=== PATIENT | male | born 1970 | race Two or more races ===

== ENCOUNTER 2018-07-10 11:51 | Emergency (ER) | payer MEDICAID ==
[~2018-07-10] VITALS: Ht 170.2 cm; Wt 79.5 kg
[2018-07-10] MEDS ORDERED: ondansetron/PF 4mg/2ml inj IV ONE (12:10)
[2018-07-10] MEDS ORDERED: normal saline 1000ML IV soln IVB ONE ×2 (12:10→13:30)
[2018-07-10] MEDS ORDERED: HYDROmorphone 1 mg/ml syringe IV ONE ×2 (12:15→13:30)
[2018-07-10 12:42] LABS: BASOPHILS # (AUTO) 0.1 X10'3 (0-0.2); BASOPHILS % (AUTO) 0.9 % (0-1); EOSINOPHILS # (AUTO) 0.2 X10'3 (0-0.9); EOSINOPHILS % (AUTO) 1.3 % (0-6); HEMATOCRIT 54.6 % (42.0-52.0); LYMPHOCYTES # (AUTO) 3.3 X10'3 (1.1-4.8); LYMPHOCYTES % (AUTO) 24.1 % (21-51); MEAN CORPUSCULAR HEMOGLOBIN 32.5 PG (27.0-31.0); MEAN CORPUSCULAR VOLUME 95.5 FL (78-98); MEAN PLATELET VOLUME 8.7 FL (7.4-10.4); MONOCYTES # (AUTO) 0.7 X10'3 (0-0.9); MONOCYTES % (AUTO) 5.1 % (2-12); NEUTROPHILS # (AUTO) 9.4 X10'3 (1.8-7.7); NEUTROPHILS % (AUTO) 68.6 % (42-75); PLATELET COUNT 299 X10'3 (140-440); RED BLOOD COUNT 5.71 X10'6 (4.70-6.10); RED CELL DISTRIBUTION WIDTH 12.5 % (11.5-14.5); WHITE BLOOD COUNT 13.6 X10'3 (4.5-11.0)
[2018-07-10 12:50] LABS: HEMOGLOBIN 18.6 g/dl (14.0-17.9)
[2018-07-10 12:52] LABS: ALANINE AMINOTRANSFERASE 30 U/L (12-78); ALBUMIN 4.6 G/DL (3.4-5.0); ALBUMIN/GLOBULIN RATIO 1.2 (1.1-1.5); ALKALINE PHOSPHATASE 96 IU/L (46-116); ANION GAP 17 (8-16); ASPARTATE AMINO TRANSFERASE 15 U/L (10-37); BILIRUBIN,TOTAL 1.1 MG/DL (0.1-1.0); BLOOD UREA NITROGEN 16 MG/DL (7-18); BUN/CREATININE RATIO 16.7 (5.4-32.0); CALCIUM 10.3 MG/DL (8.5-10.1); CHLORIDE 97 MMOL/L (99-107); CREATININE 0.96 MG/DL (0.60-1.10); GLUCOSE 376 MG/DL (70-104); LIPASE 82 U/L (73-393); POTASSIUM 4.1 MMOL/L (3.5-5.1); SODIUM 137 MMOL/L (135-145); TOTAL CARBON DIOXIDE 23.5 MMOL/L (24-32); TOTAL PROTEIN 8.3 G/DL (6.4-8.2); eGFR 84 ML/MIN
[2018-07-10] MEDS ORDERED: metoclopramide 5 mg/ml inj IV ONE (13:30)
[2018-07-10 14:21] LABS: CLARITY,URINE CLEAR (Clear); COLOR,URINE YELLOW (Yellow); GLUCOSE, URINE >=1000 mg/dl (Neg); KETONES,URINE >=80 mg/dl (Neg); LEUKOCYTE ESTERASE ,URINE NEGATIVE (Neg); NITRITES, URINE NEGATIVE (Neg); OCCULT BLOOD,URINE TRACE-INTACT (Neg); PROTEIN,URINE NEGATIVE (Neg); UA COLLECTION TYPE NON-SPECIFIED; UROBILINOGEN,URINE 0.2 E.U/dL (0.2-1.0)
[2018-07-10 14:30] LABS: BACTERIA,URINE NONE SEEN /HPF (Neg); MUCUS STRANDS NONE SEEN /LPF (Neg); RBC,URINE 0-2 /HPF (0-2); SQUAMOUS EPITHELIAL CELL,UR NONE SEEN /LPF (FEW); WBC,URINE NONE SEEN /HPF (0-4)
[2018-07-10 14:31] LABS: URINE AMPHETAMINE SCREEN NEGATIVE (Neg); URINE BARBITUATE SCREEN NEGATIVE (Neg); URINE BENZODIAZEPINES SCREEN NEGATIVE (Neg); URINE CANNABINOID SCREEN POSITIVE (Neg); URINE COCAINE SCREEN NEGATIVE (Neg); URINE METHADONE SCREEN NEGATIVE (Neg); URINE OPIATE SCREEN POSITIVE (Neg); URINE PHENCYCLIDINE SCREEN NEGATIVE (Neg)
[2018-07-10] MEDS ORDERED: insulin regular, human 10 units/0.1 ml syringe IV ONE (14:35)
[2018-07-10 15:40] VITALS: BP 120/70
== END 2018-07-10 15:42 | disposition home or self-care (01) ==
LOC: ER 11:51
DX: R11.2 Nausea with vomiting, unspecified (principal); R10.13 Epigastric pain; E11.65 Type 2 diabetes mellitus with hyperglycemia; F12.10 Cannabis abuse, uncomplicated; E11.43 Type 2 diabetes mellitus with diabetic autonomic (poly)neuropathy; K31.84 Gastroparesis; Z88.0 Allergy status to penicillin; Z88.8 Allergy status to other drugs, medicaments and biological substances
CPT/HCPCS: 36415; 71045; 74176; 80053; 80305; 81001; 82948; 83690; 85025; 85610; 96361; 96374; 96375; 96376; 99284; J1170; J1815; J2405; J2765; J7030

== ENCOUNTER 2018-08-08 13:37 | Emergency (ER) | payer MEDICAID ==
[~2018-08-08] VITALS: Ht 170.2 cm; Wt 76.8 kg
[2018-08-08 14:34] LABS: BASOPHILS # (AUTO) 0.1 X10'3 (0-0.2); BASOPHILS % (AUTO) 0.5 % (0-1); EOSINOPHILS % (AUTO) 0.2 % (0-6); HEMATOCRIT 53.6 % (42.0-52.0); HEMOGLOBIN 17.9 g/dl (14.0-17.9); LYMPHOCYTES # (AUTO) 2.5 X10'3 (1.1-4.8); LYMPHOCYTES % (AUTO) 21.8 % (21-51); MEAN CORPUSCULAR HEMOGLOBIN 32.3 PG (27.0-31.0); MEAN CORPUSCULAR HGB CONC 33.3 % (33.0-36.5); MEAN PLATELET VOLUME 8.9 FL (7.4-10.4); MONOCYTES # (AUTO) 0.5 X10'3 (0-0.9); MONOCYTES % (AUTO) 4.3 % (2-12); NEUTROPHILS # (AUTO) 8.4 X10'3 (1.8-7.7); NEUTROPHILS % (AUTO) 73.2 % (42-75); PLATELET COUNT 267 X10'3 (140-440); RED BLOOD COUNT 5.52 X10'6 (4.70-6.10); WHITE BLOOD COUNT 11.5 X10'3 (4.5-11.0)
[2018-08-08 14:49] LABS: ALANINE AMINOTRANSFERASE 27 U/L (12-78); ALBUMIN 4.6 G/DL (3.4-5.0); ALBUMIN/GLOBULIN RATIO 1.2 (1.1-1.5); ALKALINE PHOSPHATASE 97 IU/L (46-116); AMYLASE 28 U/L (25-115); ANION GAP 19 (8-16); ASPARTATE AMINO TRANSFERASE 8 U/L (10-37); BILIRUBIN,TOTAL 1.7 MG/DL (0.1-1.0); BLOOD UREA NITROGEN 15 MG/DL (7-18); BUN/CREATININE RATIO 16.3 (5.4-32.0); CALCIUM 9.7 MG/DL (8.5-10.1); CHLORIDE 94 MMOL/L (99-107); CREATININE 0.92 MG/DL (0.60-1.10); GLUCOSE 341 MG/DL (70-104); LIPASE 69 U/L (73-393); POTASSIUM 4.4 MMOL/L (3.5-5.1); SODIUM 134 MMOL/L (135-145); TOTAL CARBON DIOXIDE 21.4 MMOL/L (24-32); TOTAL PROTEIN 8.4 G/DL (6.4-8.2); eGFR 88 ML/MIN
[2018-08-08 14:51] LABS: PROTHROMBIN TIME 10.1 SECONDS (9.0-12.0)
[2018-08-08 14:59] LABS: CLARITY,URINE CLEAR (Clear); COLOR,URINE YELLOW (Yellow); PH,URINE 5.5 (4.8-8.0); PROTEIN,URINE NEGATIVE (Neg); UA COLLECTION TYPE CLN CATCH MIDSTREAM
[2018-08-08 15:00] LABS: GLUCOSE, URINE >=1000 mg/dl (Neg); KETONES,URINE >=80 mg/dl (Neg); LEUKOCYTE ESTERASE ,URINE NEGATIVE (Neg); NITRITES, URINE NEGATIVE (Neg); OCCULT BLOOD,URINE SMALL (Neg); UROBILINOGEN,URINE 0.2 E.U/dL (0.2-1.0)
[2018-08-08 15:07] LABS: WBC,URINE 0-4 /HPF (0-4)
[2018-08-08 15:08] LABS: BACTERIA,URINE NONE SEEN /HPF (Neg); MUCUS STRANDS FEW /LPF (Neg); SQUAMOUS EPITHELIAL CELL,UR NONE SEEN /LPF (FEW)
[2018-08-08] MEDS ORDERED: proCHLORperazine 10 MG/2 ml inj IV ONE (16:25)
[2018-08-08] MEDS ORDERED: morphine 4 MG/ML inj SYRINge IV PRN (16:25)
[2018-08-08] MEDS ORDERED: normal saline 1000ML IV soln IVB ONE ×2 (16:25)
[2018-08-08] MEDS ORDERED: LORazepam 2 mg/ml vial IV ONE (16:25)
[2018-08-08] MEDS ORDERED: morphine 4 MG/ML inj SYRINge IV ONE (16:25)
[2018-08-08] MEDS ORDERED: PROC-8 PO (17:39)
[2018-08-08 18:21] VITALS: BP 118/67
[2018-08-14] MEDS ORDERED: PANT-47 PO (02:13)
[2018-08-14] MEDS ORDERED: PHE25R PR (02:13)
[2018-08-14] MEDS ORDERED: METO-292 PO (03:55)
[2018-08-14] MEDS ORDERED: DOCU100C41 PO (03:58)
[2018-08-14] MEDS ORDERED: OMEP20TA5 PO (03:59)
[2018-08-14] MEDS ORDERED: LISI-642 PO (04:01)
[2018-08-14] MEDS ORDERED: ONDA4TAB6 PO (04:01)
[2018-08-14] MEDS ORDERED: LORA1TAB PO (04:02)
[2018-08-14] MEDS ORDERED: DULO20CA50 PO (04:03)
[2018-08-14] MEDS ORDERED: GABA600T2 PO (04:05)
[2018-08-14] MEDS ORDERED: SIMV10TA2 PO (04:05)
[2018-08-14] MEDS ORDERED: TERA1CAP4 PO (04:06)
[2018-08-14] MEDS ORDERED: INSU100V10 SQ (04:07)
[2018-08-14] MEDS ORDERED: LANTUS SQ (04:07)
[2018-08-15] MEDS ORDERED: NICO-687 TD (11:57)
[2018-08-15] MEDS ORDERED: HYDR-4383 PO (11:57)
== END 2018-08-08 18:23 | disposition home or self-care (01) ==
LOC: ER 13:37
DX: R10.13 Epigastric pain (principal); R10.33 Periumbilical pain; R11.2 Nausea with vomiting, unspecified; E78.00 Pure hypercholesterolemia, unspecified; I10 Essential (primary) hypertension; E11.9 Type 2 diabetes mellitus without complications; F12.90 Cannabis use, unspecified, uncomplicated; F17.200 Nicotine dependence, unspecified, uncomplicated; Z88.0 Allergy status to penicillin; Z88.8 Allergy status to other drugs, medicaments and biological substances
CPT/HCPCS: 36415; 71046; 80053; 81001; 82150; 82948; 83690; 85025; 85610; 96361; 96374; 96375; 96376; 99284; J0780; J2060; J2270; J7030

== ENCOUNTER 2018-08-10 11:40 | Emergency (ER) | payer MEDICAID ==
[~2018-08-10] VITALS: Ht 170.2 cm; Wt 79.5 kg
[~2018-08-10 11:40] MED LIST: PROC-8 PO
[2018-08-10] MEDS ORDERED: ketorolac trometh. 30mg/ml inj. IV ONE (12:05)
[2018-08-10] MEDS ORDERED: ondansetron/PF 4mg/2ml inj IV ONE (12:05)
[2018-08-10] MEDS ORDERED: normal saline 1000ML IV soln IVB ONE ×2 (12:05→12:30)
[2018-08-10 12:12] LABS: BASOPHILS # (AUTO) 0.1 X10'3 (0-0.2); BASOPHILS % (AUTO) 1.2 % (0-1); EOSINOPHILS # (AUTO) 0.1 X10'3 (0-0.9); EOSINOPHILS % (AUTO) 0.6 % (0-6); HEMATOCRIT 48.1 % (42.0-52.0); HEMOGLOBIN 16.2 g/dl (14.0-17.9); LYMPHOCYTES % (AUTO) 18.1 % (21-51); MEAN CORPUSCULAR HEMOGLOBIN 32.6 PG (27.0-31.0); MEAN CORPUSCULAR HGB CONC 33.7 % (33.0-36.5); MEAN PLATELET VOLUME 8.9 FL (7.4-10.4); MONOCYTES # (AUTO) 0.4 X10'3 (0-0.9); MONOCYTES % (AUTO) 3.2 % (2-12); NEUTROPHILS # (AUTO) 8.4 X10'3 (1.8-7.7); NEUTROPHILS % (AUTO) 76.9 % (42-75); PLATELET COUNT 241 X10'3 (140-440); RED BLOOD COUNT 4.96 X10'6 (4.70-6.10); RED CELL DISTRIBUTION WIDTH 12.1 % (11.5-14.5)
[2018-08-10 12:12] LABS: CLARITY,URINE CLEAR (Clear); COLOR,URINE YELLOW (Yellow); GLUCOSE, URINE >=1000 mg/dl (Neg); KETONES,URINE 40 mg/dl (Neg); LEUKOCYTE ESTERASE ,URINE NEGATIVE (Neg); NITRITES, URINE NEGATIVE (Neg); OCCULT BLOOD,URINE TRACE-INTACT (Neg); PH,URINE 8.5 (4.8-8.0); PROTEIN,URINE NEGATIVE (Neg); UROBILINOGEN,URINE 0.2 E.U/dL (0.2-1.0)
[2018-08-10 12:15] LABS: UA COLLECTION TYPE URINAL
[2018-08-10 12:23] LABS: MUCUS STRANDS NONE SEEN /LPF (Neg); SQUAMOUS EPITHELIAL CELL,UR FEW /LPF (FEW); WBC,URINE NONE SEEN /HPF (0-4)
[2018-08-10 12:24] LABS: BACTERIA,URINE NONE SEEN /HPF (Neg); RBC,URINE 0-2 /HPF (0-2); URINE AMPHETAMINE SCREEN NEGATIVE (Neg); URINE BARBITUATE SCREEN NEGATIVE (Neg); URINE BENZODIAZEPINES SCREEN NEGATIVE (Neg); URINE CANNABINOID SCREEN POSITIVE (Neg); URINE COCAINE SCREEN NEGATIVE (Neg); URINE METHADONE SCREEN NEGATIVE (Neg); URINE OPIATE SCREEN NEGATIVE (Neg); URINE PHENCYCLIDINE SCREEN NEGATIVE (Neg)
[2018-08-10 12:24] LABS: ALANINE AMINOTRANSFERASE 26 U/L (12-78); ALBUMIN/GLOBULIN RATIO 1.3 (1.1-1.5); ALKALINE PHOSPHATASE 78 IU/L (46-116); ANION GAP 16 (8-16); ASPARTATE AMINO TRANSFERASE 10 U/L (10-37); BILIRUBIN,TOTAL 0.9 MG/DL (0.1-1.0); BLOOD UREA NITROGEN 14 MG/DL (7-18); BUN/CREATININE RATIO 17.7 (5.4-32.0); CALCIUM 9.3 MG/DL (8.5-10.1); CHLORIDE 101 MMOL/L (99-107); CREATININE 0.79 MG/DL (0.60-1.10); GLUCOSE 363 MG/DL (70-104); LIPASE 80 U/L (73-393); POTASSIUM 3.5 MMOL/L (3.5-5.1); SODIUM 138 MMOL/L (135-145); TOTAL CARBON DIOXIDE 21.5 MMOL/L (24-32); TOTAL PROTEIN 7.2 G/DL (6.4-8.2); eGFR > 90 ML/MIN
[2018-08-10] MEDS ORDERED: LORazepam 2 mg/ml vial IV ONE (12:25)
[2018-08-10] MEDS ORDERED: haloperidol lactate 5mg/ml inj IM ONE (12:25)
[2018-08-10] MEDS ORDERED: HYDR-3965 PO (13:22)
[2018-08-10] MEDS ORDERED: METO10TA3 PO (13:22)
--- NOTE | 2018-08-10 14:17 | NUR ---
relieving RN for lunch, Dr Cervantes at bedside to talk with pt and family member
[2018-08-10 14:22] VITALS: BP 156/96
[2018-08-14] MEDS ORDERED: PHE25R PR (02:13)
[2018-08-14] MEDS ORDERED: PANT-47 PO (02:13)
[2018-08-14] MEDS ORDERED: METO-292 PO (03:55)
[2018-08-14] MEDS ORDERED: DOCU100C41 PO (03:58)
[2018-08-14] MEDS ORDERED: OMEP20TA5 PO (03:59)
[2018-08-14] MEDS ORDERED: LISI-642 PO (04:01)
[2018-08-14] MEDS ORDERED: ONDA4TAB6 PO (04:01)
[2018-08-14] MEDS ORDERED: LORA1TAB PO (04:02)
[2018-08-14] MEDS ORDERED: DULO20CA50 PO (04:03)
[2018-08-14] MEDS ORDERED: GABA600T2 PO (04:05)
[2018-08-14] MEDS ORDERED: SIMV10TA2 PO (04:05)
[2018-08-14] MEDS ORDERED: TERA1CAP4 PO (04:06)
[2018-08-14] MEDS ORDERED: INSU100V10 SQ (04:07)
[2018-08-14] MEDS ORDERED: LANTUS SQ (04:07)
== END 2018-08-10 14:25 | disposition home or self-care (01) ==
LOC: ER 11:41
DX: G43.A0 Cyclical vomiting, in migraine, not intractable (principal); R10.32 Left lower quadrant pain; R10.31 Right lower quadrant pain; F12.90 Cannabis use, unspecified, uncomplicated; E78.00 Pure hypercholesterolemia, unspecified; I10 Essential (primary) hypertension; E11.9 Type 2 diabetes mellitus without complications; F17.200 Nicotine dependence, unspecified, uncomplicated; Z88.0 Allergy status to penicillin; Z88.8 Allergy status to other drugs, medicaments and biological substances
CPT/HCPCS: 36415; 74176; 80053; 80305; 81001; 83690; 83930; 85025; 96361; 96372; 96374; 96375; 99284; J1630; J1885; J2060; J2405; J7030

== ENCOUNTER 2018-08-12 09:17 | Emergency (ER) | payer MEDICAID ==
[~2018-08-12] VITALS: Ht 170.2 cm; Wt 175.0 kg
[~2018-08-12 09:17] MED LIST changes: +HYDR-3965 PO; +METO10TA3 PO
[2018-08-12] MEDS ORDERED: LORazepam 2 mg/ml vial IV ONE (09:40)
[2018-08-12] MEDS ORDERED: normal saline 1000ML IV soln IVB ONE (09:40)
[2018-08-12 10:16] LABS: BASOPHILS % (AUTO) 0.4 % (0-1); EOSINOPHILS % (AUTO) 0 % (0-6); HEMATOCRIT 49.7 % (42.0-52.0); HEMOGLOBIN 16.8 g/dl (14.0-17.9); LYMPHOCYTES # (AUTO) 1.6 X10'3 (1.1-4.8); MEAN CORPUSCULAR HEMOGLOBIN 32.7 PG (27.0-31.0); MEAN CORPUSCULAR HGB CONC 33.7 % (33.0-36.5); MEAN CORPUSCULAR VOLUME 96.9 FL (78-98); MEAN PLATELET VOLUME 9.1 FL (7.4-10.4); MONOCYTES # (AUTO) 0.3 X10'3 (0-0.9); MONOCYTES % (AUTO) 2.6 % (2-12); NEUTROPHILS # (AUTO) 10.2 X10'3 (1.8-7.7); PLATELET COUNT 264 X10'3 (140-440); RED BLOOD COUNT 5.13 X10'6 (4.70-6.10); RED CELL DISTRIBUTION WIDTH 11.9 % (11.5-14.5); WHITE BLOOD COUNT 12.1 X10'3 (4.5-11.0)
[2018-08-12] MEDS ORDERED: ketorolac trometh. 30mg/ml inj. IV ONE (10:20)
--- NOTE | 2018-08-12 10:31 | NUR ---
PT C/O SEVERE BACK PAIN. DR FARR NOTIFIED AND MEDICATION ORDERED. PT NOTED TO BE SLEEPING AT TIME OF TORADOL ADMNISTERED.
[2018-08-12 11:06] LABS: ALANINE AMINOTRANSFERASE 30 U/L (12-78); ALBUMIN 3.9 G/DL (3.4-5.0); ALBUMIN/GLOBULIN RATIO 1.3 (1.1-1.5); ALKALINE PHOSPHATASE 75 IU/L (46-116); ANION GAP 15 (8-16); ASPARTATE AMINO TRANSFERASE 14 U/L (10-37); BILIRUBIN,TOTAL 1.1 MG/DL (0.1-1.0); BLOOD UREA NITROGEN 13 MG/DL (7-18); CALCIUM 8.7 MG/DL (8.5-10.1); CHLORIDE 102 MMOL/L (99-107); CREATININE 0.93 MG/DL (0.60-1.10); GLUCOSE 362 MG/DL (70-104); LIPASE 81 U/L (73-393); POTASSIUM 3.6 MMOL/L (3.5-5.1); SODIUM 141 MMOL/L (135-145); TOTAL CARBON DIOXIDE 24.1 MMOL/L (24-32); eGFR 87 ML/MIN
--- NOTE | 2018-08-12 11:26 | NUR ---
DR FARR NOTIFIED THAT PT WAS ASLEEP WHEN GIVEN TORADOL. PT HAS SINCE WOKEN UP AND C/O PAIN OF 8-04/20. DR FARR NOTIFIED, NO NEW ORDERS RECEIVED
[2018-08-12] MEDS ORDERED: morphine 2 MG/ML inj. syringe IV ONE (11:30)
[2018-08-12 11:37] LABS: CLARITY,URINE CLEAR (Clear); COLOR,URINE STRAW (Yellow); GLUCOSE, URINE >=1000 mg/dl (Neg); KETONES,URINE 40 mg/dl (Neg); LEUKOCYTE ESTERASE ,URINE NEGATIVE (Neg); NITRITES, URINE NEGATIVE (Neg); OCCULT BLOOD,URINE TRACE-LYSED (Neg); PH,URINE 8.5 (4.8-8.0); PROTEIN,URINE NEGATIVE (Neg); UROBILINOGEN,URINE 0.2 E.U/dL (0.2-1.0)
[2018-08-12 11:40] LABS: UA COLLECTION TYPE NON-SPECIFIED
[2018-08-12] MEDS ORDERED: insulin regular, human 10 units/0.1 ml syringe IV ONE (11:50)
[2018-08-12 11:54] LABS: BACTERIA,URINE FEW /HPF (Neg); SQUAMOUS EPITHELIAL CELL,UR FEW /LPF (FEW); WBC,URINE 0-4 /HPF (0-4)
[2018-08-12] MEDS ORDERED: ondansetron/PF 4mg/2ml inj IV ONE (11:55)
[2018-08-12] MEDS ORDERED: METO5TAB98 PO (11:58)
[2018-08-12] MEDS ORDERED: morphine 4 MG/ML inj SYRINge IV ONE ×2 (12:20→12:25)
--- NOTE | 2018-08-12 12:38 | NUR ---
PATIENTS ANSWERS QUESTIONS FOR HIM. PER HIS HIS BLOOD SUGAR IS "OUT OF CONTROL", VERY EVASIVE WHEN ASKED ABOUT HOW OFTEN HER HER CHECKS HIS BLOOD SUGAR: FINALLY SAID THAT "WHEN HE WANTS TO". PATIENT'S STATES THAT HE RUNS IN THE 400'S AND DOES NOT FOLLOW A DIABETIC DIET. DISCUSSED WITH THAT THE PATIENT NEEDS TO TRY TO GET HIS BLOOD SUGAR UNDER CONTROL TO HELP WITH HIS CURRENT SYMPTOMS OF NAUSEA AND VOMITING AND STOMACH PAIN. PER HIS THE LAST TIME HIS SUGAR WAS UNDER CONTROL WAS 4 YEARS AGO. ADMITS THAT PATIENT STOPPED BEING COMPLIANT WITH HIS DIABETES REGIME BECAUSE HE "WAS TIRED OF IT" WE DISCUSSED THE FACT THAT HER HAS TO HELP CONTROL HIS BLOOD SUGAR IN ORDER TO IMPROVE HIS CURRENT AND ONGOING SYMPTOMS. DR LEIJA AND I BOTH DISCUSSED STOPPING THE USE OF MARIJUANA DUE TO POTENTIAL CYCLICAL VOMITING SYNDROME. AGREES THAT HE NEEDS HIS SUGAR UNDER CONTROL.
--- NOTE | 2018-08-12 13:10 | NUR ---
WHEN I BROUGHT DISCHARGE PAPERS INTO THE ROOM , THE PATIENT'S ASKED IF THE BLUE PAPERS WERE FOR HIM. WHEN I STATED YES, THE PATIENT'S ASKED AND POINTED TO THE PATIENT'S STOMACH "WILL IT CAUSE THAT?" IASKED CAUSE WHAT? SHE POINTED TO THE AORTIC PULSATION IN HIS UPPER ABDOMEN, I EXPLAINED THE BASIC ANATOMY OF HEART AND AORTA AND STATED THAT THAT IS HIS HEARTBEAT. THEN HIS ASKED ABOUT THE BONE STICKING OUT OF HIS CHEST. I TOLD HER THAT IS THE BASE OF HIS STERNUM AND IT IS A NORMAL BONE. THE PATIENT SAID "I HAVE NEVER SEENTHAT BEFORE". I REASSURED HER THAT HIS STERNUM APPEARS NORMAL. NO BRUITS/THRILL OVER ABDOMEN. PATIENTS SAID " I GUESS ILL JUST BRING HIM BACK TO THE ER IF THIS HAPPENS AGAIN." I DISCUSSED AGAIN THE NEED FOR PRIMARY CARE FOLLOW UP AND FOR GETTING HIS BLOOD SUGAR UNDER CONTROL AND THAT STOPPING SMOKING MARIJUANA MAY HELP HIS SYMPTOMS IMPROVE
[2018-08-12 13:21] VITALS: BP 139/69
[2018-08-14] MEDS ORDERED: PHE25R PR (02:13)
[2018-08-14] MEDS ORDERED: PANT-47 PO (02:13)
[2018-08-14] MEDS ORDERED: METO-292 PO (03:55)
[2018-08-14] MEDS ORDERED: DOCU100C41 PO (03:58)
[2018-08-14] MEDS ORDERED: OMEP20TA5 PO (03:59)
[2018-08-14] MEDS ORDERED: ONDA4TAB6 PO (04:01)
[2018-08-14] MEDS ORDERED: LISI-642 PO (04:01)
[2018-08-14] MEDS ORDERED: LORA1TAB PO (04:02)
[2018-08-14] MEDS ORDERED: DULO20CA50 PO (04:03)
[2018-08-14] MEDS ORDERED: SIMV10TA2 PO (04:05)
[2018-08-14] MEDS ORDERED: GABA600T2 PO (04:05)
[2018-08-14] MEDS ORDERED: TERA1CAP4 PO (04:06)
[2018-08-14] MEDS ORDERED: INSU100V10 SQ (04:07)
[2018-08-14] MEDS ORDERED: LANTUS SQ (04:07)
[2018-08-15] MEDS ORDERED: NICO-687 TD (11:57)
[2018-08-15] MEDS ORDERED: HYDR-4383 PO (11:57)
== END 2018-08-12 13:25 | disposition home or self-care (01) ==
LOC: ER 09:17
DX: G43.A0 Cyclical vomiting, in migraine, not intractable (principal); E78.00 Pure hypercholesterolemia, unspecified; I10 Essential (primary) hypertension; E11.9 Type 2 diabetes mellitus without complications; F12.90 Cannabis use, unspecified, uncomplicated; Z88.0 Allergy status to penicillin; Z88.5 Allergy status to narcotic agent; Z88.8 Allergy status to other drugs, medicaments and biological substances; Z79.899 Other long term (current) drug therapy
CPT/HCPCS: 36415; 80053; 81001; 82140; 82948; 83690; 85025; 96361; 96374; 96375; 99283; J1815; J1885; J2060; J2270; J2405; J7030; 99284

== ENCOUNTER 2018-08-13 21:47 | Inpatient (IN) | payer MEDICAID | END 2018-08-15 12:48 | disposition home or self-care (01) | LOC: ER 21:47 → ED HOLD 08-14 03:10 → SUR 3N 08-14 07:36 ==

== ENCOUNTER 2018-09-23 15:25 | Emergency (ER) | payer MEDICAID ==
[~2018-09-23] VITALS: Ht 177.8 cm; Wt 77.3 kg
[~2018-09-23 15:25] MED LIST changes: +DOCU100C41 PO; +DULO20CA50 PO; +GABA600T13 PO; -HYDR-3965 PO; +HYDR-4383 PO; +INSU100V10 SQ; +LANTUS SQ; +LISI-642 PO; +LORA1TAB PO; +METO-292 PO; -METO10TA3 PO; +NICO-687 TD; +OMEP20TA5 PO; +ONDA4TAB6 PO; -PROC-8 PO; +SIMV10TA2 PO; +TERA1CAP4 PO
[2018-09-23] MEDS ORDERED: normal saline 1000ML IV soln IVB ONE (16:10)
[2018-09-23] MEDS ORDERED: LORazepam 2 mg/ml vial IV ONE (16:10)
[2018-09-23] MEDS ORDERED: proCHLORperazine 10 MG/2 ml inj IV ONE (16:10)
[2018-09-23 16:43] LABS: BASOPHILS % (AUTO) 0.4 % (0-1); EOSINOPHILS % (AUTO) 0 % (0-6); HEMATOCRIT 50.9 % (42.0-52.0); HEMOGLOBIN 17.7 g/dl (14.0-17.9); LYMPHOCYTES # (AUTO) 1.8 X10'3 (1.1-4.8); LYMPHOCYTES % (AUTO) 15.9 % (21-51); MEAN CORPUSCULAR HEMOGLOBIN 33.3 PG (27.0-31.0); MEAN CORPUSCULAR HGB CONC 34.9 g/dL (33.0-36.5); MEAN CORPUSCULAR VOLUME 95.5 FL (78-98); MEAN PLATELET VOLUME 8.5 FL (7.4-10.4); MONOCYTES # (AUTO) 0.3 X10'3 (0-0.9); NEUTROPHILS % (AUTO) 80.7 % (42-75); PLATELET COUNT 251 X10'3 (140-440); RED BLOOD COUNT 5.33 X10'6 (4.70-6.10); RED CELL DISTRIBUTION WIDTH 13.2 % (11.5-14.5); WHITE BLOOD COUNT 11.2 X10'3 (4.5-11.0)
[2018-09-23 16:58] LABS: ALANINE AMINOTRANSFERASE 24 U/L (12-78); ALBUMIN 4.3 G/DL (3.4-5.0); ALBUMIN/GLOBULIN RATIO 1.2 (1.1-1.5); ALKALINE PHOSPHATASE 85 IU/L (46-116); ANION GAP 19 (8-16); ASPARTATE AMINO TRANSFERASE 11 U/L (10-37); BILIRUBIN,TOTAL 1.2 MG/DL (0.1-1.0); BLOOD UREA NITROGEN 15 MG/DL (7-18); BUN/CREATININE RATIO 14.2 (5.4-32.0); CALCIUM 9.6 MG/DL (8.5-10.1); CHLORIDE 99 MMOL/L (99-107); CREATININE 1.06 MG/DL (0.60-1.10); GLUCOSE 340 MG/DL (70-104); LIPASE 56 U/L (73-393); POTASSIUM 3.5 MMOL/L (3.5-5.1); SODIUM 139 MMOL/L (135-145); TOTAL CARBON DIOXIDE 21.2 MMOL/L (24-32); TOTAL PROTEIN 7.9 G/DL (6.4-8.2); eGFR 74 ML/MIN
[2018-09-23] MEDS ORDERED: PROC25SU31 RC (17:08)
[2018-09-23] MEDS ORDERED: proCHLORperazine 10 MG/2 ml inj IV PRN (17:10)
--- NOTE | 2018-09-23 18:08 | NUR ---
Patients IV infiltrated, spoke with Stuart NUNEZ regarding this. Patients IV discontinued and PA states not to finish remainder of fluids. Patient ok to discharge. Patients IV site has slight swelling and cold to the touch at insertion site. Warm compress over left hand.
--- NOTE | 2018-09-23 18:39 | NUR ---
pt is dc ready. I went to the room to discharge him and he reported he is having 8-9 out of 10 pain to his left back. This is where he has been having pain all along. His appears very angry and said "What...diacharge...he can't be discharged like this". I updated her that I just received report from day shift RN who told me she just checked on him and he had just woken up from a nap and reported he felt better. I said i would update the Provider. Roxanna Horn, has left the department for a while and Dr. Florian is covering for him until he returns. I updated him and he will be in to see the Pt shortly. Pt and , Caterina, and son, updated of this. reports they have been dealing with this same problem for awhile and that they have been to ER 5 times in the past month and once he was admitted. She reports she is very upset about this and that no one has been able to figure out why this is going on. She did appoligize for getting so angry with me initially. Pt with stable vs.
--- NOTE | 2018-09-23 18:50 | NUR ---
TALKING WITH PT NOW AND PLAN TO GIVE IM FENTANYL, CHECK BLOOD SUGAR AND GIVE AN ORAL ANTIEMETIC. CURRENTLY MED WAIT.
[2018-09-23] MEDS ORDERED: metoclopramide 10mg tablet PO ONE (18:55)
[2018-09-23] MEDS ORDERED: fentaNYL/PF 50MCG/1 ML 2ML syringe IM ONE (18:55)
--- NOTE | 2018-09-23 19:33 | NUR ---
BLOOD SUGAR 278, REPORTS PT S SUGARS RUN IN THE LOW 200'S USUALLY. GIVEN FENTANYL 75 MCG AND REGLAN TABLET. PT REPROTS THE PAIN IS STARTING TO GO AWAY TO HIS LEFT FLANK BUT THAT THE SITE WHERE I INJECTED HIM ON HIS LEFT GLUT IS PAINFUL AFTER THE SHOT. , EMERITA, REPORTS SHE WILL NOT LET THE PT LEAVE THIS ER UNTIL HE IS COMFORTABLE.
[2018-09-23] MEDS ORDERED: insulin regular, human 10 units/0.1 ml syringe SQ ONE (19:40)
--- NOTE | 2018-09-23 20:06 | NUR ---
ENRIQUE GLASER, TALKINIG WITH PT AND HIS ABOUT DC AND THAT HE HAS NOTHING EMERGENT AT THIS POINT TO KEEP HIM HERE IN THE HOSPITAL. REMAINS VERY UPSET. FISHING GAME WARDEN, KESHIA, AWARE. PT GIVEN HUMALIN 10 U SQ.
[2018-09-23 20:11] VITALS: BP 130/80
--- NOTE | 2018-09-23 20:30 | NUR ---
PT GIVEN DC INSTRUCTIONS, REPORTS AFTER TALKING AT LENGTH WITH Roxanna PINA, THAT "I DON'T KNOW WHAT ELSE TO DO" . PT REPORTS "THEY HAVENT DONE ANYTHING TO HELP ME AND THEY WONT SO I WANT TO GO HOME". I ENCOURAGED TO CALL OUR PATIENT RELATIONS DEPARTMENT IN THE AM AND SHE REPORTS SHE HAS BEEN INTOUCH WITH THEM FROM PRIOR VISITS.
== END 2018-09-23 22:00 | disposition home or self-care (01) ==
LOC: ER 15:26
DX: G43.A0 Cyclical vomiting, in migraine, not intractable (principal); F12.188 Cannabis abuse with other cannabis-induced disorder; E78.00 Pure hypercholesterolemia, unspecified; I10 Essential (primary) hypertension; E11.9 Type 2 diabetes mellitus without complications; Z79.4 Long term (current) use of insulin; Z79.899 Other long term (current) drug therapy; Z88.0 Allergy status to penicillin; Z88.8 Allergy status to other drugs, medicaments and biological substances; Z88.6 Allergy status to analgesic agent; Z87.19 Personal history of other diseases of the digestive system
CPT/HCPCS: 36415; 80053; 82948; 83690; 85025; 96361; 96372; 96374; 96375; 99284; J0780; J1815; J2060; J3010; J7030; J8597

== ENCOUNTER 2018-10-15 07:23 | Emergency (ER) | payer MEDICAID ==
[~2018-10-15] VITALS: Ht 170.2 cm; Wt 81.8 kg
[~2018-10-15 07:23] MED LIST changes: +PROC25SU31 RC
[2018-10-15] MEDS ORDERED: normal saline 1000ML IV soln IVB ONE (07:40)
[2018-10-15] MEDS ORDERED: diphenhydrAMINE 50 mg/ml inj IV ONE (07:40)
[2018-10-15] MEDS ORDERED: LORazepam 2 mg/ml vial IV ONE (07:40)
[2018-10-15] MEDS ORDERED: proCHLORperazine 10 MG/2 ml inj IV ONE (07:40)
[2018-10-15] MEDS ORDERED: ondansetron/PF 4mg/2ml inj IV ONE (07:40)
[2018-10-15 08:13] LABS: BASOPHILS # (AUTO) 0.1 X10'3 (0-0.2); BASOPHILS % (AUTO) 0.7 % (0-1); EOSINOPHILS # (AUTO) 0.1 X10'3 (0-0.9); EOSINOPHILS % (AUTO) 0.7 % (0-6); HEMATOCRIT 48.7 % (42.0-52.0); HEMOGLOBIN 16.8 g/dl (14.0-17.9); LYMPHOCYTES # (AUTO) 2.9 X10'3 (1.1-4.8); LYMPHOCYTES % (AUTO) 32.7 % (21-51); MEAN CORPUSCULAR HEMOGLOBIN 32.7 PG (27.0-31.0); MEAN CORPUSCULAR HGB CONC 34.5 g/dL (33.0-36.5); MEAN CORPUSCULAR VOLUME 94.8 FL (78-98); MEAN PLATELET VOLUME 8.6 FL (7.4-10.4); MONOCYTES # (AUTO) 0.5 X10'3 (0-0.9); MONOCYTES % (AUTO) 5.4 % (2-12); NEUTROPHILS # (AUTO) 5.4 X10'3 (1.8-7.7); NEUTROPHILS % (AUTO) 60.5 % (42-75); PLATELET COUNT 257 X10'3 (140-440); RED BLOOD COUNT 5.14 X10'6 (4.70-6.10); RED CELL DISTRIBUTION WIDTH 12.9 % (11.5-14.5); WHITE BLOOD COUNT 8.9 X10'3 (4.5-11.0)
[2018-10-15 08:25] LABS: ALANINE AMINOTRANSFERASE 39 U/L (12-78); ALBUMIN 4.4 G/DL (3.4-5.0); ALBUMIN/GLOBULIN RATIO 1.3 (1.1-1.5); ALKALINE PHOSPHATASE 81 IU/L (46-116); ANION GAP 13 (8-16); ASPARTATE AMINO TRANSFERASE 17 U/L (10-37); BILIRUBIN,TOTAL 1.5 MG/DL (0.1-1.0); BLOOD UREA NITROGEN 13 MG/DL (7-18); BUN/CREATININE RATIO 12.3 (5.4-32.0); CALCIUM 9.9 MG/DL (8.5-10.1); CHLORIDE 103 MMOL/L (99-107); CREATININE 1.06 MG/DL (0.60-1.10); GLUCOSE 270 MG/DL (70-104); LIPASE 55 U/L (73-393); POTASSIUM 3.4 MMOL/L (3.5-5.1); SODIUM 141 MMOL/L (135-145); TOTAL PROTEIN 7.7 G/DL (6.4-8.2); eGFR 74 ML/MIN
[2018-10-15] MEDS ORDERED: KETAMINE IV ONE (09:05)
[2018-10-15] MEDS ORDERED: MIDAZolam 5mg/ml 2ml vial IV ONE (09:05)
[2018-10-15] MEDS ORDERED: NORMAL SALINE IV ONE (09:05)
--- NOTE | 2018-10-15 09:06 | NUR ---
PT VOMITED 200 ML REPORTS DUE TO PAIN. PAIN 04/20. DOCTOR NOTIFIED. ORDERS TO FOLLOW
[2018-10-15] MEDS ORDERED: ketorolac trometh. 30mg/ml inj. IV ONE (10:35)
[2018-10-15 11:30] VITALS: BP 119/80
== END 2018-10-15 11:31 | disposition home or self-care (01) ==
LOC: ER 07:24
DX: G43.A0 Cyclical vomiting, in migraine, not intractable (principal); F12.90 Cannabis use, unspecified, uncomplicated; E78.00 Pure hypercholesterolemia, unspecified; I10 Essential (primary) hypertension; E11.9 Type 2 diabetes mellitus without complications; Z88.8 Allergy status to other drugs, medicaments and biological substances; Z88.0 Allergy status to penicillin; Z79.4 Long term (current) use of insulin; Z79.899 Other long term (current) drug therapy
CPT/HCPCS: 36415; 80053; 83690; 85025; 96361; 96374; 96375; 99283; J0780; J1200; J1885; J2060; J2250; J2405; J7030

== ENCOUNTER 2018-11-16 12:25 | Emergency (ER) | payer MEDICAID ==
[~2018-11-16] VITALS: Ht 170.2 cm; Wt 78.0 kg
[~2018-11-16 12:25] MED LIST changes: -PROC25SU31 RC
[2018-11-16] MEDS ORDERED: normal saline 1000ML IV soln IVB ONE (12:50)
[2018-11-16] MEDS ORDERED: ondansetron/PF 4mg/2ml inj IV ONE (12:50)
[2018-11-16] MEDS ORDERED: haloperidol lactate 5mg/ml inj IM ONE (12:50)
[2018-11-16] MEDS ORDERED: LORazepam 2 mg/ml vial IV ONE ×2 (12:50→16:55)
[2018-11-16] MEDS ORDERED: diphenhydrAMINE 50 mg/ml inj IV ONE ×2 (12:50→16:55)
--- NOTE | 2018-11-16 12:53 | NUR ---
patient admits to smoking marijuana within the last week
[2018-11-16 13:20] LABS: BASOPHILS # (AUTO) 0.1 X10'3 (0-0.2); BASOPHILS % (AUTO) 0.9 % (0-1); EOSINOPHILS # (AUTO) 0.1 X10'3 (0-0.9); EOSINOPHILS % (AUTO) 0.7 % (0-6); HEMATOCRIT 48.9 % (42.0-52.0); LYMPHOCYTES # (AUTO) 3.8 X10'3 (1.1-4.8); LYMPHOCYTES % (AUTO) 33.4 % (21-51); MEAN CORPUSCULAR HGB CONC 34.7 g/dL (33.0-36.5); MEAN PLATELET VOLUME 8.4 FL (7.4-10.4); MONOCYTES # (AUTO) 0.6 X10'3 (0-0.9); MONOCYTES % (AUTO) 5.6 % (2-12); NEUTROPHILS # (AUTO) 6.7 X10'3 (1.8-7.7); NEUTROPHILS % (AUTO) 59.4 % (42-75); PLATELET COUNT 281 X10'3 (140-440); RED BLOOD COUNT 5.15 X10'6 (4.70-6.10); RED CELL DISTRIBUTION WIDTH 13.1 % (11.5-14.5); WHITE BLOOD COUNT 11.3 X10'3 (4.5-11.0)
[2018-11-16 13:32] LABS: ALANINE AMINOTRANSFERASE 20 U/L (12-78); ALBUMIN 4.4 G/DL (3.4-5.0); ALBUMIN/GLOBULIN RATIO 1.3 (1.1-1.5); ALKALINE PHOSPHATASE 85 IU/L (46-116); ANION GAP 10 (8-16); ASPARTATE AMINO TRANSFERASE 6 U/L (10-37); BILIRUBIN,TOTAL 1.1 MG/DL (0.1-1.0); BLOOD UREA NITROGEN 18 MG/DL (7-18); BUN/CREATININE RATIO 18.9 (5.4-32.0); CHLORIDE 102 MMOL/L (99-107); CREATININE 0.95 MG/DL (0.60-1.10); GLUCOSE 255 MG/DL (70-104); LIPASE 69 U/L (73-393); POTASSIUM 4.9 MMOL/L (3.5-5.1); SODIUM 139 MMOL/L (135-145); TOTAL CARBON DIOXIDE 27.2 MMOL/L (24-32); TOTAL PROTEIN 7.9 G/DL (6.4-8.2); eGFR 84 ML/MIN
--- NOTE | 2018-11-16 15:55 | NUR ---
pt was offered ativan and benadryl for cyclical vomiting, pt refused stating that "last time you guys gave me shots you almost killed me." Dr Mustafa consulted with pt, pt angry that pain medication is not being prescribed.
[2018-11-16] MEDS ORDERED: ketorolac trometh. 30mg/ml inj. IV ONE (18:15)
[2018-11-16] MEDS ORDERED: proCHLORperazine 10 MG/2 ml inj IV ONE (18:15)
[2018-11-16] MEDS ORDERED: LIDOcaine Viscous 15ml cup PO ONE (19:00)
[2018-11-16] MEDS ORDERED: mag hydrox/Alum hydrox/simeth 30ml oral suspension PO ONE (19:00)
[2018-11-16 20:06] VITALS: BP 132/76
== END 2018-11-16 20:08 | disposition home or self-care (01) ==
LOC: ER 12:25
DX: G43.A0 Cyclical vomiting, in migraine, not intractable (principal); R10.84 Generalized abdominal pain; E78.00 Pure hypercholesterolemia, unspecified; I10 Essential (primary) hypertension; E11.9 Type 2 diabetes mellitus without complications; F12.90 Cannabis use, unspecified, uncomplicated; Z88.0 Allergy status to penicillin; Z88.8 Allergy status to other drugs, medicaments and biological substances; Z79.4 Long term (current) use of insulin; Z79.899 Other long term (current) drug therapy
CPT/HCPCS: 36415; 80053; 83690; 85025; 96361; 96374; 96375; 99284; J0780; J1200; J1630; J1885; J2060; J2405; J7030

== ENCOUNTER 2018-11-19 05:28 | Emergency (ER) | payer MEDICAID ==
[~2018-11-19] VITALS: Ht 170.2 cm; Wt 63.5 kg
[2018-11-19 05:58] LABS: BASOPHILS # (AUTO) 0.1 X10'3 (0-0.2); BASOPHILS % (AUTO) 1.2 % (0-1); CLARITY,URINE CLEAR (Clear); COLOR,URINE YELLOW (Yellow); EOSINOPHILS # (AUTO) 0.1 X10'3 (0-0.9); EOSINOPHILS % (AUTO) 0.6 % (0-6); GLUCOSE, URINE >=1000 mg/dl (Neg); HEMATOCRIT 43.8 % (42.0-52.0); HEMOGLOBIN 15.6 g/dl (14.0-17.9); KETONES,URINE NEGATIVE (Neg); LEUKOCYTE ESTERASE ,URINE NEGATIVE (Neg); LYMPHOCYTES # (AUTO) 2.8 X10'3 (1.1-4.8); LYMPHOCYTES % (AUTO) 25.6 % (21-51); MEAN CORPUSCULAR HEMOGLOBIN 33.4 PG (27.0-31.0); MEAN CORPUSCULAR HGB CONC 35.5 g/dL (33.0-36.5); MEAN CORPUSCULAR VOLUME 94.1 FL (78-98); MEAN PLATELET VOLUME 8.6 FL (7.4-10.4); MONOCYTES # (AUTO) 0.6 X10'3 (0-0.9); MONOCYTES % (AUTO) 5.4 % (2-12); NEUTROPHILS # (AUTO) 7.3 X10'3 (1.8-7.7); NEUTROPHILS % (AUTO) 67.2 % (42-75); NITRITES, URINE NEGATIVE (Neg); OCCULT BLOOD,URINE TRACE-INTACT (Neg); PLATELET COUNT 243 X10'3 (140-440); PROTEIN,URINE NEGATIVE (Neg); RED BLOOD COUNT 4.65 X10'6 (4.70-6.10); RED CELL DISTRIBUTION WIDTH 12.9 % (11.5-14.5); UROBILINOGEN,URINE 0.2 E.U/dL (0.2-1.0); WHITE BLOOD COUNT 10.9 X10'3 (4.5-11.0)
[2018-11-19 05:59] LABS: UA COLLECTION TYPE CLN CATCH MIDSTREAM
[2018-11-19] MEDS ORDERED: proCHLORperazine 10 MG/2 ml inj IV ONE (06:00)
[2018-11-19] MEDS ORDERED: LORazepam 2 mg/ml vial IV ONE (06:00)
[2018-11-19] MEDS ORDERED: normal saline 1000ML IV soln IVB ONE (06:00)
[2018-11-19] MEDS ORDERED: morphine 4 MG/ML inj SYRINge IV ONE (06:00)
[2018-11-19 06:04] LABS: BACTERIA,URINE NONE SEEN /HPF (Neg); MUCUS STRANDS NONE SEEN /LPF (Neg); SQUAMOUS EPITHELIAL CELL,UR NONE SEEN /LPF (FEW); WBC,URINE NONE SEEN /HPF (0-4)
[2018-11-19 06:11] LABS: PROTHROMBIN TIME 9.8 SECONDS (9.0-12.0)
[2018-11-19 06:13] LABS: ALANINE AMINOTRANSFERASE 21 U/L (12-78); ALBUMIN 4.1 G/DL (3.4-5.0); ALBUMIN/GLOBULIN RATIO 1.3 (1.1-1.5); ALKALINE PHOSPHATASE 76 IU/L (46-116); ANION GAP 9 (8-16); ASPARTATE AMINO TRANSFERASE 7 U/L (10-37); BILIRUBIN,TOTAL 0.4 MG/DL (0.1-1.0); BLOOD UREA NITROGEN 13 MG/DL (7-18); BUN/CREATININE RATIO 12.3 (5.4-32.0); CALCIUM 9.6 MG/DL (8.5-10.1); CHLORIDE 104 MMOL/L (99-107); CREATININE 1.06 MG/DL (0.60-1.10); GLUCOSE 314 MG/DL (70-104); LIPASE 108 U/L (73-393); POTASSIUM 4.1 MMOL/L (3.5-5.1); SODIUM 138 MMOL/L (135-145); TOTAL CARBON DIOXIDE 25.4 MMOL/L (24-32); TOTAL PROTEIN 7.3 G/DL (6.4-8.2); eGFR 74 ML/MIN
[2018-11-19 07:52] VITALS: BP 124/72
== END 2018-11-19 07:53 | disposition home or self-care (01) ==
LOC: ER 05:28
DX: E86.0 Dehydration (principal); G43.A0 Cyclical vomiting, in migraine, not intractable; E78.00 Pure hypercholesterolemia, unspecified; I10 Essential (primary) hypertension; E11.9 Type 2 diabetes mellitus without complications; F12.90 Cannabis use, unspecified, uncomplicated; Z88.0 Allergy status to penicillin; Z88.8 Allergy status to other drugs, medicaments and biological substances; Z79.4 Long term (current) use of insulin; Z79.899 Other long term (current) drug therapy
CPT/HCPCS: 36415; 80053; 81001; 82948; 83690; 85025; 85610; 96361; 96374; 96375; 99283; J0780; J2060; J2270; J7030

== ENCOUNTER 2019-04-21 08:41 | Emergency (ER) | payer MEDICAID ==
[~2019-04-21] VITALS: Ht 170.2 cm; Wt 79.0 kg
[2019-04-21] MEDS ORDERED: normal saline 1000ml 1,000 ML IV SCH (08:47)
[2019-04-21] MEDS ORDERED: metoclopramide 5 mg/ml inj IV ONE (08:50)
[2019-04-21] MEDS ORDERED: LORazepam 2 mg/ml vial IV ONE ×2 (08:50→10:00)
[2019-04-21 09:15] LABS: ABG BASE EXCESS 0.8 mmol/L (-2.0-3.0); ABG OXYGEN SATURATION 94.2 % (95-98); ABG PH (T) 7.619 (7.350-7.450); ABG PO2 (T) 41.3 mmHg (83-108); ALLEN'S TEST Positive; FCOHb 1.7 % (0.5-1.5); FMetHb 0.3 % (0.3-1.12); FO2Hb 92.3 % (94-100); TOTAL HEMOGLOBIN 16.5 G/dl (14.0-17.9)
[2019-04-21] MEDS ORDERED: proCHLORperazine 10 MG/2 ml inj IV ONE (09:40)
[2019-04-21 09:42] LABS: BASOPHILS # (AUTO) 0.1 X10'3 (0-0.2); BASOPHILS % (AUTO) 0.9 % (0-1); EOSINOPHILS % (AUTO) 0 % (0-6); HEMATOCRIT 45.7 % (42.0-52.0); LYMPHOCYTES # (AUTO) 1.4 X10'3 (1.1-4.8); LYMPHOCYTES % (AUTO) 13.5 % (21-51); MEAN CORPUSCULAR HEMOGLOBIN 33.9 PG (27.0-31.0); MEAN CORPUSCULAR HGB CONC 35.1 g/dL (33.0-36.5); MEAN CORPUSCULAR VOLUME 96.9 FL (78-98); MEAN PLATELET VOLUME 8.4 FL (7.4-10.4); MONOCYTES # (AUTO) 0.3 X10'3 (0-0.9); MONOCYTES % (AUTO) 3.1 % (2-12); NEUTROPHILS # (AUTO) 8.8 X10'3 (1.8-7.7); NEUTROPHILS % (AUTO) 82.5 % (42-75); PLATELET COUNT 252 X10'3 (140-440); RED BLOOD COUNT 4.72 X10'6 (4.70-6.10); RED CELL DISTRIBUTION WIDTH 13.5 % (11.5-14.5); WHITE BLOOD COUNT 10.6 X10'3 (4.5-11.0)
[2019-04-21 09:57] LABS: ALANINE AMINOTRANSFERASE 20 U/L (12-78); ALBUMIN 4.4 G/DL (3.4-5.0); ALBUMIN/GLOBULIN RATIO 1.4 (1.1-1.5); ANION GAP 13 (8-16); ASPARTATE AMINO TRANSFERASE 6 U/L (10-37); BILIRUBIN,TOTAL 0.8 MG/DL (0.1-1.0); BLOOD UREA NITROGEN 17 MG/DL (7-18); BUN/CREATININE RATIO 15.6 (5.4-32.0); CALCIUM 9.6 MG/DL (8.5-10.1); CHLORIDE 107 MMOL/L (99-107); CREATININE 1.09 MG/DL (0.60-1.10); GLUCOSE 346 MG/DL (70-104); POTASSIUM 4.4 MMOL/L (3.5-5.1); SODIUM 145 MMOL/L (135-145); TOTAL CARBON DIOXIDE 24.8 MMOL/L (24-32); TOTAL PROTEIN 7.6 G/DL (6.4-8.2); eGFR 72 ML/MIN
[2019-04-21 09:58] LABS: ALKALINE PHOSPHATASE 77 IU/L (46-116)
[2019-04-21 10:05] LABS: PHOSPHORUS 0.6 MG/DL (2.3-4.5)
[2019-04-21] MEDS ORDERED: haloperidol lactate 5mg/ml inj IM ONE (10:05)
[2019-04-21 10:10] LABS: CLARITY,URINE CLEAR (Clear); COLOR,URINE YELLOW (Yellow); GLUCOSE, URINE >=1000 mg/dl (Neg); KETONES,URINE 15 mg/dl (Neg); LEUKOCYTE ESTERASE ,URINE NEGATIVE (Neg); NITRITES, URINE NEGATIVE (Neg); OCCULT BLOOD,URINE TRACE-INTACT (Neg); PH,URINE 8.5 (4.8-8.0); PROTEIN,URINE TRACE mg/dl (Neg); UROBILINOGEN,URINE 0.2 E.U/dL (0.2-1.0)
[2019-04-21] MEDS ORDERED: normal saline 1000ML IV soln IVB ONE (10:10)
[2019-04-21 10:13] LABS: UA COLLECTION TYPE CLN CATCH MIDSTREAM
[2019-04-21 10:14] VITALS: BP 168/99
[2019-04-21 10:31] LABS: SQUAMOUS EPITHELIAL CELL,UR FEW /LPF (FEW)
[2019-04-21 10:32] LABS: MUCUS STRANDS FEW /LPF (Neg)
[2019-04-21 10:33] LABS: WBC,URINE 0-4 /HPF (0-4)
[2019-04-21 10:40] LABS: BACTERIA,URINE FEW /HPF (Neg)
[2019-04-21] MEDS ORDERED: pantoprazole 40 MG vial IV ONE (10:55)
[2019-04-21] MEDS ORDERED: ondansetron/PF 4mg/2ml inj IV ONE (10:55)
== END 2019-04-21 11:27 | disposition home or self-care (01) ==
LOC: ER 08:42
DX: G43.A0 Cyclical vomiting, in migraine, not intractable (principal); E86.0 Dehydration; E11.65 Type 2 diabetes mellitus with hyperglycemia; E78.00 Pure hypercholesterolemia, unspecified; I10 Essential (primary) hypertension; F12.90 Cannabis use, unspecified, uncomplicated; F10.99 Alcohol use, unspecified with unspecified alcohol-induced disorder; Z88.0 Allergy status to penicillin; Z88.8 Allergy status to other drugs, medicaments and biological substances; Z79.4 Long term (current) use of insulin; Z79.899 Other long term (current) drug therapy; Y90.9 Presence of alcohol in blood, level not specified
CPT/HCPCS: 36415; 36600; 76937; 80053; 81001; 82803; 82948; 84100; 85018; 85025; 85610; 93005; 96372; 96374; 96375; 96376; 99284; C9113; J0780; J1630; J2060; J2405; J2765; J7030; 96361

== ENCOUNTER 2019-05-05 08:05 | Emergency (ER) | payer MEDICAID ==
[~2019-05-05] VITALS: Ht 170.2 cm; Wt 77.3 kg
[2019-05-05] MEDS ORDERED: diphenhydrAMINE 50 mg/ml inj IV ONE (10:50)
[2019-05-05] MEDS ORDERED: morphine 4 MG/ML inj SYRINge IV ONE (10:50)
[2019-05-05] MEDS ORDERED: LORazepam 2 mg/ml vial IV ONE (10:50)
[2019-05-05] MEDS ORDERED: metoclopramide 5 mg/ml inj IV ONE (10:50)
[2019-05-05] MEDS ORDERED: ondansetron/PF 4mg/2ml inj IV ONE (10:50)
[2019-05-05] MEDS ORDERED: normal saline 1000ml 1,000 ML IV ONE (10:50)
[2019-05-05 11:20] LABS: BASOPHILS # (AUTO) 0.1 X10'3 (0-0.2); EOSINOPHILS % (AUTO) 0 % (0-6); HEMOGLOBIN 16.6 g/dl (14.0-17.9); MEAN PLATELET VOLUME 8.1 FL (7.4-10.4); MONOCYTES # (AUTO) 0.4 X10'3 (0-0.9); NEUTROPHILS # (AUTO) 9.6 X10'3 (1.8-7.7)
[2019-05-05 11:22] LABS: BASOPHILS % (AUTO) 0.4 % (0-1); HEMATOCRIT 48.4 % (42.0-52.0); LYMPHOCYTES # (AUTO) 1.4 X10'3 (1.1-4.8); LYMPHOCYTES % (AUTO) 12.5 % (21-51); MEAN CORPUSCULAR HEMOGLOBIN 33.1 PG (27.0-31.0); MEAN CORPUSCULAR HGB CONC 34.4 g/dL (33.0-36.5); MEAN CORPUSCULAR VOLUME 96.3 FL (78-98); MONOCYTES % (AUTO) 3.8 % (2-12); NEUTROPHILS % (AUTO) 83.3 % (42-75); PLATELET COUNT 272 X10'3 (140-440); RED BLOOD COUNT 5.02 X10'6 (4.70-6.10); RED CELL DISTRIBUTION WIDTH 13.4 % (11.5-14.5); WHITE BLOOD COUNT 11.5 X10'3 (4.5-11.0)
[2019-05-05 11:38] LABS: ALANINE AMINOTRANSFERASE 20 U/L (12-78); ALBUMIN 4.2 G/DL (3.4-5.0); ALBUMIN/GLOBULIN RATIO 1.3 (1.1-1.5); ALKALINE PHOSPHATASE 79 IU/L (46-116); ANION GAP 14 (8-16); ASPARTATE AMINO TRANSFERASE 11 U/L (10-37); BILIRUBIN,TOTAL 1.5 MG/DL (0.1-1.0); BLOOD UREA NITROGEN 14 MG/DL (7-18); BUN/CREATININE RATIO 13.9 (5.4-32.0); CALCIUM 9.2 MG/DL (8.5-10.1); CHLORIDE 105 MMOL/L (99-107); CREATININE 1.01 MG/DL (0.60-1.10); GLUCOSE 252 MG/DL (70-104); LIPASE 58 U/L (73-393); POTASSIUM 3.2 MMOL/L (3.5-5.1); SODIUM 142 MMOL/L (135-145); TOTAL CARBON DIOXIDE 22.8 MMOL/L (24-32); TOTAL PROTEIN 7.4 G/DL (6.4-8.2); eGFR 79 ML/MIN
--- NOTE | 2019-05-05 11:41 | NUR ---
PT'S REQUESTING AN ETOH AND TOX SCREEN. DR YOUNG NOTIFIED, VERBAL ORDERS RECEIVED AND SENT TO LAB
[2019-05-05 11:53] LABS: CLARITY,URINE CLEAR (Clear); COLOR,URINE YELLOW (Yellow); GLUCOSE, URINE >=1000 mg/dl (Neg); KETONES,URINE 40 mg/dl (Neg); LEUKOCYTE ESTERASE ,URINE NEGATIVE (Neg); NITRITES, URINE NEGATIVE (Neg); OCCULT BLOOD,URINE TRACE-INTACT (Neg); PH,URINE 8.5 (4.8-8.0); PROTEIN,URINE NEGATIVE (Neg)
[2019-05-05 11:54] LABS: UA COLLECTION TYPE URINAL; URINE AMPHETAMINE SCREEN NEGATIVE (Neg); URINE BARBITUATE SCREEN NEGATIVE (Neg); URINE BENZODIAZEPINES SCREEN NEGATIVE (Neg); URINE CANNABINOID SCREEN POSITIVE (Neg); URINE COCAINE SCREEN NEGATIVE (Neg); URINE METHADONE SCREEN NEGATIVE (Neg); URINE OPIATE SCREEN NEGATIVE (Neg); URINE PHENCYCLIDINE SCREEN NEGATIVE (Neg)
[2019-05-05 12:07] LABS: BACTERIA,URINE FEW /HPF (Neg); SQUAMOUS EPITHELIAL CELL,UR MANY /LPF (FEW); WBC,URINE 0-4 /HPF (0-4)
[2019-05-05 13:17] VITALS: BP 108/60
== END 2019-05-05 13:09 | disposition home or self-care (01) ==
LOC: ER 08:05
DX: G43.A0 Cyclical vomiting, in migraine, not intractable (principal); I10 Essential (primary) hypertension; E78.00 Pure hypercholesterolemia, unspecified; E11.9 Type 2 diabetes mellitus without complications; F12.90 Cannabis use, unspecified, uncomplicated; Z88.6 Allergy status to analgesic agent; Z88.0 Allergy status to penicillin; Z88.8 Allergy status to other drugs, medicaments and biological substances; Z79.4 Long term (current) use of insulin; Z79.899 Other long term (current) drug therapy
CPT/HCPCS: 36415; 80053; 80305; 80320; 81001; 83690; 85025; 96361; 96374; 96375; 99283; J1200; J2060; J2270; J2405; J2765; J7030

== ENCOUNTER 2019-08-01 14:34 | Emergency (ER) | payer MEDICAID ==
[~2019-08-01] VITALS: Ht 170.2 cm; Wt 83.2 kg
[2019-08-01] MEDS ORDERED: ondansetron/PF 4mg/2ml inj IV ONE (14:40)
[2019-08-01] MEDS ORDERED: normal saline 1000ML IV soln IVB ONE (14:40)
[2019-08-01] MEDS ORDERED: haloperidol lactate 5mg/ml inj IM ONE (14:40)
[2019-08-01] MEDS ORDERED: proCHLORperazine 10 MG/2 ml inj IV ONE (14:45)
--- NOTE | 2019-08-01 15:09 | NUR ---
Confirmed with the patient's spouse who reports he was witnessed having a convulsion type reaction after receiving Haldol here in the ED at [facility] previously.
[2019-08-01 15:49] LABS: BASOPHILS # (AUTO) 0.1 X10'3 (0-0.2); HEMOGLOBIN 15.9 g/dl (14.0-17.9); LYMPHOCYTES # (AUTO) 1.5 X10'3 (1.1-4.8); MONOCYTES # (AUTO) 0.7 X10'3 (0-0.9); MONOCYTES % (AUTO) 5.8 % (2-12); NEUTROPHILS # (AUTO) 9.5 X10'3 (1.8-7.7); WHITE BLOOD COUNT 11.8 X10'3 (4.5-11.0)
[2019-08-01 15:50] LABS: BASOPHILS % (AUTO) 0.7 % (0-1); EOSINOPHILS % (AUTO) 0 % (0-6); HEMATOCRIT 45.2 % (42.0-52.0); MEAN CORPUSCULAR HEMOGLOBIN 33.4 PG (27.0-31.0); MEAN CORPUSCULAR HGB CONC 35.1 g/dL (33.0-36.5); MEAN PLATELET VOLUME 8.7 FL (7.4-10.4); NEUTROPHILS % (AUTO) 80.5 % (42-75); PLATELET COUNT 225 X10'3 (140-440); RED BLOOD COUNT 4.76 X10'6 (4.70-6.10); RED CELL DISTRIBUTION WIDTH 13.1 % (11.5-14.5)
[2019-08-01 16:01] LABS: ALANINE AMINOTRANSFERASE 23 U/L (12-78); ALBUMIN/GLOBULIN RATIO 1.2 (1.1-1.5); ALKALINE PHOSPHATASE 110 IU/L (46-116); ANION GAP 14 (8-16); ASPARTATE AMINO TRANSFERASE 9 U/L (10-37); BILIRUBIN,TOTAL 1.2 MG/DL (0.1-1.0); BLOOD UREA NITROGEN 17 MG/DL (7-18); BUN/CREATININE RATIO 12.4 (5.4-32.0); CALCIUM 8.6 MG/DL (8.5-10.1); CHLORIDE 102 MMOL/L (99-107); CREATININE 1.37 MG/DL (0.60-1.10); GLUCOSE 297 MG/DL (70-104); LIPASE 54 U/L (73-393); POTASSIUM 3.8 MMOL/L (3.5-5.1); SODIUM 137 MMOL/L (135-145); TOTAL CARBON DIOXIDE 20.7 MMOL/L (24-32); TOTAL PROTEIN 7.3 G/DL (6.4-8.2); eGFR 55 ML/MIN
[2019-08-01 16:40] LABS: CLARITY,URINE CLEAR (Clear); COLOR,URINE YELLOW (Yellow); GLUCOSE, URINE >=1000 mg/dl (Neg); KETONES,URINE >=80 mg/dl (Neg); LEUKOCYTE ESTERASE ,URINE NEGATIVE (Neg); NITRITES, URINE NEGATIVE (Neg); OCCULT BLOOD,URINE TRACE-INTACT (Neg); PH,URINE 8.5 (4.8-8.0); PROTEIN,URINE NEGATIVE (Neg); UROBILINOGEN,URINE 0.2 E.U/dL (0.2-1.0)
[2019-08-01] MEDS ORDERED: ONDA4TAB6 PO (16:43)
[2019-08-01 16:44] LABS: UA COLLECTION TYPE URINAL
[2019-08-01 16:46] LABS: BACTERIA,URINE FEW /HPF (Neg); MUCUS STRANDS NONE SEEN /LPF (Neg); SQUAMOUS EPITHELIAL CELL,UR NONE SEEN /LPF (FEW); WBC,URINE 0-4 /HPF (0-4)
[2019-08-01 16:47] LABS: URINE AMPHETAMINE SCREEN NEGATIVE (Neg); URINE BARBITUATE SCREEN NEGATIVE (Neg); URINE BENZODIAZEPINES SCREEN NEGATIVE (Neg); URINE CANNABINOID SCREEN POSITIVE (Neg); URINE COCAINE SCREEN NEGATIVE (Neg); URINE METHADONE SCREEN NEGATIVE (Neg); URINE OPIATE SCREEN NEGATIVE (Neg); URINE PHENCYCLIDINE SCREEN NEGATIVE (Neg)
[2019-08-01 17:44] VITALS: BP 135/78
== END 2019-08-01 17:47 | disposition home or self-care (01) ==
LOC: ER 14:35
DX: F12.288 Cannabis dependence with other cannabis-induced disorder (principal); R11.15 Cyclical vomiting syndrome unrelated to migraine; E78.00 Pure hypercholesterolemia, unspecified; I10 Essential (primary) hypertension; E11.9 Type 2 diabetes mellitus without complications; F10.99 Alcohol use, unspecified with unspecified alcohol-induced disorder; R11.2 Nausea with vomiting, unspecified; Z88.0 Allergy status to penicillin; Z88.8 Allergy status to other drugs, medicaments and biological substances; Z79.4 Long term (current) use of insulin; Z79.899 Other long term (current) drug therapy; Y90.9 Presence of alcohol in blood, level not specified
CPT/HCPCS: 36415; 80053; 80305; 81001; 83690; 85025; 96361; 96374; 96375; 99284; J0780; J2405; J7030

== ENCOUNTER 2019-08-01 20:42 | Emergency (ER) | payer MEDICAID ==
[~2019-08-01] VITALS: Ht 170.2 cm; Wt 81.0 kg
[2019-08-01] MEDS ORDERED: dicyclomine 10mg/ml 2ml ampule IM ONE (21:10)
[2019-08-01] MEDS ORDERED: ketorolac trometh inj. 60 MG/2 ML VIAL IM ONE (21:10)
[2019-08-01 21:24] VITALS: BP 125/97
== END 2019-08-01 21:28 | disposition home or self-care (01) ==
LOC: ER 20:42
DX: F12.288 Cannabis dependence with other cannabis-induced disorder (principal); R10.13 Epigastric pain; E78.00 Pure hypercholesterolemia, unspecified; I10 Essential (primary) hypertension; E11.9 Type 2 diabetes mellitus without complications; F12.90 Cannabis use, unspecified, uncomplicated; F10.99 Alcohol use, unspecified with unspecified alcohol-induced disorder; Z88.0 Allergy status to penicillin; Z88.8 Allergy status to other drugs, medicaments and biological substances; Z79.4 Long term (current) use of insulin; Z79.899 Other long term (current) drug therapy; Y90.9 Presence of alcohol in blood, level not specified
CPT/HCPCS: 96372; 99283; J0500; J1885

== ENCOUNTER 2019-09-13 10:54 | Emergency (ER) | payer MEDICAID ==
[~2019-09-13] VITALS: Ht 175.3 cm; Wt 85.0 kg
[2019-09-13] MEDS ORDERED: diphenhydrAMINE 50 mg/ml inj IV ONE (11:00)
[2019-09-13] MEDS ORDERED: normal saline 1000ML IV soln IVB ONE ×3 (11:00→12:30)
[2019-09-13] MEDS ORDERED: LORazepam 2 mg/ml vial IV ONE (11:00)
[2019-09-13] MEDS ORDERED: metoclopramide 5 mg/ml inj IV ONE (11:00)
[2019-09-13] MEDS ORDERED: haloperidol lactate 5mg/ml inj IM ONE (11:10)
[2019-09-13 11:36] LABS: BASOPHILS # (AUTO) 0.1 X10'3 (0-0.2); BASOPHILS % (AUTO) 0.4 % (0-1); EOSINOPHILS # (AUTO) 0.1 X10'3 (0-0.9); EOSINOPHILS % (AUTO) 0.3 % (0-6); HEMATOCRIT 45.5 % (42.0-52.0); HEMOGLOBIN 15.9 g/dl (14.0-17.9); LYMPHOCYTES # (AUTO) 2.6 X10'3 (1.1-4.8); LYMPHOCYTES % (AUTO) 14.9 % (21-51); MEAN CORPUSCULAR HEMOGLOBIN 33.2 PG (27.0-31.0); MEAN CORPUSCULAR VOLUME 94.9 FL (78-98); MEAN PLATELET VOLUME 8.4 FL (7.4-10.4); MONOCYTES # (AUTO) 0.9 X10'3 (0-0.9); NEUTROPHILS # (AUTO) 13.8 X10'3 (1.8-7.7); NEUTROPHILS % (AUTO) 79.4 % (42-75); PLATELET COUNT 269 X10'3 (140-440); RED CELL DISTRIBUTION WIDTH 13.3 % (11.5-14.5); WHITE BLOOD COUNT 17.4 X10'3 (4.5-11.0)
[2019-09-13 11:51] LABS: ALANINE AMINOTRANSFERASE 24 U/L (12-78); ALBUMIN 4.2 G/DL (3.4-5.0); ALBUMIN/GLOBULIN RATIO 1.2 (1.1-1.5); ALKALINE PHOSPHATASE 100 IU/L (46-116); ANION GAP 14 (8-16); ASPARTATE AMINO TRANSFERASE 20 U/L (10-37); BILIRUBIN,TOTAL 0.9 MG/DL (0.1-1.0); BLOOD UREA NITROGEN 21 MG/DL (7-18); BUN/CREATININE RATIO 18.8 (5.4-32.0); CALCIUM 9.6 MG/DL (8.5-10.1); CHLORIDE 105 MMOL/L (99-107); CREATININE 1.12 MG/DL (0.60-1.10); GLUCOSE 290 MG/DL (70-104); LIPASE 63 U/L (73-393); POTASSIUM 4.3 MMOL/L (3.5-5.1); SODIUM 140 MMOL/L (135-145); TOTAL PROTEIN 7.7 G/DL (6.4-8.2); eGFR 69 ML/MIN
[2019-09-13] MEDS ORDERED: morphine 4 MG/ML inj SYRINge IV ONE (12:30)
[2019-09-13 13:17] VITALS: BP 137/82
== END 2019-09-13 13:18 | disposition home or self-care (01) ==
LOC: ER 10:55
DX: R10.13 Epigastric pain (principal); R11.2 Nausea with vomiting, unspecified; E78.00 Pure hypercholesterolemia, unspecified; I10 Essential (primary) hypertension; E11.9 Type 2 diabetes mellitus without complications; F12.90 Cannabis use, unspecified, uncomplicated; F10.99 Alcohol use, unspecified with unspecified alcohol-induced disorder; Z88.0 Allergy status to penicillin; Z88.8 Allergy status to other drugs, medicaments and biological substances; Z79.4 Long term (current) use of insulin; Z79.899 Other long term (current) drug therapy; Y90.9 Presence of alcohol in blood, level not specified
CPT/HCPCS: 36415; 80053; 83690; 85025; 93005; 96361; 96372; 96374; 96375; 99284; J1200; J1630; J2060; J2270; J2765; J7030

== ENCOUNTER 2019-10-14 13:16 | Emergency (ER) | payer MEDICAID ==
[~2019-10-14] VITALS: Ht 170.2 cm; Wt 83.9 kg
[~2019-10-14 13:16] MED LIST changes: +ALBU8.5H8 IH; +HYDR-3972 PO; -HYDR-4383 PO; -NICO-687 TD; +NORT25CA PO; -ONDA4TAB6 PO; +ONDA8TAB65 PO; +SIMV-45 PO; -SIMV10TA2 PO; -TERA1CAP4 PO; +TERA2CAP4 PO
[2019-10-14 13:41] VITALS: BP 134/71
[2019-10-14] MEDS ORDERED: PROC25SU31 RC (18:41)
== END 2019-10-14 15:45 | disposition left against medical advice (07) ==
LOC: ER 13:17
DX: R11.10 Vomiting, unspecified (principal); R10.9 Unspecified abdominal pain; Z53.21 Procedure and treatment not carried out due to patient leaving prior to being seen by health care provider

== ENCOUNTER 2019-10-14 15:51 | Emergency (ER) | payer MEDICAID ==
[~2019-10-14] VITALS: Ht 170.2 cm; Wt 83.9 kg
[2019-10-14 16:48] LABS: BASOPHILS # (AUTO) 0.1 X10'3 (0-0.2); BASOPHILS % (AUTO) 0.8 % (0-1); EOSINOPHILS # (AUTO) 0.1 X10'3 (0-0.9); EOSINOPHILS % (AUTO) 0.8 % (0-6); HEMATOCRIT 48.8 % (42.0-52.0); HEMOGLOBIN 17.1 g/dl (14.0-17.9); LYMPHOCYTES # (AUTO) 4.1 X10'3 (1.1-4.8); MEAN CORPUSCULAR HEMOGLOBIN 33.5 PG (27.0-31.0); MEAN CORPUSCULAR VOLUME 95.6 FL (78-98); MEAN PLATELET VOLUME 8.3 FL (7.4-10.4); MONOCYTES # (AUTO) 0.8 X10'3 (0-0.9); MONOCYTES % (AUTO) 6.9 % (2-12); NEUTROPHILS # (AUTO) 6.4 X10'3 (1.8-7.7); NEUTROPHILS % (AUTO) 55.5 % (42-75); PLATELET COUNT 260 X10'3 (140-440); RED BLOOD COUNT 5.11 X10'6 (4.70-6.10); WHITE BLOOD COUNT 11.5 X10'3 (4.5-11.0)
[2019-10-14 16:50] LABS: ALANINE AMINOTRANSFERASE 28 U/L (12-78); ALBUMIN 4.3 G/DL (3.4-5.0); ALBUMIN/GLOBULIN RATIO 1.2 (1.1-1.5); ALKALINE PHOSPHATASE 109 IU/L (46-116); ANION GAP 10 (8-16); ASPARTATE AMINO TRANSFERASE 11 U/L (10-37); BILIRUBIN,TOTAL 1.1 MG/DL (0.1-1.0); BLOOD UREA NITROGEN 17 MG/DL (7-18); BUN/CREATININE RATIO 16.8 (5.4-32.0); CALCIUM 9.4 MG/DL (8.5-10.1); CHLORIDE 103 MMOL/L (99-107); CREATININE 1.01 MG/DL (0.60-1.10); GLUCOSE 201 MG/DL (70-104); LIPASE 85 U/L (73-393); POTASSIUM 4.7 MMOL/L (3.5-5.1); SODIUM 139 MMOL/L (135-145); TOTAL CARBON DIOXIDE 26.1 MMOL/L (24-32); TOTAL PROTEIN 7.9 G/DL (6.4-8.2); eGFR 78 ML/MIN
[2019-10-14] MEDS ORDERED: normal saline 1000ML IV soln IVB ONE (17:05)
[2019-10-14] MEDS ORDERED: metoclopramide 5 mg/ml inj IV ONE (17:05)
[2019-10-14 17:06] LABS: CLARITY,URINE SLIGHTLY CLOUDY (Clear); GLUCOSE, URINE 250 mg/dl (Neg); KETONES,URINE NEGATIVE (Neg); LEUKOCYTE ESTERASE ,URINE NEGATIVE (Neg); NITRITES, URINE NEGATIVE (Neg); OCCULT BLOOD,URINE LARGE (Neg); PROTEIN,URINE TRACE mg/dl (Neg)
[2019-10-14 17:07] LABS: COLOR,URINE DARK YELLOW (Yellow); UA COLLECTION TYPE CLN CATCH MIDSTREAM
[2019-10-14 17:16] LABS: BACTERIA,URINE NONE SEEN /HPF (Neg); MUCUS STRANDS MANY /LPF (Neg); RBC,URINE 50-100 /HPF (0-2); SQUAMOUS EPITHELIAL CELL,UR FEW /LPF (FEW); WBC,URINE 0-4 /HPF (0-4)
[2019-10-14] MEDS ORDERED: morphine 4 MG/ML inj SYRINge IV ONE ×2 (17:35→19:10)
[2019-10-14] MEDS ORDERED: LORazepam 2 mg/ml vial IV ONE (17:35)
[2019-10-14] MEDS ORDERED: PROC25SU31 RC (18:41)
[2019-10-14 19:37] VITALS: BP 131/76
== END 2019-10-14 19:38 | disposition home or self-care (01) ==
LOC: ER 15:51
DX: R10.84 Generalized abdominal pain (principal); R11.2 Nausea with vomiting, unspecified; R31.9 Hematuria, unspecified; E78.00 Pure hypercholesterolemia, unspecified; I10 Essential (primary) hypertension; E11.9 Type 2 diabetes mellitus without complications; F12.90 Cannabis use, unspecified, uncomplicated; Z72.89 Other problems related to lifestyle; Z88.0 Allergy status to penicillin; Z88.8 Allergy status to other drugs, medicaments and biological substances; Z79.4 Long term (current) use of insulin; Z79.899 Other long term (current) drug therapy
CPT/HCPCS: 36415; 74176; 76700; 80053; 81001; 83690; 85025; 96374; 96375; 96376; 99285; J2060; J2270; J2765; J7030

== ENCOUNTER 2019-11-01 13:12 | Emergency (ER) | payer MEDICAID ==
[~2019-11-01] VITALS: Ht 170.2 cm; Wt 83.8 kg
[2019-11-01] MEDS ORDERED: ondansetron 4mg rapidly disintigrating tab PO ONE (13:45)
[2019-11-01] MEDS ORDERED: proCHLORperazine 10mg tablet PO ONE (13:45)
[2019-11-01] MEDS ORDERED: HYDROcodone/acetaminophen 10/325mg tab PO ONE (13:45)
[2019-11-01 13:53] LABS: BASOPHILS # (AUTO) 0.2 X10'3 (0-0.2); EOSINOPHILS # (AUTO) 0.1 X10'3 (0-0.9); EOSINOPHILS % (AUTO) 0.8 % (0-6); HEMATOCRIT 51.8 % (42.0-52.0); HEMOGLOBIN 17.8 g/dl (14.0-17.9); LYMPHOCYTES # (AUTO) 3.3 X10'3 (1.1-4.8); LYMPHOCYTES % (AUTO) 20.3 % (21-51); MEAN CORPUSCULAR HEMOGLOBIN 32.8 PG (27.0-31.0); MEAN CORPUSCULAR HGB CONC 34.4 g/dL (33.0-36.5); MEAN CORPUSCULAR VOLUME 95.1 FL (78-98); MEAN PLATELET VOLUME 8.3 FL (7.4-10.4); MONOCYTES # (AUTO) 0.9 X10'3 (0-0.9); MONOCYTES % (AUTO) 5.3 % (2-12); NEUTROPHILS # (AUTO) 11.7 X10'3 (1.8-7.7); NEUTROPHILS % (AUTO) 72.6 % (42-75); PLATELET COUNT 285 X10'3 (140-440); RED BLOOD COUNT 5.44 X10'6 (4.70-6.10); WHITE BLOOD COUNT 16.1 X10'3 (4.5-11.0)
[2019-11-01 14:07] LABS: ALANINE AMINOTRANSFERASE 29 U/L (12-78); ALBUMIN 4.5 G/DL (3.4-5.0); ALBUMIN/GLOBULIN RATIO 1.2 (1.1-1.5); ALKALINE PHOSPHATASE 103 IU/L (46-116); AMYLASE 36 U/L (25-115); ANION GAP 8 (8-16); ASPARTATE AMINO TRANSFERASE 9 U/L (10-37); BILIRUBIN,TOTAL 0.7 MG/DL (0.1-1.0); BLOOD UREA NITROGEN 19 MG/DL (7-18); BUN/CREATININE RATIO 17.1 (5.4-32.0); CALCIUM 10.1 MG/DL (8.5-10.1); CHLORIDE 104 MMOL/L (99-107); CREATININE 1.11 MG/DL (0.60-1.10); GLUCOSE 239 MG/DL (70-104); LIPASE 66 U/L (73-393); POTASSIUM 4.6 MMOL/L (3.5-5.1); SODIUM 141 MMOL/L (135-145); TOTAL CARBON DIOXIDE 28.9 MMOL/L (24-32); TOTAL PROTEIN 8.4 G/DL (6.4-8.2); eGFR 70 ML/MIN
[2019-11-01] MEDS ORDERED: PROC25SU31 RC (14:20)
[2019-11-01 14:31] LABS: CLARITY,URINE CLEAR (Clear); COLOR,URINE YELLOW (Yellow); GLUCOSE, URINE >=1000 mg/dl (Neg); KETONES,URINE TRACE mg/dl (Neg); LEUKOCYTE ESTERASE ,URINE NEGATIVE (Neg); NITRITES, URINE NEGATIVE (Neg); OCCULT BLOOD,URINE MODERATE (Neg); PH,URINE 7.5 (4.8-8.0); PROTEIN,URINE 30 mg/dl (Neg)
[2019-11-01 14:33] LABS: UA COLLECTION TYPE CLN CATCH MIDSTREAM
--- NOTE | 2019-11-01 14:35 | NUR ---
Pt reports he is still too nauseous and reporting he needs to see the doctor again prior to discharge. Provider made aware of the request.
[2019-11-01 14:37] LABS: BACTERIA,URINE NONE SEEN /HPF (Neg); MUCUS STRANDS MODERATE /LPF (Neg); SQUAMOUS EPITHELIAL CELL,UR FEW /LPF (FEW)
[2019-11-01 14:38] LABS: RBC,URINE 20-50 /HPF (0-2)
[2019-11-01] MEDS ORDERED: morphine 4 MG/ML inj SYRINge IM ONE (14:50)
[2019-11-01] MEDS ORDERED: metoclopramide 10mg tablet PO ONE (14:50)
[2019-11-01] MEDS ORDERED: LORazepam 2 mg/ml vial IM ONE (14:50)
[2019-11-01 15:14] VITALS: BP 142/69
[2019-11-01] MEDS ORDERED: diphenhydrAMINE 50 mg/ml inj IM ONE (15:15)
[2019-11-01] MEDS ORDERED: ketorolac trometh inj. 60 MG/2 ML VIAL IM ONE (16:15)
--- NOTE | 2019-11-01 16:16 | NUR ---
PT HAS BEEN RESTING. NO SIGNS OF DISTRESS. NO VOMITING, NO SHAKING, NO FAINTING, NO SWEATING
[2019-11-01] MEDS ORDERED: HYDROmorphone 1 mg/ml syringe IM ONE (17:20)
[2019-11-01] MEDS ORDERED: dexamethasone 4mg/ml inj IM ONE (17:20)
--- NOTE | 2019-11-01 17:58 | NUR ---
PT TAKES PAIN IS 0/10 AND NO NAUSEA
== END 2019-11-01 18:00 | disposition home or self-care (01) ==
LOC: ER 13:13
DX: R10.84 Generalized abdominal pain (principal); G89.29 Other chronic pain; F12.90 Cannabis use, unspecified, uncomplicated; E78.00 Pure hypercholesterolemia, unspecified; I10 Essential (primary) hypertension; E11.9 Type 2 diabetes mellitus without complications; Z88.0 Allergy status to penicillin; Z88.5 Allergy status to narcotic agent; Z79.4 Long term (current) use of insulin; Z79.899 Other long term (current) drug therapy
CPT/HCPCS: 36415; 74176; 80053; 81001; 82150; 82948; 83690; 85025; 87088; 96372; 99284; J1200; J1885; J2060; J2270; J8597; Q0164

== ENCOUNTER 2021-12-14 08:51 | Inpatient (IN) | payer MEDICAID ==
[~2021-12-14] VITALS: Ht 170.2 cm; Wt 81.8 kg
[~2021-12-14 08:51] MED LIST changes: +ALBU8.5H17 IH; -ALBU8.5H8 IH; +OMEP20TA43 PO; -OMEP20TA5 PO; +ONDA-104 PO; -ONDA8TAB65 PO
[2021-12-14] MEDS ORDERED: normal saline 1000ml 1,000 ML IVB ONE (09:25)
[2021-12-14] MEDS ORDERED: morphine 2 MG/ML inj. syringe IV ONE (09:35)
[2021-12-14] MEDS ORDERED: LORazepam 2 mg/ml vial IV ONE ×2 (09:35→11:25)
[2021-12-14 10:18] LABS: BASOPHILS % (AUTO) 0.4 % (0-1); EOSINOPHILS % (AUTO) 0.1 % (0-6); HEMATOCRIT 51.4 % (42.0-52.0); HEMOGLOBIN 17.5 g/dl (14.0-17.9); LYMPHOCYTES # (AUTO) 1.6 X10'3 (1.1-4.8); LYMPHOCYTES % (AUTO) 13.9 % (21-51); MEAN CORPUSCULAR HEMOGLOBIN 32.4 PG (27.0-31.0); MEAN CORPUSCULAR VOLUME 95.4 FL (78-98); MEAN PLATELET VOLUME 8.6 FL (7.4-10.4); MONOCYTES # (AUTO) 0.4 X10'3 (0-0.9); MONOCYTES % (AUTO) 3.7 % (2-12); NEUTROPHILS # (AUTO) 9.3 X10'3 (1.8-7.7); NEUTROPHILS % (AUTO) 81.9 % (42-75); PLATELET COUNT 268 X10'3 (140-440); RED BLOOD COUNT 5.38 X10'6 (4.70-6.10); RED CELL DISTRIBUTION WIDTH 13.3 % (11.5-14.5); WHITE BLOOD COUNT 11.4 X10'3 (4.5-11.0)
[2021-12-14 10:48] LABS: ALANINE AMINOTRANSFERASE 24 U/L (12-78); ALBUMIN 4.2 G/DL (3.4-5.0); ALBUMIN/GLOBULIN RATIO 1.2 (1.1-1.5); ALKALINE PHOSPHATASE 71 IU/L (46-116); ANION GAP 21 (8-16); ASPARTATE AMINO TRANSFERASE 10 U/L (10-37); BLOOD UREA NITROGEN 26 MG/DL (7-18); BUN/CREATININE RATIO 22.2 (5.4-32.0); CALCIUM 9.6 MG/DL (8.5-10.1); CHLORIDE 101 MMOL/L (99-107); CREATININE 1.17 MG/DL (0.60-1.10); LIPASE 51 U/L (73-393); POTASSIUM 3.9 MMOL/L (3.5-5.1); SODIUM 138 MMOL/L (135-145); TOTAL CARBON DIOXIDE 15.7 MMOL/L (24-32); TOTAL PROTEIN 7.6 G/DL (6.4-8.2); eGFR 65 ML/MIN
[2021-12-14 10:56] LABS: GLUCOSE 529 MG/DL (70-104)
--- NOTE | 2021-12-14 11:13 | NUR ---
notified dr lara regarding pain after morphine and ativian ,pt is moaning in pain ,and reminded the provided that pt bld sugar is above 500 ,as per md he will check lab and put the orders.
[2021-12-14] MEDS ORDERED: normal saline 1000ML IV soln IVB ONE ×2 (11:15→11:30)
[2021-12-14] MEDS ORDERED: Insulin Reg/NS 100units/100mL 100 ML IV PRN (11:15)
[2021-12-14] MEDS ORDERED: HYDROmorphone 1 mg/ml syringe IV ONE (11:25)
[2021-12-14] MEDS ORDERED: insulin regular, human 10 units/0.1 ml syringe IV ONE (11:25)
[2021-12-14] MEDS ORDERED: magnesium 2GM in 50ml NS 50 ML IV PRN (11:35)
[2021-12-14] MEDS ORDERED: Neutra Phos packet PO PRN (11:35)
[2021-12-14] MEDS ORDERED: insulin regular, human U-100 3ml vial - multi-dose IV PRN (11:35)
[2021-12-14] MEDS ORDERED: acetaminophen 325mg tablet PO PRN ×2 (11:35)
[2021-12-14] MEDS ORDERED: magnesium 4gm in 100ml NS 100 ML IV PRN (11:35)
[2021-12-14] MEDS ORDERED: potassium Cl 20 mEq SR tablet PO PRN ×2 (11:35)
[2021-12-14] MEDS ORDERED: POTASSIUM BICARB 20meq eff tab 20 MEQ TABLET.EFF PO PRN ×2 (11:35)
[2021-12-14] MEDS ORDERED: sodium phosphate inj. 30 MMOL in dextrose 5%-water 250 ML IV PRN (11:35)
[2021-12-14] MEDS ORDERED: potassium Cl 40MEQ/1/2NS 520ml 520 ML IV PRN ×2 (11:35)
[2021-12-14] MEDS ORDERED: sodium phosphate inj. 15 MMOL in dextrose 5%-water 250 ML IV PRN (11:35)
[2021-12-14] MEDS ORDERED: magnesium Cl slow-release 64mg tablet PO PRN (11:35)
[2021-12-14] MEDS ORDERED: morphine 2 MG/ML inj. syringe IV PRN (11:35)
[2021-12-14] MEDS ORDERED: sodium bicarbonate (8.4%) inj. 100 MEQ in dextrose 5% water 500ml 500 ML IV PRN ×2 (11:35→12:14)
[2021-12-14] MEDS ORDERED: sodium bicarbonate (8.4%) inj. 50 MEQ in dextrose 5% water 500ml 250 ML IV PRN (11:35)
[2021-12-14 11:50] LABS: CLARITY,URINE CLEAR (Clear); COLOR,URINE STRAW (Yellow); GLUCOSE, URINE >=1000 mg/dl (Neg); KETONES,URINE >=80 mg/dl (Neg); LEUKOCYTE ESTERASE ,URINE NEGATIVE (Neg); NITRITES, URINE NEGATIVE (Neg); OCCULT BLOOD,URINE SMALL (Neg); PH,URINE 5.5 (4.8-8.0); PROTEIN,URINE NEGATIVE (Neg); UA COLLECTION TYPE VOIDED; UROBILINOGEN,URINE 0.2 E.U/dL (0.2-1.0)
[2021-12-14] MEDS: Insulin Reg/NS 100units/100mL 100 ML IV SCH (11:52)
[2021-12-14 11:55] LABS: BACTERIA,URINE NONE SEEN /HPF (Neg); HYALINE CASTS 0-3 /LPF (NEGATIVE); MUCUS STRANDS NONE SEEN /LPF (Neg); RBC,URINE NONE SEEN /HPF (0-2); SQUAMOUS EPITHELIAL CELL,UR NONE SEEN /LPF (FEW); WBC,URINE 0-4 /HPF (0-4)
[2021-12-14 12:02] LABS: URINE AMPHETAMINE SCREEN NEGATIVE (Neg); URINE BARBITUATE SCREEN NEGATIVE (Neg); URINE BENZODIAZEPINES SCREEN NEGATIVE (Neg); URINE CANNABINOID SCREEN POSITIVE (Neg); URINE COCAINE SCREEN NEGATIVE (Neg); URINE METHADONE SCREEN NEGATIVE (Neg); URINE OPIATE SCREEN POSITIVE (Neg); URINE PHENCYCLIDINE SCREEN NEGATIVE (Neg)
[2021-12-14] MEDS ORDERED: WATER IV PRN (12:04)
[2021-12-14] MEDS ORDERED: DEXTROSE 5% IV PRN (12:04)
[2021-12-14] MEDS ORDERED: SODIUM BICARBONATE IV PRN (12:04)
[2021-12-14] MEDS ORDERED: sodium bicarbonate (8.4%) inj. 100 MEQ in dextrose 5%-water 900 ML IV PRN (12:10)
[2021-12-14] MEDS ORDERED: sodium bicarbonate (8.4%) inj. 100 MEQ in dextrose 5%-water 1,000 ML IV PRN (12:10)
[2021-12-14 12:12] LABS: ETHANOL < 0.010 GM/DL (0.0-0.010); MAGNESIUM 1.7 MG/DL (1.5-2.4); PHOSPHORUS 1.7 MG/DL (2.3-4.5)
[2021-12-14] MEDS: normal saline 1000ml 1,000 ML IV SCH ×4 (12:34→23:35)
[2021-12-14] MEDS ORDERED: HYDROmorphone/PF 0.2 MG/ML SYRINGE IV PRN (13:05)
--- NOTE | 2021-12-14 13:35 | NUR ---
Pt resting with eyes closed. Pt's at bedside.
[2021-12-14] MEDS: HYDROmorphone inj. 0.5 MG/0.5 ML DISP.SYRIN IV PRN ×2 (14:01→20:54)
[2021-12-14] MEDS ORDERED: ASPI81TA52 PO (14:09)
[2021-12-14] MEDS ORDERED: ATOR40TA71 PO (14:09)
[2021-12-14] MEDS ORDERED: LIPA1CAP18 PO (14:09)
[2021-12-14] MEDS ORDERED: DOCU100C38 PO (14:09)
[2021-12-14] MEDS ORDERED: ONDA8TAB13 PO (14:10)
[2021-12-14] MEDS ORDERED: TERA2CAP4 PO (14:10)
[2021-12-14] MEDS ORDERED: PREG50CA PO (14:10)
[2021-12-14] MEDS ORDERED: LORA-269 PO (14:10)
[2021-12-14] MEDS ORDERED: INSU100I31 SQ (14:10)
[2021-12-14] MEDS ORDERED: INSU100I45 SQ (14:10)
[2021-12-14] MEDS ORDERED: NORT25CA5 PO (14:10)
[2021-12-14] MEDS ORDERED: ROPI0.5T4 PO (14:10)
[2021-12-14] MEDS ORDERED: VALS80TA32 PO (14:10)
[2021-12-14] MEDS: potassium CL 20mEq in D5-1/2NS 1,000 ML IV PRN (14:37)
[2021-12-14] MEDS: pantoprazole 40MG/NS 100ML BAG 100 ML IV SCH (15:38)
[2021-12-14 16:12] LABS: ANION GAP 11 (8-16); BLOOD UREA NITROGEN 23 MG/DL (7-18); BUN/CREATININE RATIO 28.8 (5.4-32.0); CHLORIDE 110 MMOL/L (99-107); GLUCOSE 239 MG/DL (70-104); SODIUM 144 MMOL/L (135-145); TOTAL CARBON DIOXIDE 23.1 MMOL/L (24-32)
[2021-12-14 16:13] LABS: ALBUMIN 3.7 G/DL (3.4-5.0); CALCIUM 8.4 MG/DL (8.5-10.1); eGFR > 90 ML/MIN
--- NOTE | 2021-12-14 17:58 | NUR ---
delayed in accucheck as we have 2 code side by side and i was busy with code.
--- NOTE | 2021-12-14 19:00 | NUR ---
pt. newest blood sugar measured 157. during inital assessment pt. complained of severe stomach pain 8/10 dilaudid was given.
[2021-12-14] MEDS ORDERED: K and/or MAG REPLACEMENT MC SCH (20:00)
[2021-12-14] MEDS: K and/or MAG REPLACEMENT MC SCH (20:00)
[2021-12-14] MEDS: heparin, porcine 5000 units/ml vial SQ SCH (20:54)
[2021-12-14 21:00] VITALS: BP 143/78
[2021-12-14] MEDS ORDERED: temazepam 15mg capsule PO PRN (21:00)
[2021-12-14 22:00] VITALS: BP 138/61
[2021-12-15] MEDS: HYDROmorphone inj. 0.5 MG/0.5 ML DISP.SYRIN IV PRN ×5 (00:46→21:55)
[2021-12-15] MEDS: normal saline 1000ml 1,000 ML IV SCH ×6 (03:35→22:58)
[2021-12-15] MEDS: potassium CL 20mEq in D5-1/2NS 1,000 ML IV PRN ×3 (03:35→20:30)
[2021-12-15] MEDS: ondansetron/PF 4mg/2ml inj IV PRN ×3 (03:36→16:15)
[2021-12-15] MEDS: Insulin Reg/NS 100units/100mL 100 ML IV SCH (03:41)
[2021-12-15 06:00] VITALS: BP 137/81
[2021-12-15 06:45] LABS: BASOPHILS # (AUTO) 0.1 X10'3 (0-0.2); BASOPHILS % (AUTO) 0.6 % (0-1); EOSINOPHILS % (AUTO) 0.3 % (0-6); HEMATOCRIT 42.3 % (42.0-52.0); HEMOGLOBIN 14.7 g/dl (14.0-17.9); LYMPHOCYTES # (AUTO) 3.3 X10'3 (1.1-4.8); LYMPHOCYTES % (AUTO) 22.6 % (21-51); MEAN CORPUSCULAR HEMOGLOBIN 33.2 PG (27.0-31.0); MEAN CORPUSCULAR HGB CONC 34.7 g/dL (33.0-36.5); MEAN CORPUSCULAR VOLUME 95.8 FL (78-98); MONOCYTES % (AUTO) 7.3 % (2-12); NEUTROPHILS % (AUTO) 69.2 % (42-75); PLATELET COUNT 254 X10'3 (140-440); RED BLOOD COUNT 4.41 X10'6 (4.70-6.10); RED CELL DISTRIBUTION WIDTH 13.3 % (11.5-14.5); WHITE BLOOD COUNT 14.4 X10'3 (4.5-11.0)
--- NOTE | 2021-12-15 06:46 | NUR ---
Patient in room PCU 3014. I have received report from Yuniel BOWLES and had the opportunity to ask questions and assume patient care.
[2021-12-15 07:10] LABS: ALANINE AMINOTRANSFERASE 19 U/L (12-78); ALBUMIN 3.3 G/DL (3.4-5.0); ALBUMIN/GLOBULIN RATIO 1.1 (1.1-1.5); ALKALINE PHOSPHATASE 52 IU/L (46-116); ANION GAP 9 (8-16); ASPARTATE AMINO TRANSFERASE 8 U/L (10-37); BILIRUBIN,TOTAL 0.8 MG/DL (0.1-1.0); BLOOD UREA NITROGEN 12 MG/DL (7-18); BUN/CREATININE RATIO 16.4 (5.4-32.0); CALCIUM 7.9 MG/DL (8.5-10.1); CHLORIDE 112 MMOL/L (99-107); CHOL/HDL RATIO 3.2 (0.00-4.99); CHOLESTEROL 162 MG/DL (0-200); CREATININE 0.73 MG/DL (0.60-1.10); GLUCOSE 87 MG/DL (70-104); HDL CHOLESTEROL 50 MG/DL (35-60); LDL CHOLESTEROL 81 MG/DL (50-100); PHOSPHORUS 2.8 MG/DL (2.3-4.5); POTASSIUM 3.3 MMOL/L (3.5-5.1); SODIUM 144 MMOL/L (135-145); TOTAL PROTEIN 6.2 G/DL (6.4-8.2); TRIGLYCERIDES 78 MG/DL (20-135); eGFR > 90 ML/MIN
[2021-12-15] MEDS: K and/or MAG REPLACEMENT MC SCH ×2 (08:00→18:59)
--- NOTE | 2021-12-15 08:50 | NUR ---
Paged Dr. Phillips regarding pts BG of 73 and anion gap level and CO2. PAGER ID: [phone] MESSAGE: [phone], Chen Aguila. Pts BG is 73, D5 1/2NS with 20meq of k is running at 250. Insulin running at 1unit/hr. It was at 5units/hr but BG has been trending down. Anion gap is 9, C02 is 23.0. Please advise Jennifer U [phone].
[2021-12-15] MEDS: metoclopramide 5 mg/ml inj IV PRN ×3 (09:22→21:55)
--- NOTE | 2021-12-15 10:23 | NUR ---
Paged Dr. Phillips regarding patients seizure like activity, stable vitals and back and abdomen spasming. PAGER ID: [phone] MESSAGE: [id number], Chen Aguila. Pt having seizure like activity, vitals are stable. At this moment I don't think the patient will be able to lie flat or still for a CT. He complains that his lower back R side and abdomen are spasming. Jennifer HARLEY.
[2021-12-15] MEDS: pantoprazole 40MG/NS 100ML BAG 100 ML IV SCH (10:41)
[2021-12-15] MEDS: potassium CL 10mEq/100ml bag 100 ML IV PRN (10:43)
[2021-12-15] MEDS: heparin, porcine 5000 units/ml vial SQ SCH ×2 (10:46→19:12)
[2021-12-15] MEDS: proCHLORperazine 10 MG/2 ml inj IV PRN ×2 (10:47→17:58)
[2021-12-15] MEDS: haloperidol lactate 5mg/ml inj IM PRN ×2 (11:03→19:07)
[2021-12-15] MEDS ORDERED: iohexol 300 MG/1 ML 50ml polymer ONE (11:03)
--- NOTE | 2021-12-15 12:22 | NUR ---
Initial: Per H&P pt with h/o cyclic vomiting syndrome admit for DKA. Noted most recent A1c in EMR is 9.9% from 08/13/18 with no orders for a new A1c this admit. Multiple unsuccessful attempts at reaching bedside RN, left message with another RN with recommendation for a new A1c this admit. Pt currently NPO. LBM /. Per tents assembler pt having seizure like activity and pt experiencing 9/10 pain. Will continue to follow closely and provide DM education as appropriate pending A1c. Recommendations: 1) Advance to CHO controlled diet as medically indicated 2) Bowel care per rx 3) Weekly scaled weights 4) DM education once appropriate; need new A1c this admit Addendum: 12/15/21 at [address] Amended: Links added.
--- NOTE | 2021-12-15 13:03 | NUR ---
Paged Dr. Phillips regarding results of CT. PAGER ID: [phone] MESSAGE: [phone], Chen Aguila. CT of abdomen is back. Jennifer Amira [phone].
[2021-12-15 13:58] LABS: BASOPHILS % (AUTO) 0.3 % (0-1); EOSINOPHILS % (AUTO) 0 % (0-6); HEMATOCRIT 43.6 % (42.0-52.0); HEMOGLOBIN 14.8 g/dl (14.0-17.9); LYMPHOCYTES # (AUTO) 1.8 X10'3 (1.1-4.8); LYMPHOCYTES % (AUTO) 14.1 % (21-51); MEAN CORPUSCULAR HEMOGLOBIN 32.5 PG (27.0-31.0); MEAN CORPUSCULAR HGB CONC 34.1 g/dL (33.0-36.5); MEAN CORPUSCULAR VOLUME 95.6 FL (78-98); MEAN PLATELET VOLUME 8.9 FL (7.4-10.4); MONOCYTES # (AUTO) 0.6 X10'3 (0-0.9); MONOCYTES % (AUTO) 4.5 % (2-12); NEUTROPHILS # (AUTO) 10.2 X10'3 (1.8-7.7); NEUTROPHILS % (AUTO) 81.1 % (42-75); PLATELET COUNT 243 X10'3 (140-440); RED BLOOD COUNT 4.56 X10'6 (4.70-6.10); RED CELL DISTRIBUTION WIDTH 13.3 % (11.5-14.5); WHITE BLOOD COUNT 12.6 X10'3 (4.5-11.0)
[2021-12-15 14:06] LABS: ALANINE AMINOTRANSFERASE 24 U/L (12-78); ALBUMIN 3.4 G/DL (3.4-5.0); ALBUMIN/GLOBULIN RATIO 1.1 (1.1-1.5); ALKALINE PHOSPHATASE 54 IU/L (46-116); ANION GAP 15 (8-16); ASPARTATE AMINO TRANSFERASE 18 U/L (10-37); BILIRUBIN,TOTAL 1.1 MG/DL (0.1-1.0); BLOOD UREA NITROGEN 9 MG/DL (7-18); BUN/CREATININE RATIO 11.1 (5.4-32.0); CALCIUM 8.2 MG/DL (8.5-10.1); CHLORIDE 106 MMOL/L (99-107); CREATININE 0.81 MG/DL (0.60-1.10); GLUCOSE 185 MG/DL (70-104); POTASSIUM 3.5 MMOL/L (3.5-5.1); SODIUM 141 MMOL/L (135-145); TOTAL CARBON DIOXIDE 19.7 MMOL/L (24-32); TOTAL PROTEIN 6.4 G/DL (6.4-8.2); eGFR > 90 ML/MIN
[2021-12-15 15:00] VITALS: BP 136/92
[2021-12-15 18:00] VITALS: BP 124/69
--- NOTE | 2021-12-15 18:41 | NUR ---
Problems reprioritized. Patient report given, questions answered & plan of care reviewed with Karlie RN, pt stable at transfer of care.
[2021-12-15] MEDS: metroNIDAZOLE 500mg tablet PO SCH (19:09)
[2021-12-15 20:51] LABS: ALBUMIN 3.4 G/DL (3.4-5.0); ANION GAP 8 (8-16); BLOOD UREA NITROGEN 6 MG/DL (7-18); BUN/CREATININE RATIO 9.1 (5.4-32.0); CHLORIDE 111 MMOL/L (99-107); CREATININE 0.66 MG/DL (0.60-1.10); GLUCOSE 75 MG/DL (70-104); POTASSIUM 3.3 MMOL/L (3.5-5.1); SODIUM 143 MMOL/L (135-145); TOTAL CARBON DIOXIDE 24.4 MMOL/L (24-32); eGFR > 90 ML/MIN
--- NOTE | 2021-12-15 21:29 | NUR ---
Magu up on floor. RN reviewed pt DKA orders. Pt BMP resulted CO2 24.4, anion gap 8. Pt currently receiving 250mL/hr D51/2 NS with 20K and insulin gtt @ 2.5mL/hr. with NPO diet. requesting to keep pt NPO d/t episodes of nausea during day shift. Per verbal face/face order, RN can decrease insulin gtt down to 1mL/hr and to adjust fluids according to protocol. orders also reviewed with monorail charger operator. Addendum: 12/16/21 at 0309 by Karlie Miller RN Q1H glucose checks. goal to maintain glucose 150-200. Last glucose 191. Fluids D5 1/2 NS with 20k decreased to 200mL/hr. [facility]
[2021-12-15] MEDS: ciprofloxacin 250mg tablet PO SCH (22:00)
[2021-12-15 22:30] VITALS: BP 103/50
[2021-12-16] MEDS: proCHLORperazine 10 MG/2 ml inj IV PRN (00:08)
[2021-12-16] MEDS: potassium CL 20mEq in D5-1/2NS 1,000 ML IV PRN (00:37)
[2021-12-16] MEDS: potassium CL 10mEq/100ml bag 100 ML IV PRN ×3 (01:08→03:46)
[2021-12-16] MEDS: haloperidol lactate 5mg/ml inj IM PRN (01:19)
[2021-12-16 02:00] VITALS: BP 131/67
[2021-12-16] MEDS: normal saline 1000ml 1,000 ML IV SCH ×6 (02:16→21:57)
[2021-12-16] MEDS: ondansetron/PF 4mg/2ml inj IV PRN (02:49)
[2021-12-16] MEDS: HYDROmorphone inj. 0.5 MG/0.5 ML DISP.SYRIN IV PRN (02:50)
[2021-12-16] MEDS: Insulin Reg/NS 100units/100mL 100 ML IV SCH (03:35)
[2021-12-16 03:49] LABS: BASOPHILS # (AUTO) 0.1 X10'3 (0-0.2); BASOPHILS % (AUTO) 0.6 % (0-1); EOSINOPHILS # (AUTO) 0.1 X10'3 (0-0.9); EOSINOPHILS % (AUTO) 0.6 % (0-6); HEMATOCRIT 40.9 % (42.0-52.0); HEMOGLOBIN 14.5 g/dl (14.0-17.9); LYMPHOCYTES # (AUTO) 3.3 X10'3 (1.1-4.8); LYMPHOCYTES % (AUTO) 30.9 % (21-51); MEAN CORPUSCULAR HEMOGLOBIN 33.9 PG (27.0-31.0); MEAN CORPUSCULAR HGB CONC 35.5 g/dL (33.0-36.5); MEAN CORPUSCULAR VOLUME 95.5 FL (78-98); MONOCYTES # (AUTO) 0.9 X10'3 (0-0.9); MONOCYTES % (AUTO) 8.1 % (2-12); NEUTROPHILS # (AUTO) 6.4 X10'3 (1.8-7.7); NEUTROPHILS % (AUTO) 59.8 % (42-75); PLATELET COUNT 219 X10'3 (140-440); RED BLOOD COUNT 4.28 X10'6 (4.70-6.10); RED CELL DISTRIBUTION WIDTH 12.9 % (11.5-14.5); WHITE BLOOD COUNT 10.8 X10'3 (4.5-11.0)
[2021-12-16 04:01] LABS: ALANINE AMINOTRANSFERASE 22 U/L (12-78); ALBUMIN 3.1 G/DL (3.4-5.0); ALBUMIN/GLOBULIN RATIO 1.1 (1.1-1.5); ALKALINE PHOSPHATASE 55 IU/L (46-116); ANION GAP 11 (8-16); ASPARTATE AMINO TRANSFERASE 23 U/L (10-37); BILIRUBIN,TOTAL 1.1 MG/DL (0.1-1.0); BLOOD UREA NITROGEN 5 MG/DL (7-18); BUN/CREATININE RATIO 6.9 (5.4-32.0); CALCIUM 7.9 MG/DL (8.5-10.1); CHLORIDE 107 MMOL/L (99-107); CREATININE 0.72 MG/DL (0.60-1.10); GLUCOSE 198 MG/DL (70-104); LIPASE < 50 U/L (73-393); MAGNESIUM 1.3 MG/DL (1.5-2.4); PHOSPHORUS 2.6 MG/DL (2.3-4.5); POTASSIUM 3.6 MMOL/L (3.5-5.1); SODIUM 141 MMOL/L (135-145); TOTAL CARBON DIOXIDE 22.8 MMOL/L (24-32); eGFR > 90 ML/MIN
[2021-12-16 06:00] VITALS: BP 115/67
[2021-12-16] MEDS: K and/or MAG REPLACEMENT MC SCH ×2 (08:00→18:20)
--- NOTE | 2021-12-16 08:20 | NUR ---
Page to MD Dr. Bradley pt in room 3014A Mingo Siddiqui is stating he's no longer nauseous; His GAP is 11 and his CO2 is 22. Pt. requesting to eat breakfast. Thanks, Mishel HARLEY
[2021-12-16] MEDS: heparin, porcine 5000 units/ml vial SQ SCH ×2 (08:25→20:12)
--- NOTE | 2021-12-16 08:47 | NUR ---
Patient in room PCU 3014. I have received report from WILBUR Ziegler and had the opportunity to ask questions and assume patient care.
[2021-12-16] MEDS ORDERED: glucagon, human recombinant 1mg kit SUBCUT PRN (08:55)
[2021-12-16] MEDS ORDERED: dextrose 50%-water 50ml dispensing syringe IV PRN ×2 (08:55)
[2021-12-16] MEDS ORDERED: MESSAGE TO PHARMACY PO ONE (08:55)
[2021-12-16] MEDS ORDERED: DEXTROSE 15 GM of carb/4 tabs (each vial/BOTTLE has 4 tablets) PO PRN ×2 (08:55)
--- NOTE | 2021-12-16 08:55 | NUR ---
Verbal order Verbal order from Dr. Kirk buitrago to place diet and place protocol for hyper/hypoglycemia due to GAP closed and CO2 being greater than 20; Pt states he is no longer nauseous and would like to eat breakfast. [facility]
[2021-12-16] MEDS: metroNIDAZOLE 500mg tablet PO SCH ×2 (09:18→20:11)
[2021-12-16] MEDS: ciprofloxacin 250mg tablet PO SCH ×2 (09:18→20:11)
[2021-12-16] MEDS: pantoprazole 40MG/NS 100ML BAG 100 ML IV SCH (09:21)
[2021-12-16 09:51] LABS: HEMOGLOBIN A1C 11.1 % (4.5-6.2)
[2021-12-16] MEDS ORDERED: HYDR-3964 PO (10:17)
[2021-12-16] MEDS: insulin Lispro (HumaLOG) vial - multi-dose SQ SCH ×3 (10:56→19:01)
[2021-12-16 11:00] VITALS: BP 138/84
--- NOTE | 2021-12-16 13:53 | NUR ---
Paged PAGER ID: [phone] MESSAGE: Dr. Bradley, [id number] Mingo Siddiqui tolerated breakfast and lunch, wondering if discharge is still in the plans? Thank You, JESUS BiswasU
[2021-12-16 15:00] VITALS: BP 147/90
--- NOTE | 2021-12-16 15:34 | NUR ---
Paged PAGER ID: [phone] MESSAGE: Dr. Bradley, [id number] Mingo Siddiqui, looking for clarification for discharge and also prescriptions PRN [place]. Thank You, JESUS BiswasU
--- NOTE | 2021-12-16 17:02 | NUR ---
Paged PAGER ID: [phone] MESSAGE: , [id number] Mingo Siddiqui, patients ride is on a timeline and would like to know if pt is discharging tonight or not. Thank You, JESUS Biswas
[2021-12-16 18:00] VITALS: BP 144/85
--- NOTE | 2021-12-16 18:07 | NUR ---
Problems reprioritized. Patient report given, questions answered & plan of care reviewed with WILBUR Ziegler [].
[2021-12-16] MEDS: HYDROcodone/acetaminophen 5mg/325mg tablet PO PRN (18:31)
[2021-12-16] MEDS ORDERED: insulin glargine (Lantus) pen - multi-dose SQ SCH (21:00)
[2021-12-16 22:35] VITALS: BP 142/80
[2021-12-16] MEDS ORDERED: pregabalin 25mg capsule PO PRN (22:55)
[2021-12-16] MEDS ORDERED: LORazepam 1 MG tablet PO PRN (22:55)
[2021-12-16] MEDS ORDERED: ondansetron 4mg rapidly disintigrating tab PO PRN (22:55)
[2021-12-16] MEDS: atorvastatin 20mg tablet PO SCH (23:02)
[2021-12-16] MEDS ORDERED: ROPINIRole 0.25mg tablet PO SCH (23:05)
[2021-12-16] MEDS ORDERED: Terazosin 1mg capsule PO SCH (23:06)
[2021-12-17 03:00] VITALS: BP 132/72
[2021-12-17] MEDS: HYDROcodone/acetaminophen 5mg/325mg tablet PO PRN (03:12)
[2021-12-17] MEDS: normal saline 1000ml 1,000 ML IV SCH ×2 (03:35→07:35)
[2021-12-17 06:00] VITALS: BP 135/78
[2021-12-17 06:49] LABS: BASOPHILS # (AUTO) 0.1 X10'3 (0-0.2); EOSINOPHILS # (AUTO) 0.1 X10'3 (0-0.9); EOSINOPHILS % (AUTO) 0.7 % (0-6); HEMATOCRIT 43.3 % (42.0-52.0); HEMOGLOBIN 14.9 g/dl (14.0-17.9); LYMPHOCYTES # (AUTO) 2.8 X10'3 (1.1-4.8); LYMPHOCYTES % (AUTO) 35.4 % (21-51); MEAN CORPUSCULAR HEMOGLOBIN 33.3 PG (27.0-31.0); MEAN CORPUSCULAR HGB CONC 34.5 g/dL (33.0-36.5); MEAN CORPUSCULAR VOLUME 96.5 FL (78-98); MEAN PLATELET VOLUME 8.3 FL (7.4-10.4); MONOCYTES # (AUTO) 0.6 X10'3 (0-0.9); MONOCYTES % (AUTO) 7.2 % (2-12); NEUTROPHILS # (AUTO) 4.4 X10'3 (1.8-7.7); NEUTROPHILS % (AUTO) 55.7 % (42-75); PLATELET COUNT 206 X10'3 (140-440); RED BLOOD COUNT 4.49 X10'6 (4.70-6.10); RED CELL DISTRIBUTION WIDTH 12.9 % (11.5-14.5); WHITE BLOOD COUNT 7.9 X10'3 (4.5-11.0)
[2021-12-17 07:03] LABS: ALANINE AMINOTRANSFERASE 21 U/L (12-78); ALBUMIN 3.3 G/DL (3.4-5.0); ALBUMIN/GLOBULIN RATIO 1.1 (1.1-1.5); ALKALINE PHOSPHATASE 65 IU/L (46-116); ANION GAP 11 (8-16); ASPARTATE AMINO TRANSFERASE 16 U/L (10-37); BILIRUBIN,TOTAL 1.3 MG/DL (0.1-1.0); BLOOD UREA NITROGEN 11 MG/DL (7-18); BUN/CREATININE RATIO 14.3 (5.4-32.0); CALCIUM 8.4 MG/DL (8.5-10.1); CHLORIDE 107 MMOL/L (99-107); CREATININE 0.77 MG/DL (0.60-1.10); GLUCOSE 272 MG/DL (70-104); LIPASE < 50 U/L (73-393); MAGNESIUM 1.6 MG/DL (1.5-2.4); PHOSPHORUS 3.1 MG/DL (2.3-4.5); SODIUM 140 MMOL/L (135-145); TOTAL CARBON DIOXIDE 22.4 MMOL/L (24-32); TOTAL PROTEIN 6.4 G/DL (6.4-8.2); eGFR > 90 ML/MIN
[2021-12-17] MEDS ORDERED: pantoprazole 40mg Tablet.DR PO SCH (07:30)
[2021-12-17] MEDS: atorvastatin 20mg tablet PO SCH (07:48)
[2021-12-17] MEDS: metroNIDAZOLE 500mg tablet PO SCH (07:48)
[2021-12-17 07:49] VITALS: BP_SYST 135
[2021-12-17] MEDS: heparin, porcine 5000 units/ml vial SQ SCH (07:50)
[2021-12-17] MEDS ORDERED: AMYLASE PO SCH (08:00)
[2021-12-17] MEDS ORDERED: losartan 50mg tablet PO SCH (08:00)
[2021-12-17] MEDS: K and/or MAG REPLACEMENT MC SCH (08:00)
[2021-12-17] MEDS ORDERED: LIPASE PO SCH (08:00)
[2021-12-17] MEDS ORDERED: PROTEASE PO SCH (08:00)
[2021-12-17] MEDS ORDERED: LIPASE/PROTEASE/AMYLASE 16,800 UNIT CAPSULE.DR PO SCH (08:00)
[2021-12-17] MEDS ORDERED: LIPASE/PROTEASE/AMYLASE 4,200 unit CAPSULE.DR PO SCH (08:00)
[2021-12-17] MEDS ORDERED: nortriptyline 25mg capsule PO SCH (08:00)
[2021-12-17] MEDS: ciprofloxacin 250mg tablet PO SCH (09:26)
[2021-12-17] MEDS: insulin Lispro (HumaLOG) vial - multi-dose SQ SCH (09:29)
--- NOTE | 2021-12-17 10:32 | NUR ---
Reassessment: Pt has been advanced to Carb control diet yesterday 12/16 and has had ~50% of first 3 meals. Pt states that his appetite is starting to come back today. LBM 12/16. No nutrition intervention implemented at this time. Pt and his seen at bedside, the states that pt cannot read or write. Provided pt and S/O written and verbal DM ed w/ RD contact info. Recommendations: 1) Continue Carb control diet as tolerated 2) Monitor need for ONS pending further PO trends 3) Bowel care per rx 4) Weekly scaled weights Addendum: 12/17/21 at [address] Amended: Links added.
--- NOTE | 2021-12-17 11:00 | NUR ---
Patient received discharge instructions with no questions, patient IV removed with catheter intact, per stable for discharge.
== END 2021-12-17 11:00 | disposition home or self-care (01) | DRG 282 ==
LOC: ER 08:52 → ED HOLD 11:39 → PCU 3S 19:35
PROVIDERS: ADMIT Internal Medicine; ATTEND Internal Medicine
PROC: BW211ZZ Computerized Tomography (CT Scan) of Abdomen and Pelvis using Low Osmolar Contrast (ICD-10-PCS; principal; 2021-12-15)
DX: K85.90 Acute pancreatitis without necrosis or infection, unspecified (principal); E11.10 Type 2 diabetes mellitus with ketoacidosis without coma; N17.9 Acute kidney failure, unspecified; E27.8 Other specified disorders of adrenal gland; R16.0 Hepatomegaly, not elsewhere classified; E11.22 Type 2 diabetes mellitus with diabetic chronic kidney disease; E11.43 Type 2 diabetes mellitus with diabetic autonomic (poly)neuropathy; E78.00 Pure hypercholesterolemia, unspecified; E78.5 Hyperlipidemia, unspecified; E86.0 Dehydration; F12.90 Cannabis use, unspecified, uncomplicated; I12.9 Hypertensive chronic kidney disease with stage 1 through stage 4 chronic kidney disease, or unspecified chronic kidney disease; K31.84 Gastroparesis; F41.9 Anxiety disorder, unspecified; K40.20 Bilateral inguinal hernia, without obstruction or gangrene, not specified as recurrent; K42.9 Umbilical hernia without obstruction or gangrene; K44.9 Diaphragmatic hernia without obstruction or gangrene; K86.1 Other chronic pancreatitis; N18.30 Chronic kidney disease, stage 3 unspecified; N40.0 Benign prostatic hyperplasia without lower urinary tract symptoms; Z79.4 Long term (current) use of insulin; Z79.82 Long term (current) use of aspirin; Z83.3 Family history of diabetes mellitus; Z87.891 Personal history of nicotine dependence; Z79.899 Other long term (current) drug therapy; Z88.0 Allergy status to penicillin; Z88.8 Allergy status to other drugs, medicaments and biological substances; Z80.59 Family history of malignant neoplasm of other urinary tract organ
CPT/HCPCS: 36415; 74177; 80048; 80053; 80061; 80305; 80320; 81001; 82948; 83036; 83605; 83690; 83735; 84100; 84145; 85025; 87040; 87081; 93005; 96361; 96374; 96375; 97034; 99291; C9113; G0378; J0780; J1170; J1630; J1644; J1815; J2060; J2270; J2405; J2765; J3480; J7030; Q9967

== ENCOUNTER 2022-01-15 12:21 | Emergency (ER) | payer MEDICAID ==
[~2022-01-15] VITALS: Ht 170.2 cm; Wt 131.8 kg
[~2022-01-15 12:21] MED LIST changes: -ALBU8.5H17 IH; +ASPI81TA52 PO; +ATOR40TA71 PO; +DOCU100C38 PO; -DOCU100C41 PO; -DULO20CA50 PO; -GABA600T13 PO; +HYDR-3964 PO; -HYDR-3972 PO; +INSU100I31 SQ; +INSU100I45 SQ; -INSU100V10 SQ; -LANTUS SQ; +LIPA1CAP18 PO; -LISI-642 PO; +LORA-269 PO; -LORA1TAB PO; -METO-292 PO; -NORT25CA PO; +NORT25CA5 PO; -OMEP20TA43 PO; -ONDA-104 PO; +ONDA8TAB13 PO; +PREG50CA PO; +ROPI0.5T4 PO; -SIMV-45 PO; +VALS80TA32 PO
[2022-01-15] MEDS ORDERED: metoclopramide 5 mg/ml inj IV ONE (12:30)
[2022-01-15] MEDS ORDERED: normal saline 1000ML IV soln IVB ONE (12:30)
[2022-01-15 12:39] LABS: BASOPHILS # (AUTO) 0.1 X10'3 (0-0.2); BASOPHILS % (AUTO) 0.7 % (0-1); EOSINOPHILS # (AUTO) 0.1 X10'3 (0-0.9); EOSINOPHILS % (AUTO) 0.6 % (0-6); HEMOGLOBIN 16.2 g/dl (14.0-17.9); LYMPHOCYTES # (AUTO) 2.7 X10'3 (1.1-4.8); LYMPHOCYTES % (AUTO) 31.1 % (21-51); MEAN CORPUSCULAR HEMOGLOBIN 32.5 PG (27.0-31.0); MEAN CORPUSCULAR HGB CONC 34.5 g/dL (33.0-36.5); MEAN CORPUSCULAR VOLUME 94.1 FL (78-98); MONOCYTES # (AUTO) 0.5 X10'3 (0-0.9); MONOCYTES % (AUTO) 5.9 % (2-12); NEUTROPHILS # (AUTO) 5.4 X10'3 (1.8-7.7); NEUTROPHILS % (AUTO) 61.7 % (42-75); PLATELET COUNT 247 X10'3 (140-440); RED CELL DISTRIBUTION WIDTH 13.1 % (11.5-14.5); WHITE BLOOD COUNT 8.7 X10'3 (4.5-11.0)
[2022-01-15 12:53] LABS: ALANINE AMINOTRANSFERASE 23 U/L (12-78); ALBUMIN/GLOBULIN RATIO 1.3 (1.1-1.5); ALKALINE PHOSPHATASE 61 IU/L (46-116); ANION GAP 15 (8-16); ASPARTATE AMINO TRANSFERASE 10 U/L (10-37); BILIRUBIN,TOTAL 0.9 MG/DL (0.1-1.0); BLOOD UREA NITROGEN 21 MG/DL (7-18); CALCIUM 9.2 MG/DL (8.5-10.1); CHLORIDE 102 MMOL/L (99-107); CREATININE 1.05 MG/DL (0.60-1.10); GLUCOSE 332 MG/DL (70-104); LIPASE 54 U/L (73-393); MAGNESIUM 1.7 MG/DL (1.5-2.4); SODIUM 137 MMOL/L (135-145); TOTAL CARBON DIOXIDE 20.4 MMOL/L (24-32); TOTAL PROTEIN 7.2 G/DL (6.4-8.2); eGFR 74 ML/MIN
[2022-01-15 13:04] VITALS: BP 138/93
--- NOTE | 2022-01-15 13:35 | NUR ---
pt heard yelling stating "I want to leave. this place is useless and nobody is doing anything for me anyways." rekha michel informed of pt request and pt will be discharged
== END 2022-01-15 13:54 | disposition home or self-care (01) ==
LOC: ER 12:21
DX: G89.29 Other chronic pain (principal); R10.10 Upper abdominal pain, unspecified; R11.2 Nausea with vomiting, unspecified; E78.00 Pure hypercholesterolemia, unspecified; I10 Essential (primary) hypertension; E11.9 Type 2 diabetes mellitus without complications; F12.90 Cannabis use, unspecified, uncomplicated; Z72.89 Other problems related to lifestyle; Z88.0 Allergy status to penicillin; Z88.8 Allergy status to other drugs, medicaments and biological substances; Z79.4 Long term (current) use of insulin; Z79.82 Long term (current) use of aspirin; Z79.899 Other long term (current) drug therapy
CPT/HCPCS: 36415; 80053; 83690; 83735; 85025; 96361; 96374; 99283; J2765; J7030

== ENCOUNTER 2022-01-23 23:37 | Emergency (ER) | payer MEDICAID ==
[~2022-01-23] VITALS: Ht 170.2 cm; Wt 86.4 kg
[2022-01-24 00:45] LABS: BASOPHILS # (AUTO) 0.1 X10'3 (0-0.2); BASOPHILS % (AUTO) 0.4 % (0-1); EOSINOPHILS % (AUTO) 0 % (0-6); HEMATOCRIT 44.2 % (42.0-52.0); HEMOGLOBIN 15.4 g/dl (14.0-17.9); LYMPHOCYTES # (AUTO) 1.2 X10'3 (1.1-4.8); LYMPHOCYTES % (AUTO) 8.6 % (21-51); MEAN CORPUSCULAR HEMOGLOBIN 33.1 PG (27.0-31.0); MEAN CORPUSCULAR HGB CONC 34.8 g/dL (33.0-36.5); MEAN CORPUSCULAR VOLUME 94.9 FL (78-98); MEAN PLATELET VOLUME 8.7 FL (7.4-10.4); MONOCYTES # (AUTO) 0.7 X10'3 (0-0.9); MONOCYTES % (AUTO) 4.8 % (2-12); NEUTROPHILS # (AUTO) 11.9 X10'3 (1.8-7.7); NEUTROPHILS % (AUTO) 86.2 % (42-75); PLATELET COUNT 254 X10'3 (140-440); RED BLOOD COUNT 4.66 X10'6 (4.70-6.10); RED CELL DISTRIBUTION WIDTH 12.8 % (11.5-14.5); WHITE BLOOD COUNT 13.7 X10'3 (4.5-11.0)
[2022-01-24 00:49] LABS: ALANINE AMINOTRANSFERASE 25 U/L (12-78); ALBUMIN 4.2 G/DL (3.4-5.0); ALBUMIN/GLOBULIN RATIO 1.3 (1.1-1.5); ALKALINE PHOSPHATASE 65 IU/L (46-116); ANION GAP 8 (8-16); ASPARTATE AMINO TRANSFERASE 10 U/L (10-37); BLOOD UREA NITROGEN 26 MG/DL (7-18); BUN/CREATININE RATIO 23.2 (5.4-32.0); CALCIUM 9.6 MG/DL (8.5-10.1); CHLORIDE 100 MMOL/L (99-107); CREATININE 1.12 MG/DL (0.60-1.10); GLUCOSE 358 MG/DL (70-104); LIPASE < 50 U/L (73-393); POTASSIUM 3.5 MMOL/L (3.5-5.1); SODIUM 133 MMOL/L (135-145); TOTAL CARBON DIOXIDE 25.5 MMOL/L (24-32); TOTAL PROTEIN 7.5 G/DL (6.4-8.2); eGFR 69 ML/MIN
[2022-01-24 02:03] LABS: CLARITY,URINE CLEAR (Clear); COLOR,URINE YELLOW (Yellow); GLUCOSE, URINE >=1000 mg/dl (Neg); KETONES,URINE >=80 mg/dl (Neg); LEUKOCYTE ESTERASE ,URINE NEGATIVE (Neg); NITRITES, URINE NEGATIVE (Neg); OCCULT BLOOD,URINE TRACE-INTACT (Neg); PH,URINE 6.5 (4.8-8.0); PROTEIN,URINE TRACE mg/dl (Neg); UROBILINOGEN,URINE 0.2 E.U/dL (0.2-1.0)
[2022-01-24 02:04] LABS: UA COLLECTION TYPE CLN CATCH MIDSTREAM
[2022-01-24 02:07] LABS: BACTERIA,URINE FEW /HPF (Neg); HYALINE CASTS 0-3 /LPF (NEGATIVE); RBC,URINE 0-2 /HPF (0-2); SQUAMOUS EPITHELIAL CELL,UR FEW /LPF (FEW); WBC,URINE 0-4 /HPF (0-4)
[2022-01-24] MEDS ORDERED: normal saline 1000ml 1,000 ML IV ONE (03:20)
--- NOTE | 2022-01-24 04:00 | NUR ---
Patient was found to be having "seizure-like" activity. MD Sutherland called to bedside. Patient evaluated and Koko stated it was not in fact a seizure. Patient at the bedside stating that this is what the patient does. No post-dictal phase.
[2022-01-24] MEDS ORDERED: LORazepam 2 mg/ml vial ONE (04:33)
[2022-01-24] MEDS ORDERED: LORazepam 2 mg/ml vial IM ONE (04:35)
[2022-01-24] MEDS ORDERED: HYDROmorphone inj. 0.5 MG/0.5 ML DISP.SYRIN IV ONE (04:45)
--- NOTE | 2022-01-24 04:45 | NUR ---
Patient continuing to have "seizure-like" activity, no post-dictal period, patient tracking voice with his eyes and continuously stating that he needs pain meds.
--- NOTE | 2022-01-24 05:13 | NUR ---
As nurse was preparing to push ordered Dilaudid, patient thought the delivery of medication was occuring and stated "Im starting to feel better" however no medication had yet been delivered to the patient through the IV. made aware.
--- NOTE | 2022-01-24 05:35 | NUR ---
Patient had been having intermittent episodes of retching emesis between "seizure-like" activity in which patient just aggressively tremors. Patient was found multiple times sticking his finger down his throat making himself throw up. Educated multiple times by various staff that he needs to stop making himself throw up for no reason.
--- NOTE | 2022-01-24 05:44 | NUR ---
got patient up out of bed to go pee. Educated both the patient and on risk of falls and urged the importance of not getting the patient up out of bed again without notifying nurse.
--- NOTE | 2022-01-24 05:54 | NUR ---
Patient continuously making himself throw up by sticking his finger down his throat. Patient then began sticking his face closer the emesis bag to attempt hiding the act of continuing to make himself throw up.
--- NOTE | 2022-01-24 05:56 | NUR ---
Patient observed with his finger down his throat twice. Patient educated about importance of not trying to throw up.
[2022-01-24] MEDS ORDERED: metoclopramide 5 mg/ml inj IV ONE (06:50)
--- NOTE | 2022-01-24 06:50 | NUR ---
PT SITTING UP IN CHAIR, STICKING FINGER DOWN HIS THROAT. PT RETCHING AND VOMITING BLOOD TINGED LIQUID. PT EDUCATED ON THE TRAUMA HE CAN CAUSE BY INDUCING VOMITING. PT STATED " JUST ONE MORE TIME". PT CONTINUES TO DO THIS.
--- NOTE | 2022-01-24 07:13 | NUR ---
PT HAVING "SHAKING" EPISODE. PT EYES ROLL BACK AND HIS BODY BEGINS TO SHAKE. PT SAYING "OH MY GOD, OH MY GOD" THIS EPISODE OCCURES. PT ABLE TO ANSWER QUESTIONS DURING SHAKING EVENT.
[2022-01-24 07:15] VITALS: BP 179/90
[2022-01-24] MEDS ORDERED: iohexol 350 MG/1 ML 200ml bottle ONE (07:50)
== END 2022-01-24 09:23 | disposition home or self-care (01) ==
LOC: ER 23:37
DX: R11.10 Vomiting, unspecified (principal); R10.84 Generalized abdominal pain; F12.90 Cannabis use, unspecified, uncomplicated; E78.00 Pure hypercholesterolemia, unspecified; R51.9 Headache, unspecified; I10 Essential (primary) hypertension; E11.9 Type 2 diabetes mellitus without complications; Z72.89 Other problems related to lifestyle; Z88.0 Allergy status to penicillin; Z88.8 Allergy status to other drugs, medicaments and biological substances; Z79.4 Long term (current) use of insulin; Z79.899 Other long term (current) drug therapy
CPT/HCPCS: 36415; 70450; 71045; 74176; 80053; 81001; 83690; 84484; 85025; 93005; 96361; 96372; 96374; 96375; 99285; J1170; J2060; J2765; J7030; Q9967; J3490

== ENCOUNTER 2022-05-03 14:56 | Emergency (ER) | payer MEDICAID ==
[~2022-05-03] VITALS: Ht 170.2 cm; Wt 81.8 kg
[2022-05-03 15:01] VITALS: BP 139/85
[2022-05-03 15:47] LABS: BASOPHILS # (AUTO) 0.1 X10'3 (0-0.2); BASOPHILS % (AUTO) 0.4 % (0-1); EOSINOPHILS % (AUTO) 0.1 % (0-6); HEMATOCRIT 47.7 % (42.0-52.0); HEMOGLOBIN 16.7 g/dl (14.0-17.9); LYMPHOCYTES # (AUTO) 2.7 X10'3 (1.1-4.8); MEAN CORPUSCULAR HEMOGLOBIN 33.1 PG (27.0-31.0); MEAN CORPUSCULAR VOLUME 94.4 FL (78-98); MEAN PLATELET VOLUME 8.7 FL (7.4-10.4); MONOCYTES # (AUTO) 0.6 X10'3 (0-0.9); MONOCYTES % (AUTO) 4.3 % (2-12); NEUTROPHILS # (AUTO) 10.8 X10'3 (1.8-7.7); NEUTROPHILS % (AUTO) 76.2 % (42-75); PLATELET COUNT 268 X10'3 (140-440); RED BLOOD COUNT 5.05 X10'6 (4.70-6.10); RED CELL DISTRIBUTION WIDTH 13.4 % (11.5-14.5); WHITE BLOOD COUNT 14.1 X10'3 (4.5-11.0)
[2022-05-03] MEDS ORDERED: metoclopramide 5 mg/ml inj IV ONE (15:50)
[2022-05-03] MEDS ORDERED: normal saline 500ml IV soln 500 ML IV ONE (15:50)
[2022-05-03] MEDS ORDERED: LORazepam 2 mg/ml vial IV ONE (15:50)
[2022-05-03 16:01] LABS: ALANINE AMINOTRANSFERASE 26 U/L (12-78); ALBUMIN 4.7 G/DL (3.4-5.0); ALBUMIN/GLOBULIN RATIO 1.4 (1.1-1.5); ALKALINE PHOSPHATASE 65 IU/L (46-116); ANION GAP 16 (8-16); ASPARTATE AMINO TRANSFERASE 12 U/L (10-37); BILIRUBIN,TOTAL 0.9 MG/DL (0.1-1.0); BLOOD UREA NITROGEN 23 MG/DL (7-18); BUN/CREATININE RATIO 19.5 (5.4-32.0); CALCIUM 9.9 MG/DL (8.5-10.1); CHLORIDE 105 MMOL/L (99-107); CREATININE 1.18 MG/DL (0.60-1.10); GLUCOSE 332 MG/DL (70-104); LIPASE < 50 U/L (73-393); POTASSIUM 3.6 MMOL/L (3.5-5.1); SODIUM 142 MMOL/L (135-145); TOTAL CARBON DIOXIDE 21.3 MMOL/L (24-32); eGFR 65 ML/MIN
[2022-05-03] MEDS ORDERED: diazepam inj 5 MG/ML inj. IV ONE (16:10)
--- NOTE | 2022-05-03 17:30 | NUR ---
PT YELLING AND STATING "YOU GUYS ARENT DOING ANYTHING TO HELP ME". PT ASKING TO LEAVE. I EXPLAINED I CAN NOT HOLD HIM AND IF HE WOULD LIKE TO LEAVE HE IS ABLE TO. PT BEGAN ARGUING WITH PT TELLING HIM TO STAY. SECURITY WAS CALLED THE SITUATION ESCELATED. PT THREATENING TO PULL IV. PT IV WAS REMOVED AND PT LEFT OUT THROUGH [facility]. STAYED IN THE HALLWAY YELLING AT STAFF. MD AWARE, CHARGE AWARE.
== END 2022-05-03 18:13 | disposition left against medical advice (07) ==
LOC: ER 14:57
DX: R10.13 Epigastric pain (principal); R11.2 Nausea with vomiting, unspecified; E78.00 Pure hypercholesterolemia, unspecified; I10 Essential (primary) hypertension; E11.9 Type 2 diabetes mellitus without complications; F12.90 Cannabis use, unspecified, uncomplicated; Z72.89 Other problems related to lifestyle; Z88.0 Allergy status to penicillin; Z88.8 Allergy status to other drugs, medicaments and biological substances; Z79.82 Long term (current) use of aspirin; Z79.4 Long term (current) use of insulin; Z79.899 Other long term (current) drug therapy
CPT/HCPCS: 36415; 80053; 82948; 83690; 85025; 96361; 96374; 96375; 99284; J2765; J3360; J7040

== ENCOUNTER 2023-10-22 23:43 | Emergency (ER) | payer MEDICAID ==
[~2023-10-22] VITALS: Ht 170.2 cm; Wt 81.0 kg
[~2023-10-22 23:43] MED LIST changes: -INSU100I45 SQ; +INSU100I61 SQ; +ROPI0.5T37 PO; -ROPI0.5T4 PO
[2023-10-22] MEDS: normal saline 1000ML IV soln IVB ONE (23:55)
[2023-10-23 00:05] VITALS: TEMP 98.6
[2023-10-23] MEDS: pantoprazole 40 MG vial IV ONE (00:46)
[2023-10-23] MEDS: diphenhydrAMINE 50 mg/ml inj IV ONE (00:47)
[2023-10-23] MEDS: proCHLORperazine 10 MG/2 ml inj IV ONE (00:50)
[2023-10-23] MEDS: metoclopramide 5 mg/ml inj IV ONE (00:53)
[2023-10-23] MEDS: LORazepam 2 mg/ml vial IV ONE (00:55)
[2023-10-23 00:57] VITALS: O2SAT 100
[2023-10-23] MEDS: ondansetron/PF 4mg/2ml inj IV ONE (01:00)
[2023-10-23 01:09] LABS: ALANINE AMINOTRANSFERASE 22 U/L (12-78); ALBUMIN 4.1 G/DL (3.4-5.0); ALBUMIN/GLOBULIN RATIO 1.3 (1.1-1.5); ALKALINE PHOSPHATASE 93 IU/L (46-116); ANION GAP 12 (8-16); ASPARTATE AMINO TRANSFERASE 15 U/L (10-37); BLOOD UREA NITROGEN 23 MG/DL (7-18); BUN/CREATININE RATIO 18.4 (10.0-20.0); CALCIUM 9.2 MG/DL (8.5-10.1); CHLORIDE 105 MMOL/L (99-107); CREATININE 1.25 MG/DL (0.60-1.10); GLUCOSE 240 MG/DL (70-104); POTASSIUM 4.1 MMOL/L (3.5-5.1); SODIUM 140 MMOL/L (135-145); TOTAL CARBON DIOXIDE 23.2 MMOL/L (24-32); TOTAL PROTEIN 7.3 G/DL (6.4-8.2); eCRCL 63 ML/MIN; eGFR 60 ML/MIN
[2023-10-23 01:11] LABS: BASOPHILS # (AUTO) 0.1 X10'3 (0-0.2); BASOPHILS % (AUTO) 0.5 % (0-1); EOSINOPHILS # (AUTO) 0.1 X10'3 (0-0.9); EOSINOPHILS % (AUTO) 0.6 % (0-6); HEMATOCRIT 49.1 % (42.0-52.0); HEMOGLOBIN 16.8 g/dl (14.0-17.9); LYMPHOCYTES # (AUTO) 3.3 X10'3 (1.1-4.8); LYMPHOCYTES % (AUTO) 31.1 % (21-51); MEAN CORPUSCULAR HGB CONC 34.3 g/dL (33.0-36.5); MEAN CORPUSCULAR VOLUME 96.3 FL (78-98); MONOCYTES # (AUTO) 0.7 X10'3 (0-0.9); MONOCYTES % (AUTO) 6.8 % (2-12); NEUTROPHILS # (AUTO) 6.4 X10'3 (1.8-7.7); PLATELET COUNT 249 X10'3 (140-440); RED CELL DISTRIBUTION WIDTH 13.1 % (11.5-14.5); WHITE BLOOD COUNT 10.5 X10'3 (4.5-11.0)
[2023-10-23 01:14] LABS: LIPASE 23 U/L (16-77)
[2023-10-23] MEDS: morphine 4 MG/ML inj SYRINge IV ONE (01:17)
[2023-10-23] MEDS: dicyclomine 10mg/ml 2ml ampule IM ONE (01:45)
[2023-10-23 01:47] VITALS: BP 132/78; PULSE 80; RESP 13
[2023-10-23 02:07] LABS: BILIRUBIN,URINE SMALL (Neg); CLARITY,URINE SLIGHTLY CLOUDY (Clear); GLUCOSE, URINE 250 mg/dl (Neg); KETONES,URINE 40 mg/dl (Neg); LEUKOCYTE ESTERASE ,URINE NEGATIVE (Neg); NITRITES, URINE NEGATIVE (Neg); OCCULT BLOOD,URINE SMALL (Neg); PH,URINE 6.5 (4.8-8.0); PROTEIN,URINE TRACE mg/dl (Neg)
[2023-10-23 02:35] LABS: COLOR,URINE DARK YELLOW (Yellow); UA COLLECTION TYPE CLN CATCH MIDSTREAM
[2023-10-23 02:36] LABS: BACTERIA,URINE FEW /HPF (Neg); HYALINE CASTS 0-3 /LPF (NEGATIVE); MUCUS STRANDS MANY /LPF (Neg); SQUAMOUS EPITHELIAL CELL,UR FEW /LPF (FEW); WBC,URINE 0-4 /HPF (0-4)
== END 2023-10-23 01:55 | disposition home or self-care (01) ==
LOC: ER 23:43
DX: K29.70 Gastritis, unspecified, without bleeding (principal); E78.00 Pure hypercholesterolemia, unspecified; I10 Essential (primary) hypertension; E11.9 Type 2 diabetes mellitus without complications; Z88.0 Allergy status to penicillin; Z88.8 Allergy status to other drugs, medicaments and biological substances; Z79.82 Long term (current) use of aspirin; Z79.84 Long term (current) use of oral hypoglycemic drugs; Z79.899 Other long term (current) drug therapy
CPT/HCPCS: 36415; 74176; 80053; 81001; 83690; 84484; 85025; 93005; 96361; 96372; 96374; 96375; 99285; C9113; J0500; J0780; J1200; J2060; J2270; J2405; J2765; J7030

== ENCOUNTER 2023-11-07 20:48 | Emergency (ER) | payer MEDICAID ==
[~2023-11-07] VITALS: Ht 170.2 cm; Wt 81.8 kg
[2023-11-07 20:50] VITALS: BP 155/78; PULSE 78; RESP 17; TEMP 98; O2SAT 98
[2023-11-07] MEDS ORDERED: CEPH-585 PO (21:32)
[2023-11-07] MEDS ORDERED: SULF1TAB49 PO (21:32)
[2023-11-07] MEDS: sulfamethoxazole/trimethoprim DS (800/160mg) tablet PO ONE (21:33)
[2023-11-07] MEDS: CefTRIAXone 1000mg IM Kit (w/lidocaine diluent) IM ONE (21:34)
[2023-11-07] MEDS ORDERED: IBUP-862 PO (21:59)
== END 2023-11-07 21:44 | disposition home or self-care (01) ==
LOC: ER 20:49
DX: L03.113 Cellulitis of right upper limb (principal); F12.90 Cannabis use, unspecified, uncomplicated; I10 Essential (primary) hypertension; E78.00 Pure hypercholesterolemia, unspecified; E11.9 Type 2 diabetes mellitus without complications; Z88.0 Allergy status to penicillin; Z88.8 Allergy status to other drugs, medicaments and biological substances; Z79.82 Long term (current) use of aspirin; Z79.2 Long term (current) use of antibiotics; Z79.899 Other long term (current) drug therapy
CPT/HCPCS: 96372; 99283; J0696

== ENCOUNTER 2023-12-17 14:24 | Outpatient (CLI) | payer MEDICAID ==
[~2023-12-17 14:24] MED LIST changes: +CEPH-585 PO; +IBUP-862 PO
== END 2023-12-17 23:59 | disposition home or self-care (01) ==
LOC: VAS 14:24
PROVIDERS: ATTEND Surgery
DX: I73.9 Peripheral vascular disease, unspecified (principal); M71.22 Synovial cyst of popliteal space [Baker], left knee
CPT/HCPCS: 93922; 93925; 93976

== ENCOUNTER 2024-01-16 10:49 | Emergency (ER) | payer MEDICAID ==
[~2024-01-16] VITALS: Ht 170.2 cm; Wt 88.6 kg
[2024-01-16] MEDS ORDERED: haloperidol lactate 5mg/ml inj IM ONE (12:00)
[2024-01-16] MEDS: diphenhydrAMINE 50 mg/ml inj IV ONE (12:06)
[2024-01-16] MEDS: normal saline 1000ML IV soln IV ONE (12:07)
[2024-01-16 12:34] LABS: BASOPHILS # (AUTO) 0.1 X10'3 (0-0.2); BASOPHILS % (AUTO) 0.7 % (0-1); EOSINOPHILS % (AUTO) 0.1 % (0-6); HEMOGLOBIN 16.7 g/dl (14.0-17.9); LYMPHOCYTES # (AUTO) 2.1 X10'3 (1.1-4.8); LYMPHOCYTES % (AUTO) 15.7 % (21-51); MEAN CORPUSCULAR HEMOGLOBIN 32.7 PG (27.0-31.0); MEAN CORPUSCULAR VOLUME 96.2 FL (78-98); MEAN PLATELET VOLUME 8.4 FL (7.4-10.4); MONOCYTES # (AUTO) 0.6 X10'3 (0-0.9); MONOCYTES % (AUTO) 4.3 % (2-12); NEUTROPHILS # (AUTO) 10.4 X10'3 (1.8-7.7); NEUTROPHILS % (AUTO) 79.2 % (42-75); PLATELET COUNT 261 X10'3 (140-440); RED BLOOD COUNT 5.09 X10'6 (4.70-6.10); RED CELL DISTRIBUTION WIDTH 13.3 % (11.5-14.5); WHITE BLOOD COUNT 13.1 X10'3 (4.5-11.0)
[2024-01-16 12:45] LABS: ALBUMIN 4.3 G/DL (3.4-5.0); ANION GAP 14 (8-16); BLOOD UREA NITROGEN 28 MG/DL (7-18); BUN/CREATININE RATIO 23.3 (10.0-20.0); CALCIUM 9.8 MG/DL (8.5-10.1); CHLORIDE 108 MMOL/L (99-107); GLUCOSE 363 MG/DL (70-104); POTASSIUM 3.9 MMOL/L (3.5-5.1); SODIUM 143 MMOL/L (135-145); eCRCL 66 ML/MIN; eGFR 63 ML/MIN
[2024-01-16] MEDS: metoclopramide 5 mg/ml inj IV ONE (13:11)
[2024-01-16] MEDS: acetaminophen 1,000mg/100ml IV 100 ML IV ONE (13:11)
[2024-01-16] MEDS: diazepam inj 5 MG/ML inj. IV ONE ×2 (13:47→16:10)
[2024-01-16] MEDS: morphine 4 MG/ML inj SYRINge IV ONE (14:22)
[2024-01-16] MEDS: proCHLORperazine 10 MG/2 ml inj IV ONE (15:01)
[2024-01-16] MEDS: OLANZapine 2.5MG tablet PO ONE (15:02)
[2024-01-16 15:29] LABS: BILIRUBIN,URINE NEGATIVE (Neg); CLARITY,URINE CLEAR (Clear); COLOR,URINE YELLOW (Yellow); GLUCOSE, URINE >=1000 mg/dl (Neg); KETONES,URINE 15 mg/dl (Neg); LEUKOCYTE ESTERASE ,URINE NEGATIVE (Neg); NITRITES, URINE NEGATIVE (Neg); OCCULT BLOOD,URINE NEGATIVE (Neg); PROTEIN,URINE TRACE mg/dl (Neg); UROBILINOGEN,URINE 0.2 E.U/dL (0.2-1.0)
[2024-01-16 15:31] LABS: ALANINE AMINOTRANSFERASE 29 U/L (12-78); ALBUMIN/GLOBULIN RATIO 1.1 (1.1-1.5); ALKALINE PHOSPHATASE 86 IU/L (46-116); ASPARTATE AMINO TRANSFERASE 7 U/L (10-37); BILIRUBIN,DIRECT 0.2 MG/DL (0-0.3); BILIRUBIN,TOTAL 0.9 MG/DL (0.1-1.0); LIPASE 19 U/L (16-77); TOTAL PROTEIN 8.1 G/DL (6.4-8.2)
[2024-01-16 15:43] LABS: UA COLLECTION TYPE NON-SPECIFIED
[2024-01-16 15:49] LABS: RBC,URINE 0-2 /HPF (0-2); WBC,URINE 0-4 /HPF (0-4)
[2024-01-16 15:50] LABS: BACTERIA,URINE NONE SEEN /HPF (Neg); SQUAMOUS EPITHELIAL CELL,UR NONE SEEN /LPF (FEW)
[2024-01-16] MEDS: normal saline 1000ML IV soln IVB ONE (16:13)
[2024-01-16] MEDS: insulin regular, human 10 units/0.1 ml syringe SQ ONE (16:22)
[2024-01-16 16:57] VITALS: BP 196/109; PULSE 86; RESP 14; TEMP 97.7; O2SAT 98
[2024-01-17] MEDS ORDERED: BISA-95 PO (02:50)
[2024-01-17] MEDS ORDERED: INSU100I39 SQ (02:50)
[2024-01-17] MEDS ORDERED: POLY510P31 PO (02:50)
[2024-01-17] MEDS ORDERED: INSU100I29 SQ (02:50)
[2024-01-17] MEDS ORDERED: BISA-77 PO (02:50)
[2024-01-17] MEDS ORDERED: DICY20TA2 PO (02:50)
[2024-01-17] MEDS ORDERED: PANT40TA54 PO (02:50)
[2024-01-17] MEDS ORDERED: LUBI8CAP5 PO (02:50)
== END 2024-01-16 17:01 | disposition home or self-care (01) ==
LOC: ER 10:50
DX: S72.091A Other fracture of head and neck of right femur, initial encounter for closed fracture (principal); E11.9 Type 2 diabetes mellitus without complications; R11.2 Nausea with vomiting, unspecified; R10.84 Generalized abdominal pain; E78.00 Pure hypercholesterolemia, unspecified; I10 Essential (primary) hypertension; F12.90 Cannabis use, unspecified, uncomplicated; Z88.0 Allergy status to penicillin; Z88.8 Allergy status to other drugs, medicaments and biological substances; Z79.899 Other long term (current) drug therapy; Z79.2 Long term (current) use of antibiotics; W18.39XA Other fall on same level, initial encounter; Y93.89 Activity, other specified; Y92.89 Other specified places as the place of occurrence of the external cause; Y99.8 Other external cause status
CPT/HCPCS: 36415; 80048; 80076; 81001; 82948; 83690; 84145; 85025; 93005; 96361; 96372; 96374; 96375; 96376; 99285; J0131; J0780; J1200; J1815; J2270; J2765; J3360; J7030

== ENCOUNTER 2024-01-16 22:10 | Inpatient (IN) | payer MEDICAID ==
[~2024-01-16] VITALS: Ht 170.2 cm; Wt 88.6 kg
[2024-01-16 23:18] LABS: HEMATOCRIT 47.4 % (42.0-52.0); RED CELL DISTRIBUTION WIDTH 13.5 % (11.5-14.5)
[2024-01-16 23:20] LABS: BASOPHILS # (AUTO) 0.1 X10'3 (0-0.2); BASOPHILS % (AUTO) 0.4 % (0-1); EOSINOPHILS % (AUTO) 0 % (0-6); HEMOGLOBIN 16.6 g/dl (14.0-17.9); LYMPHOCYTES # (AUTO) 1.8 X10'3 (1.1-4.8); LYMPHOCYTES % (AUTO) 11.3 % (21-51); MEAN CORPUSCULAR HEMOGLOBIN 33.5 PG (27.0-31.0); MEAN CORPUSCULAR VOLUME 95.7 FL (78-98); MEAN PLATELET VOLUME 8.6 FL (7.4-10.4); MONOCYTES % (AUTO) 6.6 % (2-12); NEUTROPHILS # (AUTO) 12.7 X10'3 (1.8-7.7); NEUTROPHILS % (AUTO) 81.7 % (42-75); PLATELET COUNT 246 X10'3 (140-440); RED BLOOD COUNT 4.95 X10'6 (4.70-6.10); WHITE BLOOD COUNT 15.6 X10'3 (4.5-11.0)
[2024-01-16 23:33] LABS: ALANINE AMINOTRANSFERASE 30 U/L (12-78); ALBUMIN 4.4 G/DL (3.4-5.0); ALBUMIN/GLOBULIN RATIO 1.2 (1.1-1.5); ALKALINE PHOSPHATASE 84 IU/L (46-116); ANION GAP 17 (8-16); ASPARTATE AMINO TRANSFERASE 7 U/L (10-37); BILIRUBIN,TOTAL 1.4 MG/DL (0.1-1.0); BLOOD UREA NITROGEN 25 MG/DL (7-18); BUN/CREATININE RATIO 22.5 (10.0-20.0); CHLORIDE 104 MMOL/L (99-107); CREATINE KINASE 130 U/L (39-308); CREATININE 1.11 MG/DL (0.60-1.10); GLUCOSE 287 MG/DL (70-104); POTASSIUM 3.6 MMOL/L (3.5-5.1); SODIUM 141 MMOL/L (135-145); TOTAL CARBON DIOXIDE 20.4 MMOL/L (24-32); TOTAL PROTEIN 8.1 G/DL (6.4-8.2); eCRCL 71 ML/MIN; eGFR 69 ML/MIN
[2024-01-17] MEDS ORDERED: iohexol 300mg/ml 100ml inj. ONE (00:25)
[2024-01-17] MEDS: normal saline 1000ML IV soln IVB ONE ×3 (00:27→04:14)
[2024-01-17] MEDS: ondansetron/PF 4mg/2ml inj IV ONE (00:46)
[2024-01-17] MEDS: morphine 4 MG/ML inj SYRINge IV ONE (01:07)
[2024-01-17] MEDS ORDERED: magnesium Cl slow-release 64mg tablet PO PRN (02:45)
[2024-01-17] MEDS ORDERED: potassium Cl 20 mEq SR tablet PO PRN ×2 (02:45)
[2024-01-17] MEDS ORDERED: magnesium 2GM in 50ml NS 50 ML IV PRN (02:45)
[2024-01-17] MEDS ORDERED: potassium Cl 40MEQ/1/2NS 520ml 520 ML IV PRN (02:45)
[2024-01-17] MEDS ORDERED: magnesium 4gm in 100ml NS 100 ML IV PRN (02:45)
[2024-01-17] MEDS ORDERED: INSU100I39 SQ (02:50)
[2024-01-17] MEDS ORDERED: DEXTROSE 15 GM of carb/4 tabs (each vial/BOTTLE has 4 tablets) PO PRN ×2 (02:50)
[2024-01-17] MEDS ORDERED: glucagon, human recombinant 1mg kit SUBCUT PRN (02:50)
[2024-01-17] MEDS ORDERED: POLY510P31 PO (02:50)
[2024-01-17] MEDS ORDERED: dextrose 50%-water 50ml dispensing syringe IV PRN ×2 (02:50)
[2024-01-17] MEDS ORDERED: LUBI8CAP5 PO (02:50)
[2024-01-17] MEDS ORDERED: INSU100I29 SQ (02:50)
[2024-01-17] MEDS ORDERED: BISA-77 PO (02:50)
[2024-01-17] MEDS ORDERED: BISA-95 PO (02:50)
[2024-01-17] MEDS ORDERED: DICY20TA2 PO (02:50)
[2024-01-17] MEDS ORDERED: PANT40TA54 PO (02:50)
[2024-01-17 03:21] LABS: MAGNESIUM 1.9 MG/DL (1.5-2.4)
[2024-01-17] MEDS: enalaprilat dihydrate 2.5mg/2ml vial IV ONE (03:26)
[2024-01-17] MEDS: midazolam 1 mg/ML 2ml injection IV ONE (03:27)
[2024-01-17 03:29] LABS: HEMOGLOBIN A1C 9.5 % (4.5-6.2)
[2024-01-17] MEDS: ondansetron inj. 24 MG in normal saline 250ml IV soln 228 ML IV SCH (03:52)
[2024-01-17] MEDS: morphine 2 MG/ML inj. syringe IV PRN (04:59)
[2024-01-17] MEDS: normal saline 1000ml 1,000 ML IV SCH (05:00)
[2024-01-17 05:15] VITALS: BP 213/108; PULSE 94; RESP 20; TEMP 98.5; O2SAT 95
[2024-01-17] MEDS: pantoprazole 40 MG vial IV SCH (07:22)
[2024-01-17] MEDS: K and/or MAG REPLACEMENT MC SCH (08:00)
[2024-01-17 08:25] VITALS: RESP 20; O2SAT 99
[2024-01-17] MEDS: INSULIN LISPRO 100 UNIT/ML INSULN.PEN MULTI-DOSE SQ SCH (08:52)
[2024-01-17 10:00] VITALS: BP 191/98; PULSE 91; RESP 20; TEMP 98.8; O2SAT 99
[2024-01-17] MEDS: heparin, porcine 5000 units/ml vial SQ SCH (13:51)
[2024-01-17] MEDS ORDERED: metoclopramide 5 mg/ml inj IV PRN (15:30)
[2024-01-17] MEDS ORDERED: capsaicin 0.025% 60gm cream TP SCH (16:00)
[2024-01-17] MEDS: CAPSAICIN 56.6 GM CREAM..G. TP SCH (17:56)
[2024-01-17 20:00] VITALS: RESP 20; O2SAT 99
[2024-01-17] MEDS: proCHLORperazine 10 MG/2 ml inj IV PRN (20:16)
[2024-01-17] MEDS: acetaminophen 325mg tablet PO PRN (20:17)
[2024-01-17 22:00] VITALS: BP 122/71; PULSE 65; RESP 19; TEMP 98.3; O2SAT 100
[2024-01-18 06:00] VITALS: BP 153/84; PULSE 74; RESP 19; TEMP 98.4; O2SAT 99
[2024-01-18 07:37] LABS: BASOPHILS % (AUTO) 0.2 % (0-1); EOSINOPHILS % (AUTO) 0 % (0-6); HEMATOCRIT 41.5 % (42.0-52.0); HEMOGLOBIN 13.8 g/dl (14.0-17.9); LYMPHOCYTES # (AUTO) 3.1 X10'3 (1.1-4.8); LYMPHOCYTES % (AUTO) 19.2 % (21-51); MEAN CORPUSCULAR HEMOGLOBIN 32.4 PG (27.0-31.0); MEAN CORPUSCULAR HGB CONC 33.4 g/dL (33.0-36.5); MEAN CORPUSCULAR VOLUME 96.9 FL (78-98); MEAN PLATELET VOLUME 8.4 FL (7.4-10.4); MONOCYTES # (AUTO) 0.9 X10'3 (0-0.9); MONOCYTES % (AUTO) 5.4 % (2-12); NEUTROPHILS # (AUTO) 12.2 X10'3 (1.8-7.7); NEUTROPHILS % (AUTO) 75.2 % (42-75); PLATELET COUNT 219 X10'3 (140-440); RED BLOOD COUNT 4.28 X10'6 (4.70-6.10); RED CELL DISTRIBUTION WIDTH 13.5 % (11.5-14.5); WHITE BLOOD COUNT 16.3 X10'3 (4.5-11.0)
[2024-01-18 07:56] LABS: ALANINE AMINOTRANSFERASE 29 U/L (12-78); ALBUMIN 3.3 G/DL (3.4-5.0); ALBUMIN/GLOBULIN RATIO 1.1 (1.1-1.5); ALKALINE PHOSPHATASE 65 IU/L (46-116); ANION GAP 11 (8-16); ASPARTATE AMINO TRANSFERASE 15 U/L (10-37); BILIRUBIN,TOTAL 1.2 MG/DL (0.1-1.0); BLOOD UREA NITROGEN 15 MG/DL (7-18); BUN/CREATININE RATIO 21.4 (10.0-20.0); CHLORIDE 105 MMOL/L (99-107); GLUCOSE 228 MG/DL (70-104); MAGNESIUM 2.2 MG/DL (1.5-2.4); POTASSIUM 3.7 MMOL/L (3.5-5.1); SODIUM 138 MMOL/L (135-145); TOTAL CARBON DIOXIDE 22.3 MMOL/L (24-32); TOTAL PROTEIN 6.4 G/DL (6.4-8.2); eCRCL 113 ML/MIN; eGFR > 90 ML/MIN
[2024-01-18] MEDS: morphine 2 MG/ML inj. syringe IV ONE (08:43)
[2024-01-18] MEDS: HYDROmorphone 1 mg/ml syringe IV PRN (14:08)
[2024-01-18] MEDS ORDERED: pregabalin 25mg capsule PO PRN (19:45)
[2024-01-18] MEDS ORDERED: HYDROcodone/acetaminophen 5mg/325mg tablet PO PRN (19:45)
[2024-01-18] MEDS: ROPINIRole 0.25mg tablet PO SCH (20:54)
[2024-01-18] MEDS: nortriptyline 25mg capsule PO SCH (20:54)
[2024-01-18] MEDS: Terazosin 1mg capsule PO SCH (20:55)
[2024-01-18] MEDS: levoFLOXACIN-Levaquin 500mg/D5 100 ML IV SCH (23:41)
[2024-01-19 05:55] VITALS: BP 128/88; PULSE 76; RESP 16; TEMP 98.4; O2SAT 96
[2024-01-19 07:44] LABS: ALANINE AMINOTRANSFERASE 25 U/L (12-78); ALKALINE PHOSPHATASE 62 IU/L (46-116); ANION GAP 12 (8-16); ASPARTATE AMINO TRANSFERASE 9 U/L (10-37); BILIRUBIN,TOTAL 1.2 MG/DL (0.1-1.0); BLOOD UREA NITROGEN 14 MG/DL (7-18); BUN/CREATININE RATIO 17.5 (10.0-20.0); CALCIUM 7.9 MG/DL (8.5-10.1); CHLORIDE 103 MMOL/L (99-107); GLUCOSE 302 MG/DL (70-104); MAGNESIUM 2.3 MG/DL (1.5-2.4); POTASSIUM 3.7 MMOL/L (3.5-5.1); SODIUM 135 MMOL/L (135-145); eCRCL 99 ML/MIN; eGFR > 90 ML/MIN
[2024-01-19] MEDS: losartan 50mg tablet PO SCH (08:29)
[2024-01-19 08:31] LABS: BASOPHILS # (AUTO) 0.1 X10'3 (0-0.2); BASOPHILS % (AUTO) 0.7 % (0-1); EOSINOPHILS # (AUTO) 0.1 X10'3 (0-0.9); EOSINOPHILS % (AUTO) 0.4 % (0-6); HEMATOCRIT 40.7 % (42.0-52.0); HEMOGLOBIN 13.7 g/dl (14.0-17.9); LYMPHOCYTES # (AUTO) 3.2 X10'3 (1.1-4.8); LYMPHOCYTES % (AUTO) 24.1 % (21-51); MEAN CORPUSCULAR HEMOGLOBIN 32.7 PG (27.0-31.0); MEAN CORPUSCULAR HGB CONC 33.7 g/dL (33.0-36.5); MEAN CORPUSCULAR VOLUME 97.1 FL (78-98); MEAN PLATELET VOLUME 8.3 FL (7.4-10.4); MONOCYTES % (AUTO) 7.7 % (2-12); NEUTROPHILS # (AUTO) 8.8 X10'3 (1.8-7.7); NEUTROPHILS % (AUTO) 67.1 % (42-75); PLATELET COUNT 203 X10'3 (140-440); RED CELL DISTRIBUTION WIDTH 13.2 % (11.5-14.5); WHITE BLOOD COUNT 13.1 X10'3 (4.5-11.0)
[2024-01-19] MEDS: atorvastatin 20mg tablet PO SCH (08:33)
[2024-01-19 13:00] VITALS: BP 140/73; PULSE 74; RESP 18; TEMP 98.2; O2SAT 96
[2024-01-19] MEDS ORDERED: LEVO-65 PO (14:09)
[2024-01-20] MEDS ORDERED: SULF1TAB48 PO (22:49)
== END 2024-01-19 13:30 | disposition home or self-care (01) | DRG 720 ==
LOC: ER 22:11 → ED HOLD 01-17 02:47 → ORTHO 4S 01-17 05:16
PROVIDERS: ADMIT Internal Medicine; ATTEND Internal Medicine
DX: A41.9 Sepsis, unspecified organism (principal); K65.9 Peritonitis, unspecified; K31.84 Gastroparesis; E11.43 Type 2 diabetes mellitus with diabetic autonomic (poly)neuropathy; E78.00 Pure hypercholesterolemia, unspecified; I10 Essential (primary) hypertension; F17.210 Nicotine dependence, cigarettes, uncomplicated; F12.90 Cannabis use, unspecified, uncomplicated; K52.9 Noninfective gastroenteritis and colitis, unspecified; N40.0 Benign prostatic hyperplasia without lower urinary tract symptoms; Z88.0 Allergy status to penicillin; Z88.8 Allergy status to other drugs, medicaments and biological substances; Z79.4 Long term (current) use of insulin; Z83.3 Family history of diabetes mellitus; Z82.1 Family history of blindness and visual loss; Z84.1 Family history of disorders of kidney and ureter; Z80.49 Family history of malignant neoplasm of other genital organs; Z82.49 Family history of ischemic heart disease and other diseases of the circulatory system; Z82.0 Family history of epilepsy and other diseases of the nervous system; Z79.899 Other long term (current) drug therapy; Z71.6 Tobacco abuse counseling
CPT/HCPCS: 36415; 74177; 80053; 82550; 82948; 83036; 83605; 83735; 85025; 87081; 96374; 99285; A6253; C9113; G0378; J0780; J1170; J1644; J1815; J1956; J2250; J2270; J2405; J3490; J7030; J7050; Q9967

== ENCOUNTER 2024-01-20 22:04 | Emergency (ER) | payer MEDICAID ==
[~2024-01-20] VITALS: Ht 170.2 cm; Wt 86.4 kg
[~2024-01-20 22:04] MED LIST changes: -ASPI81TA52 PO; +BISA-77 PO; +BISA-95 PO; -CEPH-585 PO; +DICY20TA2 PO; -IBUP-862 PO; +INSU100I29 SQ; -INSU100I31 SQ; +INSU100I39 SQ; -INSU100I61 SQ; +LEVO-65 PO; -LIPA1CAP18 PO; -LORA-269 PO; +LUBI8CAP5 PO; +PANT40TA54 PO; +POLY510P31 PO
[2024-01-20 22:09] VITALS: BP 135/75; PULSE 85; TEMP 98.9; O2SAT 99
[2024-01-20] MEDS ORDERED: ketorolac trometh. 30mg/ml inj. IM ONE (22:45)
[2024-01-20] MEDS ORDERED: SULF1TAB48 PO (22:49)
[2024-01-20] MEDS: CefTRIAXone 1000mg IM Kit (w/lidocaine diluent) IM ONE (23:25)
[2024-01-20 23:26] VITALS: RESP 16
[2024-01-20] MEDS: ketorolac tromethamine 15mg/ml inj. IM ONE (23:26)
== END 2024-01-20 23:53 | disposition home or self-care (01) ==
LOC: ER 22:05
DX: L02.413 Cutaneous abscess of right upper limb (principal); I10 Essential (primary) hypertension; E78.00 Pure hypercholesterolemia, unspecified; E11.9 Type 2 diabetes mellitus without complications; D64.9 Anemia, unspecified; Z88.0 Allergy status to penicillin; Z88.8 Allergy status to other drugs, medicaments and biological substances; Z79.4 Long term (current) use of insulin; Z79.899 Other long term (current) drug therapy
CPT/HCPCS: 96372; 99284; J0696; J1885

== ENCOUNTER 2024-02-04 10:23 | Emergency (ER) | payer MEDICAID ==
[~2024-02-04] VITALS: Ht 170.2 cm; Wt 90.0 kg
[2024-02-04 10:31] VITALS: TEMP 97.5
[2024-02-04 11:41] LABS: BASOPHILS # (AUTO) 0.1 X10'3 (0-0.2); EOSINOPHILS % (AUTO) 0 % (0-6); HEMOGLOBIN 16.3 g/dl (14.0-17.9); MONOCYTES # (AUTO) 0.4 X10'3 (0-0.9); PLATELET COUNT 291 X10'3 (140-440); RED CELL DISTRIBUTION WIDTH 13.2 % (11.5-14.5)
[2024-02-04] MEDS: metoclopramide 5 mg/ml inj IV ONE (11:41)
[2024-02-04 11:43] LABS: BASOPHILS % (AUTO) 0.6 % (0-1); HEMATOCRIT 47.8 % (42.0-52.0); LYMPHOCYTES % (AUTO) 14.2 % (21-51); MEAN CORPUSCULAR HEMOGLOBIN 32.7 PG (27.0-31.0); MEAN CORPUSCULAR VOLUME 96.2 FL (78-98); MEAN PLATELET VOLUME 8.4 FL (7.4-10.4); MONOCYTES % (AUTO) 3.2 % (2-12); NEUTROPHILS # (AUTO) 11.3 X10'3 (1.8-7.7); RED BLOOD COUNT 4.97 X10'6 (4.70-6.10); WHITE BLOOD COUNT 13.8 X10'3 (4.5-11.0)
[2024-02-04 12:03] LABS: ALANINE AMINOTRANSFERASE 32 U/L (12-78); ALBUMIN 4.3 G/DL (3.4-5.0); ALKALINE PHOSPHATASE 85 IU/L (46-116); ANION GAP 12 (8-16); ASPARTATE AMINO TRANSFERASE 9 U/L (10-37); BILIRUBIN,TOTAL 0.8 MG/DL (0.1-1.0); BLOOD UREA NITROGEN 27 MG/DL (7-18); BUN/CREATININE RATIO 21.8 (10.0-20.0); CALCIUM 10.8 MG/DL (8.5-10.1); CHLORIDE 103 MMOL/L (99-107); CREATININE 1.24 MG/DL (0.60-1.10); GLUCOSE 392 MG/DL (70-104); LIPASE 25 U/L (16-77); POTASSIUM 4.4 MMOL/L (3.5-5.1); SODIUM 138 MMOL/L (135-145); TOTAL CARBON DIOXIDE 22.7 MMOL/L (24-32); TOTAL PROTEIN 8.4 G/DL (6.4-8.2); eCRCL 64 ML/MIN; eGFR 61 ML/MIN
[2024-02-04] MEDS: diazepam inj 5 MG/ML inj. IV ONE (12:07)
[2024-02-04] MEDS: normal saline 1000ml 1,000 ML IV ONE (12:07)
[2024-02-04 12:15] LABS: BILIRUBIN,URINE NEGATIVE (Neg); CLARITY,URINE CLEAR (Clear); COLOR,URINE YELLOW (Yellow); GLUCOSE, URINE >=1000 mg/dl (Neg); KETONES,URINE 15 mg/dl (Neg); LEUKOCYTE ESTERASE ,URINE NEGATIVE (Neg); NITRITES, URINE NEGATIVE (Neg); OCCULT BLOOD,URINE TRACE-INTACT (Neg); PROTEIN,URINE TRACE mg/dl (Neg); UROBILINOGEN,URINE 0.2 E.U/dL (0.2-1.0)
[2024-02-04 12:16] LABS: UA COLLECTION TYPE CLN CATCH MIDSTREAM
[2024-02-04 12:22] LABS: BACTERIA,URINE NONE SEEN /HPF (Neg); MUCUS STRANDS NONE SEEN /LPF (Neg); RBC,URINE NONE SEEN /HPF (0-2); SQUAMOUS EPITHELIAL CELL,UR FEW /LPF (FEW); WBC,URINE 0-4 /HPF (0-4)
[2024-02-04] MEDS: HYDROmorphone inj. 0.5 MG/0.5 ML DISP.SYRIN IV ONE (13:17)
[2024-02-04] MEDS: pantoprazole 40 MG vial IV ONE (13:20)
[2024-02-04] MEDS: insulin regular, human 10 units/0.1 ml syringe IV ONE (13:31)
[2024-02-04 14:49] VITALS: BP 111/89; PULSE 82; RESP 15; O2SAT 99
== END 2024-02-04 15:06 | disposition home or self-care (01) ==
LOC: ER 10:24
DX: K29.00 Acute gastritis without bleeding (principal); R56.9 Unspecified convulsions; R10.9 Unspecified abdominal pain; E78.00 Pure hypercholesterolemia, unspecified; I10 Essential (primary) hypertension; E11.9 Type 2 diabetes mellitus without complications; F12.90 Cannabis use, unspecified, uncomplicated; Z88.0 Allergy status to penicillin; Z88.8 Allergy status to other drugs, medicaments and biological substances; Z79.899 Other long term (current) drug therapy; Z79.4 Long term (current) use of insulin; Z79.2 Long term (current) use of antibiotics
CPT/HCPCS: 36415; 74176; 80053; 81001; 82948; 83690; 85025; 96361; 96374; 96375; 99285; C9113; J1170; J1815; J2765; J3360; J7030

== ENCOUNTER 2024-03-08 07:07 | Inpatient (IN) | payer MEDICAID ==
[~2024-03-08] VITALS: Ht 170.2 cm; Wt 86.4 kg
[~2024-03-08 07:07] MED LIST changes: -LEVO-65 PO; +ONDA-245 PO; -ONDA8TAB13 PO
[2024-03-08] MEDS: ketorolac trometh. 30mg/ml inj. IV ONE (07:27)
[2024-03-08] MEDS: normal saline 1000ml 1,000 ML IV ONE ×2 (07:27→08:59)
[2024-03-08] MEDS: proCHLORperazine 10 MG/2 ml inj IV ONE (07:31)
[2024-03-08 07:54] LABS: BASOPHILS # (AUTO) 0.1 X10'3 (0-0.2); BASOPHILS % (AUTO) 0.6 % (0-1); EOSINOPHILS # (AUTO) 0.1 X10'3 (0-0.9); EOSINOPHILS % (AUTO) 0.5 % (0-6); HEMATOCRIT 48.9 % (42.0-52.0); HEMOGLOBIN 17.2 g/dl (14.0-17.9); LYMPHOCYTES # (AUTO) 3.5 X10'3 (1.1-4.8); LYMPHOCYTES % (AUTO) 22.9 % (21-51); MEAN CORPUSCULAR HEMOGLOBIN 33.7 PG (27.0-31.0); MEAN CORPUSCULAR HGB CONC 35.2 g/dL (33.0-36.5); MEAN CORPUSCULAR VOLUME 95.7 FL (78-98); MEAN PLATELET VOLUME 8.4 FL (7.4-10.4); MONOCYTES % (AUTO) 6.4 % (2-12); NEUTROPHILS # (AUTO) 10.6 X10'3 (1.8-7.7); NEUTROPHILS % (AUTO) 69.6 % (42-75); PLATELET COUNT 297 X10'3 (140-440); RED BLOOD COUNT 5.11 X10'6 (4.70-6.10); RED CELL DISTRIBUTION WIDTH 13.3 % (11.5-14.5); WHITE BLOOD COUNT 15.2 X10'3 (4.5-11.0)
[2024-03-08 08:08] LABS: ALANINE AMINOTRANSFERASE 33 U/L (12-78); ALBUMIN 4.3 G/DL (3.4-5.0); ALBUMIN/GLOBULIN RATIO 1.1 (1.1-1.5); ALKALINE PHOSPHATASE 93 IU/L (46-116); ANION GAP 14 (8-16); ASPARTATE AMINO TRANSFERASE 9 U/L (10-37); BILIRUBIN,TOTAL 0.6 MG/DL (0.1-1.0); BLOOD UREA NITROGEN 24 MG/DL (7-18); BUN/CREATININE RATIO 18.6 (10.0-20.0); CHLORIDE 102 MMOL/L (99-107); CREATININE 1.29 MG/DL (0.60-1.10); GLUCOSE 361 MG/DL (70-104); LIPASE 21 U/L (16-77); POTASSIUM 3.7 MMOL/L (3.5-5.1); SODIUM 137 MMOL/L (135-145); TOTAL CARBON DIOXIDE 21.3 MMOL/L (24-32); TOTAL PROTEIN 8.2 G/DL (6.4-8.2); eCRCL 61 ML/MIN; eGFR 58 ML/MIN
[2024-03-08 08:10] LABS: CALCIUM 12.1 MG/DL (8.5-10.1)
[2024-03-08] MEDS: diphenhydrAMINE 50 mg/ml inj IV ONE (08:14)
[2024-03-08] MEDS: OLANZapine **IM** 10 mg inj. IM ONE (08:14)
[2024-03-08] MEDS ORDERED: iohexol 300mg/ml 100ml inj. ONE (08:39)
[2024-03-08] MEDS: diazepam inj 5 MG/ML inj. IV ONE (08:58)
[2024-03-08] MEDS ORDERED: HYDR-3965 PO (09:50)
[2024-03-08] MEDS: metoclopramide 5 mg/ml inj IV ONE (10:59)
[2024-03-08 11:19] LABS: BILIRUBIN,URINE NEGATIVE (Neg); CLARITY,URINE CLEAR (Clear); COLOR,URINE YELLOW (Yellow); GLUCOSE, URINE >=1000 mg/dl (Neg); KETONES,URINE TRACE mg/dl (Neg); LEUKOCYTE ESTERASE ,URINE NEGATIVE (Neg); NITRITES, URINE NEGATIVE (Neg); OCCULT BLOOD,URINE NEGATIVE (Neg); PH,URINE 7.5 (4.8-8.0); PROTEIN,URINE TRACE mg/dl (Neg); UROBILINOGEN,URINE 0.2 E.U/dL (0.2-1.0)
[2024-03-08 11:23] LABS: UA COLLECTION TYPE URINAL
[2024-03-08 11:25] LABS: URINE AMPHETAMINE SCREEN NEGATIVE (Neg); URINE BARBITUATE SCREEN NEGATIVE (Neg); URINE BENZODIAZEPINES SCREEN NEGATIVE (Neg); URINE CANNABINOID SCREEN POSITIVE (Neg); URINE COCAINE SCREEN NEGATIVE (Neg); URINE METHADONE SCREEN NEGATIVE (Neg); URINE OPIATE SCREEN POSITIVE (Neg); URINE PHENCYCLIDINE SCREEN NEGATIVE (Neg)
[2024-03-08 11:26] LABS: SQUAMOUS EPITHELIAL CELL,UR FEW /LPF (FEW)
[2024-03-08 11:27] LABS: BACTERIA,URINE FEW /HPF (Neg); MUCUS STRANDS NONE SEEN /LPF (Neg); WBC,URINE 0-4 /HPF (0-4)
[2024-03-08] MEDS: morphine 4 MG/ML inj SYRINge IV ONE (12:22)
[2024-03-08] MEDS ORDERED: DEXTROSE 15 GM of carb/4 tabs (each vial/BOTTLE has 4 tablets) PO PRN ×2 (13:40)
[2024-03-08] MEDS ORDERED: glucagon, human recombinant 1mg kit SUBCUT PRN (13:40)
[2024-03-08] MEDS ORDERED: dextrose 50%-water 50ml dispensing syringe IV PRN ×2 (13:40)
[2024-03-08] MEDS: normal saline 1000ml 1,000 ML IV SCH (14:15)
[2024-03-08] MEDS: pantoprazole 40 MG vial IV SCH (14:17)
[2024-03-08] MEDS: HYDROmorphone inj. 0.5 MG/0.5 ML DISP.SYRIN IV PRN (14:19)
[2024-03-08] MEDS ORDERED: ATOR-2 PO (14:32)
[2024-03-08] MEDS ORDERED: HYDR-3686 PO (14:32)
[2024-03-08] MEDS ORDERED: INSU200I8 SQ (14:32)
[2024-03-08] MEDS ORDERED: pregabalin 25mg capsule PO PRN (14:50)
[2024-03-08] MEDS: dicyclomine 10 MG capsule PO PRN (16:08)
[2024-03-08] MEDS: INSULIN LISPRO 100 UNIT/ML INSULN.PEN MULTI-DOSE SQ SCH ×2 (17:53→17:54)
[2024-03-08] MEDS: hydrOXYzine 25 MG tablet PO SCH (20:35)
[2024-03-08] MEDS: heparin, porcine 5000 units/ml vial SQ SCH (20:36)
[2024-03-08] MEDS: docusate sod 100mg capsule PO SCH (20:36)
[2024-03-08] MEDS: nortriptyline 25mg capsule PO SCH (20:38)
[2024-03-08] MEDS: insulin glargine (Lantus) pen - multi-dose SQ SCH (21:07)
[2024-03-08] MEDS: Terazosin 1mg capsule PO SCH (21:09)
[2024-03-08] MEDS: ROPINIRole 0.25mg tablet PO SCH (21:09)
[2024-03-08 22:00] VITALS: BP 151/74; PULSE 88; RESP 17; TEMP 98.4; O2SAT 98
[2024-03-09 06:00] VITALS: BP 116/66; PULSE 71; RESP 13; TEMP 97.6; O2SAT 92
[2024-03-09 07:14] LABS: BASOPHILS # (AUTO) 0.1 X10'3 (0-0.2); BASOPHILS % (AUTO) 0.6 % (0-1); EOSINOPHILS # (AUTO) 0.1 X10'3 (0-0.9); EOSINOPHILS % (AUTO) 0.7 % (0-6); HEMATOCRIT 39.9 % (42.0-52.0); HEMOGLOBIN 13.3 g/dl (14.0-17.9); LYMPHOCYTES # (AUTO) 4.3 X10'3 (1.1-4.8); LYMPHOCYTES % (AUTO) 35.8 % (21-51); MEAN CORPUSCULAR HEMOGLOBIN 32.2 PG (27.0-31.0); MEAN CORPUSCULAR HGB CONC 33.3 g/dL (33.0-36.5); MEAN CORPUSCULAR VOLUME 96.7 FL (78-98); MONOCYTES % (AUTO) 8.5 % (2-12); NEUTROPHILS # (AUTO) 6.5 X10'3 (1.8-7.7); NEUTROPHILS % (AUTO) 54.4 % (42-75); PLATELET COUNT 219 X10'3 (140-440); RED BLOOD COUNT 4.12 X10'6 (4.70-6.10); RED CELL DISTRIBUTION WIDTH 13.5 % (11.5-14.5); WHITE BLOOD COUNT 11.9 X10'3 (4.5-11.0)
[2024-03-09 07:19] LABS: ANION GAP 7 (8-16); BLOOD UREA NITROGEN 17 MG/DL (7-18); BUN/CREATININE RATIO 24.3 (10.0-20.0); CHLORIDE 108 MMOL/L (99-107); GLUCOSE 121 MG/DL (70-104); MAGNESIUM 1.9 MG/DL (1.5-2.4); POTASSIUM 3.4 MMOL/L (3.5-5.1); SODIUM 139 MMOL/L (135-145); TOTAL CARBON DIOXIDE 23.7 MMOL/L (24-32); eCRCL 113 ML/MIN; eGFR > 90 ML/MIN
[2024-03-09] MEDS: losartan 50mg tablet PO SCH (07:20)
[2024-03-09] MEDS: atorvastatin 20mg tablet PO SCH (07:21)
[2024-03-09] MEDS: ondansetron/PF 4mg/2ml inj IV PRN (08:14)
[2024-03-09] MEDS: INSULIN LISPRO 100 UNIT/ML INSULN.PEN MULTI-DOSE SQ SCH (08:44)
[2024-03-09] MEDS: metoclopramide 5 mg/ml inj IV ONE (09:02)
[2024-03-09 10:00] VITALS: BP 144/107; PULSE 102; RESP 20; TEMP 97.4; O2SAT 98
[2024-03-09] MEDS ORDERED: potassium Cl 20 mEq SR tablet PO PRN ×2 (10:50)
[2024-03-09] MEDS ORDERED: magnesium sulf-water 4G/100mL 100 ML IV PRN (10:50)
[2024-03-09] MEDS ORDERED: magnesium sulf-water 2g/50mL 50 ML IV PRN (10:50)
[2024-03-09] MEDS ORDERED: magnesium Cl slow-release 64mg tablet PO PRN (10:50)
[2024-03-09] MEDS ORDERED: lactose-reduced food (Ensure High Protein) 237ml bottle PO SCH (13:00)
[2024-03-09] MEDS: lactose-reduced food (Ensure Enlive) - 237ml bottle PO SCH (13:12)
[2024-03-09] MEDS: potassium Cl 40MEQ/1/2NS 520ml 520 ML IV PRN (13:30)
[2024-03-09] MEDS: metoclopramide 5 mg/ml inj IV PRN (13:31)
[2024-03-09 18:00] VITALS: BP 158/92; PULSE 76; RESP 18; TEMP 97.9; O2SAT 99
[2024-03-09 20:00] VITALS: RESP 18; O2SAT 99
[2024-03-09] MEDS: K and/or MAG REPLACEMENT MC SCH (20:00)
[2024-03-09] MEDS: pantoprazole 40 MG vial IV SCH (21:22)
[2024-03-09] MEDS: insulin glargine (Lantus) pen - multi-dose SQ SCH (21:38)
[2024-03-09 22:00] VITALS: BP 138/87; PULSE 73; RESP 18; TEMP 98.7; O2SAT 97
[2024-03-10 06:00] VITALS: BP 144/66; PULSE 93; RESP 15; TEMP 98.2; O2SAT 95
[2024-03-10 07:55] LABS: BASOPHILS # (AUTO) 0.1 X10'3 (0-0.2); BASOPHILS % (AUTO) 0.7 % (0-1); EOSINOPHILS # (AUTO) 0.1 X10'3 (0-0.9); EOSINOPHILS % (AUTO) 0.8 % (0-6); HEMATOCRIT 37.6 % (42.0-52.0); HEMOGLOBIN 12.8 g/dl (14.0-17.9); LYMPHOCYTES # (AUTO) 3.9 X10'3 (1.1-4.8); MEAN CORPUSCULAR HEMOGLOBIN 32.5 PG (27.0-31.0); MEAN CORPUSCULAR VOLUME 95.5 FL (78-98); MEAN PLATELET VOLUME 8.2 FL (7.4-10.4); MONOCYTES # (AUTO) 0.6 X10'3 (0-0.9); MONOCYTES % (AUTO) 6.7 % (2-12); NEUTROPHILS # (AUTO) 4.2 X10'3 (1.8-7.7); NEUTROPHILS % (AUTO) 47.8 % (42-75); PLATELET COUNT 209 X10'3 (140-440); RED BLOOD COUNT 3.94 X10'6 (4.70-6.10); RED CELL DISTRIBUTION WIDTH 13.2 % (11.5-14.5); WHITE BLOOD COUNT 8.8 X10'3 (4.5-11.0)
[2024-03-10 08:06] LABS: ALBUMIN 2.9 G/DL (3.4-5.0); ANION GAP 8 (8-16); BLOOD UREA NITROGEN 15 MG/DL (7-18); BUN/CREATININE RATIO 21.7 (10.0-20.0); CALCIUM 8.2 MG/DL (8.5-10.1); CHLORIDE 108 MMOL/L (99-107); CREATININE 0.69 MG/DL (0.60-1.10); GLUCOSE 98 MG/DL (70-104); MAGNESIUM 1.9 MG/DL (1.5-2.4); POTASSIUM 3.7 MMOL/L (3.5-5.1); SODIUM 139 MMOL/L (135-145); TOTAL CARBON DIOXIDE 23.3 MMOL/L (24-32); eCRCL 114 ML/MIN; eGFR > 90 ML/MIN
[2024-03-10 10:00] VITALS: BP 135/57; PULSE 78; RESP 16; TEMP 97.5; O2SAT 97
== END 2024-03-10 14:00 | disposition home or self-care (01) | DRG 241 ==
LOC: ER 07:08 → ED HOLD 13:29 → EDBEDREQ 13:41 → EDBEDREQTM 13:41 → ORTHO 4S 21:50
PROVIDERS: ADMIT Family Medicine; ATTEND Family Medicine
PROC: BW211ZZ Computerized Tomography (CT Scan) of Abdomen and Pelvis using Low Osmolar Contrast (ICD-10-PCS; principal; 2024-03-08)
DX: K29.00 Acute gastritis without bleeding (principal); N17.0 Acute kidney failure with tubular necrosis; I95.9 Hypotension, unspecified; E27.8 Other specified disorders of adrenal gland; E11.65 Type 2 diabetes mellitus with hyperglycemia; E86.0 Dehydration; E78.00 Pure hypercholesterolemia, unspecified; E83.52 Hypercalcemia; N40.0 Benign prostatic hyperplasia without lower urinary tract symptoms; R11.2 Nausea with vomiting, unspecified; F11.20 Opioid dependence, uncomplicated; G89.29 Other chronic pain; F32.A Depression, unspecified; F41.9 Anxiety disorder, unspecified; I10 Essential (primary) hypertension; E87.6 Hypokalemia; Z83.3 Family history of diabetes mellitus; Z88.8 Allergy status to other drugs, medicaments and biological substances; Z88.0 Allergy status to penicillin; Z79.899 Other long term (current) drug therapy; Z79.4 Long term (current) use of insulin
CPT/HCPCS: 36415; 71045; 74177; 80048; 80053; 80305; 81001; 82310; 82948; 83690; 83735; 85025; 87081; 93005; 96374; 96375; 99285; G0378; J0780; J1170; J1200; J1644; J1815; J1885; J2270; J2405; J2470; J2765; J3360; J3480; J3490; J7030; Q0177; Q9967

== ENCOUNTER 2024-05-24 09:33 | Inpatient (IN) | payer MEDICAID ==
[~2024-05-24] VITALS: Ht 170.2 cm; Wt 91.2 kg
[~2024-05-24 09:33] MED LIST changes: +ATOR-2 PO; -ATOR40TA71 PO; -BISA-95 PO; +HYDR-3686 PO; -INSU100I29 SQ; +INSU200I8 SQ
[2024-05-24] MEDS: haloperidol lactate 5mg/ml inj IM ONE (10:13)
[2024-05-24 10:27] LABS: BASOPHILS # (AUTO) 0.1 X10'3 (0-0.2); BASOPHILS % (AUTO) 0.6 % (0-1); EOSINOPHILS # (AUTO) 0.1 X10'3 (0-0.9); EOSINOPHILS % (AUTO) 0.5 % (0-6); HEMATOCRIT 52.2 % (42.0-52.0); HEMOGLOBIN 17.7 g/dl (14.0-17.9); LYMPHOCYTES # (AUTO) 3.4 X10'3 (1.1-4.8); LYMPHOCYTES % (AUTO) 18.2 % (21-51); MEAN CORPUSCULAR HEMOGLOBIN 32.6 PG (27.0-31.0); MEAN CORPUSCULAR HGB CONC 33.9 g/dL (33.0-36.5); MEAN CORPUSCULAR VOLUME 96.2 FL (78-98); MEAN PLATELET VOLUME 8.5 FL (7.4-10.4); MONOCYTES # (AUTO) 0.9 X10'3 (0-0.9); NEUTROPHILS % (AUTO) 75.7 % (42-75); PLATELET COUNT 305 X10'3 (140-440); RED BLOOD COUNT 5.42 X10'6 (4.70-6.10); RED CELL DISTRIBUTION WIDTH 13.6 % (11.5-14.5); WHITE BLOOD COUNT 18.5 X10'3 (4.5-11.0)
[2024-05-24] MEDS: LORazepam 2 mg/ml vial IV ONE (10:30)
[2024-05-24 10:32] LABS: ALANINE AMINOTRANSFERASE 21 U/L (12-78); ALBUMIN 4.4 G/DL (3.4-5.0); ALBUMIN/GLOBULIN RATIO 1.2 (1.1-1.5); ALKALINE PHOSPHATASE 101 IU/L (46-116); ANION GAP 11 (8-16); ASPARTATE AMINO TRANSFERASE 11 U/L (10-37); BILIRUBIN,TOTAL 0.5 MG/DL (0.1-1.0); BLOOD UREA NITROGEN 31 MG/DL (7-18); BUN/CREATININE RATIO 21.8 (10.0-20.0); CALCIUM 10.3 MG/DL (8.5-10.1); CHLORIDE 102 MMOL/L (99-107); CREATININE 1.42 MG/DL (0.60-1.10); ETHANOL < 10 MG/DL (<10); GLUCOSE 391 MG/DL (70-104); LIPASE 23 U/L (16-77); MAGNESIUM 2.1 MG/DL (1.5-2.4); SODIUM 139 MMOL/L (135-145); TOTAL CARBON DIOXIDE 25.6 MMOL/L (24-32); TOTAL PROTEIN 8.2 G/DL (6.4-8.2); eCRCL 56 ML/MIN; eGFR 52 ML/MIN
[2024-05-24] MEDS: normal saline 1000ML IV soln IVB ONE (10:32)
[2024-05-24] MEDS: metoclopramide 5 mg/ml inj IV ONE (10:32)
[2024-05-24] MEDS: diphenhydrAMINE 50 mg/ml inj IV ONE (10:33)
[2024-05-24] MEDS: pantoprazole 40 MG vial IV ONE (10:33)
[2024-05-24] MEDS: ziprasidone IM 20mg inj **IM only IM ONE (10:36)
[2024-05-24 10:37] LABS: BILIRUBIN,DIRECT 0.1 MG/DL (0-0.3); POTASSIUM 4.7 MMOL/L (3.5-5.1)
[2024-05-24] MEDS: LIDOcaine 2% Viscous 15ml cup MM ONE (11:10)
[2024-05-24] MEDS: mag hydrox/Alum hydrox/simeth 30ml oral suspension PO ONE (11:10)
[2024-05-24] MEDS ORDERED: metoclopramide 5 mg/ml inj IV PRN (13:00)
[2024-05-24] MEDS ORDERED: glucagon, human recombinant 1mg kit SUBCUT PRN (13:05)
[2024-05-24] MEDS ORDERED: ondansetron/PF 4mg/2ml inj IV PRN (13:05)
[2024-05-24] MEDS ORDERED: magnesium hydroxide 30ml (MOM) UD suspension PO PRN (13:05)
[2024-05-24] MEDS ORDERED: potassium Cl 40MEQ/1/2NS 520ml 520 ML IV PRN (13:05)
[2024-05-24] MEDS ORDERED: dextrose 50%-water 50ml dispensing syringe IV PRN ×2 (13:05)
[2024-05-24] MEDS ORDERED: acetaminophen 325mg tablet PO PRN (13:05)
[2024-05-24] MEDS ORDERED: magnesium sulf-water 2g/50mL 50 ML IV PRN (13:05)
[2024-05-24] MEDS ORDERED: DEXTROSE 15 GM of carb/4 tabs (each vial/BOTTLE has 4 tablets) PO PRN ×2 (13:05)
[2024-05-24] MEDS ORDERED: potassium Cl 20 mEq SR tablet PO PRN (13:05)
[2024-05-24] MEDS ORDERED: magnesium sulf-water 4G/100mL 100 ML IV PRN (13:05)
[2024-05-24 13:06] LABS: URINE AMPHETAMINE SCREEN NEGATIVE (Neg); URINE BARBITUATE SCREEN NEGATIVE (Neg); URINE BENZODIAZEPINES SCREEN NEGATIVE (Neg); URINE CANNABINOID SCREEN POSITIVE (Neg); URINE COCAINE SCREEN NEGATIVE (Neg); URINE METHADONE SCREEN NEGATIVE (Neg); URINE OPIATE SCREEN POSITIVE (Neg); URINE PHENCYCLIDINE SCREEN NEGATIVE (Neg)
[2024-05-24] MEDS: normal saline 1000ml 1,000 ML IV SCH (13:27)
[2024-05-24] MEDS: HYDROmorphone 1 mg/ml syringe IV PRN (13:27)
[2024-05-24 13:35] LABS: HEMOGLOBIN A1C 9.7 % (4.5-6.2)
[2024-05-24] MEDS ORDERED: insulin Lispro (HumaLOG) vial - multi-dose SQ SCH (14:45)
[2024-05-24] MEDS: insulin Lispro (HumaLOG) vial - multi-dose SQ ONE (14:50)
[2024-05-24] MEDS: INSULIN LISPRO 100 UNIT/ML INSULN.PEN MULTI-DOSE SQ SCH (17:00)
[2024-05-24 18:00] VITALS: BP_SYST 134; BP_SYST 171; BP_DIAS 74; BP_DIAS 81; PULSE 56; PULSE 89; RESP 18; TEMP 97.5; TEMP 97.6; O2SAT 96; O2SAT 99
[2024-05-24] MEDS ORDERED: FLU VACC TS2024-25(6MOS UP)/PF 45 MCG/0.5 ML SYRINGE IMVAC ONE (19:40)
[2024-05-24] MEDS ORDERED: pneumococcal 23-VAL P-sac vacc 25 mcg/0.5ml vial IMVAC ONE (19:40)
[2024-05-24] MEDS ORDERED: NORT25CA5 PO (19:50)
[2024-05-24] MEDS ORDERED: INSU200I8 SQ (19:50)
[2024-05-24] MEDS ORDERED: POLY510P31 PO (19:50)
[2024-05-24] MEDS ORDERED: METO5TAB85 PO (19:50)
[2024-05-24] MEDS: K and/or MAG REPLACEMENT MC SCH (20:00)
[2024-05-24] MEDS: enoxaparin 40mg/0.4ml syringe SQ SCH (20:42)
[2024-05-24] MEDS: docusate sod 100mg capsule PO SCH (20:42)
[2024-05-24] MEDS: insulin glargine (Lantus) pen - multi-dose SQ SCH (20:53)
[2024-05-25 06:49] LABS: BASOPHILS # (AUTO) 0.1 X10'3 (0-0.2); BASOPHILS % (AUTO) 0.9 % (0-1); EOSINOPHILS # (AUTO) 0.1 X10'3 (0-0.9); EOSINOPHILS % (AUTO) 0.5 % (0-6); HEMOGLOBIN 13.8 g/dl (14.0-17.9); LYMPHOCYTES # (AUTO) 3.5 X10'3 (1.1-4.8); LYMPHOCYTES % (AUTO) 27.6 % (21-51); MEAN CORPUSCULAR HEMOGLOBIN 31.6 PG (27.0-31.0); MEAN CORPUSCULAR HGB CONC 32.9 g/dL (33.0-36.5); MEAN CORPUSCULAR VOLUME 95.9 FL (78-98); MONOCYTES # (AUTO) 1.2 X10'3 (0-0.9); MONOCYTES % (AUTO) 9.3 % (2-12); NEUTROPHILS # (AUTO) 7.8 X10'3 (1.8-7.7); NEUTROPHILS % (AUTO) 61.7 % (42-75); PLATELET COUNT 231 X10'3 (140-440); RED BLOOD COUNT 4.38 X10'6 (4.70-6.10); RED CELL DISTRIBUTION WIDTH 13.8 % (11.5-14.5); WHITE BLOOD COUNT 12.6 X10'3 (4.5-11.0)
[2024-05-25 07:06] LABS: ALANINE AMINOTRANSFERASE 21 U/L (12-78); ALBUMIN 3.2 G/DL (3.4-5.0); ALBUMIN/GLOBULIN RATIO 1.1 (1.1-1.5); ALKALINE PHOSPHATASE 69 IU/L (46-116); ANION GAP 6 (8-16); ASPARTATE AMINO TRANSFERASE 12 U/L (10-37); BILIRUBIN,TOTAL 0.6 MG/DL (0.1-1.0); BLOOD UREA NITROGEN 19 MG/DL (7-18); BUN/CREATININE RATIO 24.1 (10.0-20.0); CHLORIDE 107 MMOL/L (99-107); CREATININE 0.79 MG/DL (0.60-1.10); GLUCOSE 84 MG/DL (70-104); MAGNESIUM 1.8 MG/DL (1.5-2.4); POTASSIUM 3.2 MMOL/L (3.5-5.1); SODIUM 140 MMOL/L (135-145); TOTAL CARBON DIOXIDE 26.8 MMOL/L (24-32); TOTAL PROTEIN 6.1 G/DL (6.4-8.2); eCRCL 100 ML/MIN; eGFR > 90 ML/MIN
[2024-05-25] MEDS: potassium Cl 20 mEq SR tablet PO PRN (08:38)
[2024-05-25] MEDS ORDERED: TERB125S TP (11:33)
[2024-05-25] MEDS ORDERED: POTA-207 PO (11:33)
== END 2024-05-25 12:25 | disposition home or self-care (01) | DRG 48 ==
LOC: ER 09:34 → ED HOLD 13:06 → ORTHO 4S 15:07
PROVIDERS: ADMIT Family Medicine; ATTEND Family Medicine
PROC: 3E0234Z Introduction of Serum, Toxoid and Vaccine into Muscle, Percutaneous Approach (ICD-10-PCS; principal; 2024-05-24)
DX: E11.43 Type 2 diabetes mellitus with diabetic autonomic (poly)neuropathy (principal); N17.0 Acute kidney failure with tubular necrosis; E11.65 Type 2 diabetes mellitus with hyperglycemia; E78.00 Pure hypercholesterolemia, unspecified; D72.823 Leukemoid reaction; I10 Essential (primary) hypertension; K31.84 Gastroparesis; N40.0 Benign prostatic hyperplasia without lower urinary tract symptoms; Z88.8 Allergy status to other drugs, medicaments and biological substances; Z79.4 Long term (current) use of insulin; Z88.0 Allergy status to penicillin; Z79.899 Other long term (current) drug therapy; Z23 Encounter for immunization; Z82.0 Family history of epilepsy and other diseases of the nervous system
CPT/HCPCS: 36415; 74176; 80048; 80053; 80076; 80305; 80320; 82948; 83036; 83690; 83735; 85025; 87081; 90686; 90732; 96372; 96374; 96375; 99285; A4615; G0378; J1171; J1200; J1650; J1815; J2060; J2470; J2765; J3486; J7030

== ENCOUNTER 2024-08-05 15:09 | Emergency (ER) | payer MEDICAID ==
[~2024-08-05] VITALS: Ht 170.2 cm; Wt 95.5 kg
[~2024-08-05 15:09] MED LIST changes: +METO5TAB85 PO; +POTA-207 PO; +TERB125S TP
[2024-08-05 16:00] VITALS: BP 127/98; PULSE 71; RESP 18; TEMP 97.3; O2SAT 100
[2024-08-05] MEDS ORDERED: DIF150T PO (17:58)
[2024-08-05] MEDS ORDERED: CLOT15CR73 TOP (17:58)
[2024-08-05] MEDS: fluconazole 150mg tablet PO STA (18:15)
[2024-08-05] MEDS: ketorolac trometh 30MG/ML vial 30 MG/ML VIAL IM STA (18:15)
== END 2024-08-05 18:22 | disposition home or self-care (01) ==
LOC: ER 15:10
DX: L30.4 Erythema intertrigo (principal); I10 Essential (primary) hypertension; E78.00 Pure hypercholesterolemia, unspecified; E11.9 Type 2 diabetes mellitus without complications; F12.90 Cannabis use, unspecified, uncomplicated; Z88.0 Allergy status to penicillin; Z88.8 Allergy status to other drugs, medicaments and biological substances
CPT/HCPCS: 96372; 99283; J1885

== ENCOUNTER 2024-11-13 21:57 | Emergency (ER) | payer MEDICAID ==
[~2024-11-13] VITALS: Ht 170.2 cm; Wt 104.0 kg
[2024-11-13] MEDS: normal saline 1000ML IV soln IVB ONE (22:21)
[2024-11-13 22:27] LABS: BASOPHILS % (AUTO) 0.2 % (0-1); EOSINOPHILS % (AUTO) 0.2 % (0-6); HEMATOCRIT 53.1 % (42.0-52.0); HEMOGLOBIN 17.9 g/dl (14.0-17.9); LYMPHOCYTES # (AUTO) 3.7 X10'3 (1.1-4.8); MEAN CORPUSCULAR HEMOGLOBIN 32.2 PG (27.0-31.0); MEAN CORPUSCULAR HGB CONC 33.6 g/dL (33.0-36.5); MEAN CORPUSCULAR VOLUME 95.8 FL (78-98); MEAN PLATELET VOLUME 8.3 FL (7.4-10.4); MONOCYTES # (AUTO) 1.1 X10'3 (0-0.9); MONOCYTES % (AUTO) 7.2 % (2-12); NEUTROPHILS % (AUTO) 67.4 % (42-75); PLATELET COUNT 306 X10'3 (140-440); RED BLOOD COUNT 5.54 X10'6 (4.70-6.10); RED CELL DISTRIBUTION WIDTH 13.7 % (11.5-14.5); WHITE BLOOD COUNT 14.9 X10'3 (4.5-11.0)
[2024-11-13 22:34] VITALS: TEMP 97.9
[2024-11-13 22:41] LABS: APTT 24 SECONDS (22-32)
[2024-11-13] MEDS: metoclopramide 5 mg/ml inj IV ONE (22:45)
[2024-11-13 22:53] LABS: ALANINE AMINOTRANSFERASE 29 U/L (12-78); ALBUMIN 4.7 G/DL (3.4-5.0); ALBUMIN/GLOBULIN RATIO 1.3 (1.1-1.5); ALKALINE PHOSPHATASE 119 IU/L (46-116); ANION GAP 15 (8-16); ASPARTATE AMINO TRANSFERASE 9 U/L (10-37); BILIRUBIN,TOTAL 0.8 MG/DL (0.1-1.0); BLOOD UREA NITROGEN 25 MG/DL (7-18); CHLORIDE 104 MMOL/L (99-107); CREATININE 1.25 MG/DL (0.60-1.10); GLUCOSE 268 MG/DL (70-104); POTASSIUM 4.3 MMOL/L (3.5-5.1); SODIUM 142 MMOL/L (135-145); TOTAL CARBON DIOXIDE 23.4 MMOL/L (24-32); TOTAL PROTEIN 8.3 G/DL (6.4-8.2); eCRCL 62 ML/MIN; eGFR 60 ML/MIN
[2024-11-13 23:03] LABS: CREATINE KINASE 114 U/L (39-308); LIPASE 95 U/L (16-77); PRO BRAIN NATRIURETIC PEPTIDE 92 PG/ML (0-125)
[2024-11-13] MEDS ORDERED: iohexol 300mg/ml 100ml inj. ONE (23:12)
[2024-11-13 23:18] LABS: C-REACTIVE PROTEIN < 0.05 MG/DL (0.0-0.5)
[2024-11-14] MEDS: morphine 4 MG/ML inj SYRINge IV ONE (01:47)
[2024-11-14 01:54] LABS: BILIRUBIN,URINE NEGATIVE (Neg); CLARITY,URINE CLEAR (Clear); COLOR,URINE YELLOW (Yellow); GLUCOSE, URINE 500 mg/dl (Neg); KETONES,URINE 40 mg/dl (Neg); LEUKOCYTE ESTERASE ,URINE NEGATIVE (Neg); NITRITES, URINE NEGATIVE (Neg); OCCULT BLOOD,URINE TRACE-INTACT (Neg); PH,URINE 5.5 (4.8-8.0); PROTEIN,URINE 30 mg/dl (Neg); UROBILINOGEN,URINE 0.2 E.U/dL (0.2-1.0)
[2024-11-14 01:57] LABS: UA COLLECTION TYPE NON-SPECIFIED
[2024-11-14 02:02] LABS: BACTERIA,URINE FEW /HPF (Neg); RBC,URINE 0-2 /HPF (0-2); SQUAMOUS EPITHELIAL CELL,UR NONE SEEN /LPF (FEW); WBC,URINE 0-4 /HPF (0-4)
[2024-11-14 02:17] VITALS: BP 172/78; PULSE 105; RESP 12; O2SAT 99
== END 2024-11-14 02:07 | disposition home or self-care (01) ==
LOC: ER 21:57
DX: R10.12 Left upper quadrant pain (principal); R11.2 Nausea with vomiting, unspecified; R56.9 Unspecified convulsions; E11.65 Type 2 diabetes mellitus with hyperglycemia; E78.00 Pure hypercholesterolemia, unspecified; I10 Essential (primary) hypertension; Z88.0 Allergy status to penicillin; Z88.8 Allergy status to other drugs, medicaments and biological substances
CPT/HCPCS: 36415; 70450; 71045; 74177; 80053; 81001; 82550; 82948; 83690; 83735; 83880; 84484; 85025; 85610; 85651; 85730; 86140; 93005; 96361; 96374; 96375; 99285; J2270; J2765; J7030; Q9967

== ENCOUNTER 2024-11-16 16:20 | Inpatient (IN) | payer MEDICAID ==
[~2024-11-16] VITALS: Ht 170.2 cm; Wt 95.5 kg
[~2024-11-16 16:20] MED LIST changes: -DICY20TA2 PO; -POTA-207 PO
[2024-11-16] MEDS: ondansetron/PF 4mg/2ml inj IV ONE (17:05)
[2024-11-16] MEDS: insulin regular, human 10 units/0.1 ml syringe IV ONE ×2 (17:07→18:59)
[2024-11-16] MEDS: diazepam inj 5 MG/ML inj. IV ONE (17:08)
[2024-11-16 17:14] LABS: BASOPHILS # (AUTO) 0.1 X10'3 (0-0.2); BASOPHILS % (AUTO) 0.4 % (0-1); EOSINOPHILS % (AUTO) 0 % (0-6); HEMATOCRIT 50.6 % (42.0-52.0); HEMOGLOBIN 17.2 g/dl (14.0-17.9); LYMPHOCYTES # (AUTO) 1.6 X10'3 (1.1-4.8); LYMPHOCYTES % (AUTO) 10.1 % (21-51); MEAN CORPUSCULAR HEMOGLOBIN 32.2 PG (27.0-31.0); MEAN CORPUSCULAR HGB CONC 34.1 g/dL (33.0-36.5); MEAN CORPUSCULAR VOLUME 94.6 FL (78-98); MEAN PLATELET VOLUME 8.4 FL (7.4-10.4); MONOCYTES % (AUTO) 6.2 % (2-12); NEUTROPHILS # (AUTO) 13.3 X10'3 (1.8-7.7); NEUTROPHILS % (AUTO) 83.3 % (42-75); PLATELET COUNT 315 X10'3 (140-440); RED BLOOD COUNT 5.35 X10'6 (4.70-6.10); RED CELL DISTRIBUTION WIDTH 13.7 % (11.5-14.5)
[2024-11-16 17:29] LABS: ALANINE AMINOTRANSFERASE 29 U/L (12-78); ALBUMIN 4.6 G/DL (3.4-5.0); ALBUMIN/GLOBULIN RATIO 1.2 (1.1-1.5); ALKALINE PHOSPHATASE 114 IU/L (46-116); ANION GAP 16 (8-16); ASPARTATE AMINO TRANSFERASE 12 U/L (10-37); BILIRUBIN,TOTAL 1.4 MG/DL (0.1-1.0); BLOOD UREA NITROGEN 36 MG/DL (7-18); BUN/CREATININE RATIO 17.1 (10.0-20.0); CALCIUM 11.2 MG/DL (8.5-10.1); CHLORIDE 100 MMOL/L (99-107); POTASSIUM 4.5 MMOL/L (3.5-5.1); SODIUM 138 MMOL/L (135-145); TOTAL CARBON DIOXIDE 22.4 MMOL/L (24-32); TOTAL PROTEIN 8.3 G/DL (6.4-8.2); eCRCL 37 ML/MIN; eGFR 33 ML/MIN
[2024-11-16 17:33] LABS: GLUCOSE 408 MG/DL (70-104)
[2024-11-16 17:34] LABS: ETHANOL < 10 MG/DL (<10)
[2024-11-16 17:42] LABS: LIPASE 16 U/L (16-77)
[2024-11-16 17:51] LABS: ACETONE NEGATIVE (NEGATIVE)
[2024-11-16] MEDS: pantoprazole 40 MG vial IV ONE (18:15)
[2024-11-16] MEDS: HYDROmorphone 1 mg/ml syringe IV ONE ×2 (18:15→20:44)
[2024-11-16] MEDS: normal saline 1000ML IV soln IV ONE (18:15)
[2024-11-16] MEDS: metoclopramide 5 mg/ml inj IV ONE (19:00)
[2024-11-16] MEDS ORDERED: metoclopramide 5 mg/ml inj IV PRN (21:05)
[2024-11-16] MEDS ORDERED: mag hydrox/Alum hydrox/simeth 30ml oral suspension PO PRN (21:05)
[2024-11-16] MEDS ORDERED: magnesium Cl slow-release 64mg tablet PO PRN (21:05)
[2024-11-16] MEDS ORDERED: potassium Cl 40MEQ/1/2NS 520ml 520 ML IV PRN (21:05)
[2024-11-16] MEDS ORDERED: acetaminophen 325mg tablet PO PRN ×2 (21:05)
[2024-11-16] MEDS ORDERED: magnesium sulf-water 2g/50mL 50 ML IV PRN (21:05)
[2024-11-16] MEDS ORDERED: potassium Cl 20 mEq SR tablet PO PRN ×2 (21:05)
[2024-11-16] MEDS ORDERED: magnesium sulf-water 4G/100mL 100 ML IV PRN (21:05)
[2024-11-16] MEDS ORDERED: DEXTROSE 15 GM of carb/4 tabs (each vial/BOTTLE has 4 tablets) PO PRN ×2 (21:25)
[2024-11-16] MEDS ORDERED: dextrose 50%-water 50ml dispensing syringe IV PRN ×2 (21:25)
[2024-11-16] MEDS ORDERED: glucagon, human recombinant 1mg kit SUBCUT PRN (21:25)
[2024-11-16 21:41] LABS: HEMOGLOBIN A1C 10.2 % (4.5-6.2)
[2024-11-16] MEDS: normal saline 1000ml 1,000 ML IV SCH (22:36)
[2024-11-16 23:35] VITALS: BP 175/96; PULSE 94; RESP 18; TEMP 98.2; O2SAT 100
[2024-11-16 23:41] LABS: BILIRUBIN,URINE NEGATIVE (Neg); CLARITY,URINE CLEAR (Clear); COLOR,URINE YELLOW (Yellow); GLUCOSE, URINE 500 mg/dl (Neg); KETONES,URINE 40 mg/dl (Neg); LEUKOCYTE ESTERASE ,URINE NEGATIVE (Neg); NITRITES, URINE NEGATIVE (Neg); OCCULT BLOOD,URINE NEGATIVE (Neg); PROTEIN,URINE 100 mg/dl (Neg)
[2024-11-16 23:47] LABS: UA COLLECTION TYPE URINAL
[2024-11-16 23:49] LABS: BACTERIA,URINE FEW /HPF (Neg); RBC,URINE NONE SEEN /HPF (0-2); SQUAMOUS EPITHELIAL CELL,UR FEW /LPF (FEW); WBC,URINE 0-4 /HPF (0-4)
[2024-11-16] MEDS ORDERED: LORazepam 2 mg/ml vial IV PRN (23:50)
[2024-11-16] MEDS ORDERED: CefTRIAXone/D5W-Rocephin 1gm 50 ML IV SCH (23:50)
[2024-11-17] VITALS (9 sets, daily range): BP systolic 106–145; BP diastolic 65–87; PULSE 70–91; RESP 13–21; TEMP 97.2–98.1; O2SAT 83–100
[2024-11-17 00:05] LABS: URINE AMPHETAMINE SCREEN NEGATIVE (Neg); URINE BARBITUATE SCREEN NEGATIVE (Neg); URINE BENZODIAZEPINES SCREEN POSITIVE (Neg); URINE CANNABINOID SCREEN POSITIVE (Neg); URINE COCAINE SCREEN NEGATIVE (Neg); URINE METHADONE SCREEN NEGATIVE (Neg); URINE OPIATE SCREEN POSITIVE (Neg); URINE PHENCYCLIDINE SCREEN NEGATIVE (Neg)
[2024-11-17] MEDS: morphine 2 MG/ML inj. syringe IV PRN (00:14)
[2024-11-17] MEDS: ondansetron/PF 4mg/2ml inj IV PRN (00:16)
[2024-11-17] MEDS: normal saline 1000ml 1,000 ML IV ONE (03:39)
[2024-11-17] MEDS: HYDROmorphone/PF 0.2 MG/ML SYRINGE IV PRN (04:21)
[2024-11-17 07:08] LABS: BASOPHILS % (AUTO) 0.2 % (0-1); EOSINOPHILS % (AUTO) 0 % (0-6); HEMATOCRIT 44.7 % (42.0-52.0); HEMOGLOBIN 15.2 g/dl (14.0-17.9); LYMPHOCYTES # (AUTO) 2.6 X10'3 (1.1-4.8); LYMPHOCYTES % (AUTO) 13.8 % (21-51); MEAN CORPUSCULAR HEMOGLOBIN 32.8 PG (27.0-31.0); MEAN CORPUSCULAR VOLUME 96.6 FL (78-98); MEAN PLATELET VOLUME 8.3 FL (7.4-10.4); MONOCYTES # (AUTO) 1.7 X10'3 (0-0.9); NEUTROPHILS # (AUTO) 14.4 X10'3 (1.8-7.7); PLATELET COUNT 233 X10'3 (140-440); RED BLOOD COUNT 4.63 X10'6 (4.70-6.10); RED CELL DISTRIBUTION WIDTH 13.7 % (11.5-14.5); WHITE BLOOD COUNT 18.8 X10'3 (4.5-11.0)
[2024-11-17 07:16] LABS: PROTHROMBIN TIME 10.3 SECONDS (9.0-12.0)
[2024-11-17 07:24] LABS: ALANINE AMINOTRANSFERASE 20 U/L (12-78); ALBUMIN 3.5 G/DL (3.4-5.0); ALBUMIN/GLOBULIN RATIO 1.3 (1.1-1.5); ALKALINE PHOSPHATASE 92 IU/L (46-116); ANION GAP 11 (8-16); ASPARTATE AMINO TRANSFERASE 7 U/L (10-37); BILIRUBIN,TOTAL 1.6 MG/DL (0.1-1.0); BLOOD UREA NITROGEN 33 MG/DL (7-18); BUN/CREATININE RATIO 26.2 (10.0-20.0); CALCIUM 8.9 MG/DL (8.5-10.1); CHLORIDE 104 MMOL/L (99-107); CREATININE 1.26 MG/DL (0.60-1.10); GLUCOSE 329 MG/DL (70-104); MAGNESIUM 1.9 MG/DL (1.5-2.4); POTASSIUM 5.1 MMOL/L (3.5-5.1); SODIUM 139 MMOL/L (135-145); TOTAL CARBON DIOXIDE 24.2 MMOL/L (24-32); TOTAL PROTEIN 6.2 G/DL (6.4-8.2); eCRCL 62 ML/MIN; eGFR 59 ML/MIN
[2024-11-17] MEDS: K and/or MAG REPLACEMENT MC SCH (08:00)
[2024-11-17] MEDS: nortriptyline 25mg capsule PO SCH (08:57)
[2024-11-17] MEDS: pregabalin 25mg capsule PO PRN (08:58)
[2024-11-17] MEDS: pantoprazole 40mg Tablet.DR PO SCH (08:58)
[2024-11-17] MEDS: atorvastatin 20mg tablet PO SCH (08:58)
[2024-11-17] MEDS: losartan 50mg tablet PO SCH (08:59)
[2024-11-17] MEDS: HYDROcodone/acetaminophen 5mg/325mg tablet PO PRN (09:00)
[2024-11-17] MEDS: INSULIN LISPRO 100 UNIT/ML INSULN.PEN MULTI-DOSE SQ SCH ×3 (10:20→13:33)
[2024-11-17] MEDS: ROPINIRole 0.25mg tablet PO SCH (19:49)
[2024-11-17] MEDS ORDERED: insulin glargine (Lantus) pen - multi-dose SQ SCH (21:00)
[2024-11-17] MEDS: insulin glargine (Lantus) pen - multi-dose SQ SCH (22:09)
[2024-11-17] MEDS: HYDROcodone/acetaminophen 10/325mg tab PO PRN (22:18)
[2024-11-18 02:00] VITALS: BP 130/89; PULSE 59; RESP 13; TEMP 97.5; O2SAT 99
[2024-11-18 06:00] VITALS: BP 116/68; PULSE 69; RESP 14; TEMP 97.4; O2SAT 98
[2024-11-18 06:48] LABS: BASOPHILS # (AUTO) 0.1 X10'3 (0-0.2); BASOPHILS % (AUTO) 0.7 % (0-1); EOSINOPHILS # (AUTO) 0.2 X10'3 (0-0.9); EOSINOPHILS % (AUTO) 1.2 % (0-6); HEMATOCRIT 39.9 % (42.0-52.0); HEMOGLOBIN 13.6 g/dl (14.0-17.9); LYMPHOCYTES # (AUTO) 4.1 X10'3 (1.1-4.8); LYMPHOCYTES % (AUTO) 31.2 % (21-51); MEAN CORPUSCULAR HEMOGLOBIN 32.8 PG (27.0-31.0); MEAN CORPUSCULAR HGB CONC 34.2 g/dL (33.0-36.5); MEAN CORPUSCULAR VOLUME 95.7 FL (78-98); MEAN PLATELET VOLUME 8.3 FL (7.4-10.4); MONOCYTES % (AUTO) 7.6 % (2-12); NEUTROPHILS # (AUTO) 7.7 X10'3 (1.8-7.7); NEUTROPHILS % (AUTO) 59.3 % (42-75); PLATELET COUNT 224 X10'3 (140-440); RED BLOOD COUNT 4.17 X10'6 (4.70-6.10); RED CELL DISTRIBUTION WIDTH 13.6 % (11.5-14.5)
[2024-11-18 07:10] LABS: ALANINE AMINOTRANSFERASE 19 U/L (12-78); ALBUMIN 3.1 G/DL (3.4-5.0); ALBUMIN/GLOBULIN RATIO 1.1 (1.1-1.5); ALKALINE PHOSPHATASE 79 IU/L (46-116); ANION GAP 7 (8-16); ASPARTATE AMINO TRANSFERASE 12 U/L (10-37); BLOOD UREA NITROGEN 21 MG/DL (7-18); BUN/CREATININE RATIO 24.4 (10.0-20.0); CALCIUM 8.4 MG/DL (8.5-10.1); CHLORIDE 109 MMOL/L (99-107); CREATININE 0.86 MG/DL (0.60-1.10); GLUCOSE 99 MG/DL (70-104); MAGNESIUM 1.9 MG/DL (1.5-2.4); PHOSPHORUS 2.7 MG/DL (2.3-4.5); SODIUM 143 MMOL/L (135-145); TOTAL CARBON DIOXIDE 27.4 MMOL/L (24-32); TOTAL PROTEIN 5.8 G/DL (6.4-8.2); eCRCL 91 ML/MIN; eGFR > 90 ML/MIN
[2024-11-18 09:16] VITALS: RESP 16; O2SAT 83
[2024-11-18 10:00] VITALS: BP 144/90; PULSE 78; RESP 19; TEMP 97.9; O2SAT 98
[2024-11-18] MEDS ORDERED: CEPH-585 PO (21:12)
== END 2024-11-18 12:29 | disposition home or self-care (01) | DRG 48 ==
LOC: ER 16:21 → ED HOLD 20:34 → PCU 3S 23:16
PROVIDERS: ADMIT Internal Medicine Critical Care Medicine; ATTEND Internal Medicine
DX: E11.43 Type 2 diabetes mellitus with diabetic autonomic (poly)neuropathy (principal); N17.0 Acute kidney failure with tubular necrosis; E11.65 Type 2 diabetes mellitus with hyperglycemia; E78.00 Pure hypercholesterolemia, unspecified; E86.0 Dehydration; I10 Essential (primary) hypertension; E11.319 Type 2 diabetes mellitus with unspecified diabetic retinopathy without macular edema; K31.84 Gastroparesis; G89.4 Chronic pain syndrome; Z88.0 Allergy status to penicillin; Z88.8 Allergy status to other drugs, medicaments and biological substances; Z79.899 Other long term (current) drug therapy
CPT/HCPCS: 36415; 70450; 71045; 80053; 80305; 80320; 81001; 82009; 82553; 82948; 83036; 83605; 83690; 83735; 84100; 84145; 84484; 85025; 85610; 87040; 87081; 93005; 99285; G0378; J1171; J1815; J2270; J2405; J2470; J2765; J3360; J7030

== ENCOUNTER 2024-11-18 19:45 | Emergency (ER) | payer MEDICAID ==
[~2024-11-18] VITALS: Ht 170.2 cm; Wt 77.5 kg
[2024-11-18 19:51] VITALS: BP 155/65; PULSE 80; RESP 15; O2SAT 99
[2024-11-18] MEDS ORDERED: CEPH-585 PO (21:12)
[2024-11-18] MEDS: CefTRIAXone 1000mg IM Kit (w/lidocaine diluent) IM ONE (21:20)
[2024-11-18 21:21] VITALS: TEMP 96.8
== END 2024-11-18 21:26 | disposition home or self-care (01) ==
LOC: ER 19:45
DX: R60.1 Generalized edema (principal); I10 Essential (primary) hypertension; E78.00 Pure hypercholesterolemia, unspecified; E11.65 Type 2 diabetes mellitus with hyperglycemia; F12.90 Cannabis use, unspecified, uncomplicated; D64.9 Anemia, unspecified; Z88.0 Allergy status to penicillin; Z88.8 Allergy status to other drugs, medicaments and biological substances; Z79.4 Long term (current) use of insulin; Z79.899 Other long term (current) drug therapy
CPT/HCPCS: 93971; 96372; 99285; J0696

== ENCOUNTER 2024-11-26 13:43 | Emergency (ER) | payer MEDICAID ==
[~2024-11-26] VITALS: Ht 170.2 cm; Wt 92.6 kg
[~2024-11-26 13:43] MED LIST changes: +CEPH-585 PO
[2024-11-26 13:45] VITALS: BP 100/73; PULSE 75; RESP 16; O2SAT 99
[2024-11-26] MEDS: triamcinolone acetonide 40mg/ml inj IM ONE (14:51)
[2024-11-26] MEDS ORDERED: HYDR28CR14 TOP (14:59)
[2024-11-26 15:04] VITALS: TEMP 98.4
== END 2024-11-26 15:19 | disposition home or self-care (01) ==
LOC: ER 13:44
DX: L50.9 Urticaria, unspecified (principal); I10 Essential (primary) hypertension; E78.00 Pure hypercholesterolemia, unspecified; E11.9 Type 2 diabetes mellitus without complications; D64.9 Anemia, unspecified; F12.90 Cannabis use, unspecified, uncomplicated; Z88.0 Allergy status to penicillin; Z88.8 Allergy status to other drugs, medicaments and biological substances; Z79.899 Other long term (current) drug therapy
CPT/HCPCS: 96372; 99283; J3301

== ENCOUNTER 2025-03-15 13:09 | Inpatient (IN) | payer MEDICAID ==
[~2025-03-15] VITALS: Ht 180.3 cm; Wt 96.5 kg
[2025-03-15] VITALS (16 sets, daily range): BP systolic 85–264; BP diastolic 50–121; PULSE 57–101; RESP 16–17; TEMP 98.6; O2SAT 99–100
[~2025-03-15 13:09] MED LIST changes: -CEPH-585 PO; +HYDR28CR14 TOP; +rocuronium 10mg/ml inj IV ONE
[2025-03-15] MEDS ORDERED: FENTANYL-0.9 % NACL/PF 100 ML IV SCH (13:40)
--- NOTE | 2025-03-15 13:40 | Physician Documentation ---
History of Present Illness ~ Stated Complaint: HYPERGLYCEMIA Time Seen by MD: 13:35 Primary Medical Doctor: Sandra BARAJAS 54-year-old male presenting with altered level of consciousness. As per EMS report the patient was last seen normal at about 7:00 a.m. this morning. A fterwards his reported that the patient was very altered and then became unresponsive. EMS was called who arrived on the scene. The patient apparently had a series of seizure-like activity which would resolve when the patient was stimulated by touch. There was no reports of vomiting. The patient has remained altered ever since. The patient is a diabetic. reports that the patient is very non compliant with medications and doesn't like to see doctors. He typically starts complaining of abdominal pain and then when she mentions going to the doctor patient suddenly exhibits seizure like activity. Patient is a chronic marijuana smoker and smokes daily. He has been diagnosed with cannabis hyperemesis syndrome. Medication Reconciliation Allergies: Coded Allergies: Penicillins (Verified Allergy, Unknown, 11/18/24) last reaction >5 years, hives, received treatment famotidine (Verified Allergy, Unknown, 11/18/24) haloperidol (Verified Adverse Reaction, Severe, SEIZURE, 11/18/24) Scheduled Atorvastatin Calcium (Atorvastatin Calcium), 1 TAB PO DAILY, (Reported) Hydroxyzine Hcl* (Atarax*), 1 TAB PO TID, (Reported) Insulin Degludec (Tresiba Flextouch U-100), 48 UNITS SQ DAILY, (Reported) Insulin Lispro (Admelog Solostar), 1 UNIT SQ SLIDING SCALE, (Reported) Lubiprostone (Amitiza), 1 CAP PO HS, (Reported) Nortriptyline HCl (Nortriptyline HCl), 1 CAP PO HS, (Reported) Pantoprazole Sodium (Pantoprazole Sodium), 1 TAB PO BID, (Reported) Pregabalin (Pregabalin), 1 CAP PO BID, (Reported) Ropinirole Hcl (Ropinirole Hcl), 1 TAB PO QPM, (Reported) Terazosin HCl (Terazosin HCl), 1 CAP PO HS, (Reported) Valsartan (Valsartan), 1 TAB PO DAILY, (Reported) Scheduled PRN Bisacodyl (Laxative), 1 TAB PO DAILY PRN for constipation, (Reported) Docusate Sodium (Docusate Sodium), 1 CAP PO BID PRN for constipation, (Reported) Hydrocodone Bit/Acetaminophen (Hydrocodon-Acetaminophn 10-325 tablet), 1 TAB PO Q8H PRN for severe pain, (Reported) ONDANSETRON ODT 4mg tablet (Ondansetron Odt), 1 TAB PO BID PRN for nausea/vomiting, (Reported) Polyethylene Glycol 3350 ([id number]), 17 GM PO DAILY PRN for constipation, (Reported) Discontinued Medications Bisacodyl (Bisacodyl), 1 TAB PO DAILY PRN for constipation, (Reported) Discontinued Reason: Other Docusate Sodium (Docusate Sodium), 1 CAP PO Q12H, (Reported) Discontinued Reason: Other Hydrocodone Bit/Acetaminophen (Hydrocodon-Acetaminophen 5-325), 1 TAB PO Q6H PRN for moderate or severe pain 4-10 Discontinued Reason: Other Hydrocortisone (hydrocortisone 1% cream), 1 APPLIC TOP Q12H Discontinued Reason: Other Insulin Degludec (Insulin Degludec Pen (U-200)), 48 UNITS SQ HS Discontinued Reason: Other Lubiprostone (Lubiprostone), 1 CAP PO BID, (Reported) Discontinued Reason: Other Metoclopramide HCl (Reglan), 2 TAB PO PRN PRN for nausea/vomiting Discontinued Reason: Other Nortriptyline Hcl (Pamelor), 1 CAP PO DAILY Discontinued Reason: Other Ondansetron 8mg ODT (Ondansetron Odt), 1 TAB PO Q8H PRN for nausea/vomiting, (Reported) Discontinued Reason: Other Polyethylene Glycol 3350 ([id number]), 17 GM PO PRN Discontinued Reason: Other Pregabalin (Lyrica), 1 CAP PO Q12H PRN for pain, (Reported) Discontinued Reason: Other Ropinirole Hcl (Ropinirole Hcl), 1 TAB PO HS, (Reported) Discontinued Reason: Other Terazosin HCl (Terazosin HCl), 1 CAP PO HS, (Reported) Discontinued Reason: Other Terbinafine HCl (Lamisil), 1 SPR TP BID Discontinued Reason: Other Past Medical History Past Medical History: High Cholesterol, Hypertension, *GI/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*, Pancreatitis, Hernia, Diabetes Past Surgical History: noncontributory Patient History: Anemia FATHER, FH: Parkinson's disease FH: blindness FAMILY/OTHER, Age: 38 FH: dementia FATHER, FH: diabetes mellitus FATHER, FAMILY/OTHER, Age: 38 FH: heart failure MOTHER, , Age: 71 FH: kidney disease FATHER, FH: uterine cancer MOTHER, , Age: 71 Hemorrhoids sister Alcohol Use: Other Drug Use: marijuana Lives with: Spouse Lives In: Home Review of Systems All Other Systems at this time: Reviewed and Negative Physical Exam Vital Signs: Weight: 99.000 Physical Exam I have reviewed the triage vitals. CONST: Altered. HENT: Head Atraumatic EYES: Pinpoint pupils bilaterally NECK: Normal range of motion. Supple. CARDIO: Normal rate and regular rhythm. No murmurs, rubs, or gallops. S1, S2. PULM/CHEST: No respiratory distress. Lungs clear to auscultation. No wheeze ABD: Soft and nontender. Nondistended. Bowel sounds normal. No guarding. : Exam deferred MSK: No edema. No deformity. NEURO: Patient is obtunded. There is intermittent periods of seizure-like activity which resolve on it their own. GCS of 5-6 SKIN: Warm and dry. PSYCH: Unable to assess due to the patient's mental status. Procedures Intubation Intubation Method: orotracheal Endotracheal Tube Size: 7.5 Medications: Etomidate, other (Rocuronium) ETT Confirmation: Ascultation, CO2 Detector, Direct Visualization Breath Sounds After Intubation: equal Intubation Complications: no complications Post Intubation Xray: Yes Progress Results/Orders Results/Orders Orders - JARON MICHEL MD Electrocardiogram (03/15/25 13:35) Chest,Single View (03/15/25 13:35) Ct Head (03/15/25 15:23) Chest,Single View (03/16/25 05:10) Chest,Single View (03/17/25 13:37) Chest,Single View (03/18/25 04:59) Chest,Single View (03/23/25 13:37) Chest,Single View (03/24/25 13:37) Chest,Single View (03/25/25 13:37) Chest,Single View (03/26/25 13:37) Chest,Single View (03/27/25 13:37) Chest,Single View (03/28/25 13:37) Abg (Arterial Blood Gas) (03/15/25 ) Chest,Single View (03/15/25 14:27) Completed Orders - JARON MICHEL MD Ondansetron Inj. (Zofran 4mg/2ml Vial) (03/15/25 13:25) Electrocardiogram (03/15/25 13:35) Type And Screen (03/15/25 13:35) Cbc/Diff (03/15/25 13:35) Culture Blood (03/15/25 13:35) Urinalysis, Cult If Indicated (03/15/25 13:35) Chest,Single View (03/15/25 13:35) Ct Head (03/15/25 15:23) Hs Troponin I W Calculations (03/15/25 15:35) Hs Troponin I W Calculations (03/15/25 16:35) * Insert Ogt/Ngt * (03/15/25 13:35) * Straight Cath* (03/15/25 13:35) Fentanyl-0.9 % Nacl/Pf (Fentanyl 1,000mc (03/15/25 13:40) Propofol 1000mg/100ml Bottle (Diprivan I (03/15/25 13:40) Chest,Single View (03/16/25 05:10) Chest,Single View (03/17/25 13:37) Chest,Single View (03/18/25 04:59) Mineral Oil/White Petrolatum (Lacri-Lube (03/16/25 14:00) Fentanyl-0.9 % Nacl/Pf (Fentanyl 1,000mc (03/15/25 13:41) Cult Sputum + Gram Stain (03/15/25 13:51) Hs Troponin I W Calculations (03/15/25 14:02) CK (03/15/25 14:05) CKMB (03/15/25 14:05) CMP (03/15/25 14:05) Lipase (03/15/25 14:05) MG (03/15/25 14:05) TSH (03/15/25 14:05) Ethanol (03/15/25 14:05) PBNP (03/15/25 14:05) Pt Inr (03/15/25 14:05) PTT (03/15/25 14:05) Chest,Single View (03/15/25 14:27) Midazolam 5 Mg/Ml 2ml Inj (Versed 5 Mg/M (03/15/25 14:45) Laboratory Tests Test 03/15/25 13:45 03/15/25 14:21 White Blood Count 14.0 H Red Blood Count 5.28 Hemoglobin 17.0 Hematocrit 50.2 Mean Corpuscular Volume 95.0 Mean Corpuscular Hemoglobin 32.3 H Mean Corpuscular Hemoglobin Concent 33.9 Red Cell Distribution Width 13.1 Platelet Count 316 Mean Platelet Volume 8.7 Neutrophils (%) (Auto) 80.0 H Lymphocytes (%) (Auto) 14.6 L Monocytes (%) (Auto) 4.6 Eosinophils (%) (Auto) 0 Basophils (%) (Auto) 0.8 Neutrophils # (Auto) 11.2 H Lymphocytes # (Auto) 2.0 Monocytes # (Auto) 0.6 Eosinophils # (Auto) 0.0 Basophils # (Auto) 0.1 CBC Comment Coagulation Comments Chemistry Comments Blood Gas Specimen Type Arterial Blood Gas Puncture Site Rr O2 Saturation 99.0 H Arterial Blood pH (Temp corrected) 7.383 Arterial Blood pCO2 (Temp correct) 35.5 Arterial Blood pO2 (Temp corrected) 228.9 H Arterial Blood PO2/FiO2 Ratio 2.33 Arterial Blood HCO3 20.8 L Arterial Blood Base Excess -3.6 L Arterial Blood Oxyhemoglobin 98.4 H Arterial Blood Carboxyhemoglobin 0.2 L Arterial Blood Methemoglobin 0.4 Arterial Blood Deoxyhemoglobin 1.0 Jon Test Positive Blood Gas Hemoglobin 19.3 *H Blood Gas Temperature 36.2 Blood Gas Set Respiration Rate 16 Blood Gas Modality Vent - ac FiO2 100.0 Blood Gas Tidal Volume 400 Blood Gas PEEP 5 Blood Gas Critical Value Called To Franklin patricia rn Microbiology Date/Time Source Procedure Growth Status 03/15/25 13:45 Blood Arm Right Blood Culture - Final NO GROWTH AFTER 5 DAYS Complete EKG/XRAY/CT/US/VASC/MRI EKG : Additional Comment EKG as interpreted by me indicating normal sinus rhythm with a rate of 95 beats per minute, normal axis, no ischemia Chest X-Ray : Additional Comments EXAM: DI CHEST,SINGLE VIEW Indication: tube placement Technique: Single frontal view of the chest was obtained Comparison: DI CHEST,SINGLE VIEW on DOS: 03/15/25, DI CHEST,SINGLE VIEW on DOS: 11/16/24, DI CHEST,SINGLE VIEW on DOS: 11/13/24, DI CHEST,SINGLE VIEW on DOS: 03/08/24, CHEST,SINGLE VIEW on DOS: 01/24/22 FINDINGS: Lines and Tubes: Endotracheal tube projects approximately 3.3 cm above the carlos. Enteric tube tip projects over the expected region of the stomach. Lungs: Right lower lung consolidative opacity. Pleura: No effusion. No pneumothorax. Cardiomediastinal contours: Unremarkable Bones: No acute osseous abnormality. IMPRESSION: Interval retraction of endotracheal tube with tip in appropriate position. : Impression CT CT HEAD INDICATION: ALOC EXAM DATE: 03/15/2025 03:08 PM COMPARISON: CT CT HEAD on DOS: 11/16/24, CT CT HEAD on DOS: 11/14/24, CT CT ABDOMEN PELVIS on DOS: 10/23/23 RADIATION DOSE: CTDIvol: 61 mGy, DLP: 1152 mGy*cm PROCEDURE: CT scans of the head were obtained from the vertex to the skull base. Sagittal and coronal reconstructions were provided. All CT scans at this medical facility are performed using dose modulation techniques as appropriate to a performed exam including the following: Automated exposure control was utilized; adjustment of the MA and/or KV according to patient size; and use of iterative reconstruction technique. FINDINGS: There is sulcal and ventricular prominence. The brainshows normal morphology and lewis-white matter differentiation, without intracranial hemorrhage, extra-axial fluid collection, mass effect or acute large vessel infarct. The ventricles are normal in size. The basal cisterns are patent. The skull and visible facial bones are intact. The paranasal sinuses, mastoid air cells and middle ear cavities are well-aerated. The soft tissues of the scalp are unremarkable. IMPRESSION: No acute intracranial abnormality. Medical Decision Making Additional Information 54 yo M presenting with AMS 2/2 metabolic encephalopathy and possible overdose. Hyperglycemic at 448. Not in DKA currently. UDS showing cannabinoids, benzodiazepines and fentanyl. CT head negative. Patient had a GCS of less than 8 and required intubation-.- Given IV normal saline, started on fentanyl and propofol drip and also given IV versed for further sedation. Admitted to intensive care unit. Departure Disposition: ADMITTED INPATIENT Admitted to Inpatient Unit: to clinical partner Admission Level of Care: Critcal Care Impression: Primary Impression: Hyperglycemia Additional Impressions: Metabolic encephalopathy Cannabis abuse Condition: Critical Referrals: NO PRIMARY CARE PROVIDER (PCP) Critical Care Note Total Time (mins): 120 Critical Care Note The very real possibility of a deterioration of this patient's condition required the highest level of my preparedness for sudden, emergent intervention. I provided critical care services, which included medication orders, frequent reevaluations of the patient's condition and response to treatment, ordering and reviewing test results, and discussing the case with various consultants. Excludes time spent performing separately billable procedures. The critical care time associated with the care of the patient was. Signature Scribe Signature: 1 Attestation: 1 JARON MICHEL MD Mar 15, 2025 13:40
[2025-03-15 13:55] LABS: MEAN PLATELET VOLUME 8.7 FL (7.4-10.4); RED CELL DISTRIBUTION WIDTH 13.1 % (11.5-14.5)
--- NOTE | 2025-03-15 13:55 | ELECTROCARDIOGRAPH REPORT ---
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 Pankaj Collins Measurements Intervals [place] Rate: 95 P: 52 ND: 182 QRS: -50 QRSD: 88 T: 73 QT: 366 QTc: 460 Interpretive Statements Sinus rhythm Probable left atrial enlargement LAD, consider left anterior fascicular block ST elevation, consider inferior injury Baseline wander in lead(s) II,III,aVF Electronically Signed On 03-15-2025 20:05:[address] Pankaj Collins Please click the below link to view image of tracing.
[2025-03-15] MEDS: propofol 1000mg/100ml bottle 100 ML IV SCH (13:56)
[2025-03-15] MEDS: FENTANYL-0.9 % NACL/PF 100 ML IV SCH (13:57)
[2025-03-15] MEDS: ondansetron/PF 4mg/2ml inj IV ONE (13:58)
--- NOTE | 2025-03-15 14:09 | RADIOLOGY REPORT ---
CHEST RADIOGRAPH Indication: ALOC s/p intubation Technique: Single frontal view of the chest was obtained Comparison: DI CHEST,SINGLE VIEW on DOS: 11/16/24, DI CHEST,SINGLE VIEW on DOS: 11/13/24, DI CHEST,SINGLE VIEW on DOS: 03/08/24 FINDINGS: Lines and Tubes: Endotracheal tube extends into the right mainstem bronchus. Enteric tube is in satis factory position. Lungs: Right lower lung zone opacity. Bronchovascular crowding due to low lung volumes. No pneumothor ax or pleural effusion. Cardiomediastinal contours: Mild cardiomegaly Bones: No acute osseous abnormality. IMPRESSION: Endotracheal tube extends into the right mainstem bronchus. Recommend pulling back about 6 cm for mo re optimal position. Enteric tube is in satisfactory position. Right lower lung zone pneumonia/atelectasis. Critical Result: Malpositioned ET tube Findings discussed with JARON MICHEL at 03/15/2025 02:06 PM, and acknowledged receipt and unders tanding of the findings. ..
[2025-03-15 14:27] LABS: ABG BASE EXCESS -3.6 mmol/L (-2.0-3.0); ABG HCO3 20.8 mmol/L (21.0-28.0); ABG OXYGEN SATURATION 99.0 % (94.0-98.0); ABG PCO2 (T) 35.5 mmHg (35.0-48.0); ABG PH (T) 7.383 (7.350-7.450); ABG PO2 (T) 228.9 mmHg (83.0-108.0); ALLEN'S TEST POSITIVE; FCOHb 0.2 % (0.5-1.5); FHHb 1.0 % (0.0-5.0); FIO2 100.0 mmHg/%; FMetHb 0.4 % (0.0-1.5); FO2Hb 98.4 % (94.0-98.0); MODE VENT - AC; PATIENT TEMPERATURE 36.2; PEEP 5 cm H2O; RESPIRATORY RATE 16 b/min; TIDAL VOLUME 400 mL; TOTAL HEMOGLOBIN 19.3 G/dl (13.5-17.5)
[2025-03-15] MEDS: normal saline 1000ml 1,000 ML IV SCH (14:50)
[2025-03-15] MEDS ORDERED: magnesium hydroxide 30ml (MOM) UD suspension PO PRN (14:50)
[2025-03-15] MEDS: LidoCAINE 2% Topical Jelly 11mL syringe (UROJET) TOP ONE (14:50)
--- NOTE | 2025-03-15 14:53 | RADIOLOGY REPORT ---
EXAM: DI CHEST,SINGLE VIEW Indication: tube placement Technique: Single frontal view of the chest was obtained Comparison: DI CHEST,SINGLE VIEW on DOS: 03/15/25, DI CHEST,SINGLE VIEW on DOS: 11/16/24, DI CHEST,SINGLE VIEW on DOS: 11/13/24, DI CHEST,SINGLE VIEW on DOS: 03/08/24, CHEST,SINGLE VIEW on DOS: 01/24/22 FINDINGS: Lines and Tubes: Endotracheal tube projects approximately 3.3 cm above the carlos. Enteric tube tip projects over the expected region of the stomach. Lungs: Right lower lung consolidative opacity. Pleura: No effusion. No pneumothorax. Cardiomediastinal contours: Unremarkable Bones: No acute osseous abnormality. IMPRESSION: Interval retraction of endotracheal tube with tip in appropriate position.
[2025-03-15] MEDS: MIDAZolam 5mg/ml 2ml vial IV ONE (14:56)
[2025-03-15 15:21] LABS: APTT 21 SECONDS (22-32); INR 1.0 INR
--- NOTE | 2025-03-15 15:27 | HISTORY AND PHYSICAL ---
History of Present Illness End CC ~ Admission Diagnosis:.: Resp Failure History of Present Illness Brought into with AMS and seizure-like activity. Intubated for airway protection. Allergies: Coded Allergies: Penicillins (Verified Allergy, Unknown, 11/18/24) last reaction >5 years, hives, received treatment famotidine (Verified Allergy, Unknown, 11/18/24) haloperidol (Verified Adverse Reaction, Severe, SEIZURE, 11/18/24) Home Medications Home Medications Active hydrocortisone 1% cream (Hydrocortisone) 1 % Cream..g. 1 Applic TOP Q12H 7 Days apply to affected area(s) Lamisil (Terbinafine HCl) 1 % Carson 1 Spr TP BID 14 Days Reglan (Metoclopramide HCl) 5 Mg Tablet 2 Tab PO PRN PRN before food Insulin Degludec Pen (U-200) (Insulin Degludec) 200 Unit/Ml (3 Ml) Insuln.pen 48 Units SQ HS 60 Days [id number] (Polyethylene Glycol 3350) 17 Gram/Dose Powder 17 Gm PO PRN MDD until BM happen Pamelor (Nortriptyline Hcl) 25 Mg Capsule 1 Cap PO DAILY Hydrocodon-Acetaminophen 5-325 (Hydrocodone Bit/Acetaminophen) 1 Each Tablet 1 Tab PO Q6H PRN Reported Atarax* (Hydroxyzine HCl) 25 Mg Tablet 1 Tab PO Q12H 30 Days Atorvastatin Calcium 80 Mg Tablet 1 Tab PO DAILY Bisacodyl 5 Mg Tablet.dr 1 Tab PO DAILY PRN Pantoprazole Sodium 40 Mg Tablet.dr 1 Tab PO DAILY Lubiprostone 8 Mcg Capsule 1 Cap PO BID Admelog Solostar (Insulin Lispro) 100 Unit/Ml Insuln.pen SQ Ondansetron Odt (Ondansetron HCl) 8 Mg Tab.rapdis 1 Tab PO Q8H PRN 2 Days Lyrica (Pregabalin) 50 Mg Capsule 1 Cap PO Q12H PRN 30 Days Valsartan 80 Mg Tablet 1 Tab PO DAILY 30 Days Ropinirole Hcl 0.5 Mg Tablet 1 Tab PO HS 30 Days Terazosin HCl 2 Mg Capsule 1 Cap PO HS 30 Days Docusate Sodium 100 Mg Capsule 1 Cap PO Q12H 7 Days Past Medical History Past Medical History: High Cholesterol, Hypertension, *GI/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*, Pancreatitis, Hernia, Diabetes Past Surgical History Past Surgical History: noncontributory Past Family History Patient History: Anemia FATHER, FH: Parkinson's disease FH: blindness FAMILY/OTHER, Age: 38 FH: dementia FATHER, FH: diabetes mellitus FATHER, FAMILY/OTHER, Age: 38 FH: heart failure MOTHER, , Age: 71 FH: kidney disease FATHER, FH: uterine cancer MOTHER, , Age: 71 Hemorrhoids sister Past Social History Smoking: Cigarettes, Less than 1 pack/day Alcohol Use: Other Drug Use: Marijuana Lives with: Spouse Lives In: Home Advance Care Planning Advanced Care plannin - 30 Minutes Review of Systems All Other Systems at this time: Reviewed and Negative Unable to obtain complete ROS: intubated Physical Exam Last Vital Signs recorded: Heart Rate: 101, Respiratory Rate: 18, BP: 229/123, Pulse Oximetry: 100, Weight: 99.000 General Appearance: ill-appearing EENT: PERRL/EOMI Neck: supple Respiratory: lungs clear Cardiovascular: regular rate, rhythm Peripheral Pulses: 1+ carotid (R), 1+ carotid (L), 1+ radial (R), 1+ radial (L), 1+ femoral (R), 1+ femoral (L), 1+ dorsalis pedis (R), 1+ dorsalis pedis (L), 1+ posterior tib (R), 1+ posterior tib (L), 1+ other Gastrointestinal: bowels sounds present Neurologic: unable to test Results Diagram Lab Result Diagram: 03/15/25 0470 Assessment/Plan 1-AMS -EEG -UDS, SDS 2-Resp Failure -F/U ABG 3-H/O DM -Insulin S/S per protocol Isac Castrejon CC time 35min SAM CASTREJON MD Mar 15, 2025 15:27
--- NOTE | 2025-03-15 15:34 | RADIOLOGY REPORT ---
CT CT HEAD INDICATION: ALOC EXAM DATE: 03/15/2025 03:08 PM COMPARISON: CT CT HEAD on DOS: 11/16/24, CT CT HEAD on DOS: 11/14/24, CT CT ABDOMEN PELVIS on DOS: 4 RADIATION DOSE: CTDIvol: 61 mGy, DLP: 1152 mGy*cm PROCEDURE: CT scans of the head were obtained from the vertex to the skull base. Sagittal and coronal reconstructions were provided. All CT scans at this medical facility are performed using dose modulation techniques as appropriate t o a performed exam including the following: Automated exposure control was utilized; adjustment of th e MA and/or KV according to patient size; and use of iterative reconstruction technique. FINDINGS: There is sulcal and ventricular prominence. The brainshows normal morphology and lewis-whi te matter differentiation, without intracranial hemorrhage, extra-axial fluid collection, mass effect or acute large vessel infarct. The ventricles are normal in size. The basal cisterns are patent. The skull and visible facial bones are intact. The paranasal sinuses, mastoid air cells and middle ear c avities are well-aerated. The soft tissues of the scalp are unremarkable. IMPRESSION: No acute intracranial abnormality.
[2025-03-15 15:38] LABS: CREATINE KINASE MB 2.6 ng/ml (0.3-3.6); CREATININE 1.38 MG/DL (0.60-1.10); PRO BRAIN NATRIURETIC PEPTIDE 80 PG/ML (0-125); TOTAL CARBON DIOXIDE 22.6 MMOL/L (24-32); eCRCL 64 ML/MIN; eGFR 53 ML/MIN
[2025-03-15 15:47] LABS: ETHANOL < 10 MG/DL (<10)
[2025-03-15] MEDS: etomidate 2mg/ml inj. IV ONE ×2 (16:40→16:41)
[2025-03-15] MEDS: rocuronium 10mg/ml inj IV ONE (16:41)
[2025-03-15] MEDS ORDERED: ONDA-243 PO (16:55)
[2025-03-15] MEDS ORDERED: BISA-95 PO (16:55)
[2025-03-15] MEDS ORDERED: PREG50CA65 PO (16:55)
[2025-03-15] MEDS ORDERED: POLY510P31 PO (16:55)
[2025-03-15] MEDS ORDERED: ROPI1TAB47 PO (16:55)
[2025-03-15] MEDS ORDERED: INSU100I29 SQ (16:55)
[2025-03-15] MEDS ORDERED: HYDR-3972 PO (16:55)
[2025-03-15] MEDS ORDERED: DOCU-391 PO (16:55)
[2025-03-15] MEDS ORDERED: dextrose 50%-water 50ml dispensing syringe IV PRN (17:10)
[2025-03-15] MEDS: COMMUNICATION ORDER 1 EA MISC MC ONE (17:27)
[2025-03-15] MEDS: Insulin Reg/NS 100units/100mL 100 ML IV SCH (17:52)
[2025-03-15] MEDS: INSULIN LISPRO 100 UNIT/ML INSULN.PEN MULTI-DOSE SQ SCH (18:00)
[2025-03-15] MEDS: fentaNYL 2,500 MCG in Normal Saline 250ml IV soln bag IV SCH (20:48)
[2025-03-15] MEDS ORDERED: INSULIN LISPRO 100 UNIT/ML INSULN.PEN MULTI-DOSE SQ PRN (21:35)
[2025-03-15 23:27] LABS: CREATININE 2.14 MG/DL (0.60-1.10); PHOSPHORUS 5.7 MG/DL (2.3-4.5); TOTAL CARBON DIOXIDE 27.2 MMOL/L (24-32); eCRCL 42 ML/MIN; eGFR 32 ML/MIN
[2025-03-16] VITALS (36 sets, daily range): BP systolic 106–141; BP diastolic 45–80; PULSE 53–71; RESP 15–24; O2SAT 92–100
--- NOTE | 2025-03-16 00:39 | PROGRESS NOTE ---
Critical Care Summary Note Critical Care Summary Note Admission Diagnosis: Mar 16, 2025 Admission Diagnosis comment: STEVEN CC DC Diagnosis\Comment: STEVEN Operations\Procedures Patient has received about 1400 mL of fluid since the start of the shift and only had less than 60 mL urine output and 500 mL output from the NG tube. Patient's creatinine has risen. I will give him 80 mg of IV Lasix and reduce t he IV fluid from 200 mL/h down to 100 mL/h and repeat BMP in 4 hours. HALI HOLT MD Mar 16, 2025 00:39
[2025-03-16] MEDS: furosemide 10 MG/1 ML 10ml inj IV ONE (00:40)
[2025-03-16 03:23] LABS: MEAN PLATELET VOLUME 8.4 FL (7.4-10.4); RED CELL DISTRIBUTION WIDTH 13.5 % (11.5-14.5)
[2025-03-16 03:25] LABS: CREATININE 2.10 MG/DL (0.60-1.10); PHOSPHORUS 6.3 MG/DL (2.3-4.5); TOTAL CARBON DIOXIDE 29.5 MMOL/L (24-32); eCRCL 42 ML/MIN; eGFR 33 ML/MIN
[2025-03-16] MEDS ORDERED: furosemide inj 100 MG in normal saline 100ml IV soln 90 ML IV SCH (03:45)
[2025-03-16 03:50] LABS: ABG BASE EXCESS 2.6 mmol/L (-2.0-3.0); ABG HCO3 28.3 mmol/L (21.0-28.0); ABG OXYGEN SATURATION 94.8 % (94.0-98.0); ABG PCO2 (T) 46.4 mmHg (35.0-48.0); ABG PH (T) 7.401 (7.350-7.450); ABG PO2 (T) 74.1 mmHg (83.0-108.0); ALLEN'S TEST Modified; FCOHb 1.0 % (0.5-1.5); FHHb 5.1 % (0.0-5.0); FIO2 35.0 mmHg/%; FMetHb 0.3 % (0.0-1.5); FO2Hb 93.6 % (94.0-98.0); MODE prvc; PATIENT TEMPERATURE 36.6; PEEP 5 cm H2O; RESPIRATORY RATE 16 b/min; TIDAL VOLUME 400 mL; TOTAL HEMOGLOBIN 15.9 G/dl (13.5-17.5)
[2025-03-16] MEDS: furosemide inj 100 MG in normal saline 100ml IV soln 90 ML IV SCH (05:26)
--- NOTE | 2025-03-16 05:33 | RADIOLOGY REPORT ---
CHEST RADIOGRAPH Indication: ET Tube Placement Technique: Single frontal view of the chest was obtained COMPARISON: DI CHEST,SINGLE VIEW on DOS: 03/15/25, DI CHEST,SINGLE VIEW on DOS: 03/15/25, DI CHEST,SINGLE VIEW on DOS: 11/16/24, DI CHEST,SINGLE VIEW on DOS: 11/13/24, DI CHEST,SINGLE VIEW on DOS: 03/08/24 FINDINGS: Lines and Tubes: Endotracheal tube and enteric catheter in satisfactory position Lungs: Suggestion Pleura: No effusion. No pneumothorax. Cardiomediastinal contours: Unremarkable Bones: Unremarkable IMPRESSION: Lines and tubes in satisfactory position. No significant interval change.
[2025-03-16] MEDS ORDERED: ringers solution, lacted 1,000 ML IV ONE (06:20)
[2025-03-16] MEDS: ringers solution, lacted 1,000 ML IV ONE ×3 (08:03→13:38)
[2025-03-16] MEDS: enoxaparin 40mg/0.4ml syringe SUBCUT SCH (08:03)
[2025-03-16] MEDS: dexmedetomidin/NS 400mcg/100ml 100 ML IV SCH (08:37)
[2025-03-16] MEDS ORDERED: DEXTROSE 15 GM of carb/4 tabs (each vial/BOTTLE has 4 tablets) PO PRN ×2 (10:30)
[2025-03-16] MEDS ORDERED: glucagon, human recombinant 1mg kit SUBCUT PRN (10:30)
[2025-03-16] MEDS ORDERED: dextrose 50%-water 50ml dispensing syringe IV PRN (10:30)
[2025-03-16] MEDS ORDERED: INSULIN LISPRO 100 UNIT/ML INSULN.PEN MULTI-DOSE SQ SCH (12:00)
[2025-03-16] MEDS ORDERED: NORT25CA PO (12:01)
[2025-03-16] MEDS ORDERED: LUBI8CAP PO (12:04)
[2025-03-16] MEDS: mineral oil/petrolatum ophthal oint EACHEYE SCH (13:38)
[2025-03-16] MEDS: INSULIN LISPRO 100 UNIT/ML INSULN.PEN MULTI-DOSE SQ SCH (13:39)
--- NOTE | 2025-03-16 14:50 | PROGRESS NOTE- Residence ---
Progress Note - Resident Providers to CC Resident Creating Document: JOSE BUI RES CC: SAM ORTIZ MD ~ Antibiotic Timeout Antibiotic Ordered?: No Subjective Patient is currently intubated and sedated. Objective Vital Signs Date Time Temp Pulse Resp B/P (MAP) Pulse Ox O2 Delivery O2 Flow Rate FiO2 03/16/25 14:17 110/50 03/16/25 14:00 100.6 56 16 95 Mechanical Ventilator 35 Result Diagram: 03/16/25 0305 03/16/25 0305 General: Intubated and sedated HEENT: PERRLA, no icterus, pallor, lymphadenopathy, carotid bruit Respiratory system: Bilateral vesicular breath sounds heard, no adventitious breath sounds CVS: S1-S2 heard, no murmurs/rubs/gallop GI: Soft, nontender, no organomegaly, no guarding/rigidity, bowel sounds present Neuro: No focal neurological deficits present Extremities: No edema cyanosis clubbing/deformities Skin: Warm and dry Coagulation Studies Laboratory Tests Test 03/15/25 14:59 Prothrombin Time 9.8 SECONDS (9.0-12.0) INR International Normalized Ratio 1.0 INR Activated Partial Thromboplast Time 21 SECONDS (22-32) L Coagulation Comments Assessment Assessment A 54-year-old male with multiple medical comorbidities was brought in by the in view of confusion and eventual and consciousness. Patient is admitted for the evaluation management of altered mental status. 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 Toxic versus seizures versus normal anion gap ketoacidosis History of pseudo seizures Follow up with EEG Follow up with U tox, normal ethyl alcohol levels Currently intubated and sedated RASS goal: 0 to -1 On fentanyl propofol and Precedex drips Wean as tolerated Respiratory: Airway protection Intubated for airway protection Intubated and sedated PRVC/400/16/5/35% P/F ratio: 211 Wean as tolerated Renal: Prerenal STEVEN probably secondary to renal tubular stasis Continue IV fluids at 100 cc/hour Continue to monitor BMP Endocrine: Diabetes mellitus type 2 Diabetic gastroparesis Off the insulin drip Continue IV fluid resuscitation Continue Lantus 20 units, moderate sliding scale insulin Hematological: Leukocytosis Probably reactive Continue to monitor CVS: HTN HLD Antihypertensives on hold Start oral meds after extubation GI: GI prophylaxis: IV Protonix 40 mg Genitourinary: BPH Left groin hernia Continue p.o. 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
[2025-03-16] MEDS: acetaminophen 1,000mg/100ml IV 100 ML IV PRN (15:53)
--- NOTE | 2025-03-16 17:16 | PROGRESS NOTE ---
Daily Progress Note Providers to CC ~ Antibiotic Timeout Antibiotic Ordered?: No Subjective Patient is intubated and sedated. Discussed with wire charger. Patient remains intubated because of difficulty with the saturations. Objective Vital Signs Date Time Temp Pulse Resp B/P (MAP) Pulse Ox O2 Delivery O2 Flow Rate FiO2 03/16/25 17:00 101.5 63 17 129/59 (82) 94 Mechanical Ventilator 100 Result Diagram: 03/16/25 0305 03/16/25 0305 Intubated and sedated HEENT normocephalic atraumatic Neck supple, no JVD Chest: Clear to auscultation, no wheezes or rhonchi Heart: Regular rate rhythm, no murmur or gallop rub Abdomen is soft no organomegaly Extremities no cyanosis clubbing edema Neuro exam difficult to assess. Patient is intubated and sedated as noted above. Coagulation Studies Laboratory Tests Test 03/15/25 14:59 Prothrombin Time 9.8 SECONDS (9.0-12.0) INR International Normalized Ratio 1.0 INR Activated Partial Thromboplast Time 21 SECONDS (22-32) L Coagulation Comments Other Results Medications reviewed Problem\Assessment\Plan 54 years old male brought in with altered mental status and seizure-like activity. Patient was intubated for airway protection 1. Probable seizure: EEG is pending. Patient intubated to protect his airway. Followed by pharmacist's aide. Failing weaning trials. 2. Hyperlipidemia: Continue atorvastatin 3. Hypertension: Continue valsartan 4. BPH: Continue terazosin 5. Restless legs syndrome: Continue ropinirole 6. STEVEN: Patient received IV fluids and IV Lasix and responded with increased urine output. Continue monitor daily BMP. 8. Acute respiratory failure: Patient is ahead by 3828 mL of fluid. We will check echocardiogram to evaluate LV function. Patient appears to have pulmonary vascular congestion on his chest x-ray. 9. Code status: Remains a full code. Discussed with RN. Critical care time spent in excess of 35 minutes. Labs and x-rays reviewed. Date of Service: Mar 16, 2025 Billing Provider: ORLANDO KLINE MD Common Visit Codes: [id number] CARE 30-74 MIN ORLANDO KLINE MD Mar 16, 2025 17:16
--- NOTE | 2025-03-16 17:33 | RADIOLOGY REPORT ---
CHEST RADIOGRAPH Indication: Increased oxygen requirement Technique: DI CHEST,SINGLE VIEW COMPARISON: 03/16/2025 FINDINGS: Endotracheal tube tip projects 4.3 cm above the carlos. Nasogastric tube projects towards stomach. 1 The cardiac silhouette is enlarged. The lungs demonstrate bilateral patchy airspace opacities. The pu lmonary vasculature is prominent. Small bilateral pleural effusions. There is no pneumothorax. IMPRESSION: Cardiomegaly with pulmonary vascular congestion and bilateral patchy airspace opacities. This is over all slightly worsened from the previous examination. Small bilateral pleural effusions.
--- NOTE | 2025-03-16 19:19 | CARDIOLOGY REPORT ---
APPROVED REPORT EXAM: Comprehensive 2D, Doppler, and color-flow Echocardiogram. Patient Location: 2010 Blood Pressure: 128/54 mmHg Heart Rate: 70 bpm Indications Congestive Heart Failure Intubated Supine Hypertension Diabetes NO INSTRUMENT LENS INSPECTOR Previous ECHO: 10/06/21, [facility], EF: 55-60 2D Dimensions LA Diam2.6 cm IVSd 1.1 (0.7-1.1cm) LVDd 4.3 cm PWd 1.0 (0.7-1.1cm) IVSs 1.0 (0.8-1.2cm) LVDs 3.6 (2.5-4.0cm) PWs 1.1 (0.8-1.2cm) LVOT Diameter 2.07 (1.8-2.4cm) LVEF(%) 32.7 (>50%) IVC 19.22 mm FS (%) 15.4 % SV 27.1 ml CO 1.8 L/min M-Mode Dimensions Left Atrium(MM) 3.75 (2.5-4.0cm) Aortic Root 3.43 (2.2-3.7cm) Aortic Cusp Exc 2.20 (1.5-2.0cm) Aortic Valve AoV Peak Jorge. 153.8 cm/s AoV VTI 27.9 cm AO Peak GR. 9.5 mmHg AO Mean GR. 6 mmHg LVOT VTI 24.29 cm LVOT Peak Jorge. 122.2 cm/s JOSE RAUL(VTI)/BSA 2.94 cm2/m2 JOSE RAUL (VTI) 2.94 cm2 Mitral Valve MV E Velocity 78.2 cm/s MV Peak Gr. 2 mmHg MV DECEL TIME 244 ms MV A Velocity 62.6 cm/s MV PHT 64 ms E/A Ratio 1.2 MVA (PHT) 3.44 cm2 MV VMax66.6 cm/s TDI Lateral E' P. V10.32 cm/s E/Lateral E' 7.6 Tricuspid Valve TR P. Velocity 141 cm/s RAP ESTIMATE 10 mmHg TR Peak Gr. 8 mmHg RVSP 18 mmHg LEFT VENTRICLE Normal LV size and wall thickness. Overall systolic function is severely decreased. LVEF is approxima tely 30%. RIGHT VENTRICLE The right ventricle is normal size with gross normal function. ATRIA The left atrium size is normal. AORTIC VALVE Trileaflet AV appears mildly sclerotic without stenosis. No insufficiency. MITRAL VALVE Mild mitral annular calcification without stenosis. Trace regurgitation. TRICUSPID VALVE The tricuspid valve is normal in structure with trace regurgitation. PULMONIC VALVE Pulmonic valve is grossly normal in structure with physiologic insufficiency. GREAT VESSELS The aortic root is normal in size. IVC is normal in size and collapses less than 50% with inspiration . PERICARDIUM Normal pericardium. No effusion. Anterior epicardial fat pad is present. Other Information Study Quality: Adequate Conclusion Normal LV size and wall thickness. Overall systolic function is severely decreased. LVEF is approxima tely 30%. The right ventricle is normal size with gross normal function. The left atrium size is normal. Trileaflet AV appears mildly sclerotic without stenosis. No insufficiency. Mild mitral annular calcification without stenosis. Trace regurgitation. The tricuspid valve is normal in structure with trace regurgitation. Pulmonic valve is grossly normal in structure with physiologic insufficiency. Normal pericardium. No effusion. Anterior epicardial fat pad is present.
--- NOTE | 2025-03-16 20:02 | PROCEDURE NOTE ---
Procedure Note Providers to CC ~ Interpretation: Kaylor EEG Note # Demographics Type of EEG Read: - Routine EEG - video Patient Location: Inpatient First Name: Mingo Last Name: Chen Date of : 1970 Age: 54 Gender: Male Facility: [facility] Time of Initial Page (): 03/16/2025 09:36 First Contact with Site ( Time): 03/16/2025 09:36 # EEG Interpretation Start Time of EEG Read (): 03/16/2025 09:58 Stop Time of EEG Read (): 03/16/2025 10:18 Duration: 0h 20m Technical Details: - The EEG electrodes were placed using the standard International 10-20 system of electrode placement. Video and an accessory EKG lead were used during the course of this study. - This study was recorded using the Wu[employer] EEG software # Description Photic Stimulation: NOT Performed Hyperventilation: NOT performed Phases Captured: - unresponsive Symmetry: - symmetric higher amplitude over the vertex Posterior Dominant Rhythm: poorly defined Predominant Frequencies: - delta (2-3 Hz) - continuous (>90%) Superimposed Frequencies: - theta (4-7 Hz) - abundant (50-89%) Amplitude: normal Reactivity: unclear Variability: yes Continuity: continuous EKG: NSR # Abnormalities Epileptiform Abnormalities: - NOT present Focal Slowing: no Seizure: - NOT present # Impression Impression: abnormal Diffuse Slowing, Moderate # Clinical Correlation Clinical Correlation: Diffuse slowing is non-specific and may be seen in the setting of diffuse cerebral dysfunction; such as toxic/metabolic/infectious encephalopathy or heavily sedating medication use. # Demographics First Name: Mingo Last Name: Chen Facility: [facility] WALESKA BRANHAM MD Mar 16, 2025 20:02
[2025-03-16] MEDS: insulin glargine (Lantus) pen - multi-dose SQ SCH (20:29)
--- NOTE | 2025-03-16 21:07 | PROGRESS NOTE ---
Progress Note Dictate Providers to CC ~ Progress Note: Evaluation via HIPAA compliant A/V device. The medical record, including provider notes, laboratory testing and diagnostic studies, was reviewed. Central Line/PICC still needed: N\A Rivas Indications Met/Not Met: F/C Indications Met Antibiotic Ordered?: No MRSA Education MRSA Education Provided to pt: N/A Subjective Subjective Echocardiogram performed today demonstrates an LVEF of 30%. Increasing FIO2 requirement with chest radiograph demonstrating worsening pulmonary edema. Objective Vitals Vital Signs Date Time Temp Pulse Resp B/P (MAP) Pulse Ox O2 Delivery O2 Flow Rate FiO2 03/16/25 20:45 140/61 03/16/25 20:09 16 03/16/25 19:07 70 03/16/25 19:05 67 96 03/16/25 19:00 101.7 Mechanical Ventilator Lab Results: 03/16/25 0305 03/16/25 0305 Coagulation Studies Laboratory Tests Test 03/15/25 14:59 Prothrombin Time 9.8 SECONDS (9.0-12.0) INR International Normalized Ratio 1.0 INR Activated Partial Thromboplast Time 21 SECONDS (22-32) L Coagulation Comments Problem\Assessment\Plan Additional Plan Assessment Status epilepticus. Acute respiratory failure with hypoxia. Possible aspiration pneumonitis. Systolic congestive heart failure; unknown if acute or chronic. STEVEN. Recommendations Antiepileptic drug therapy as prescribed while awaiting the EEG results. Full support of the patient's minute ventilation requirement in the PRVC mode. Propofol and fentanyl sedation/analgesia. Diuresis to tolerance of blood pressure and renal function. Consider the addition of an inotrope if diuresis ineffective or renal function continues to deteriorate. Critical care time 35 minutes. LOC STARKS MD Mar 16, 2025 21:07
[2025-03-16 21:13] LABS: CREATININE 1.49 MG/DL (0.60-1.10); TOTAL CARBON DIOXIDE 25.2 MMOL/L (24-32); eCRCL 60 ML/MIN; eGFR 49 ML/MIN
[2025-03-17] VITALS (36 sets, daily range): BP systolic 83–201; BP diastolic 47–91; PULSE 52–120; RESP 12–28; O2SAT 92–100
[2025-03-17] MEDS: dexmedetomidin/NS 400mcg/100ml 100 ML IV ONE ×2 (02:26→03:18)
[2025-03-17 02:49] LABS: MEAN PLATELET VOLUME 8.8 FL (7.4-10.4); RED CELL DISTRIBUTION WIDTH 13.9 % (11.5-14.5)
[2025-03-17 02:54] LABS: CREATININE 1.47 MG/DL (0.60-1.10); TOTAL CARBON DIOXIDE 24.6 MMOL/L (24-32); eCRCL 60 ML/MIN; eGFR 50 ML/MIN
[2025-03-17 03:00] LABS: PHOSPHORUS 4.6 MG/DL (2.3-4.5); PRO BRAIN NATRIURETIC PEPTIDE 102 PG/ML (0-125)
[2025-03-17 03:41] LABS: ABG BASE EXCESS 1.1 mmol/L (-2.0-3.0); ABG HCO3 26.2 mmol/L (21.0-28.0); ABG OXYGEN SATURATION 95.9 % (94.0-98.0); ABG PCO2 (T) 47.8 mmHg (35.0-48.0); ABG PH (T) 7.366 (7.350-7.450); ABG PO2 (T) 89.4 mmHg (83.0-108.0); ALLEN'S TEST Modified; FCOHb 1.3 % (0.5-1.5); FHHb 4.0 % (0.0-5.0); FIO2 50.0 mmHg/%; FMetHb 0.3 % (0.0-1.5); FO2Hb 94.4 % (94.0-98.0); MODE prvc; PATIENT TEMPERATURE 39.1; PEEP 8 cm H2O; RESPIRATORY RATE 16 b/min; TIDAL VOLUME 400 mL; TOTAL HEMOGLOBIN 14.0 G/dl (13.5-17.5)
--- NOTE | 2025-03-17 05:56 | RADIOLOGY REPORT ---
CHEST RADIOGRAPH Indication: ET Tube Placement Technique: 1 view Comparison: DI CHEST,SINGLE VIEW on DOS: 03/16/25, DI CHEST,SINGLE VIEW on DOS: 03/16/25, DI CHEST,SINGLE VIEW on DOS: 03/15/25, DI CHEST,SINGLE VIEW on DOS: 03/15/25, DI CHEST,SINGLE VIEW on DOS: 11/16/24 FINDINGS: Lines and Tubes: Unchanged endotracheal and enteric tubes. Lungs: Similar bilateral interstitial prominence with left basilar consolidation. No new pulmonary op acity. Pleura: Suspected small left pleural effusion. No pneumothorax. Cardiomediastinal contours: Unchanged. Other: Unchanged. IMPRESSION: 1. No significant change from the previous study. Bilateral perihilar interstitial opacities and lef t basilar airspace disease. Stable support devices.
[2025-03-17] MEDS: rocuronium 10mg/ml inj IV ONE ×3 (09:05→10:00)
--- NOTE | 2025-03-17 11:05 | RADIOLOGY REPORT ---
PROCEDURE: MR MRI HEAD INDICATION: stroke EXAM DATE: 03/17/2025 09:45 AM COMPARISON: CT CT HEAD on DOS: 03/15/25, CT CT HEAD on DOS: 11/16/24, CT CT HEAD on DOS: 11/14/24 TECHNIQUE: MRI of the brain without intravenous contrast. FINDINGS: Diffusion weighted images of the brain demonstrate no evidence of acute infarction. There is no evidence of acute intracranial hemorrhage, extra-axial collection, mass effect, midline s hift, herniation or hydrocephalus. The ventricles, sulci and cisterns appear age appropriate. The signal intensities of the brain parenchyma are within normal limits. There are no signal abnormalities on the susceptibility weighted sequences. The major vascular flow voids are present. Ethmoid and right maxillary sinus disease. The surrounding soft tissues and osseous structures are u nremarkable. IMPRESSION: 1. No evidence of acute infarction, intracranial hemorrhage, mass effect or hydrocephalus. Mild paran bushra sinus disease. HS:Y
[2025-03-17] MEDS ORDERED: cefepime 1GM/NS ADD-VANTAGE 100 ML IV SCH (12:05)
--- NOTE | 2025-03-17 12:12 | PROGRESS NOTE ---
Daily Progress Note Providers to CC ~ Antibiotic Timeout Antibiotic Ordered?: Yes Subjective Patient is intubated sedated and paralyzed . Objective Vital Signs Date Time Temp Pulse Resp B/P (MAP) Pulse Ox O2 Delivery O2 Flow Rate FiO2 03/17/25 11:45 21 03/17/25 11:31 132/75 03/17/25 11:00 50 03/17/25 10:45 100.4 115 93 Mechanical Ventilator Result Diagram: 03/17/25 02203/17/25 0221 Intubated and sedated HEENT normocephalic atraumatic Neck supple, no JVD Chest: Clear to auscultation, no wheezes or rhonchi Heart: Regular rate rhythm, no murmur or gallop rub Abdomen is soft no organomegaly Extremities no cyanosis clubbing edema Neuro exam difficult to assess. Patient is intubated and sedated as noted above. Coagulation Studies Laboratory Tests Test 03/15/25 14:59 Prothrombin Time 9.8 SECONDS (9.0-12.0) INR International Normalized Ratio 1.0 INR Activated Partial Thromboplast Time 21 SECONDS (22-32) L Coagulation Comments Other Results Medications reviewed Problem\Assessment\Plan 54 years old male brought in with altered mental status and seizure-like activity. Patient was intubated for airway protection 1. Probable seizure: EEG and MRI nondiagnostic . Patient intubated to protect his airway. Followed by washer engineer. Failing weaning trials. 2. Hyperlipidemia: Continue atorvastatin 3. Hypertension: Continue valsartan 4. BPH: Continue terazosin 5. Restless legs syndrome: Continue ropinirole 6. STEVEN: Likely vasomotor neuropathy, ? cardiorenal syndrome. Cr. is trending down. 8. Acute respiratory failure: Continue vent support. 9. Acute systolic CHF : Echo showed EF of 30 %.. Continue lasix 10. NSTEMI/ Demand ischemia : Cardiology consultation deferred to the washer engineer . Code status: Remains a full code. Discussed with RN. Critical care time spent 35 minute. Date of Service: Mar 17, 2025 Billing Provider: ORLANDO KLINE MD Common Visit Codes: [id number] CARE 30-74 MIN ORLANDO KLINE MD Mar 17, 2025 12:12
[2025-03-17] MEDS: VANCOMYCIN/H2O 1.75g/350mL PB 350 ML IV ONE (12:48)
--- NOTE | 2025-03-17 12:56 | VASCULAR REPORT ---
Bilateral lower extremity venous Doppler INDICATION: Pain and swelling TECHNIQUE: Duplex venous sonography was performed with real-time and flow sensitive images submitted for evaluation. FINDINGS: Normal phasic venous flow. Veins are fully compressible. No filling defects. IMPRESSION: 1. No evidence of deep vein thrombosis.
[2025-03-17] MEDS ORDERED: acetaminophen 325mg/10.15ml oral unit dose solution OGT PRN (14:54)
[2025-03-17] MEDS ORDERED: magnesium hydroxide 30ml (MOM) UD suspension OGT PRN (15:06)
--- NOTE | 2025-03-17 15:06 | CONSULTATION REPORT - RESIDENT ---
Consult Providers to CC Resident Creating Document: BINDU ZARATE RES History of Present Illness Reason for Admit\Complaint: AMS History of Present Illness The patient is a 54-year-old male with a history of poorly controlled type 2 diabetes (A1c 10.0), hypertension, CHF (EF 30) BPH (on terazosin) hyperlipidemia, and gastroparesis, admitted to the ICU for altered mental status and seizure-like activity. He is currently intubated for airway protection. History was obtained from his . Nephrology was consulted for rising creatinine. His creatinine at presentation was elevated compared to baseline and showed a transient peak before partially improving. His baseline renal function was normal earlier this year, but he has had prior episodes of STEVEN. Family history is notable for polycystic kidney disease in his father requiring dialysis. He has a history of alcohol use disorder, currently in remission since 2014, and ongoing marijuana use. His diabetes remains poorly controlled, with significantly elevated hemoglobin A1c. Labs reveal a normal anion gap acidosis with a associated ketonemia. Allergies: Coded Allergies: Penicillins (Verified Allergy, Unknown, 11/18/24) last reaction >5 years, hives, received treatment famotidine (Verified Allergy, Unknown, 11/18/24) haloperidol (Verified Adverse Reaction, Severe, SEIZURE, 11/18/24) Home Medications Home Medications Active Reported Amitiza (Lubiprostone) 8 Mcg Capsule 1 Cap PO HS 30 Days Terazosin HCl 2 Mg Capsule 1 Cap PO HS 30 Days Nortriptyline HCl 25 Mg Capsule 1 Cap PO HS 30 Days Laxative (Bisacodyl) 5 Mg Tablet.dr 1 Tab PO DAILY PRN Ropinirole Hcl 1 Mg Tablet 1 Tab PO QPM Docusate Sodium 100 Mg Capsule 1 Cap PO BID PRN Tresiba Flextouch U-100 (Insulin Degludec) 100 Unit/Ml (3 Ml) Insuln.pen 48 Units SQ DAILY [id number] (Polyethylene Glycol 3350) 17 Gram/Dose Powder 17 Gm PO DAILY PRN Pregabalin 50 Mg Capsule 1 Cap PO BID Ondansetron Odt (Ondansetron HCl) 4 Mg Tab.rapdis 1 Tab PO BID PRN Hydrocodon-Acetaminophn 10-325 tablet (Acetaminophen/Hydrocodone Bitart) 10mg- 325mg Tablet 1 Tab PO Q8H PRN Atarax* (Hydroxyzine HCl) 25 Mg Tablet 1 Tab PO TID 30 Days Atorvastatin Calcium 80 Mg Tablet 1 Tab PO DAILY Pantoprazole Sodium 40 Mg Tablet. 1 Tab PO BID Admelog Solostar (Insulin Lispro) 100 Unit/Ml Insuln.pen 1 Unit SQ SLIDING SCALE Valsartan 80 Mg Tablet 1 Tab PO DAILY 30 Days Past Medical History Past Medical History Diabetes type 2, hypertension, seizure-like activity, gastroparesis, STEVEN, psychiatric disorders Past Surgical History Surgical History Comment Noncontributory Family History Family History: Anemia FATHER, FH: Parkinson's disease FH: blindness FAMILY/OTHER, Age: 38 FH: dementia FATHER, FH: diabetes mellitus FATHER, , Onset:40's - 50 FAMILY/OTHER, Age: 38 FH: heart failure MOTHER, , Age: 71 FH: kidney disease FATHER, FH: uterine cancer MOTHER, , Age: 71 Hemorrhoids sister Past Social History Social History Comment Lives with his , ambulatory, noncompliant with medications, uses marijuana, ROS ROS As stated above in the HPI, otherwise all systems are reviewed and negative. Exam Vitals: Vital Signs Date Time Temp Pulse Resp B/P (MAP) Pulse Ox O2 Delivery O2 Flow Rate FiO2 03/17/25 14:27 56 16 96 37 03/17/25 14:21 103/63 03/17/25 14:00 100.8 Mechanical Ventilator General: Obese male, currently sedated, intubated, and mechanically ventilated HEENT: Conjunctiva pink, Sclera clear, Mucus Membranes moist. Neck: Supple without masses and tenderness. Resp: Unlabored. Lungs clear to auscultation bilaterally. Heart: Regular Rate and rhythm, normal S1 and S2 without murmur, rub or gallop. Abdomen: Soft and non tender no organomegaly Extremities: No cyanosis,clubbing or edema. Skin: Warm and Dry. Diagnostic Data Last Recorded Lab Results: 03/17/2522003/17/25 0221 Diagnostic Data: Laboratory Tests Test 03/15/25 14:59 Prothrombin Time 9.8 SECONDS (9.0-12.0) INR International Normalized Ratio 1.0 INR Activated Partial Thromboplast Time 21 SECONDS (22-32) L Coagulation Comments Additional Plan 54-year-old male with type 2 diabetes, hypertension, and recent ICU admissions for altered mental status and seizure-like activity, now intubated. Nephrology consulted for acute kidney injury. Acute kidney injury, improving Patient had a rising creatinine added on admission, which has since down trended. Baseline renal function was normal earlier this year. But he has a history of prior STEVEN episodes. Likely multifactorial etiology, including volume depletion, possible prerenal azotemia in the context of poor oral intake as well as hypoperfusion from CHF maintain euvolemia. BP is soft, will benefit from pressers and diuresis Renal ultrasound ordered Urine lytes ordered, please follow We will continue to monitor his volume status, BMP and UOP CKD, early evidence All the creatinine has down trended, recurrent STEVEN episodes, diabetic history, and reduced EGFR raised concerns for evaluating CKD Monitor for progression Reinforced outpatient nephrology follow up after discharge Diabetic nephropathy risk The poorly controlled diabetes; A1c 10 0.0, longstanding hypertension, and possible early CKD suggests risk for diabetic nephropathy Glycemic control optimization after stabilization Home medications include valsartan 80 mg p.o. daily Family history of polycystic kidney disease (father) Kidney Ultrasound report awaited Altered mental status Seizure-like activity Currently intubated, managed by bookmobile librarian CHFrEF CXR pulmonary vascular congestions Hypertension Hyperlipidemia Valsartan withheld, resume after extubation Code status: Full code DVT prophylaxis: SCD Date of Service: Mar 17, 2025 Billing Provider: MARGARETTE LYNCH III, SHAMS, RES Mar 17, 2025 15:06
[2025-03-17] MEDS: acetaminophen 325mg/10.15ml oral unit dose solution OGT PRN (15:24)
--- NOTE | 2025-03-17 16:08 | RADIOLOGY REPORT ---
Renal ultrasound HISTORY: STEVEN TECHNIQUE: 2 D ultrasound was performed with transaxial and longitudinal images. FINDINGS: Right kidney measures 12.6 cm and left kidney measures 12.8 cm. Cyst in the lower pole of t he right kidney measuring 1.5 cm no stones or hydronephrosis. There is a Rivas catheter in the urinar y bladder IMPRESSION: 1. No evidence of obstructive uropathy 2. Incidental note made of a small cyst in the right kidney
[2025-03-17 16:36] LABS: LEUKOCYTE ESTERASE ,URINE NEGATIVE (Neg); NITRITES, URINE NEGATIVE (Neg); OCCULT BLOOD,URINE NEGATIVE (Neg)
[2025-03-17 16:49] LABS: UA COLLECTION TYPE NON-SPECIFIED
[2025-03-17 16:51] LABS: OSMOLALITY UA 716 MOSM/K (50-1400)
[2025-03-17 16:56] LABS: CREATININE,URINE RANDOM 78.0 MG/DL; TOTAL PROTEIN,URINE RANDOM 38.7 MG/DL; UA UREA RANDOM 925.0 MG/DL; URINE AMPHETAMINE SCREEN NEGATIVE (Neg); URINE BARBITUATE SCREEN NEGATIVE (Neg); URINE BENZODIAZEPINES SCREEN POSITIVE (Neg); URINE CANNABINOID SCREEN POSITIVE (Neg); URINE COCAINE SCREEN NEGATIVE (Neg); URINE METHADONE SCREEN NEGATIVE (Neg); URINE OPIATE SCREEN NEGATIVE (Neg); URINE PHENCYCLIDINE SCREEN NEGATIVE (Neg)
--- NOTE | 2025-03-17 17:20 | PROGRESS NOTE- Residence ---
Progress Note - Resident Providers to CC Resident Creating Document: JOSE BUI RES CC: SAM ORTIZ MD ~ Antibiotic Timeout Antibiotic Ordered?: Yes Subjective Patient is currently intubated and sedated. Patient is started on antibiotics in view of spiking fevers. Objective Vital Signs Date Time Temp Pulse Resp B/P (MAP) Pulse Ox O2 Delivery O2 Flow Rate FiO2 03/17/25 17:00 16 40 03/17/25 17:00 101.3 52 85/54 (64) 98 Mechanical Ventilator Result Diagram: 03/17/25 0221 03/17/25 0221 General: Intubated and sedated HEENT: PERRLA, no icterus, pallor, lymphadenopathy, carotid bruit Respiratory system: Bilateral vesicular breath sounds heard, no adventitious breath sounds CVS: S1-S2 heard, no murmurs/rubs/gallop GI: Soft, nontender, no organomegaly, no guarding/rigidity, bowel sounds present Neuro: No focal neurological deficits present Extremities: No edema cyanosis clubbing/deformities Skin: Warm and dry Coagulation Studies Laboratory Tests Test 03/15/25 14:59 Prothrombin Time 9.8 SECONDS (9.0-12.0) INR International Normalized Ratio 1.0 INR Activated Partial Thromboplast Time 21 SECONDS (22-32) L Coagulation Comments Assessment Assessment A 54-year-old male with multiple medical comorbidities was brought in by the in view of confusion and eventual and consciousness. Patient is admitted for the evaluation management of altered mental status. MRI head ruled out stroke. Patient is spiking fevers for which antibiotics have been started. Plan Plan LOCAL AREA NETWORK ADMINISTRATOR: Altered mental status Toxic versus seizures versus normal anion gap ketoacidosis History of pseudo seizures EEG: Normal MRI head: No significant findings U tox positive for marijuana Currently intubated and sedated RASS goal: 0 to -1 On fentanyl propofol and Precedex drips Wean as tolerated Respiratory: Airway protection Intubated for airway protection Intubated and sedated PRVC/400/16/5/40% P/F ratio: 224 Wean as tolerated SBT trial Renal: Prerenal STEVEN probably secondary to renal tubular stasis Continue IV fluids at 100 cc/hour Continue to monitor BMP Endocrine: Diabetes mellitus type 2 Diabetic gastroparesis Continue IV fluid resuscitation Continue Lantus 20 units, moderate sliding scale insulin Hematological: Leukocytosis with bandemia Probably reactive Patient is spiking fevers Started on IV cefepime and vancomycin ID: PUO Vascular ultrasound ruled out DVT Chest x-ray and UA negative for any infection Started empirically on the above antibiotics CVS: HTN HLD Antihypertensives on hold Start oral meds after extubation GI: GI prophylaxis: IV Protonix 40 mg Genitourinary: BPH Left groin hernia Continue p.o. meds after extubation Outpatient management for hernia Psych: Depression/anxiety Cannabinoid use disorder bibliographic services specialist consult Code status: Full code Diet: NPO DVT prophylaxis: SCD Disposition: Continue care in CICU, extubation trial Jose Bui MD Internal Medicine, PGY 2 Date of Service: Mar 17, 2025 Billing Provider: SAM ORTIZ MD, SIVA, RES Mar 17, 2025 17:20
[2025-03-17] MEDS: cefepime 1GM in D5W 50mL 50 ML IV SCH (21:25)
[2025-03-18] VITALS (33 sets, daily range): BP systolic 104–171; BP diastolic 54–86; PULSE 55–128; RESP 10–20; O2SAT 88–98
[2025-03-18] MEDS: vancomycin/NS 1 GM ADD-VANTAGE 250 ML IV SCH (00:37)
[2025-03-18 03:24] LABS: ABG BASE EXCESS -3.2 mmol/L (-2.0-3.0); ABG HCO3 21.9 mmol/L (21.0-28.0); ABG OXYGEN SATURATION 98.2 % (94.0-98.0); ABG PCO2 (T) 43.8 mmHg (35.0-48.0); ABG PH (T) 7.327 (7.350-7.450); ABG PO2 (T) 124.8 mmHg (83.0-108.0); ALLEN'S TEST POSITIVE; FCOHb 0.8 % (0.5-1.5); FHHb 1.8 % (0.0-5.0); FIO2 60.0 mmHg/%; FMetHb 0.3 % (0.0-1.5); FO2Hb 97.1 % (94.0-98.0); MODE VENT - AC; PATIENT TEMPERATURE 39.2; PEEP 5 cm H2O; RESPIRATORY RATE 16 b/min; TIDAL VOLUME 400 mL; TOTAL HEMOGLOBIN 12.9 G/dl (13.5-17.5)
[2025-03-18 03:43] LABS: MEAN PLATELET VOLUME 8.9 FL (7.4-10.4); RED CELL DISTRIBUTION WIDTH 13.6 % (11.5-14.5)
[2025-03-18 03:49] LABS: CREATININE 1.74 MG/DL (0.60-1.10); PHOSPHORUS 3.3 MG/DL (2.3-4.5); TOTAL CARBON DIOXIDE 22.1 MMOL/L (24-32); eCRCL 51 ML/MIN; eGFR 41 ML/MIN
--- NOTE | 2025-03-18 05:11 | RADIOLOGY REPORT ---
CHEST RADIOGRAPH Indication: ET Tube Placement Technique: 1 view Comparison: DI CHEST,SINGLE VIEW on DOS: 03/17/25, DI CHEST,SINGLE VIEW on DOS: 03/16/25, DI CHEST,SINGLE VIEW on DOS: 03/16/25, DI CHEST,SINGLE VIEW on DOS: 03/15/25, DI CHEST,SINGLE VIEW on DOS: 03/15/25 FINDINGS: Lines and Tubes: Unchanged endotracheal and enteric tubes. Lungs: Unchanged bilateral interstitial opacities. Pleura: Suspected small left effusion. Cardiomediastinal contours: Unchanged. Other: No acute osseous abnormality. IMPRESSION: 1. No significant change from the previous study.
[2025-03-18] MEDS: acetaminophen 1,000mg/100ml IV 100 ML IV ONE ×2 (07:02→14:25)
[2025-03-18] MEDS: INSULIN LISPRO 100 UNIT/ML INSULN.PEN MULTI-DOSE SQ SCH ×2 (07:25→14:50)
[2025-03-18] MEDS: insulin glargine (Lantus) pen - multi-dose SQ SCH (07:26)
[2025-03-18] MEDS ORDERED: PCA WASTE DOCUMENTATION 1 MG ML MC SCH (07:30)
[2025-03-18] MEDS: INSULIN LISPRO 100 UNIT/ML INSULN.PEN MULTI-DOSE SQ ONE (12:57)
[2025-03-18] MEDS: hydrALAZINE 20mg/ml inj. IV PRN (13:14)
--- NOTE | 2025-03-18 13:35 | ELECTROCARDIOGRAPH REPORT ---
[facility] Test Date: 2025-03-18 Test Time: 13:33:58 Pat Name: BLACK SORTO Department: [facility] 2S Patient ID: [facility]-[id number] Room: [facility] 2011 B Gender: M Billing Specialist: MARTY : 1970 Requested By: MELLY BILLS Order Number: [id number] Reading MD: Dr. YANI Elizabeth Measurements Intervals [place] Rate: 115 P: 60 [place]: 166 QRS: -18 QRSD: 81 T: 20 QT: 353 QTc: 489 Interpretive Statements Sinus tachycardia Borderline left axis deviation Borderline prolonged QT interval Electronically Signed On 03-19-2025 15:39:[address] YANI Elizabeth Please click the below link to view image of tracing.
[2025-03-18] MEDS: niCARDipine-NS 40mg/200ml IVPB 200 ML IV SCH ×2 (13:54→14:20)
[2025-03-18 13:59] LABS: CREATININE 1.51 MG/DL (0.60-1.10); TOTAL CARBON DIOXIDE 18.4 MMOL/L (24-32); eCRCL 59 ML/MIN; eGFR 48 ML/MIN
--- NOTE | 2025-03-18 14:58 | PROGRESS NOTE- Residence ---
Progress Note - Resident Providers to CC Resident Creating Document: ABHI BUI, LUZ MARIA CC: SAM ORTIZ MD ~ Antibiotic Timeout Antibiotic Ordered?: Yes Subjective Patient is extubated and is saturating well on room air. Patient is weaned off fentanyl, Precedex, propofol drips. Patient was placed on nicardipine drip for high blood pressure. Objective Vital Signs Date Time Temp Pulse Resp B/P (MAP) Pulse Ox O2 Delivery O2 Flow Rate FiO2 03/18/25 14:20 118 162/81 03/18/25 13:00 101.3 12 97 Nasal Cannula 2.0 03/18/25 07:34 40 Result Diagram: 03/18/25 0314 03/18/25 1243 General: Intubated and sedated HEENT: PERRLA, no icterus, pallor, lymphadenopathy, carotid bruit Respiratory system: Bilateral vesicular breath sounds heard, no adventitious breath sounds CVS: S1-S2 heard, no murmurs/rubs/gallop GI: Soft, nontender, no organomegaly, no guarding/rigidity, bowel sounds present Neuro: No focal neurological deficits present Extremities: No edema cyanosis clubbing/deformities Skin: Warm and dry Coagulation Studies Laboratory Tests Test 03/15/25 14:59 Prothrombin Time 9.8 SECONDS (9.0-12.0) INR International Normalized Ratio 1.0 INR Activated Partial Thromboplast Time 21 SECONDS (22-32) L Coagulation Comments Assessment Assessment A 54-year-old male with multiple medical comorbidities was brought in by the in view of confusion and eventual and consciousness. Patient is admitted for the evaluation management of altered mental status. MRI head ruled out stroke. Patient is spiking fevers for which antibiotics have been started. Plan Plan INSURANCE DEFENSE PARALEGAL: Altered mental status Toxic versus seizures versus normal anion gap ketoacidosis History of pseudo seizures EEG: Normal MRI head: No significant findings U tox positive for marijuana Extubated, saturating well on 2 L nasal cannula RASS goal: 0 to -1 Off fentanyl propofol and Precedex drips Wean as tolerated Respiratory: Airway protection Extubated and saturating well on 2 L nasal cannula Renal: Prerenal STEVEN probably secondary to renal tubular stasis Continue IV fluids at 100 cc/hour Continue to monitor BMP Endocrine: Diabetes mellitus type 2 Diabetic gastroparesis Continue IV fluid resuscitation Continue Lantus 20 units, moderate sliding scale insulin Hematological: Leukocytosis with bandemia Probably reactive Patient is spiking fevers Continue IV cefepime and vancomycin ID: PUO Vascular ultrasound ruled out DVT Chest x-ray and UA negative for any infection Continue empiric antibiotics as above CVS: HTN HLD On nicardipine drip Can shift to p.o. medications that he has been using at home Patient is on terazosin 2 mg capsule and valsartan 80 mg at home GI: GI prophylaxis: IV Protonix 40 mg Genitourinary: BPH Left groin hernia Outpatient management for hernia Psych: Depression/anxiety Cannabinoid use disorder counseling services director consult Code status: Full code Diet: NPO DVT prophylaxis: SCD Disposition: Continue care in CICU, possible transfer to the floor in a day or two Abhi Bui MD Internal Medicine, PGY 2 Date of Service: Mar 18, 2025 Billing Provider: SAM ORTIZ MD, SIVA, RES Mar 18, 2025 14:58
[2025-03-18] MEDS: dexmedetomidin/NS 400mcg/100ml 100 ML IV SCH (16:34)
--- NOTE | 2025-03-18 16:57 | PROGRESS NOTE- Residence ---
Progress Note - Resident Providers to CC Resident Creating Document: BINDU RUIZ RES ~ Antibiotic Timeout Antibiotic Ordered?: Yes Subjective Patient was seen in ICU. He is extubated perfusing well with 2 L supplemental oxygen via nasal cannula. His STEVEN has improved with IV hydration, creatinine trending down. Objective Vital Signs Date Time Temp Pulse Resp B/P (MAP) Pulse Ox O2 Delivery O2 Flow Rate FiO2 03/18/25 16:34 149/48 03/18/25 14:20 118 03/18/25 13:00 101.3 12 97 Nasal Cannula 2.0 03/18/25 07:34 40 General: Obese male, slightly confused HEENT: Conjunctiva pink, Sclera clear, Mucus Membranes moist. Neck: Supple without masses and tenderness. Resp: Unlabored. Lungs clear to auscultation bilaterally. Heart: Regular Rate and rhythm, normal S1 and S2 without murmur, rub or gallop. Abdomen: Soft and non tender no organomegaly Extremities: No cyanosis,clubbing or edema. Skin: Warm and Dry. Result Diagram: 03/18/25 0314 03/18/25 1243 Coagulation Studies Laboratory Tests Test 03/15/25 14:59 Prothrombin Time 9.8 SECONDS (9.0-12.0) INR International Normalized Ratio 1.0 INR Activated Partial Thromboplast Time 21 SECONDS (22-32) L Coagulation Comments Advance Care Planning Advanced Care plannin - 30 Minutes Assessment Assessment A 54-year-old male with multiple medical comorbidities was brought in by the in view of confusion and eventual and consciousness. Patient is admitted for the evaluation management of altered mental status. MRI head ruled out stroke. Patient is spiking fevers for which antibiotics have been started. Plan Plan Acute kidney injury, prerenal, improving Patient had a rising creatinine added on admission, which has since down trended. Baseline renal function was normal earlier this year. But he has a history of prior STEVEN episodes. Likely multifactorial etiology, including volume depletion, possible prerenal azotemia in the context of poor oral intake as well as hypoperfusion from CHF maintain euvolemia. BP is soft, will benefit from pressers and diuresis Renal ultrasound shows right kidney cyst, no signs of APKD Urine lytes; FENa 0.3%, suggest prerenal We will continue to monitor his volume status, BMP and UOP CKD, early evidence All the creatinine has down trended, recurrent STEVEN episodes, diabetic history, and reduced EGFR raised concerns for evaluating CKD Monitor for progression Reinforced outpatient nephrology follow up after discharge Diabetic nephropathy risk The poorly controlled diabetes; A1c 10 0.0, longstanding hypertension, and possible early CKD suggests risk for diabetic nephropathy Glycemic control optimization after stabilization Home medications include valsartan 80 mg p.o. daily Family history of polycystic kidney disease (father) Kidney Ultrasound report awaited Altered mental status Seizure-like activity Currently intubated, managed by petroleum inspector supervisor CHFrEF CXR pulmonary vascular congestions Hypertension Hyperlipidemia Valsartan withheld, resume after extubation Code status: Full code DVT prophylaxis: VINCE Ruiz Nephrology Resident Nephrology attending: Patient seen and examined. CAre plan reviewed with resident. above appreciated. critically ill, slowly recuperating. replace bicarb. creatinine is slowly improving. will follow Terrance Good MD Date of Service: Mar 18, 2025 Billing Provider: TERRANCE GOOD MD, SHAMS, RES Mar 18, 2025 16:57 TERRANCE GOOD MD Mar 18, 2025 18:54
[2025-03-18] MEDS: morphine 4 MG/ML inj SYRINge IV PRN (19:46)
--- NOTE | 2025-03-18 21:18 | PROGRESS NOTE ---
Daily Progress Note Providers to CC ~ Antibiotic Timeout Antibiotic Ordered?: Yes Subjective The patient is seems very anxious remains on a Precedex drip was extubated this morning Objective Vital Signs Date Time Temp Pulse Resp B/P (MAP) Pulse Ox O2 Delivery O2 Flow Rate FiO2 03/18/25 19:46 12 03/18/25 18:00 102.0 127 142/59 (86) 95 Nasal Cannula 2.0 03/18/25 07:34 40 Result Diagram: 03/18/25 0314 03/18/25 1243 Gen. No acute distress alert and oriented Lungs clear to ascultation bilaterally, no wheezes rales or rhonchi appreciated Heart normal sinus rhythm no murmurs rubs or clicks noted Abdomen soft nontender bowel sounds are normoactive Lower extremities no clubbing cyanosis, nor edema appreciated bilaterally Coagulation Studies Laboratory Tests Test 03/15/25 14:59 Prothrombin Time 9.8 SECONDS (9.0-12.0) INR International Normalized Ratio 1.0 INR Activated Partial Thromboplast Time 21 SECONDS (22-32) L Coagulation Comments Problem\Assessment\Plan 54 years old male brought in with altered mental status and seizure-like activity. Patient was intubated for airway protection 1. Probable seizure: EEG and MRI nondiagnostic . Extubated on the morning of 03/18/2025. 2. Hyperlipidemia: Continue atorvastatin 3. Hypertension: Continue valsartan 4. BPH: Continue terazosin 5. Restless legs syndrome: Continue ropinirole 6. STEVEN: Likely vasomotor neuropathy, ? cardiorenal syndrome. Cr. is trending down. 8. Acute respiratory failure: Continue vent support. 9. Acute systolic CHF : Echo showed EF of 30 %.. Continue lasix 10. NSTEMI/ Demand ischemia : Cardiology consultation deferred to the flight controls engineer . 11. Type 2 diabetes mellitus uncontrolled 03/18 Lantus was increased to 20 units b.i.d. and on high dose sliding scale insulin 12. Sepsis on IV vancomycin and IV cefepime- blood cultures are negative x3 days. Code status: Remains a full code. Discussed with RN. Critical care time spent 35 minute. Date of Service: Mar 18, 2025 Billing Provider: MELLY BILLS DO Common Visit Codes: [id number] INP/OBS CARE(HIGH) MELLY BILLS DO Mar 18, 2025 21:18
--- NOTE | 2025-03-18 22:02 | RADIOLOGY REPORT ---
CHEST RADIOGRAPH Indication: R/O ASPIRATION Technique: Single frontal view of the chest was obtained COMPARISON: DI CHEST,SINGLE VIEW on DOS: 03/18/25, DI CHEST,SINGLE VIEW on DOS: 03/17/25, DI CHEST,SINGLE VIEW on DOS: 03/16/25, DI CHEST,SINGLE VIEW on DOS: 03/16/25, DI CHEST,SINGLE VIEW on DOS: 03/15/25 FINDINGS: Lines and Tubes: Status post interval extubation and removal of enteric catheter. Lungs: Moderate diffuse increased prominence of the pulmonary vasculature. Pleura: No effusion. No pneumothorax. Cardiomediastinal contours: Unremarkable Bones: Unremarkable IMPRESSION: 1. Moderate diffuse increased prominence of the pulmonary vasculature. 2. Status post interval extubation and removal of enteric catheter.
[2025-03-19] VITALS (31 sets, daily range): BP systolic 105–158; BP diastolic 60–119; PULSE 74–111; RESP 9–30; O2SAT 9–97
[2025-03-19] MEDS: VANCOMYCIN LEVEL IV ONE ×2 (00:30→13:19)
[2025-03-19] MEDS: ondansetron/PF 4mg/2ml inj IV PRN (01:30)
[2025-03-19 04:08] LABS: MEAN PLATELET VOLUME 9.4 FL (7.4-10.4); RED CELL DISTRIBUTION WIDTH 13.0 % (11.5-14.5)
[2025-03-19 04:22] LABS: CREATININE 1.36 MG/DL (0.60-1.10); TOTAL CARBON DIOXIDE 20.9 MMOL/L (24-32); eCRCL 65 ML/MIN; eGFR 54 ML/MIN
[2025-03-19 04:36] LABS: BANDS% (MANUAL) 15 % (0-10); LYMPHOCYTES % (MANUAL) 10 % (21-51); MONOCYTES % (MANUAL) 1 % (2-12); NEUTROPHILS % (MANUAL) 74 % (42-75); PLATELET ESTIMATE NORMAL
[2025-03-19 04:58] LABS: PHOSPHORUS 0.8 MG/DL (2.3-4.5)
[2025-03-19] MEDS ORDERED: potassium phosphate inj 30 MMOL in normal saline 250ml IV soln 500 ML IV ONE (05:15)
[2025-03-19 05:28] LABS: ABG BASE EXCESS -0.2 mmol/L (-2.0-3.0); ABG HCO3 20.2 mmol/L (21.0-28.0); ABG OXYGEN SATURATION 89.8 % (94.0-98.0); ABG PCO2 (T) 24.3 mmHg (35.0-48.0); ABG PH (T) 7.540 (7.350-7.450); ABG PO2 (T) 57.3 mmHg (83.0-108.0); ALLEN'S TEST Modified; FCOHb 0.8 % (0.5-1.5); FHHb 10.1 % (0.0-5.0); FIO2 100.0 mmHg/%; FLOW 40 L/min; FMetHb 0.3 % (0.0-1.5); FO2Hb 88.8 % (94.0-98.0); MODE vapotherm; PATIENT TEMPERATURE 38.0; TOTAL HEMOGLOBIN 14.3 G/dl (13.5-17.5)
[2025-03-19] MEDS: potassium phosphate inj 30 MMOL in normal saline 500ml IV soln 500 ML IV ONE ×2 (06:40→07:07)
[2025-03-19] MEDS: K, MAG and/or Phos replacement - Verify level? MC SCH (07:00)
[2025-03-19] MEDS: nitroGLYCERIN-Tridil 50MG/D5W 250 ML IV SCH (07:18)
[2025-03-19] MEDS ORDERED: potassium Cl 40MEQ/1/2NS 520ml 520 ML IV PRN (07:20)
--- NOTE | 2025-03-19 07:23 | PROGRESS NOTE ---
Progress Note Dictate Providers to CC ~ Progress Note: Extubated yesterday. Placed on BiPAP overnight. BP better controlled on Cardene drip. Also on Precedex drip Central Line/PICC still needed: N\A Rivas Indications Met/Not Met: F/C Indications Met Antibiotic Ordered?: Yes Subjective Subjective Mildly dyspneic Objective Vitals Vital Signs Date Time Temp Pulse Resp B/P (MAP) Pulse Ox O2 Delivery O2 Flow Rate FiO2 03/19/25 06:00 100.4 97 14 144/77 (99) 96 Bi-pap/CPAP 14.0 100 Lab Results: 03/19/25 0334 03/19/25 0334 Objective Heart: S1-2 reg Lungs: Crackles at bases Abdomen: Soft, non-tender, BS (+) Ext: No edema Neuro: confuse Coagulation Studies Laboratory Tests Test 03/15/25 14:59 Prothrombin Time 9.8 SECONDS (9.0-12.0) INR International Normalized Ratio 1.0 INR Activated Partial Thromboplast Time 21 SECONDS (22-32) L Coagulation Comments Problem\Assessment\Plan Additional Plan 1-Acute Hypoxemic Resp Failure -Titrate O2 for SpO2>92% 2-Dilated CMP -Cannabis Induced? -Increase diuresis -NTG drip 3-DM -Insulin per protocol 4-STEVEN -F/U BMP 5-Confuse -Cannabis induced Encephalopathy? Isac Castrejon CC time 35min Sepsis Screening Reassessment Date: Mar 19, 2025 SAM CASTREJON MD Mar 19, 2025 07:23
[2025-03-19] MEDS: potassium Cl 40MEQ/1/2NS 520ml 520 ML IV PRN (08:13)
[2025-03-19] MEDS: furosemide 10 MG/1 ML 10ml inj IV ONE (08:16)
--- NOTE | 2025-03-19 09:17 | RADIOLOGY REPORT ---
DI CHEST,SINGLE VIEW, HISTORY: Possible Aspiration COMPARISON: DI CHEST,SINGLE VIEW on DOS: 03/18/25, DI CHEST,SINGLE VIEW on DOS: 03/18/25, DI CHEST,SINGLE VIEW on DOS: 03/17/25 DI CHEST,SINGLE VIEW on DOS: 03/18/25, DI CHEST,SINGLE VIEW on DOS: 03/18/25, DI CHEST,SINGLE VIEW on DOS : 03/17/25 TECHNICAL DATA: 1 view of the chest was obtained. FINDINGS: Lines and tubes: None Cardiomediastinal silhouette: prominent Pulmonary vasculature: normal Lung expansion: normal Lung airspace: Perihilar opacities. Lung interstitium: prominent Pleura: normal Pneumothorax: no Bones: Unremarkable Other: no IMPRESSION: Similar lung aeration could be pulmonary edema.
[2025-03-19] MEDS: INSULIN LISPRO 100 UNIT/ML INSULN.PEN MULTI-DOSE SQ ONE (11:26)
--- NOTE | 2025-03-19 13:24 | PROGRESS NOTE ---
Progress Note Dictate Providers to CC ~ Central Line/PICC still needed: Yes Central Line/PICC Necessity: Prolonged IV access req Rivas Indications Met/Not Met: F/C Indications Met Antibiotic Ordered?: N/A Subjective Subjective remains extubated. on bipap. tachycardic. being treated for sepsis.renal function continues to get better. Na is up to 153. free water replacement is necessary. Objective Vitals Vital Signs Date Time Temp Pulse Resp B/P (MAP) Pulse Ox O2 Delivery O2 Flow Rate FiO2 03/19/25 12:00 99.1 91 12 129/65 (86) 90 High Flow Nasal Cannula 35.0 100 Lab Results: 03/19/25 0334 03/19/25 0334 Objective Vital Signs: As above General: Normal body habitus, no acute distress. Skin: No rashes, lumps, ulcers, blisters, purpura or petechiae HEENT: Anicteric sclera, DONALDO Neck: Supple and nontender without enlargement of the thyroid, or lymphadenopathy. Chest: Normal size and shape, no tenderness, CTA bilaterally Heart: Regular. No jugular venous distention, S1 and S2 heard , no gallop Abdomen: Soft and non tender no organomegaly,BS+ Extremities: No pedal edema Neuro: Nonfocal. Coagulation Studies Laboratory Tests Test 03/15/25 14:59 Prothrombin Time 9.8 SECONDS (9.0-12.0) INR International Normalized Ratio 1.0 INR Activated Partial Thromboplast Time 21 SECONDS (22-32) L Coagulation Comments Advance Care Planning Advanced Care plannin - 30 Minutes Problem\Assessment\Plan Problems/Diagnosis: (1) Hypernatremia Assessment & Plan: free water via D5W vs PO. creatinine continues to get better. down to 1.3. Na is up to 153 that puts him with 5.5 liter water deficit. will replace half of that next 24 hours. (2) Acute kidney injury Assessment & Plan: iv fluids given. DKA on presentation now better. AG closed. K being replaced. YANNICK GOOD MD Mar 19, 2025 13:24
[2025-03-19] MEDS ORDERED: VANCOMYCIN/WATER FOR INJ (PEG) 1.25GM/250 ML IVPB IV SCH (14:30)
[2025-03-19] MEDS: VANCOmycin 1250MG/NS 250ml Bag 250 ML IV SCH (14:50)
--- NOTE | 2025-03-19 21:07 | PROGRESS NOTE ---
Daily Progress Note Providers to CC ~ Antibiotic Timeout Antibiotic Ordered?: Yes Subjective The patient remains critical but stable I did give the patient a one time dose of 20 units subQ lispro insulin which improved his blood sugars from the 299 to 238 his Lantus is increased to 30 units b.i.d.. The patient is serum sodium is up trending and Dr. Pierson winch driver has ordered free water to be given Objective Vital Signs Date Time Temp Pulse Resp B/P (MAP) Pulse Ox O2 Delivery O2 Flow Rate FiO2 03/19/25 19:43 85 16 93 40.0 100 03/19/25 18:00 99.7 107/64 (78) High Flow Nasal Cannula Result Diagram: 03/19/25 03303/19/25 033 Gen. No acute distress alert and oriented Lungs clear to ascultation bilaterally, no wheezes rales or rhonchi appreciated Heart normal sinus rhythm no murmurs rubs or clicks noted Abdomen soft nontender bowel sounds are normoactive Lower extremities no clubbing cyanosis, nor edema appreciated bilaterally Coagulation Studies Laboratory Tests Test 03/15/25 14:59 Prothrombin Time 9.8 SECONDS (9.0-12.0) INR International Normalized Ratio 1.0 INR Activated Partial Thromboplast Time 21 SECONDS (22-32) L Coagulation Comments Problem\Assessment\Plan 54 years old male brought in with altered mental status and seizure-like activity. Patient was intubated for airway protection 1. Probable seizure: EEG and MRI nondiagnostic . Extubated on the morning of 03/18/2025. 2. Hyperlipidemia: Continue atorvastatin 3. Hypertension: Continue valsartan 4. BPH: Continue terazosin 5. Restless legs syndrome: Continue ropinirole 6. STEVEN: Likely vasomotor neuropathy, ? cardiorenal syndrome. Cr. is trending down. 8. Acute respiratory failure: Extubated on 03/18/2025 Currently on 40 L of high-flow oxygen 9. Acute systolic CHF : Echo showed EF of 30 %.. Continue lasix 10. NSTEMI/ Demand ischemia : Cardiology consultation deferred to the volleyball commentator . 11. Type 2 diabetes mellitus uncontrolled 03/18 Lantus was increased to 20 units b.i.d. and on high dose sliding scale insulin 03/19 increase Lantus to 30 units b.i.d. 12. Sepsis on IV vancomycin and IV cefepime- blood cultures are negative x3 days. 13. Hypernatremia- Wheel Fitter Dr. Pierson recommends free water- continue to monitor 14. Hypokalemia on potassium replacement protocol Code status: Remains a full code. Discussed with RN. Critical care time spent 35 minute. Date of Service: Mar 19, 2025 Billing Provider: MELLY BILLS DO Common Visit Codes: [id number] INP/OBS CARE(HIGH) MELLY BILLS DO Mar 19, 2025 21:07
[2025-03-19] MEDS: insulin glargine (Lantus) pen - multi-dose SQ SCH (21:48)
[2025-03-20] VITALS (33 sets, daily range): BP systolic 82–129; BP diastolic 47–74; PULSE 54–93; RESP 11–33; O2SAT 82–97
[2025-03-20 05:23] LABS: MEAN PLATELET VOLUME 9.5 FL (7.4-10.4); RED CELL DISTRIBUTION WIDTH 13.5 % (11.5-14.5)
[2025-03-20 05:52] LABS: CREATININE 1.47 MG/DL (0.60-1.10); PHOSPHORUS 3.6 MG/DL (2.3-4.5); TOTAL CARBON DIOXIDE 23.8 MMOL/L (24-32); eCRCL 60 ML/MIN; eGFR 50 ML/MIN
[2025-03-20] MEDS ORDERED: magnesium sulf-water 4G/100mL 100 ML IV PRN (06:35)
[2025-03-20] MEDS ORDERED: magnesium Cl slow-release 64mg tablet PO PRN (06:35)
[2025-03-20] MEDS ORDERED: magnesium sulf-water 2g/50mL 50 ML IV PRN (06:35)
--- NOTE | 2025-03-20 06:41 | PROGRESS NOTE ---
Progress Note Dictate Providers to CC ~ Progress Note: Precedex initiated last night. Pt combative Central Line/PICC still needed: Yes Rivas Indications Met/Not Met: F/C Indications Met Antibiotic Ordered?: Yes Subjective Subjective Mild distress Objective Vitals Vital Signs Date Time Temp Pulse Resp B/P (MAP) Pulse Ox O2 Delivery O2 Flow Rate FiO2 03/20/25 06:00 99.1 71 12 98/74 (82) 97 Bi-pap/CPAP 14.0 100 Lab Results: 03/20/25 0404 03/20/25 0404 Objective Heart: S1-2 reg Lungs: Crackles at bases Abdomen: Soft, non-tender, BS (+) Ext: No edema Neuro: confuse Coagulation Studies Laboratory Tests Test 03/15/25 14:59 Prothrombin Time 9.8 SECONDS (9.0-12.0) INR International Normalized Ratio 1.0 INR Activated Partial Thromboplast Time 21 SECONDS (22-32) L Coagulation Comments Problem\Assessment\Plan Additional Plan 1-Acute Hypoxemic Resp Failure -Titrate O2 for SpO2>92% 2-Dilated CMP -Cannabis Induced? -Increase diuresis -NTG drip 3-DM -Insulin per protocol 4-STEVEN -F/U BMP 5-Confuse -Cannabis induced Encephalopathy? 6-Hypernatremia -Increase free water -Decrease Margoth Castrejon CC time 35min Sepsis Screening Reassessment Date: Mar 20, 2025 SAM CASTREJON MD Mar 20, 2025 06:41
[2025-03-20] MEDS: K and/or MAG REPLACEMENT MC SCH (07:12)
--- NOTE | 2025-03-20 07:48 | RADIOLOGY REPORT ---
CLINICAL INFORMATION: 54 years old, Male; acute resp failure. TECHNIQUE: Single AP portable chest radiograph was obtained. COMPARISON: DI CHEST,SINGLE VIEW on DOS: 03/19/25, DI CHEST,SINGLE VIEW on DOS: 03/18/25, DI CHEST,SINGLE VIEW on DOS: 03/18/25 FINDINGS: Similar-appearing prominence of the pulmonary vasculature and bilateral interstitial opacities, suspe cted pulmonary vascular congestion and possible interstitial pulmonary edema. No pneumothorax. No ot her significant interval change. IMPRESSION: No significant interval change as detailed above.
[2025-03-20] MEDS: OLANZapine **IM** 10 mg inj. IM ONE (08:20)
--- NOTE | 2025-03-20 15:26 | PROGRESS NOTE ---
Progress Note Dictate Providers to CC ~ Central Line/PICC still needed: Yes Central Line/PICC Necessity: Prolonged IV access req Rivas Indications Met/Not Met: F/C Indications Met Antibiotic Ordered?: Yes Subjective Subjective The patient has resp alkalosis, on 100% FiO2, with pO2 of 57 and ph of 7.53, on bipap, continuously talking in portugese and anxious. his family member is by his side. His Na ishigh at 158. Since heis on Bipap and ismouth breathing,they have not been giving po water. He has recently had DKA and iv d5 is another problem. I gave a dose of DDAVP today to bring down the Sodium. creatinine coming down well. I shall sign off from renal standpoint as he is taken care of by ICU team now. Objective Vitals Vital Signs Date Time Temp Pulse Resp B/P (MAP) Pulse Ox O2 Delivery O2 Flow Rate FiO2 03/20/25 14:55 75 30 96 90 30 03/20/25 14:00 99.3 110/68 (82) High Flow Nasal Cannula 40.0 Lab Results: 03/20/25 0404 03/20/25 0404 Objective Vital Signs: As above General: Normal body habitus, no acute distress. Skin: No rashes, lumps, ulcers, blisters, purpura or petechiae HEENT: Anicteric sclera, DONALDO Neck: Supple and nontender without enlargement of the thyroid, or lymphadenopathy. Chest: Normal size and shape, no tenderness, CTA bilaterally Heart: Regular. No jugular venous distention, S1 and S2 heard , no gallop Abdomen: Soft and non tender no organomegaly,BS+ Extremities: No pedal edema Neuro: Nonfocal. Coagulation Studies Laboratory Tests Test 03/15/25 14:59 Prothrombin Time 9.8 SECONDS (9.0-12.0) INR International Normalized Ratio 1.0 INR Activated Partial Thromboplast Time 21 SECONDS (22-32) L Coagulation Comments Advance Care Planning Advanced Care plannin - 30 Minutes Problem\Assessment\Plan Problems/Diagnosis: (1) Hypernatremia Assessment & Plan: free water via D5W vs PO. creatinine continues to get better. down to 1.3. Na is up to 158 that puts him with more than 6 liter water deficit. will replace half of that next 24 hours. Defer plans to ICU team. I shall sign off from renal standpoint. (2) Acute kidney injury Assessment & Plan: iv fluids given. DKA on presentation now better. AG closed. K being replaced. creatinine is down to 1.4 now. going in the right diretion. will sign off for now. YANNICK GOOD MD Mar 20, 2025 15:26
[2025-03-20] MEDS: ketamine 10mg/ml 100 MG in NS 100ml IVPB IV SCH (15:46)
[2025-03-20] MEDS: COMMUNICATION ORDER 1 EA MISC MC ONE (17:17)
[2025-03-20] MEDS: acetaminophen 1,000mg/100ml IV 100 ML IV PRN (19:07)
[2025-03-20] MEDS: KETAMINE IV SCH ×2 (21:28→22:00)
[2025-03-20] MEDS: NORMAL SALINE IV SCH ×2 (21:28→22:00)
--- NOTE | 2025-03-20 22:15 | PROGRESS NOTE ---
Daily Progress Note Providers to CC ~ Antibiotic Timeout Antibiotic Ordered?: Yes Subjective The patient is back on BiPAP he was started on a ketamine drip as he continues to be agitated Objective Vital Signs Date Time Temp Pulse Resp B/P (MAP) Pulse Ox O2 Delivery O2 Flow Rate FiO2 03/20/25 22:06 84/59 03/20/25 22:00 101.1 58 31 92 Bi-pap/CPAP 12.0 80 Result Diagram: 03/20/2540303/20/25403 Gen. No acute distress alert and oriented Lungs clear to ascultation bilaterally, no wheezes rales or rhonchi appreciated Heart normal sinus rhythm no murmurs rubs or clicks noted Abdomen soft nontender bowel sounds are normoactive Lower extremities no clubbing cyanosis, nor edema appreciated bilaterally Coagulation Studies Laboratory Tests Test 03/15/25 14:59 Prothrombin Time 9.8 SECONDS (9.0-12.0) INR International Normalized Ratio 1.0 INR Activated Partial Thromboplast Time 21 SECONDS (22-32) L Coagulation Comments Problem\Assessment\Plan 54 years old male brought in with altered mental status and seizure-like activity. Patient was intubated for airway protection 1. Probable seizure: EEG and MRI nondiagnostic . Extubated on the morning of 03/18/2025. 2. Hyperlipidemia: Continue atorvastatin 3. Hypertension: Continue valsartan 4. BPH: Continue terazosin 5. Restless legs syndrome: Continue ropinirole 6. STEVEN: Likely vasomotor neuropathy, ? cardiorenal syndrome. Cr. is trending down. 8. Acute respiratory failure: Extubated on 03/18/2025 Currently on 40 L of high-flow oxygen 9. Acute systolic CHF : Echo showed EF of 30 %.. Continue lasix 10. NSTEMI/ Demand ischemia : Cardiology consultation deferred to the potato chip cooker machine . 11. Type 2 diabetes mellitus uncontrolled 03/18 Lantus was increased to 20 units b.i.d. and on high dose sliding scale insulin 03/19 increase Lantus to 30 units b.i.d. 12. Sepsis on IV vancomycin and IV cefepime- blood cultures are negative x3 days. 13. 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 Pierson calculated that the patient has a 6 L water deficit managed by potato chip cooker machine 14. Hypokalemia on potassium replacement protocol Code status: Remains a full code. Date of Service: Mar 20, 2025 Billing Provider: MELLY BILLS DO Common Visit Codes: [id number] INP/OBS CARE(HIGH) MELLY BILLS DO Mar 20, 2025 22:15
[2025-03-21] VITALS (35 sets, daily range): BP systolic 80–145; BP diastolic 39–75; PULSE 50–119; RESP 20–35; O2SAT 82–98
[2025-03-21] MEDS: VANCOMYCIN LEVEL IV ONE (01:08)
[2025-03-21 01:38] LABS: MEAN PLATELET VOLUME 9.3 FL (7.4-10.4); RED CELL DISTRIBUTION WIDTH 13.3 % (11.5-14.5)
[2025-03-21 01:55] LABS: CREATININE 1.58 MG/DL (0.60-1.10); PHOSPHORUS 4.0 MG/DL (2.3-4.5); TOTAL CARBON DIOXIDE 23.3 MMOL/L (24-32); eCRCL 56 ML/MIN; eGFR 46 ML/MIN
[2025-03-21 02:45] LABS: BANDS% (MANUAL) 2.0 % (0-10); EOSINOPHILS % (MANUAL) 2.0 % (0-6); LYMPHOCYTES % (MANUAL) 12.0 % (21-51); MONOCYTES % (MANUAL) 3.0 % (2-12); NEUTROPHILS % (MANUAL) 81.0 % (42-75)
[2025-03-21 02:46] LABS: PLATELET ESTIMATE NORMAL
[2025-03-21] MEDS ORDERED: ziprasidone IM 20mg inj **IM only IM PRN (04:20)
--- NOTE | 2025-03-21 05:36 | RADIOLOGY REPORT ---
CHEST RADIOGRAPH Indication: Possible aspiration Technique: Single frontal view of the chest was obtained Comparison: DI CHEST,SINGLE VIEW on DOS: 03/20/25 FINDINGS: Lines and Tubes: None Lungs: Bilateral interstitial and alveolar opacities are similar to the prior study. Pleura: No effusion. No pneumothorax. Cardiomediastinal contours: There is diffuse pneumomediastinum new since prior study. Bones: No acute osseous abnormality. IMPRESSION: 1. Interval development of pneumomediastinum. CT scan of the chest is recommended for further evaluat ion. 2. Stable bilateral interstitial and alveolar opacities.
[2025-03-21] MEDS: dextrose 50%-water 50ml dispensing syringe IV PRN (07:14)
[2025-03-21] MEDS ORDERED: rocuronium 10mg/ml inj IV ONE (08:00)
[2025-03-21 08:35] LABS: ABG BASE EXCESS -5.2 mmol/L (-2.0-3.0); ABG HCO3 20.7 mmol/L (21.0-28.0); ABG OXYGEN SATURATION 81.8 % (94.0-98.0); ABG PCO2 (T) 42.8 mmHg (35.0-48.0); ABG PH (T) 7.306 (7.350-7.450); ABG PO2 (T) 55.6 mmHg (83.0-108.0); FCOHb 1.1 % (0.5-1.5); FHHb 18.0 % (0.0-5.0); FIO2 100.0 mmHg/%; FMetHb 0.0 % (0.0-1.5); FO2Hb 80.9 % (94.0-98.0); MODE VENT - PRVC; PATIENT TEMPERATURE 37.6; PEEP 12 cm H2O; RESPIRATORY RATE 20 b/min; TIDAL VOLUME 550 mL; TOTAL HEMOGLOBIN 14.0 G/dl (13.5-17.5)
[2025-03-21] MEDS ORDERED: milrinone (Primacor) 20mg/D5W 100 ML IV SCH (08:35)
[2025-03-21] MEDS: propofol 1000mg/100ml bottle 100 ML IV SCH (08:39)
[2025-03-21] MEDS: FENTANYL-0.9 % NACL/PF 100 ML IV SCH (08:39)
[2025-03-21] MEDS: milrinone (Primacor) 20mg/D5W 100 ML IV SCH (09:11)
[2025-03-21] MEDS: midazolam 100mg in NS 100ml 100 ML IV SCH (09:33)
--- NOTE | 2025-03-21 09:45 | PROCEDURE NOTE CC ---
Procedure Note CC Providers to CC ~ Procedure Name: Arterial Line Description: Indication: Shock Time-out: Done Consent: Family Site: R Radial Technique: Direct Puncture Complication: None EBL: 1ml Sepsis Screening Reassessment Date: Mar 21, 2025 SAM ORTIZ MD Mar 21, 2025 09:45
--- NOTE | 2025-03-21 09:47 | PROCEDURE NOTE CC ---
Procedure Note CC Providers to CC ~ Procedure Name: Endotracheal Intubation Description: Indication: Increase WOB Sedation: Etomidate Technique: Direct Laryngoscopy ETT: #8 secured at 24cms Complication: None. CXR reviewed by myself Sepsis Screening Reassessment Date: Mar 21, 2025 SAM ORTIZ MD Mar 21, 2025 09:46
--- NOTE | 2025-03-21 09:50 | RADIOLOGY REPORT ---
EXAM: DI CHEST,SINGLE VIEW Indication: ETT PLACEMENT Technique: Single frontal view of the chest was obtained Comparison: DI CHEST,SINGLE VIEW on DOS: 03/21/25, DI CHEST,SINGLE VIEW on DOS: 03/20/25, DI CHEST,SING LE VIEW on DOS: 03/19/25, DI CHEST,SINGLE VIEW on DOS: 03/18/25, DI CHEST,SINGLE VIEW on DOS: 03/18/25 FINDINGS: Lines and Tubes: Interval placement of endotracheal tube which projects 2 cm above level the carlos. Interval placement of enteric tube which projects over the expected region of the stomach. Lungs: Multifocal consolidative opacities. Pleura: No effusion. No pneumothorax. Cardiomediastinal contours: Unremarkable . Suggestion of pneumomediastinum. Bones: No acute osseous abnormality. IMPRESSION: Interval placement of endotracheal and enteric tube in appropriate position. Otherwise no significan t change compared to prior exam.
[2025-03-21] MEDS: COMMUNICATION ORDER 1 EA MISC MC ONE (10:03)
[2025-03-21] MEDS: fentaNYL 2,500 MCG in Normal Saline 250ml IV soln bag IV SCH (10:07)
[2025-03-21] MEDS: NORepinephrine 8mg/ 250ml NS 250 ML IV ONE (11:41)
[2025-03-21] MEDS: NORepinephrine 8mg/ 250ml NS 250 ML IV SCH (11:42)
--- NOTE | 2025-03-21 12:38 | PROCEDURE NOTE CC ---
Procedure Note CC Providers to CC ~ Procedure Name: Central Venous Multi-Lumen Catheter Description: Indication: Shock Time-out: Done Consent: Family Site: R Femoral Vein Anesthesia: Local Technique: Kaceydingroscoe Complication: None EBL: 1ml Sepsis Screening Reassessment Date: Mar 21, 2025 SAM ORTIZ MD Mar 21, 2025 12:38
--- NOTE | 2025-03-21 12:41 | PROGRESS NOTE ---
Progress Note Dictate Providers to CC ~ Progress Note: Worsening hypoxemia overnight. CXR with Pneumomediastinum Central Line/PICC still needed: Yes Rivas Indications Met/Not Met: F/C Indications Met Antibiotic Ordered?: Yes Subjective Subjective Critically ill Objective Vitals Vital Signs Date Time Temp Pulse Resp B/P (MAP) Pulse Ox O2 Delivery O2 Flow Rate FiO2 03/21/25 11:55 100.2 77 22 99/40 (59) 94 Mechanical Ventilator 100 03/21/25 06:50 12.0 Lab Results: 03/21/25 0118 03/21/25 0118 Objective Heart: S1-2 reg Lungs: Crackles at bases Abdomen: Soft, non-tender, BS (+) Ext: No edema Neuro: sedated Coagulation Studies Laboratory Tests Test 03/15/25 14:59 Prothrombin Time 9.8 SECONDS (9.0-12.0) INR International Normalized Ratio 1.0 INR Activated Partial Thromboplast Time 21 SECONDS (22-32) L Coagulation Comments Problem\Assessment\Plan Additional Plan 1-Acute Hypoxemic Resp Failure/ARDS -Add IV steroids 2-Dilated CMP -Cannabis Induced? -Increase diuresis 3-DM -Insulin per protocol 4-STEVEN -F/U BMP 5-Confuse -Cannabis induced Encephalopathy? 6-Hypernatremia -Increase free water 7-PNA Bacterial -Continue carine Castrejon CC time 35min Sepsis Screening Reassessment Date: Mar 21, 2025 SAM CASTREJON MD Mar 21, 2025 12:41
--- NOTE | 2025-03-21 13:04 | RADIOLOGY REPORT ---
Procedure: CT CT CHEST Reason for study/Clinical History: Pneumomediastinum seen on chest x-ray Comparison Study: DI CHEST,SINGLE VIEW on DOS: 03/21/25, DI CHEST,SINGLE VIEW on DOS: 03/21/25, DI CHES T,SINGLE VIEW on DOS: 03/20/25, DI CHEST,SINGLE VIEW on DOS: 03/19/25, DI CHEST,SINGLE VIEW on DOS: TECHNIQUE: Multidetector CT of the chest was performed from the lung apices to the upper abdomen with out the use of intravenous contract. Axial, coronal and sagittal multiplanar reformats were performed . Radiation Dose Information: CT Dose: CTDI volume is 18.7 mGy. Dose-length product is 632 mGy*cm The dose indicators for CT are the volume Computed Tomography (CT) Dose Index (CTDIvol) and the Dose Length Product (DLP), and are measured in units of mGy and mGy-cm, respectively. These indicators are not patient dose, but values generated from the CT scanner acquisition factors. The report includes radiation exposure data for exposures received during this examination. FINDINGS: Lower neck: Unremarkable. Lungs: Severe multifocal airspace disease most prominent in the left lower lobe. Heart/Vascular Structures: Moderate pneumomediastinum. Coronary artery calcifications. Moderate subcu taneous emphysema in the lower neck and thorax. Lymph Nodes: No adenopathy Pleura: No pleural effusion or significant pneumothorax. Musculoskeletal: No acute osseous abnormality. Soft tissues: Normal. Upper abdomen: Limited portions of the upper abdomen are unremarkable. IMPRESSION: Severe multifocal airspace disease most prominent in the left lower lobe. Moderate pneumomediastinum. Moderate subcutaneous emphysema in the lower neck and thorax.
[2025-03-21] MEDS: nitroGLYCERIN 1gm ointment UD TP SCH (13:07)
[2025-03-21] MEDS ORDERED: methylPREDNISolone sod succ/PF 40mg inj. IV SCH (14:00)
[2025-03-21 14:05] LABS: ABG BASE EXCESS -5.6 mmol/L (-2.0-3.0); ABG HCO3 18.3 mmol/L (21.0-28.0); ABG OXYGEN SATURATION 97.8 % (94.0-98.0); ABG PCO2 (T) 33.2 mmHg (35.0-48.0); ABG PH (T) 7.367 (7.350-7.450); ABG PO2 (T) 121.2 mmHg (83.0-108.0); FCOHb 0.4 % (0.5-1.5); FHHb 2.2 % (0.0-5.0); FIO2 90.0 mmHg/%; FMetHb 0.0 % (0.0-1.5); FO2Hb 97.4 % (94.0-98.0); MODE VENT - PRVC; PATIENT TEMPERATURE 38.4; PEEP 15 cm H2O; RESPIRATORY RATE 20 b/min; TIDAL VOLUME 550 mL; TOTAL HEMOGLOBIN 12.5 G/dl (13.5-17.5)
--- NOTE | 2025-03-21 16:33 | PROGRESS NOTE- Residence ---
Progress Note - Resident Providers to CC Resident Creating Document: BINDU RUIZ RES ~ Antibiotic Timeout Antibiotic Ordered?: Yes Subjective Patient was seen in ICU. He's sedated, on mechanical ventilation, requiring high FiO2. Also, on pressors and lasix; diuresing well with >4.7 L today. Though, Creatinine is slightly trending up. We will continue to follow his renal function. Objective Vital Signs Date Time Temp Pulse Resp B/P (MAP) Pulse Ox O2 Delivery O2 Flow Rate FiO2 03/21/25 16:16 Ventilator+ 80 03/21/25 16:00 101.5 77 21 100/48 (65) 98 03/21/25 06:50 12.0 General: Obese male, slightly confused HEENT: Conjunctiva pink, Sclera clear, Mucus Membranes moist. Neck: Supple without masses and tenderness. Resp: Unlabored. Lungs clear to auscultation bilaterally. Heart: Regular Rate and rhythm, normal S1 and S2 without murmur, rub or gallop. Abdomen: Soft and non tender no organomegaly Extremities: No cyanosis,clubbing or edema. Skin: Warm and Dry Result Diagram: 03/21/25 0118 03/21/25 0118 Coagulation Studies Laboratory Tests Test 03/15/25 14:59 Prothrombin Time 9.8 SECONDS (9.0-12.0) INR International Normalized Ratio 1.0 INR Activated Partial Thromboplast Time 21 SECONDS (22-32) L Coagulation Comments Advance Care Planning Advanced Care plannin - 30 Minutes Assessment Assessment A 54-year-old male with multiple medical comorbidities was brought in by the in view of confusion and eventual and consciousness. Patient is admitted for the evaluation management of altered mental status. MRI head ruled out stroke. Patient is spiking fevers for which antibiotics have been started. Plan Plan Acute kidney injury, prerenal, Patient had a rising creatinine added on admission, which has since down trended. Baseline renal function was normal earlier this year. But he has a history of prior STEVEN episodes. Likely multifactorial etiology, including volume depletion, possible prerenal azotemia in the context of poor oral intake as well as hypoperfusion from CHF maintain euvolemia. BP is soft, will benefit from pressers and diuresis Renal ultrasound shows right kidney cyst, no signs of APKD Urine lytes; FENa 0.3%, suggest prerenal Creatinine slightly trending up. We will continue to monitor his volume status, BMP and UOP CKD, early evidence All the creatinine has down trended, recurrent STEVEN episodes, diabetic history, and reduced EGFR raised concerns for evaluating CKD Monitor for progression Reinforced outpatient nephrology follow up after discharge Diabetic nephropathy risk The poorly controlled diabetes; A1c 10 0.0, longstanding hypertension, and possible early CKD suggests risk for diabetic nephropathy Glycemic control optimization after stabilization Home medications include valsartan 80 mg p.o. daily Family history of polycystic kidney disease (father) Kidney Ultrasound report awaited Altered mental status Seizure-like activity Currently intubated, managed by ham clerk CHFrEF CXR pulmonary vascular congestions Hypertension Hyperlipidemia Valsartan withheld, resume after extubation Code status: Full code DVT prophylaxis: VINCE Ruiz Nephrology Resident Nephrology attending: Patient seen and examined. CAre plan reviewed with resident. above appreciated. critically ill, slowly recuperating. replace bicarb. creatinine is slowly improving. will follow Terrance Pierson MD Date of Service: Mar 21, 2025 Billing Provider: MARGARETTE LYNCH III DO BINDU RUIZ, RES Mar 21, 2025 16:33
[2025-03-21] MEDS: nystatin 500,000 unit/5ML UD oral suspension PO SCH (19:59)
--- NOTE | 2025-03-21 21:36 | PROGRESS NOTE ---
Daily Progress Note Providers to CC ~ Antibiotic Timeout Antibiotic Ordered?: Yes Subjective The patient required to be reintubated today and he is on 70% oxygen with a PEEP of 15 Objective Vital Signs Date Time Temp Pulse Resp B/P (MAP) Pulse Ox O2 Delivery O2 Flow Rate FiO2 03/21/25 20:26 60 03/21/25 19:23 78 22 97 03/21/25 17:41 101.3 105/50 (68) Mechanical Ventilator 03/21/25 06:50 12.0 Result Diagram: 03/21/2511703/21/25117 Gen. Sedated on a mechanical ventilator Lungs clear to ascultation bilaterally, no wheezes rales or rhonchi appreciated Heart normal sinus rhythm no murmurs rubs or clicks noted Abdomen soft nontender bowel sounds are normoactive Lower extremities no clubbing cyanosis, nor edema appreciated bilaterally Coagulation Studies Laboratory Tests Test 03/15/25 14:59 Prothrombin Time 9.8 SECONDS (9.0-12.0) INR International Normalized Ratio 1.0 INR Activated Partial Thromboplast Time 21 SECONDS (22-32) L Coagulation Comments Problem\Assessment\Plan 54 years old male brought in with altered mental status and seizure-like activity. Patient was intubated for airway protection 1. Probable seizure: EEG and MRI nondiagnostic 2. Hyperlipidemia: Continue atorvastatin 3. Hypertension: Continue valsartan 4. BPH: Continue terazosin 5. Restless legs syndrome: Continue ropinirole 6. STEVEN: Likely vasomotor neuropathy, ? cardiorenal syndrome. Cr. is trending down. 8. Acute respiratory failure: Extubated on 03/18/2025 Reintubated on 03/21/2025 9. Acute systolic CHF : Echo showed EF of 30 %.. Continue lasix 10. NSTEMI/ Demand ischemia : Cardiology consultation deferred to the roadmaster . 11. Type 2 diabetes mellitus uncontrolled 03/18 Lantus was increased to 20 units b.i.d. and on high dose sliding scale insulin 03/19 increase Lantus to 30 units b.i.d. 03/21 blood glucose control is improved 12. Sepsis on IV vancomycin and IV cefepime- blood cultures are negative x3 days. 13. Hypernatremia- Tile Grader Dr. Pierson recommends free water- continue to monitor 03/20 Dr. Pierson calculated that the patient has a 6 L water deficit managed by roadmaster 03/21 NG tube placed and free water via NG tube is started the patient's serum sodium went up to 160 today- started on a D5W drip 14. Hypokalemia on potassium replacement protocol Code status: Remains a full code. Date of Service: Mar 21, 2025 Billing Provider: MELLY BILLS DO Common Visit Codes: [id number] INP/OBS CARE(HIGH) MELLY BILLS DO Mar 21, 2025 21:36
[2025-03-22] VITALS (37 sets, daily range): BP systolic 99–152; BP diastolic 51–72; PULSE 55–109; RESP 15–28; O2SAT 89–99
[2025-03-22 02:24] LABS: MEAN PLATELET VOLUME 9.5 FL (7.4-10.4); RED CELL DISTRIBUTION WIDTH 13.6 % (11.5-14.5)
[2025-03-22 02:52] LABS: CREATININE 1.69 MG/DL (0.60-1.10); PHOSPHORUS 3.4 MG/DL (2.3-4.5); TOTAL CARBON DIOXIDE 21.7 MMOL/L (24-32); eCRCL 53 ML/MIN; eGFR 42 ML/MIN
[2025-03-22 03:07] LABS: ABG BASE EXCESS -4.5 mmol/L (-2.0-3.0); ABG HCO3 18.1 mmol/L (21.0-28.0); ABG OXYGEN SATURATION 98.8 % (94.0-98.0); ABG PCO2 (T) 27.7 mmHg (35.0-48.0); ABG PH (T) 7.436 (7.350-7.450); ABG PO2 (T) 146.6 mmHg (83.0-108.0); FCOHb 0.3 % (0.5-1.5); FHHb 1.2 % (0.0-5.0); FIO2 60.0 mmHg/%; FMetHb 0.3 % (0.0-1.5); FO2Hb 98.2 % (94.0-98.0); MODE VENT - PRVC; PATIENT TEMPERATURE 38.1; PEEP 15 cm H2O; RESPIRATORY RATE 20 b/min; TIDAL VOLUME 550 mL; TOTAL HEMOGLOBIN 11.8 G/dl (13.5-17.5)
[2025-03-22] MEDS ORDERED: ziprasidone IM 20mg inj **IM only IM PRN (03:25)
--- NOTE | 2025-03-22 06:19 | RADIOLOGY REPORT ---
CHEST RADIOGRAPH Indication: Intubated Technique: Single frontal view of the chest was obtained Comparison: CT CT CHEST on DOS: 03/21/25, DI CHEST FINDINGS: Lines and Tubes: The endotracheal tube terminates 3.4 cm above the carlos. The enteric tube courses b elow the left hemidiaphragm and the tip extends outside the field of view. Lungs: Bilateral airspace disease. Pleura: No effusion. No pneumothorax. Cardiomediastinal contours: Decreased pneumomediastinum. Stable size Cardiovascular silhouette. Bones: No acute osseous abnormality. Subcutaneous emphysema in the right chest wall. IMPRESSION: 1. Decreased pneumomediastinum. 2. Bilateral airspace disease which may reflect edema or pneumonia, decreased since prior study.
[2025-03-22] MEDS: insulin glargine (Lantus) pen - multi-dose SQ SCH (08:52)
[2025-03-22] MEDS: tPA-cathflo 2mg/2ml IV flush 2 MG/2 ML VIAL IVF ONE ×2 (09:40→11:12)
--- NOTE | 2025-03-22 10:37 | PROGRESS NOTE- Residence ---
Progress Note - Resident Providers to CC Resident Creating Document: JOSE BUI RES CC: SAM ORTIZ MD ~ Antibiotic Timeout Antibiotic Ordered?: Yes Subjective Patient is examined at bedside in the ICU. Patient is currently intubated and sedated. Patient's chest x-ray seemed to look relatively better. But patient tends to desat with low oxygen support. Objective Vital Signs Date Time Temp Pulse Resp B/P (MAP) Pulse Ox O2 Delivery O2 Flow Rate FiO2 03/22/25 09:00 98.4 57 20 121/65 (83) 95 Mechanical Ventilator 50 03/21/25 06:50 12.0 Result Diagram: 03/22/2520403/22/25204 General: Intubated and sedated HEENT: PERRLA, no icterus, pallor, lymphadenopathy, carotid bruit Respiratory system: Bilateral vesicular breath sounds heard, bilateral crackles heard in all lung regions (improving) CVS: S1-S2 heard, no murmurs/rubs/gallop GI: Soft, nontender, no organomegaly, no guarding/rigidity, bowel sounds present Neuro: Could not be examined as the patient is sedated and intubated Extremities: No edema cyanosis clubbing/deformities Skin: Warm and dry Coagulation Studies Laboratory Tests Test 03/15/25 14:59 Prothrombin Time 9.8 SECONDS (9.0-12.0) INR International Normalized Ratio 1.0 INR Activated Partial Thromboplast Time 21 SECONDS (22-32) L Coagulation Comments Assessment Assessment A 54-year-old male with multiple medical comorbidities was brought in by the in view of confusion and eventual and consciousness. Patient is admitted for the evaluation management of altered mental status. MRI head ruled out stroke. Patient is spiking fevers for which antibiotics have been started. Patient developed ARDS and pneumomediastinum and therefore had to be reintubated on 03/21/2025. 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 b.i.d., Geodon 10 mg q.6h p.r.n. IM Wean as tolerated Respiratory: Acute hypoxemic respiratory failure 2/2 ARDS, pneumomediastinum Intubated and sedated, P/F ratio: 293 PRVC/550/20/13/50% Chest x-ray: Shows improved findings Continue IV methylprednisolone 60 mg IV q.6h On norepinephrine, will be weaned shortly with stabilization in blood pressures Renal: Prerenal STEVEN probably secondary to renal tubular stasis Hypernatremia Continue free water flushes via NG tube Fluid deficit: 6 L Continue to monitor BMP Endocrine: Diabetes mellitus type 2 Diabetic gastroparesis Continue IV fluid resuscitation Increased to Lantus 40 units b.i.d., high sliding scale insulin Hematological: Leukocytosis with bandemia Probably reactive Up trending leukocyte count Patient is spiking fevers, normal temperature since this morning Continue IV cefepime (day 6) Patient completed vancomycin for three days ID: PUO Vascular ultrasound ruled out DVT Chest x-ray and UA negative for any infection Continue empiric antibiotics as above CVS: HTN HLD Off nicardipine drip Continue losartan 50 mg daily, hold for SBP less than 100 GI: GI prophylaxis: IV Protonix 40 mg Tube feeds at 50 cc/hour Genitourinary: BPH Left groin hernia Outpatient management for hernia Psych: Depression/anxiety Cannabinoid use disorder medical services manager consult Code status: Full code Diet: NPO DVT prophylaxis: SCD Disposition: Continue care in CICU, we will target for early extubation and stabilization. Jose Bui MD Internal Medicine, PGY 2 Date of Service: Mar 22, 2025 Billing Provider: SAM ORTIZ MD, SIVA, RES Mar 22, 2025 10:37
[2025-03-22] MEDS: polyethylene glycol 3350 17gm powd pack OGT SCH (11:13)
[2025-03-22] MEDS: lactulose 20gm/30ml cup OGT SCH (11:13)
--- NOTE | 2025-03-22 11:57 | PROGRESS NOTE- Residence ---
Progress Note - Resident Providers to CC Resident Creating Document: CHRIS VELASCO RES CC: MARGARETTE LYNCH III DO ~ Antibiotic Timeout Antibiotic Ordered?: Yes Subjective Patient is examined at bedside in the ICU. Patient is currently intubated and sedated. Nephrology team is currently treating him for his hypernatremia and STEVEN. Sodium is still elevated at 157. Objective Vital Signs Date Time Temp Pulse Resp B/P (MAP) Pulse Ox O2 Delivery O2 Flow Rate FiO2 03/22/25 11:27 73 20 94 50 03/22/25 09:00 98.4 121/65 (83) Mechanical Ventilator 03/21/25 06:50 12.0 General: Intubated and sedated HEENT: PERRLA, no icterus, pallor, lymphadenopathy, carotid bruit Respiratory system: Bilateral vesicular breath sounds heard, bilateral crackles heard in all lung regions. CVS: S1-S2 heard, no murmurs/rubs/gallop GI: Soft, nontender, no organomegaly, no guarding/rigidity, bowel sounds present Neuro: Could not be examined as the patient is sedated and intubated Extremities: No edema cyanosis clubbing/deformities Skin: Warm and dry Result Diagram: 03/22/25 0205 03/22/25 0205 Coagulation Studies Laboratory Tests Test 03/15/25 14:59 Prothrombin Time 9.8 SECONDS (9.0-12.0) INR International Normalized Ratio 1.0 INR Activated Partial Thromboplast Time 21 SECONDS (22-32) L Coagulation Comments Assessment Assessment A 54-year-old male with multiple medical comorbidities was brought in by the in view of confusion and eventual and consciousness. Patient is admitted for the evaluation management of altered mental status. MRI head ruled out stroke. Patient is spiking fevers for which antibiotics have been started. Patient developed ARDS and pneumomediastinum and therefore had to be reintubated on 03/21/2025. Plan Plan Acute kidney injury, prerenal Elevated creatinine on admission,fluctuating levels of creatinine since admission, baseline renal function was normal earlier this year. History of prior STEVEN episodes-likely multifactorial etiology, including volume depletion, possible prerenal azotemia in the context of poor oral intake as well as hypoperfusion from CHF Maintain euvolemia. BP continues to be soft Renal ultrasound shows incidental small right kidney cyst, no signs of APKD Urine lytes; FENa 0.3%, suggest prerenal Creatinine today increased 1.69, BUN 52 Calculated total body water deficit-6.5L Plan -increased patient's D5 to 100 mL/hour -strict input and output monitoring -continue to monitor creatinine closely CKD, early evidence Recurrent spikes in creatinine, recurrent STEVEN episodes, diabetic history, and reduced EGFR raised concerns for evaluating CKD Monitor for progression, although renal ultrasound was normal. Reinforced outpatient nephrology follow up after discharge Hypernatremia -patient has significant hypernatremia with the last 3 days -Na is at 157 today Plan -increased D5 to 100 mL/hour -ordered serum osmolality -continue to monitor sodium Diabetic nephropathy risk The poorly controlled diabetes; A1c 10 0.0, longstanding hypertension, and possible early CKD suggests risk for diabetic nephropathy Glycemic control optimization after stabilization Home medications include valsartan 80 mg p.o. daily Altered mental status 2/2 marijuana induced encephalopathy History of pseudo seizures EEG and MRI head: Non confirmatory for seizures U tox positive for marijuana -manage as per ICU team Acute hypoxemic respiratory failure 2/2 ARDS, pneumomediastinum -managed as per ICU team Diabetes mellitus type 2 Diabetic gastroparesis Continue IV fluid resuscitation Increased to Lantus 40 units b.i.d., high sliding scale insulin Leukocytosis with bandemia Probably reactive Up trending leukocyte count Patient is spiking fevers, normal temperature since this morning -manage as per ICU team Pyrexia of unknown origin Vascular ultrasound ruled out DVT Chest x-ray and UA negative for any infection Continue empiric antibiotics. Hypertension Hyperlipidemia Off nicardipine drip Continue losartan 50 mg daily, hold for SBP less than 100 Code status: Full code Diet: NPO DVT prophylaxis: SCD Disposition: Continue to monitor sodium levels, creatinine and monitor blood sugar level closely as we increased pt's D5 fluid to 100ml/hr Chris Velasco MD Internal Medicine, PGY 1 Date of Service: Mar 22, 2025 Billing Provider: MARGARETTE LYNCH III, JAHNAVI, RES Mar 22, 2025 11:57
[2025-03-22] MEDS ORDERED: acetaminophen 325mg/10.15ml oral unit dose solution NG PRN (15:17)
[2025-03-22] MEDS ORDERED: magnesium hydroxide 30ml (MOM) UD suspension NG PRN (15:19)
--- NOTE | 2025-03-22 19:22 | PROGRESS NOTE ---
Daily Progress Note Providers to CC ~ Antibiotic Timeout Antibiotic Ordered?: Yes Subjective The patient remains intubated-is off of pressors currently. The patient remains critically ill Objective Vital Signs Date Time Temp Pulse Resp B/P (MAP) Pulse Ox O2 Delivery O2 Flow Rate FiO2 03/22/25 17:55 98.4 59 20 109/56 (73) 98 Mechanical Ventilator 50 03/21/25 06:50 12.0 Result Diagram: 03/22/2520403/22/25 020 Gen. Sedated on a mechanical ventilator Lungs clear to ascultation bilaterally, no wheezes rales or rhonchi appreciated Heart normal sinus rhythm no murmurs rubs or clicks noted Abdomen soft nontender bowel sounds are normoactive Lower extremities no clubbing cyanosis, nor edema appreciated bilaterally Coagulation Studies Laboratory Tests Test 03/15/25 14:59 Prothrombin Time 9.8 SECONDS (9.0-12.0) INR International Normalized Ratio 1.0 INR Activated Partial Thromboplast Time 21 SECONDS (22-32) L Coagulation Comments Problem\Assessment\Plan 54 years old male brought in with altered mental status and seizure-like activity. Is optic and respiratory failure on a ventilator 1. Probable seizure: EEG and MRI nondiagnostic 2. Hyperlipidemia: Continue atorvastatin 3. Hypertension: Continue valsartan 4. BPH: Continue terazosin 5. Restless legs syndrome: Continue ropinirole 6. STEVEN: Likely vasomotor neuropathy, ? cardiorenal syndrome. Cr. is trending down. 8. Acute respiratory failure: Extubated on 03/18/2025 Reintubated on 03/21/202503/22 on 50% oxygen followed by field consultant 9. Acute systolic CHF : Echo showed EF of 30 %.. Continue lasix 10. NSTEMI/ Demand ischemia : Cardiology consultation deferred to the field consultant . 11. Type 2 diabetes mellitus uncontrolled 03/18 Lantus was increased to 20 units b.i.d. and on high dose sliding scale insulin 03/19 increase Lantus to 30 units b.i.d. 03/21 blood glucose control is improved 12. Sepsis on IV vancomycin and IV cefepime- blood cultures are negative x3 days. 13. Hypernatremia- Online Merchandising Specialist Dr. Pierson recommends free water- continue to monitor 03/20 Dr. Pierson calculated that the patient has a 6 L water deficit managed by field consultant 03/21 NG tube placed and free water via NG tube is started the patient's serum sodium went up to 160 today- started on a D5W drip 03/22 improving 157 today 14. Hypokalemia on potassium replacement protocol Code status: Remains a full code. Date of Service: Mar 22, 2025 Billing Provider: MELLY BILLS DO Common Visit Codes: [id number] INP/OBS CARE(HIGH) MELLY BILLS DO Mar 22, 2025 19:22
[2025-03-22] MEDS ORDERED: INSULIN LISPRO 100 UNIT/ML INSULN.PEN MULTI-DOSE SQ SCH (20:00)
[2025-03-22] MEDS: nystatin 500,000 unit/5ML UD oral suspension NG SCH (20:26)
[2025-03-22] MEDS: lactulose 20gm/30ml cup NG SCH (20:27)
[2025-03-22] MEDS: mineral oil/petrolatum ophthal oint EACHEYE SCH (20:27)
[2025-03-22] MEDS: insulin regular, human U-100 10ml vial - multi-dose SQ SCH (20:41)
[2025-03-22] MEDS: insulin regular, human 10 units/0.1 ml syringe SQ ONE (21:02)
--- NOTE | 2025-03-22 21:13 | PROGRESS NOTE ---
Progress Note Dictate Providers to CC 1-Acute Hypoxemic Resp Failure/ARDS Central Line/PICC still needed: N\A Rivas Indications Met/Not Met: F/C Indications Met Antibiotic Ordered?: N/A MRSA Education MRSA Education Provided to pt: N/A Objective Vitals Vital Signs Date Time Temp Pulse Resp B/P (MAP) Pulse Ox O2 Delivery O2 Flow Rate FiO2 03/22/25 21:03 120/63 03/22/25 19:22 55 20 98 50 03/22/25 19:00 98.2 Mechanical Ventilator 03/21/25 06:50 12.0 Lab Results: 03/22/25 0205 03/22/25 0205 Coagulation Studies Laboratory Tests Test 03/15/25 14:59 Prothrombin Time 9.8 SECONDS (9.0-12.0) INR International Normalized Ratio 1.0 INR Activated Partial Thromboplast Time 21 SECONDS (22-32) L Coagulation Comments Counseling Services Smoking & Tobacco Cessation: N/A Advance Care Planning Advanced Care planning: N/A Problem\Assessment\Plan Additional Plan Additional Plan 1-Acute Hypoxemic Resp Failure/ARDS IV steroids stable vitals 2-Dilated CMP -Cannabis Induced? -Increase diuresis 3-DM -Insulin per protocol 4-STEVEN -F/U BMP 5 AMS -Cannabis induced Encephalopathy? 6-Hypernatremia -Increase free water to 300ml q4h 7-PNA Bacterial -Continue abx Lidia Correa Tele ICU care using HIPAA compliant audio visual aid 60 mins CC time LIDIA CORREA MD Mar 22, 2025 21:13
[2025-03-22] MEDS: Insulin Reg/NS 100units/100mL 100 ML IV SCH (22:29)
[2025-03-22] MEDS: insulin regular, human U-100 10ml vial - multi-dose IV ONE (23:40)
[2025-03-23] VITALS (36 sets, daily range): BP systolic 101–145; BP diastolic 43–69; PULSE 49–72; RESP 17–29; O2SAT 92–99
[2025-03-23 03:09] LABS: MEAN PLATELET VOLUME 9.7 FL (7.4-10.4); RED CELL DISTRIBUTION WIDTH 13.7 % (11.5-14.5)
[2025-03-23 03:10] LABS: ABG BASE EXCESS -0.4 mmol/L (-2.0-3.0); ABG HCO3 24.4 mmol/L (21.0-28.0); ABG OXYGEN SATURATION 94.2 % (94.0-98.0); ABG PCO2 (T) 41.1 mmHg (35.0-48.0); ABG PH (T) 7.392 (7.350-7.450); ABG PO2 (T) 75.2 mmHg (83.0-108.0); FCOHb 0.7 % (0.5-1.5); FHHb 5.7 % (0.0-5.0); FIO2 50.0 mmHg/%; FMetHb 0.3 % (0.0-1.5); FO2Hb 93.3 % (94.0-98.0); MODE VENT - PRVC; PATIENT TEMPERATURE 37.3; PEEP 13 cm H2O; RESPIRATORY RATE 20 b/min; TIDAL VOLUME 550 mL; TOTAL HEMOGLOBIN 12.2 G/dl (13.5-17.5)
[2025-03-23 03:34] LABS: CREATININE 1.61 MG/DL (0.60-1.10); PHOSPHORUS 2.7 MG/DL (2.3-4.5); TOTAL CARBON DIOXIDE 25.2 MMOL/L (24-32); eCRCL 55 ML/MIN; eGFR 45 ML/MIN
[2025-03-23] MEDS: potassium Cl 40MEQ/1/2NS 520ml 520 ML IV ONE (04:58)
--- NOTE | 2025-03-23 05:53 | RADIOLOGY REPORT ---
CHEST RADIOGRAPH Indication: Intubated Technique: Single frontal view of the chest was obtained Comparison: DI CHEST,SINGLE VIEW on DOS: 03/22/25 FINDINGS: Lines and Tubes: The endotracheal tube terminates 4.5 cm above the carlos. The enteric tube courses b elow the left hemidiaphragm and the tip extends outside the field of view. Lungs: Mild bilateral airspace opacities are similar to prior study. Pleura: No effusion. No pneumothorax. Cardiomediastinal contours: Stable size of the Cardiovascular silhouette. Resolved pneumomediastinum. Bones: No acute osseous abnormality. IMPRESSION: 1. No significant change in bilateral opacities and the support lines and tubes.
[2025-03-23] MEDS: polyethylene glycol 3350 17gm powd pack NG SCH (07:35)
[2025-03-23] MEDS: methylPREDNISolone sod succ/PF 40mg inj. IV SCH (07:37)
--- NOTE | 2025-03-23 11:39 | PROGRESS NOTE- Residence ---
Progress Note - Resident Providers to CC Resident Creating Document: JOSE BUI RES CC: SAM ORTIZ MD ~ Antibiotic Timeout Antibiotic Ordered?: Yes Subjective Patient is examined at bedside in the ICU. Patient is currently intubated and sedated. Patient seems to have a lot of gas in end-to-side with possible ileus that has been treated with azithromycin Objective Vital Signs Date Time Temp Pulse Resp B/P (MAP) Pulse Ox O2 Delivery O2 Flow Rate FiO2 03/23/25 11:06 63 20 98 50 03/23/25 11:06 143/72 03/23/25 11:00 99.0 Mechanical Ventilator 03/21/25 06:50 12.0 Result Diagram: 03/23/255 03/23/25 0245 General: Intubated and sedated HEENT: PERRLA, no icterus, pallor, lymphadenopathy, carotid bruit Respiratory system: Bilateral vesicular breath sounds heard, bilateral crackles heard in all lung regions (improving) CVS: S1-S2 heard, no murmurs/rubs/gallop GI: Soft, nontender, no organomegaly, no guarding/rigidity, bowel sounds present Neuro: Could not be examined as the patient is sedated and intubated Extremities: No edema cyanosis clubbing/deformities Skin: Warm and dry Coagulation Studies Laboratory Tests Test 03/15/25 14:59 Prothrombin Time 9.8 SECONDS (9.0-12.0) INR International Normalized Ratio 1.0 INR Activated Partial Thromboplast Time 21 SECONDS (22-32) L Coagulation Comments Assessment Assessment A 54-year-old male with multiple medical comorbidities was brought in by the in view of confusion and eventual and consciousness. Patient is admitted for the evaluation management of altered mental status. MRI head ruled out stroke. Patient is spiking fevers for which antibiotics have been started. Patient developed ARDS and pneumomediastinum and therefore had to be reintubated on 03/21/2025. Patient has developed ileus. 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 b.i.d. Wean as tolerated Respiratory: Acute hypoxemic respiratory failure 2/2 ARDS, pneumomediastinum Intubated and sedated, P/F ratio: 293 PRVC/550/20/13/50% Chest x-ray: Shows improved findings Continue IV methylprednisolone 30 mg IV q.6h Off norepinephrine drip Renal: Prerenal STEVEN probably secondary to renal tubular stasis CKD, early evidence Hypernatremia Continue free water flushes via NG tube Fluid deficit: 6 L Continue to monitor BMP Outpatient nephrology follow up after discharge is extremely essential to monitor for any developing CKD Recurrent spikes in creatinine, STEVEN episodes, history of DM, and reduced EGFR - concerning for evaluation of CKD Endocrine: Diabetes mellitus type 2 Diabetic gastroparesis Hyperglycemia Continue IV fluid resuscitation Initially was placed on insulin drip, discontinued now and below has been started Increased to Lantus 40 units b.i.d., high sliding scale insulin q.4 HR Hematological: Leukocytosis with bandemia Probably reactive Up trending leukocyte count Patient is spiking fevers, normal temperature since this morning Continue IV cefepime (day02/17) Patient completed vancomycin for three days ID: PUO Vascular ultrasound ruled out DVT Chest x-ray and UA negative for any infection Continue empiric antibiotics as above CVS: HTN HLD Continue losartan 50 mg daily, hold for SBP less than 100 GI: Prophylaxis: IV Protonix 40 mg Possible ileus Tube feeds at 50 cc/hour Started on erythromycin 250 mg q.6h Abdominal x-ray reveals multiple gas bubbles and fecal retention. 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 Jose Bui MD Internal Medicine, PGY 2 Date of Service: Mar 23, 2025 Billing Provider: SAM ORTIZ MD, SIVA, RES Mar 23, 2025 11:39
--- NOTE | 2025-03-23 11:55 | RADIOLOGY REPORT ---
Date: 03/23/2025 10:39 AM Examination: DI ABDOMEN,SINGLE VIEW(KUB) History: Constipation Comparison: CT CT ABDOMEN PELVIS W/ IV CONTRAST on DOS: 11/14/24, CT CT ABDOMEN PELVIS on DOS: 05/24/24 , CT CT ABDOMEN PELVIS on DOS: 03/08/24, CT CT ABDOMEN PELVIS on DOS: 02/04/24, CT CT ABDOMEN PELVIS on DOS: 01/17/24 TECHNIQUE: Frontal views of the abdomen was obtained. FINDINGS: Bowel gas pattern is unremarkable. The lung bases are unremarkable. No acute osseous abnormality identified. Rivas catheter overlying the bladder. Right central venous catheter noted. IMPRESSION: Constipation.
[2025-03-23] MEDS: erythromycin ethylsuccinate 200mg/5mL ORAL suspension NG SCH (14:58)
--- NOTE | 2025-03-23 15:00 | PROGRESS NOTE- Residence ---
Progress Note - Resident Providers to CC Resident Creating Document: BINDU RUIZ RES ~ Antibiotic Timeout Antibiotic Ordered?: Yes Subjective Patient is diabetic (A1c 10.0) with STEVEN, likely prerenal. Baseline renal function normal earlier this year. Creatinine analilia after admission and slight but persistently trending up (1.61 today). Multiple prior STEVEN episodes. Current STEVEN is multifactorial; volume depletion from poor oral intake and prerenal azotemia, with the additional hypoperfusion in the setting of CHF. Serum sodium currently 152, improved from 157, and 160. Estimated free water deficit 4.6 L. Lasix discontinued, D5W at 125 mL/hours initiated today. Continue free water flushes via NG tube. We will re-evaluate CMP including sodium level tomorrow. Objective Vital Signs Date Time Temp Pulse Resp B/P (MAP) Pulse Ox O2 Delivery O2 Flow Rate FiO2 03/23/25 13:21 58 21 98 50 03/23/25 12:00 99.1 112/49 (70) Mechanical Ventilator 03/21/25 06:50 12.0 General: Intubated and sedated HEENT: PERRLA, no icterus, pallor, lymphadenopathy, carotid bruit Respiratory system: Bilateral vesicular breath sounds heard, bilateral crackles heard in all lung regions. CVS: S1-S2 heard, no murmurs/rubs/gallop GI: Soft, nontender, no organomegaly, no guarding/rigidity, bowel sounds present Neuro: Could not be examined as the patient is sedated and intubated Extremities: No edema cyanosis clubbing/deformities Skin: Warm and dry Result Diagram: 03/23/25 0245 03/23/25 0245 Coagulation Studies Laboratory Tests Test 03/15/25 14:59 Prothrombin Time 9.8 SECONDS (9.0-12.0) INR International Normalized Ratio 1.0 INR Activated Partial Thromboplast Time 21 SECONDS (22-32) L Coagulation Comments Advance Care Planning Advanced Care plannin - 30 Minutes Assessment Assessment A 54-year-old male with multiple medical comorbidities was brought in by the in view of confusion and eventual and consciousness. Patient is admitted for the evaluation management of altered mental status. MRI head ruled out stroke. Patient is spiking fevers for which antibiotics have been started. Patient developed ARDS and pneumomediastinum and therefore had to be reintubated on 03/21/2025. Patient has developed ileus. Plan Plan Acute kidney injury, prerenal Hypernatremia Elevated creatinine on admission,fluctuating levels of creatinine since admission, baseline renal function was normal earlier this year. History of prior STEVEN episodes-likely multifactorial etiology, including volume depletion, possible prerenal azotemia in the context of poor oral intake as well as hypoperfusion from CHF Maintain euvolemia. 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 EEG and MRI head: Non confirmatory for seizures U tox positive for marijuana -manage as per ICU team Acute hypoxemic respiratory failure 2/2 ARDS, pneumomediastinum -managed as per ICU team Diabetes mellitus type 2 Diabetic gastroparesis Continue IV fluid resuscitation Increased to Lantus 40 units b.i.d., high sliding scale insulin Leukocytosis with bandemia Probably reactive Up trending leukocyte count Patient is spiking fevers, normal temperature since this morning -manage as per ICU team Pyrexia of unknown origin Vascular ultrasound ruled out DVT Chest x-ray and UA negative for any infection Continue empiric antibiotics. Hypertension Hyperlipidemia Off nicardipine drip Continue losartan 50 mg daily, hold for SBP less than 100 Code status: Full code Diet: NPO DVT prophylaxis: VINCE Ruiz Nephrology Resident Date of Service: Mar 23, 2025 Billing Provider: MARGARETTE LYNCH III, SHAMS, RES Mar 23, 2025 15:00
--- NOTE | 2025-03-23 17:41 | PROGRESS NOTE ---
Daily Progress Note Providers to CC Patient intubated, on ventilator resting comfortably in the bed ~ Central Line/PICC still needed: Yes Rivas-Non Protocol Rivas Indications Met/Not Met: F/C Indications Met Antibiotic Timeout Antibiotic Ordered?: Yes MRSA Education MRSA Education Provided to pt: Yes Subjective As above Objective Vital Signs Date Time Temp Pulse Resp B/P (MAP) Pulse Ox O2 Delivery O2 Flow Rate FiO2 03/23/25 17:06 67 29 98 50 03/23/25 17:00 99.5 108/47 (67) Mechanical Ventilator 03/21/25 06:50 12.0 Vital signs, stable ,afebrile. Pulse Oximetry reflects adequate oxygenation FiO2 50%, on ventilator General: well developed, well nourished. Sedated, sedated, resting comfortably in the bed, in no acute distress . Skin: Warm, dry, no pallor, no rash or petechiae. HEENT: Atraumatic, normocephalic, EOMI, anicteric sclera B; pink conjunctiva; PERRLA, normal oropharynx, moist oral and nasal mucosa. Tympanic membrane , nose , throat clear. Neck: Trachea midline. Supple, full range of motion, no JVD, bruit , hepatojugular reflex , lymphadenopathy or masses, or other lesions Cardiac: Regular rhythm, regular rate no murmurs, rubs, or gallops. Normal S1 and S2, no S3 noticed. PMI is normal. Respiratory: Equal breath sounds bilaterally, no tachypnea; lungs clear to auscultation bilaterally, no wheezing ,rub or rales, or crackles. Chest wall is symmetric and without deformity. No signs of trauma. Chest wall is nontender. No signs of respiratory distress. Resonance is normal upon percussion bilaterally. Gastrointestinal: Abdomen symmetric, non-distended, soft, non-tender, normal bowel sounds x4 quadrant, normoactive, no hepatosplenomegaly , no masses , no bruit, no flank pain bilaterally. No voluntary guarding, rebound, or rigidity. No tenderness to percussion. No pulsatile masses. Equal femoral pulses. No Ibrahim's sign or McBurney point tenderness. Back; no CVA tenderness bilaterally, no deformities. Neck and back are without deformity as well. No tenderness noted on palpation of the spinous processes. Spinous processes are midline. Cervical, thoracic, and lumbar paraspinal muscles are not tender and are without spasm. : normal external genitalia, without lesions, swelling, masses or tenderness. Musculoskeletal: Extremities, normal range of motion, non-tender, muscle strength 5/5 x 4. Negative Homans signs bilaterally on lower extremity. Distal pulses full symmetrical, no clubbing, cyanosis , edema. Neurological: Speech is clear, alert, and oriented x 4. No motor or sensory deficit, deep tendon reflexes normal, cerebellar intact. Cranial nerves II-XII intact. Psych: Alert and or appropriate, normal affect. Vascular: Good distal pulses, which are equal x4; capillary refill less than 2 seconds. Lymphatic, no lymphadenopathy. Result Diagram: 03/23/25 0245 03/23/25 0245 Coagulation Studies Laboratory Tests Test 03/15/25 14:59 Prothrombin Time 9.8 SECONDS (9.0-12.0) INR International Normalized Ratio 1.0 INR Activated Partial Thromboplast Time 21 SECONDS (22-32) L Coagulation Comments Problem\Assessment\Plan 54 years old male brought in with altered mental status and seizure-like activity. Is optic and respiratory failure on a ventilator 1. Probable seizure: EEG and MRI nondiagnostic 2. Hyperlipidemia: Continue atorvastatin 3. Hypertension: Continue valsartan 4. BPH: Continue terazosin 5. Restless legs syndrome: Continue ropinirole 6. STEVEN: Likely vasomotor neuropathy, ? cardiorenal syndrome. Cr. is trending down. 8. Acute respiratory failure: Extubated on 03/18/2025 Reintubated on 03/21/202503/22 on 50% oxygen followed by rn transplant 9. Acute systolic CHF : Echo showed EF of 30 %.. Continue lasix 10. NSTEMI/ Demand ischemia : Cardiology consultation deferred to the rn transplant . 11. Type 2 diabetes mellitus uncontrolled 03/18 Lantus was increased to 20 units b.i.d. and on high dose sliding scale insulin 03/19 increase Lantus to 30 units b.i.d. 03/21 blood glucose control is improved 12. Sepsis on IV vancomycin and IV cefepime- blood cultures are negative x3 days. 13. Hypernatremia- Education Faculty Member Dr. Pierson recommends free water- continue to monitor 03/20 Dr. Pierson calculated that the patient has a 6 L water deficit managed by rn transplant 03/21 NG tube placed and free water via NG tube is started the patient's serum sodium went up to 160 today- started on a D5W drip 03/22 improving 157 today 14. Hypokalemia on potassium replacement protocol Code status: Remains a full code. Sepsis Screening Reassessment Date: Mar 23, 2025 Date of Service: Mar 23, 2025 Billing Provider: LEE PRICE MD Common Visit Codes: [id number] INP/OBS CARE(HIGH) LEE PRICE MD Mar 23, 2025 17:41
[2025-03-23] MEDS: FENTANYL 1000MCG/NS 100 ML BAG /PF IV SCH (18:31)
[2025-03-24] VITALS (35 sets, daily range): BP systolic 91–164; BP diastolic 49–90; PULSE 50–123; RESP 15–33; O2SAT 90–98
[2025-03-24 02:41] LABS: MEAN PLATELET VOLUME 10.1 FL (7.4-10.4); RED CELL DISTRIBUTION WIDTH 13.7 % (11.5-14.5)
[2025-03-24 03:06] LABS: CREATININE 1.44 MG/DL (0.60-1.10); PHOSPHORUS 3.7 MG/DL (2.3-4.5); TOTAL CARBON DIOXIDE 24.6 MMOL/L (24-32); eCRCL 62 ML/MIN; eGFR 51 ML/MIN
[2025-03-24 03:19] LABS: ABG BASE EXCESS -1.7 mmol/L (-2.0-3.0); ABG HCO3 22.6 mmol/L (21.0-28.0); ABG OXYGEN SATURATION 98.7 % (94.0-98.0); ABG PCO2 (T) 37.3 mmHg (35.0-48.0); ABG PH (T) 7.402 (7.350-7.450); ABG PO2 (T) 134.5 mmHg (83.0-108.0); FCOHb 0.5 % (0.5-1.5); FHHb 1.3 % (0.0-5.0); FIO2 50.0 mmHg/%; FMetHb 0.3 % (0.0-1.5); FO2Hb 97.9 % (94.0-98.0); MODE PRVC; PATIENT TEMPERATURE 37.3; PEEP 13 cm H2O; RESPIRATORY RATE 20 b/min; TIDAL VOLUME 550 mL; TOTAL HEMOGLOBIN 11.8 G/dl (13.5-17.5)
--- NOTE | 2025-03-24 06:16 | RADIOLOGY REPORT ---
CHEST RADIOGRAPH Indication: Intubated Technique: Single frontal view of the chest was obtained COMPARISON: DI CHEST,SINGLE VIEW on DOS: 03/23/25, DI CHEST,SINGLE VIEW on DOS: 03/22/25, CT CT CHEST o n DOS: 03/21/25, DI CHEST,SINGLE VIEW on DOS: 03/21/25, DI CHEST,SINGLE VIEW on DOS: 03/21/25 FINDINGS: Lines and Tubes: Slight interval advancement of the endotracheal tube such that the tip now projects approximately 2.8 cm above the level of the carlos. Enteric catheter unchanged. Lungs: Clear Pleura: No effusion. No pneumothorax. Cardiomediastinal contours: Unremarkable Bones: Unremarkable IMPRESSION: 1. No acute disease. 2. Slight interval advancement of endotracheal tube as above. Enteric catheter unchanged.
--- NOTE | 2025-03-24 06:59 | RADIOLOGY REPORT ---
Exam: DI ABDOMEN,SINGLE VIEW(KUB) Indication: Ileus Comparison: DI ABDOMEN,SINGLE VIEW(KUB) on DOS: 03/23/25, CT CT ABDOMEN PELVIS W/ IV CONTRAST on DOS: 11/14/24, CT CT ABDOMEN PELVIS on DOS: 05/24/24, CT CT ABDOMEN PELVIS on DOS: 03/08/24, CT CT ABDOMEN PE LVIS on DOS: 02/04/24 Technique: 2 radiographic views of the abdomen. Findings: Enteric catheter in satisfactory position. Nonspecific bowel-gas pattern. Right groin central venous catheter and rectal temperature probe in-situ. There is no definite evidence for pneumoperitoneum. No abnormal calcifications noted. Impression: Nonspecific bowel-gas pattern.
[2025-03-24] MEDS: methylPREDNISolone sod succ/PF 40mg inj. IV SCH (13:49)
[2025-03-24] MEDS: insulin regular, human U-100 10ml vial - multi-dose SQ SCH (14:09)
--- NOTE | 2025-03-24 17:40 | PROGRESS NOTE- Residence ---
Progress Note - Resident Providers to CC Resident Creating Document: JOSE BUI RES CC: SAM ORTIZ MD ~ Antibiotic Timeout Antibiotic Ordered?: Yes Subjective Patient is examined at bedside. Patient continues to be intubated and sedated. Patient's oxygen requirements is trending downward. Objective Vital Signs Date Time Temp Pulse Resp B/P (MAP) Pulse Ox O2 Delivery O2 Flow Rate FiO2 03/24/25 17:22 89 21 95 35 03/24/25 17:00 100.6 139/68 (91) Mechanical Ventilator 03/24/25 08:00 35.0 Result Diagram: 03/24/25 0205 03/24/25 0205 General: Intubated and sedated HEENT: PERRLA, no icterus, pallor, lymphadenopathy, carotid bruit Respiratory system: Bilateral vesicular breath sounds heard, bilateral crackles heard in all lung regions (improving) CVS: S1-S2 heard, no murmurs/rubs/gallop GI: Soft, nontender, no organomegaly, no guarding/rigidity, bowel sounds present Neuro: Could not be examined as the patient is sedated and intubated Extremities: No edema cyanosis clubbing/deformities Skin: Warm and dry Coagulation Studies Laboratory Tests Test 03/15/25 14:59 Prothrombin Time 9.8 SECONDS (9.0-12.0) INR International Normalized Ratio 1.0 INR Activated Partial Thromboplast Time 21 SECONDS (22-32) L Coagulation Comments Assessment Assessment A 54-year-old male with multiple medical comorbidities was brought in by the in view of confusion and eventual and consciousness. Patient is admitted for the evaluation management of altered mental status. MRI head ruled out stroke. Patient is spiking fevers for which antibiotics have been started. Patient developed ARDS and pneumomediastinum and therefore had to be reintubated on 03/21/2025. Patient has developed ileus. 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 b.i.d. Wean as tolerated Respiratory: Acute hypoxemic respiratory failure 2/2 ARDS, pneumomediastinum Intubated and sedated, P/F ratio: 293 PRVC/550/20/13/35% Chest x-ray: Shows improved findings Continue IV methylprednisolone 15 mg IV q.6h Off norepinephrine drip Renal: Prerenal STEVEN probably secondary to renal tubular stasis CKD, early evidence Hypernatremia, resolved Continue free water flushes via NG tube Continue to monitor BMP Outpatient nephrology follow up after discharge is extremely essential to monitor for any developing CKD Recurrent spikes in creatinine, STEVEN episodes, history of DM, and reduced EGFR - concerning for evaluation of CKD Endocrine: Diabetes mellitus type 2 Diabetic gastroparesis Hyperglycemia Continue IV fluid resuscitation Initially was placed on insulin drip, discontinued now and below has been started Increased to Lantus 50 units b.i.d., high sliding scale insulin q.4 HR Hematological: Leukocytosis with bandemia Probably reactive Up trending leukocyte count Patient is spiking fevers, normal temperature since this morning Continue IV cefepime (day 03/20) Patient completed vancomycin for three days ID: PUO Vascular ultrasound ruled out DVT Chest x-ray and UA negative for any infection Continue empiric antibiotics as above CVS: HTN HLD Continue losartan 50 mg daily, hold for SBP less than 100 GI: Prophylaxis: IV Protonix 40 mg Possible ileus Tube feeds at 50 cc/hour Continue erythromycin 250 mg q.6h Abdominal x-ray reveals multiple gas bubbles and fecal retention. 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 Jose Bui MD Internal Medicine, PGY 2 Date of Service: Mar 24, 2025 Billing Provider: SAM ORTIZ MD, SIVA, RES Mar 24, 2025 17:40
--- NOTE | 2025-03-24 17:42 | PROGRESS NOTE ---
Daily Progress Note Providers to CC Sedated on ventilator, resting comfortably in the bed ~ Central Line/PICC still needed: Yes Rivas-Non Protocol Rivas Indications Met/Not Met: F/C Indications Met Antibiotic Timeout Antibiotic Ordered?: Yes MRSA Education MRSA Education Provided to pt: Yes Subjective As above Objective Vital Signs Date Time Temp Pulse Resp B/P (MAP) Pulse Ox O2 Delivery O2 Flow Rate FiO2 03/24/25 17:22 89 21 95 35 03/24/25 17:00 100.6 139/68 (91) Mechanical Ventilator 03/24/25 08:00 35.0 Vital signs, stable ,afebrile. Pulse Oximetry reflects adequate oxygenation, sedated, on ventilator, FiO2 35% General: well developed, well nourished. Sedated, on ventilator resting comfortably in the bed, in no acute distress . Skin: Warm, dry, no pallor, no rash or petechiae. HEENT: Atraumatic, normocephalic, EOMI, anicteric sclera B; pink conjunctiva; PERRLA, normal oropharynx, moist oral and nasal mucosa. Tympanic membrane , nose , throat clear. Neck: Trachea midline. Supple, full range of motion, no JVD, bruit , hepatojugular reflex , lymphadenopathy or masses, or other lesions Cardiac: Regular rhythm, regular rate no murmurs, rubs, or gallops. Normal S1 and S2, no S3 noticed. PMI is normal. Respiratory: Equal breath sounds bilaterally, no tachypnea; lungs clear to auscultation bilaterally, no wheezing ,rub or rales, or crackles. Chest wall is symmetric and without deformity. No signs of trauma. Chest wall is nontender. No signs of respiratory distress. Resonance is normal upon percussion bilaterally. Gastrointestinal: Abdomen symmetric, non-distended, soft, non-tender, normal bowel sounds x4 quadrant, normoactive, no hepatosplenomegaly , no masses , no bruit, no flank pain bilaterally. No voluntary guarding, rebound, or rigidity. No tenderness to percussion. No pulsatile masses. Equal femoral pulses. No Ibrahim's sign or McBurney point tenderness. Back; no CVA tenderness bilaterally, no deformities. Neck and back are without deformity as well. No tenderness noted on palpation of the spinous processes. Spinous processes are midline. Cervical, thoracic, and lumbar paraspinal muscles are not tender and are without spasm. : normal external genitalia, without lesions, swelling, masses or tenderness. Rivas catheter in place functional Musculoskeletal: Extremities, normal range of motion, non-tender, muscle strength 5/5 x 4. Negative Homans signs bilaterally on lower extremity. Distal pulses full symmetrical, no clubbing, cyanosis , edema. Neurological: Sedated, on ventilator Psych: Sedated, on ventilator Vascular: Good distal pulses, which are equal x4; capillary refill less than 2 seconds. Lymphatic, no lymphadenopathy. Result Diagram: 03/24/255 03/24/25 0205 Coagulation Studies Laboratory Tests Test 03/15/25 14:59 Prothrombin Time 9.8 SECONDS (9.0-12.0) INR International Normalized Ratio 1.0 INR Activated Partial Thromboplast Time 21 SECONDS (22-32) L Coagulation Comments Problem\Assessment\Plan Assessment/plan 54 years old male brought in with altered mental status and seizure-like activity. Is optic and respiratory failure on a ventilator ARDS, on ventilator sedated 1. Probable seizure: EEG and MRI nondiagnostic 2. Hyperlipidemia: Continue atorvastatin 3. Hypertension: Continue valsartan 4. BPH: Continue terazosin 5. Restless legs syndrome: Continue ropinirole 6. STEVEN: Likely vasomotor neuropathy, ? cardiorenal syndrome. Cr. is trending down. 8. 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 Acute systolic CHF : Echo showed EF of 30 %.. Continue lasix 10. NSTEMI/ Demand ischemia : Cardiology consultation deferred to the grease maker head . 11. Type 2 diabetes mellitus uncontrolled 03/18 Lantus was increased to 20 units b.i.d. and on high dose sliding scale insulin 03/19 increase Lantus to 30 units b.i.d. 03/21 blood glucose control is improved 12. Sepsis on IV vancomycin and IV cefepime- blood cultures are negative x3 days. 13. Hypernatremia- Global Sourcing Manager Dr. Pierson recommends free water- continue to monitor 03/20 Dr. Pierson calculated that the patient has a 6 L water deficit managed by grease maker head 03/21 NG tube placed and free water via NG tube is started the patient's serum sodium went up to 160 today- started on a D5W drip 03/22 improving 157 today 14. Hypokalemia on potassium replacement protocol Code status: Remains a full code. Sepsis Screening Reassessment Date: Mar 24, 2025 Date of Service: Mar 24, 2025 Billing Provider: LEE PRICE MD Common Visit Codes: [id number] INP/OBS CARE(HIGH) LEE PRICE MD Mar 24, 2025 17:42
[2025-03-24] MEDS: insulin glargine (Lantus) pen - multi-dose SQ SCH (20:51)
[2025-03-25] VITALS (37 sets, daily range): BP systolic 88–176; BP diastolic 55–80; PULSE 78–110; RESP 0–24; O2SAT 92–97
[2025-03-25 03:11] LABS: ABG BASE EXCESS -4.8 mmol/L (-2.0-3.0); ABG HCO3 18.7 mmol/L (21.0-28.0); ABG OXYGEN SATURATION 94.9 % (94.0-98.0); ABG PCO2 (T) 31.5 mmHg (35.0-48.0); ABG PH (T) 7.395 (7.350-7.450); ABG PO2 (T) 87.9 mmHg (83.0-108.0); FCOHb 1.1 % (0.5-1.5); FHHb 5.0 % (0.0-5.0); FIO2 35.0 mmHg/%; FMetHb 0.3 % (0.0-1.5); FO2Hb 93.6 % (94.0-98.0); MODE spont 12/8; PATIENT TEMPERATURE 37.8; PEEP 8 cm H2O; TOTAL HEMOGLOBIN 13.3 G/dl (13.5-17.5)
[2025-03-25 03:15] LABS: MEAN PLATELET VOLUME 10.2 FL (7.4-10.4); RED CELL DISTRIBUTION WIDTH 13.2 % (11.5-14.5)
[2025-03-25 03:32] LABS: CREATININE 1.18 MG/DL (0.60-1.10); PHOSPHORUS 2.8 MG/DL (2.3-4.5); TOTAL CARBON DIOXIDE 25.5 MMOL/L (24-32); eCRCL 75 ML/MIN; eGFR 64 ML/MIN
--- NOTE | 2025-03-25 05:56 | RADIOLOGY REPORT ---
CHEST RADIOGRAPH Indication: Intubated Technique: Single frontal view of the chest was obtained COMPARISON: DI CHEST,SINGLE VIEW on DOS: 03/24/25, DI CHEST,SINGLE VIEW on DOS: 03/23/25, DI CHEST,SING LE VIEW on DOS: 03/22/25, CT CT CHEST on DOS: 03/21/25, DI CHEST,SINGLE VIEW on DOS: 03/21/25 FINDINGS: Lines and Tubes: Endotracheal tube and enteric catheter in satisfactory position Lungs: Congestion Pleura: No effusion. No pneumothorax. Cardiomediastinal contours: Unremarkable Bones: Unremarkable IMPRESSION: Lines and tubes in satisfactory position. No significant interval change.
[2025-03-25] MEDS: insulin glargine (Lantus) pen - multi-dose SQ SCH (10:23)
--- NOTE | 2025-03-25 10:49 | PROGRESS NOTE- Residence ---
Progress Note - Resident Providers to CC Resident Creating Document: JOSE BUI RES CC: SAM ORTIZ MD ~ Antibiotic Timeout Antibiotic Ordered?: Yes Subjective Patient is examined at bedside. Patient failed SBT trial 2/2 AMS and not being able to protect airway. Patient has had four bowel movements. Patient's sodium has increased again requiring desmopressin. Objective Vital Signs Date Time Temp Pulse Resp B/P (MAP) Pulse Ox O2 Delivery O2 Flow Rate FiO2 03/25/25 09:28 100 12 93 35 03/25/25 07:00 99.9 137/80 (99) Mechanical Ventilator 03/24/25 20:00 35.0 Result Diagram: 03/25/2524303/25/25 024 General: Intubated and sedated HEENT: PERRLA, no icterus, pallor, lymphadenopathy, carotid bruit Respiratory system: Bilateral vesicular breath sounds heard, bilateral crackles heard in all lung regions (improving) CVS: S1-S2 heard, no murmurs/rubs/gallop GI: Soft, nontender, no organomegaly, no guarding/rigidity, bowel sounds present Neuro: Could not be examined as the patient is sedated and intubated Extremities: No edema cyanosis clubbing/deformities Skin: Warm and dry Coagulation Studies Laboratory Tests Test 03/15/25 14:59 Prothrombin Time 9.8 SECONDS (9.0-12.0) INR International Normalized Ratio 1.0 INR Activated Partial Thromboplast Time 21 SECONDS (22-32) L Coagulation Comments Assessment Assessment A 54-year-old male with multiple medical comorbidities was brought in by the in view of confusion and eventual and consciousness. Patient is admitted for the evaluation management of altered mental status. MRI head ruled out stroke. Patient is spiking fevers for which antibiotics have been started. Patient developed ARDS and pneumomediastinum and therefore had to be reintubated on 03/21/2025. Patient has developed ileus. 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 b.i.d. Wean as tolerated Respiratory: Acute hypoxemic respiratory failure 2/2 ARDS, pneumomediastinum Intubated and sedated, P/F ratio: 293 PRVC/550/20/13/35% Chest x-ray: Shows improved findings Continue IV methylprednisolone 15 mg IV q.6h Off norepinephrine drip Renal: Prerenal STEVEN probably secondary to renal tubular stasis CKD, early evidence Hypernatremia Continue free water flushes via NG tube Patient was given one dose of 4 mcg desmopressin is Q on one dose of 4 mcg desmopressin IV Continue to monitor BMP Outpatient nephrology follow up after discharge is extremely essential to monitor for any developing CKD Recurrent spikes in creatinine, STEVEN episodes, history of DM, and reduced EGFR - concerning for evaluation of CKD Endocrine: Diabetes mellitus type 2 Diabetic gastroparesis Hyperglycemia Continue IV fluid resuscitation Was requiring insulin drip initially, discontinued now and below has been started Increased to Lantus 60 units b.i.d., high sliding scale insulin q.4 HR Hematological: Leukocytosis with bandemia Probably reactive Up trending leukocyte count Temperature slightly in the higher side Continue IV cefepime (day 04/20) Patient completed three day course of vancomycin ID: PUO Vascular ultrasound ruled out DVT Chest x-ray and UA negative for any infection Continue empiric antibiotics as above CVS: HTN HLD Continue losartan 50 mg daily, hold for SBP less than 100 GI: Prophylaxis: IV Protonix 40 mg Possible ileus, resolved Tube feeds at 50 cc/hour Continue erythromycin 250 mg q.6h Patient had four bowel movements this morning Genitourinary: BPH Left groin hernia Outpatient management for hernia Psych: Depression/anxiety Cannabinoid use disorder guest services consult Code status: Full code Diet: Tube feeding DVT prophylaxis: SCD Disposition: Continue care in CICU, we will target for extubation and stabilization. Jose Bui MD Internal Medicine, PGY 2 Date of Service: Mar 25, 2025 Billing Provider: SAM ORTIZ MD, SIVA, RES Mar 25, 2025 10:49
[2025-03-25] MEDS: fentaNYL 2,500 MCG in Normal Saline 250ml IV soln bag IV SCH (13:30)
[2025-03-25] MEDS: propofol 1000mg/100ml bottle 100 ML IV SCH (14:25)
[2025-03-25] MEDS: FENTANYL 1000MCG/NS 100 ML BAG /PF IV SCH ×2 (14:25→14:30)
--- NOTE | 2025-03-25 16:47 | PROGRESS NOTE ---
Daily Progress Note Providers to CC Sedated, on ventilator FiO2 35% ~ Central Line/PICC still needed: Yes Rivas-Non Protocol Rivas Indications Met/Not Met: F/C Indications Met Antibiotic Timeout Antibiotic Ordered?: Yes MRSA Education MRSA Education Provided to pt: Yes Subjective As above Objective Vital Signs Date Time Temp Pulse Resp B/P (MAP) Pulse Ox O2 Delivery O2 Flow Rate FiO2 03/25/25 16:00 100.8 88 18 161/66 (97) 96 Mechanical Ventilator 35 03/25/25 08:00 35.0 Vital signs, stable ,afebrile. Pulse Oximetry reflects adequate oxygenation, sedated, on ventilator, FiO2 35% General: well developed, well nourished. Sedated, on ventilator in no acute distress . Skin: Warm, dry, no pallor, no rash or petechiae. HEENT: Atraumatic, normocephalic, EOMI, anicteric sclera B; pink conjunctiva; PERRLA, normal oropharynx, moist oral and nasal mucosa. Tympanic membrane , nose , throat clear. Neck: Trachea midline. Supple, full range of motion, no JVD, bruit , hepatojugular reflex , lymphadenopathy or masses, or other lesions Cardiac: Regular rhythm, regular rate no murmurs, rubs, or gallops. Normal S1 and S2, no S3 noticed. PMI is normal. Respiratory: Equal breath sounds bilaterally, no tachypnea; lungs clear to auscultation bilaterally, no wheezing ,rub or rales, or crackles. Chest wall is symmetric and without deformity. No signs of trauma. Chest wall is nontender. No signs of respiratory distress. Resonance is normal upon percussion bilaterally. Gastrointestinal: Abdomen symmetric, non-distended, soft, non-tender, normal bowel sounds x4 quadrant, normoactive, no hepatosplenomegaly , no masses , no bruit, no flank pain bilaterally. No voluntary guarding, rebound, or rigidity. No tenderness to percussion. No pulsatile masses. Equal femoral pulses. No Ibrahim's sign or McBurney point tenderness. Back; no CVA tenderness bilaterally, no deformities. Neck and back are without deformity as well. No tenderness noted on palpation of the spinous processes. Spinous processes are midline. Cervical, thoracic, and lumbar paraspinal muscles are not tender and are without spasm. : normal external genitalia, without lesions, swelling, masses or tenderness. Musculoskeletal: Extremities, normal range of motion, non-tender, muscle strength 5/5 x 4. Negative Homans signs bilaterally on lower extremity. Distal pulses full symmetrical, no clubbing, cyanosis , edema. Neurological: Sedated, ventilator Psych: Sedated, on ventilator Vascular: Good distal pulses, which are equal x4; capillary refill less than 2 seconds. Lymphatic, no lymphadenopathy. Result Diagram: 03/25/25 0244 03/25/25 0244 Coagulation Studies Laboratory Tests Test 03/15/25 14:59 Prothrombin Time 9.8 SECONDS (9.0-12.0) INR International Normalized Ratio 1.0 INR Activated Partial Thromboplast Time 21 SECONDS (22-32) L Coagulation Comments Problem\Assessment\Plan Assessment/plan 54 years old male brought in with altered mental status and seizure-like activity. Is sedated and respiratory failure on a ventilator ARDS, on ventilator sedated 1. Probable seizure: EEG and MRI nondiagnostic 2. Hyperlipidemia: Continue atorvastatin 3. Hypertension: Continue valsartan 4. BPH: Continue terazosin 5. Restless legs syndrome: Continue ropinirole 6. STEVEN: Likely vasomotor neuropathy, ? cardiorenal syndrome. Cr. is trending down. 8. Acute respiratory failure: Extubated on 03/18/2025 Reintubated on 03/21/202503/22 on 50% oxygen followed by pyrometer mechanic 9. Acute systolic CHF : Echo showed EF of 30 %.. Continue lasix 10. NSTEMI/ Demand ischemia : Cardiology consultation deferred to the pyrometer mechanic . 11. Type 2 diabetes mellitus uncontrolled 03/18 Lantus was increased to 20 units b.i.d. and on high dose sliding scale insulin 03/19 increase Lantus to 30 units b.i.d. 03/21 blood glucose control is improved 12. Sepsis on IV vancomycin and IV cefepime- blood cultures are negative x3 days. 13. Hypernatremia- Data Mining Analyst Dr. Pierson recommends free water- continue to monitor 03/20 Dr. Pierson calculated that the patient has a 6 L water deficit managed by pyrometer mechanic 03/21 NG tube placed and free water via NG tube is started the patient's serum sodium went up to 160 today- started on a D5W drip 03/22 improving 157 today 14. Hypokalemia on potassium replacement protocol Code status: Remains a full code. Sepsis Screening Reassessment Date: Mar 25, 2025 Date of Service: Mar 25, 2025 Billing Provider: LEE PRICE MD Common Visit Codes: [id number] INP/OBS CARE(HIGH) LEE PRICE MD Mar 25, 2025 16:46
[2025-03-26] VITALS (37 sets, daily range): BP systolic 71–175; BP diastolic 43–115; PULSE 70–105; RESP 4–30; O2SAT 91–99
[2025-03-26 03:03] LABS: MEAN PLATELET VOLUME 10.8 FL (7.4-10.4); RED CELL DISTRIBUTION WIDTH 13.7 % (11.5-14.5)
[2025-03-26 03:12] LABS: ABG BASE EXCESS -2.2 mmol/L (-2.0-3.0); ABG HCO3 21.5 mmol/L (21.0-28.0); ABG OXYGEN SATURATION 96.5 % (94.0-98.0); ABG PCO2 (T) 35.6 mmHg (35.0-48.0); ABG PH (T) 7.404 (7.350-7.450); ABG PO2 (T) 92.7 mmHg (83.0-108.0); FCOHb 1.2 % (0.5-1.5); FHHb 3.4 % (0.0-5.0); FIO2 35.0 mmHg/%; FMetHb 0.3 % (0.0-1.5); FO2Hb 95.1 % (94.0-98.0); MODE spont 12/5; PATIENT TEMPERATURE 38.2; TOTAL HEMOGLOBIN 13.7 G/dl (13.5-17.5)
[2025-03-26 03:17] LABS: CREATININE 1.04 MG/DL (0.60-1.10); PHOSPHORUS 3.2 MG/DL (2.3-4.5); TOTAL CARBON DIOXIDE 24.2 MMOL/L (24-32); eCRCL 85 ML/MIN; eGFR 74 ML/MIN
[2025-03-26] MEDS ORDERED: desmopressin inj. 4 MCG in normal saline 100ml IV soln 100 ML IV ONE (05:55)
--- NOTE | 2025-03-26 06:10 | PROGRESS NOTE ---
Progress Note Dictate Providers to CC ~ Progress Note: No new acute issues overnight Central Line/PICC still needed: Yes Rivas Indications Met/Not Met: F/C Indications Met Antibiotic Ordered?: Yes Subjective Subjective Comfortable Objective Vitals Vital Signs Date Time Temp Pulse Resp B/P (MAP) Pulse Ox O2 Delivery O2 Flow Rate FiO2 03/26/25 05:48 93 03/26/25 05:19 27 98 100 03/26/25 05:00 100.2 175/69 (104) Mechanical Ventilator 03/25/25 20:00 35.0 Lab Results: 03/26/2522203/26/25222 Objective Heart: S1-2 reg Lungs: Crackles at bases Abdomen: Soft, non-tender, BS (+) Ext: No edema Neuro: sedated Coagulation Studies Laboratory Tests Test 03/15/25 14:59 Prothrombin Time 9.8 SECONDS (9.0-12.0) INR International Normalized Ratio 1.0 INR Activated Partial Thromboplast Time 21 SECONDS (22-32) L Coagulation Comments Problem\Assessment\Plan Additional Plan 1-Acute Hypoxemic Resp Failure -Weaning trials -Continue to taper steroids 2-PNA -Complete 10d abx course 3-DM -BS control per protocol 4-Hypernatremia -F/U BMP 5-CMP -Supportive Tx 6-Agitation -Continue Kitty Castrejon CC time 35min Sepsis Screening Reassessment Date: Mar 26, 2025 SAM CASTREJON MD Mar 26, 2025 06:10
[2025-03-26] MEDS: DESMOPRESSIN ACETATE 4 MCG/ML VIAL IV ONE (07:52)
--- NOTE | 2025-03-26 08:51 | RADIOLOGY REPORT ---
CHEST RADIOGRAPH Indication: Intubated Technique: Single frontal view of the chest was obtained COMPARISON: DI CHEST,SINGLE VIEW on DOS: 03/25/25, DI CHEST,SINGLE VIEW on DOS: 03/24/25, DI CHEST,SING LE VIEW on DOS: 03/23/25, DI CHEST,SINGLE VIEW on DOS: 03/22/25, CT CT CHEST on DOS: 03/21/25 FINDINGS: Lines and Tubes: Endotracheal tube, enteric catheter in satisfactory position Lungs: Mild congestion Pleura: No effusion. No pneumothorax. Cardiomediastinal contours: Unremarkable Bones: Unremarkable IMPRESSION: Lines and tubes in satisfactory position. No significant interval change.
--- NOTE | 2025-03-26 14:14 | RADIOLOGY REPORT ---
Exam: DI ABDOMEN,SINGLE VIEW(KUB) Indication: Corepack placement Comparison: DI ABDOMEN,SINGLE VIEW(KUB) on DOS: 03/24/25, DI ABDOMEN,SINGLE VIEW(KUB) on DOS: 03/23/25, CT CT ABDOMEN PELVIS on DOS: 05/24/24, CT CT ABDOMEN PELVIS on DOS: 03/08/24, CT CT ABDOMEN PELVIS on DOS: 02/04/24 Technique: 1 radiographic views of the abdomen. Findings: Nonspecific bowel-gas pattern. Enteric catheter in the stomach. Weighted feeding tube in the stomach. There is no definite evidence for pneumoperitoneum. No abnormal calcifications noted. Impression: Enteric catheter in the stomach. Weighted feeding tube in the stomach.
--- NOTE | 2025-03-26 15:11 | PROGRESS NOTE ---
Daily Progress Note Providers to CC On ventilator, resting comfortably in the bed ~ Central Line/PICC still needed: Yes Rivas-Non Protocol Rivas Indications Met/Not Met: F/C Indications Not Met Antibiotic Timeout Antibiotic Ordered?: Yes MRSA Education MRSA Education Provided to pt: Yes Subjective As above Objective Vital Signs Date Time Temp Pulse Resp B/P (MAP) Pulse Ox O2 Delivery O2 Flow Rate FiO2 03/26/25 13:15 88 13 96 40 03/26/25 13:00 100.4 127/63 (84) Mechanical Ventilator 03/26/25 08:00 35.0 Vital signs, stable ,afebrile. Pulse Oximetry reflects adequate oxygenation, sedated on ventilator General: well developed, well nourished. Sedated, on ventilator Skin: Warm, dry, no pallor, no rash or petechiae. HEENT: Atraumatic, normocephalic, EOMI, anicteric sclera B; pink conjunctiva; PERRLA, normal oropharynx, moist oral and nasal mucosa. Tympanic membrane , nose , throat clear. Neck: Trachea midline. Supple, full range of motion, no JVD, bruit , hepatojugular reflex , lymphadenopathy or masses, or other lesions Cardiac: Regular rhythm, regular rate no murmurs, rubs, or gallops. Normal S1 and S2, no S3 noticed. PMI is normal. Respiratory: Equal breath sounds bilaterally, no tachypnea; lungs clear to auscultation bilaterally, no wheezing ,rub or rales, or crackles. Chest wall is symmetric and without deformity. No signs of trauma. Chest wall is nontender. No signs of respiratory distress. Resonance is normal upon percussion bilaterally. Gastrointestinal: Abdomen symmetric, non-distended, soft, non-tender, normal bowel sounds x4 quadrant, normoactive, no hepatosplenomegaly , no masses , no bruit, no flank pain bilaterally. No voluntary guarding, rebound, or rigidity. No tenderness to percussion. No pulsatile masses. Equal femoral pulses. No Ibrahim's sign or McBurney point tenderness. Back; no CVA tenderness bilaterally, no deformities. Neck and back are without deformity as well. No tenderness noted on palpation of the spinous processes. Spinous processes are midline. Cervical, thoracic, and lumbar paraspinal muscles are not tender and are without spasm. : normal external genitalia, without lesions, swelling, masses or tenderness. Musculoskeletal: Extremities, normal range of motion, non-tender, muscle strength 5/5 x 4. Negative Homans signs bilaterally on lower extremity. Distal pulses full symmetrical, no clubbing, cyanosis , edema. Neurological: Sedated on ventilator Psych: Sedated on ventilator Vascular: Good distal pulses, which are equal x4; capillary refill less than 2 seconds. Lymphatic, no lymphadenopathy. Result Diagram: 03/26/2522203/26/253 Coagulation Studies Laboratory Tests Test 03/15/25 14:59 Prothrombin Time 9.8 SECONDS (9.0-12.0) INR International Normalized Ratio 1.0 INR Activated Partial Thromboplast Time 21 SECONDS (22-32) L Coagulation Comments Problem\Assessment\Plan Assessment/plan 54 years old male brought in with altered mental status and seizure-like activity. Is sedated and respiratory failure on a ventilator ARDS, on ventilator sedated 1. Probable seizure: EEG and MRI nondiagnostic 2. Hyperlipidemia: Continue atorvastatin 3. Hypertension: Continue valsartan 4. BPH: Continue terazosin 5. Restless legs syndrome: Continue ropinirole 6. STEVEN: Likely vasomotor neuropathy, ? cardiorenal syndrome. Cr. is trending down. 8. Acute respiratory failure: Extubated on 03/18/2025 Reintubated on 03/21/202503/22 on 50% oxygen followed by welding systems and equipment repairer 9. Acute systolic CHF : Echo showed EF of 30 %.. Continue lasix 10. NSTEMI/ Demand ischemia : Cardiology consultation deferred to the welding systems and equipment repairer . 11. Type 2 diabetes mellitus uncontrolled 03/18 Lantus was increased to 20 units b.i.d. and on high dose sliding scale insulin 03/19 increase Lantus to 30 units b.i.d. 03/21 blood glucose control is improved 12. Sepsis on IV vancomycin and IV cefepime- blood cultures are negative x3 days. 13. Hypernatremia- Security Compliance Specialist Dr. Pierson recommends free water- continue to monitor 03/20 Dr. Pierson calculated that the patient has a 6 L water deficit managed by welding systems and equipment repairer 03/21 NG tube placed and free water via NG tube is started the patient's serum sodium went up to 160 today- started on a D5W drip 03/22 improving 157 today 14. Hypokalemia on potassium replacement protocol Code status: Remains a full code. Date of Service: Mar 26, 2025 Billing Provider: LEE PRICE MD Common Visit Codes: [id number] INP/OBS CARE(HIGH) LEE PRICE MD Mar 26, 2025 15:11
[2025-03-27] VITALS (31 sets, daily range): BP systolic 106–159; BP diastolic 53–105; PULSE 82–116; RESP 8–28; O2SAT 93–99
[2025-03-27 03:15] LABS: MEAN PLATELET VOLUME 11.1 FL (7.4-10.4); RED CELL DISTRIBUTION WIDTH 13.7 % (11.5-14.5)
[2025-03-27 03:18] LABS: CREATININE 1.01 MG/DL (0.60-1.10); PHOSPHORUS 3.3 MG/DL (2.3-4.5); TOTAL CARBON DIOXIDE 25.1 MMOL/L (24-32); eCRCL 88 ML/MIN; eGFR 77 ML/MIN
[2025-03-27 03:31] LABS: ABG BASE EXCESS -0.6 mmol/L (-2.0-3.0); ABG HCO3 23.7 mmol/L (21.0-28.0); ABG OXYGEN SATURATION 94.7 % (94.0-98.0); ABG PCO2 (T) 39.3 mmHg (35.0-48.0); ABG PH (T) 7.402 (7.350-7.450); ABG PO2 (T) 78.1 mmHg (83.0-108.0); ALLEN'S TEST Modified; FCOHb 0.8 % (0.5-1.5); FHHb 5.2 % (0.0-5.0); FIO2 35.0 mmHg/%; FMetHb 0.3 % (0.0-1.5); FO2Hb 93.7 % (94.0-98.0); MODE spont 7/5; PATIENT TEMPERATURE 37.7; TOTAL HEMOGLOBIN 13.0 G/dl (13.5-17.5)
[2025-03-27] MEDS ORDERED: desmopressin inj. 4 MCG in normal saline 100ml IV soln 100 ML IV ONE (06:00)
--- NOTE | 2025-03-27 06:10 | PROGRESS NOTE ---
Progress Note Dictate Providers to CC ~ Progress Note: No new acute issues overnight Central Line/PICC still needed: Yes Rivas Indications Met/Not Met: F/C Indications Met Antibiotic Ordered?: Yes Subjective Subjective Comfortable Objective Vitals Vital Signs Date Time Temp Pulse Resp B/P (MAP) Pulse Ox O2 Delivery O2 Flow Rate FiO2 03/27/25 05:58 100.0 93 13 158/80 (106) 98 Mechanical Ventilator 35 03/26/25 20:00 35.0 Lab Results: 03/27/25 0145 03/27/25 014 Objective Heart: S1-2 reg Lungs: Crackles at bases Abdomen: Soft, non-tender, BS (+) Ext: No edema Neuro: sedated Coagulation Studies Laboratory Tests Test 03/15/25 14:59 Prothrombin Time 9.8 SECONDS (9.0-12.0) INR International Normalized Ratio 1.0 INR Activated Partial Thromboplast Time 21 SECONDS (22-32) L Coagulation Comments Problem\Assessment\Plan Additional Plan 1-Acute Hypoxemic Resp Failure -Weaning trials -D/C Steroids 2-PNA -Complete 10d abx course 3-DM -BS control per protocol 4-Hypernatremia -F/U BMP -Desmopressin *1 -Free water flushes q4h 5-CMP -Supportive Tx 6-Agitation -Continue Kitty Castrejon CC time 35min Sepsis Screening Reassessment Date: Mar 27, 2025 SAM CASTREJON MD Mar 27, 2025 06:10
--- NOTE | 2025-03-27 07:03 | RADIOLOGY REPORT ---
CHEST RADIOGRAPH Indication: Intubated Technique: Single frontal view of the chest was obtained COMPARISON: DI CHEST,SINGLE VIEW on DOS: 03/26/25, DI CHEST,SINGLE VIEW on DOS: 03/25/25, DI CHEST,SING LE VIEW on DOS: 03/24/25, DI CHEST,SINGLE VIEW on DOS: 03/23/25, DI CHEST,SINGLE VIEW on DOS: 03/22/25 FINDINGS: Lines and Tubes: Endotracheal tube in satisfactory position. Enteric catheter below the left hemidiap hragm. Lungs: Congestion Pleura: No effusion. No pneumothorax. Cardiomediastinal contours: Unremarkable Bones: Unremarkable IMPRESSION: Lines and tubes in satisfactory position. No significant interval change.
[2025-03-27] MEDS: DESMOPRESSIN ACETATE 4 MCG/ML VIAL IV ONE (08:38)
--- NOTE | 2025-03-27 10:18 | PROGRESS NOTE ---
Daily Progress Note Providers to CC Intubated, sedated, on ventilator, FiO2 35%, resting comfortably in the bed ~ Central Line/PICC still needed: Yes Rivas-Non Protocol Rivas Indications Met/Not Met: F/C Indications Met Antibiotic Timeout Antibiotic Ordered?: Yes MRSA Education MRSA Education Provided to pt: Yes Subjective As above Objective Vital Signs Date Time Temp Pulse Resp B/P (MAP) Pulse Ox O2 Delivery O2 Flow Rate FiO2 03/27/25 10:00 100.8 107 18 117/60 (79) 97 Mechanical Ventilator 03/27/25 09:55 35 03/27/25 08:00 35.0 Vital signs, stable ,febrile. Pulse Oximetry reflects adequate oxygenation, FiO2 35%, intubated on ventilator General: well developed, well nourished. Sedated, on ventilator Skin: Warm, dry, no pallor, no rash or petechiae. HEENT: Atraumatic, normocephalic, EOMI, anicteric sclera B; pink conjunctiva; PERRLA, normal oropharynx, moist oral and nasal mucosa. Tympanic membrane , nose , throat clear. Neck: Trachea midline. Supple, full range of motion, no JVD, bruit , hepatojugular reflex , lymphadenopathy or masses, or other lesions Cardiac: Regular rhythm, regular rate no murmurs, rubs, or gallops. Normal S1 and S2, no S3 noticed. PMI is normal. Respiratory: Equal breath sounds bilaterally, no tachypnea; lungs clear to auscultation bilaterally, no wheezing ,rub or rales, or crackles. Chest wall is symmetric and without deformity. No signs of trauma. Chest wall is nontender. No signs of respiratory distress. Resonance is normal upon percussion bilaterally. Gastrointestinal: Abdomen symmetric, non-distended, soft, non-tender, normal bowel sounds x4 quadrant, normoactive, no hepatosplenomegaly , no masses , no bruit, no flank pain bilaterally. No voluntary guarding, rebound, or rigidity. No tenderness to percussion. No pulsatile masses. Equal femoral pulses. No Ibrahim's sign or McBurney point tenderness. Back; no CVA tenderness bilaterally, no deformities. Neck and back are without deformity as well. No tenderness noted on palpation of the spinous processes. Spinous processes are midline. Cervical, thoracic, and lumbar paraspinal muscles are not tender and are without spasm. Neuro, sedated on ventilator Vascular: Good distal pulses, which are equal x4; capillary refill less than 2 seconds. Lymphatic, no lymphadenopathy. Result Diagram: 03/27/2514403/27/25144 Coagulation Studies Laboratory Tests Test 03/15/25 14:59 Prothrombin Time 9.8 SECONDS (9.0-12.0) INR International Normalized Ratio 1.0 INR Activated Partial Thromboplast Time 21 SECONDS (22-32) L Coagulation Comments Problem\Assessment\Plan Assessment/plan 54 years old male brought in with altered mental status and seizure-like activity. Is sedated and respiratory failure on a ventilator ARDS, on ventilator sedated 1. Probable seizure: EEG and MRI nondiagnostic 2. Hyperlipidemia: Continue atorvastatin 3. Hypertension: Continue valsartan 4. BPH: Continue terazosin 5. Restless legs syndrome: Continue ropinirole 6. STEVEN: Likely vasomotor neuropathy, ? cardiorenal syndrome. Cr. is trending down. 8. Acute respiratory failure: Extubated on 03/18/2025 Reintubated on 03/21/202503/22 on 50% oxygen followed by director translational 9. Acute systolic CHF : Echo showed EF of 30 %.. Continue lasix 10. NSTEMI/ Demand ischemia : Cardiology consultation deferred to the director translational . 11. Type 2 diabetes mellitus uncontrolled 03/18 Lantus was increased to 20 units b.i.d. and on high dose sliding scale insulin 03/19 increase Lantus to 30 units b.i.d. 03/21 blood glucose control is improved 12. Sepsis on IV vancomycin and IV cefepime- blood cultures are negative x3 days. 13. Hypernatremia- Yarn Spinner Dr. Pierson recommends free water- continue to monitor 03/20 Dr. Pierson calculated that the patient has a 6 L water deficit managed by director translational 03/21 NG tube placed and free water via NG tube is started the patient's serum sodium went up to 160 today- started on a D5W drip 03/22 improving 157 today Sepsis Screening Reassessment Date: Mar 27, 2025 Date of Service: Mar 27, 2025 Billing Provider: LEE PRICE MD Common Visit Codes: [id number] INP/OBS CARE(HIGH) LEE PRICE MD Mar 27, 2025 10:18
[2025-03-27] MEDS: acetaminophen 325mg/10.15ml oral unit dose solution NG PRN (11:37)
[2025-03-27] MEDS ORDERED: DEXTROSE 15 GM of carb/4 tabs (each vial/BOTTLE has 4 tablets) NG PRN ×2 (14:43→14:44)
[2025-03-28] VITALS (23 sets, daily range): BP systolic 73–162; BP diastolic 37–93; PULSE 95–108; RESP 11–32; O2SAT 92–100
[2025-03-28 02:26] LABS: MEAN PLATELET VOLUME 11.3 FL (7.4-10.4); RED CELL DISTRIBUTION WIDTH 13.8 % (11.5-14.5)
[2025-03-28 02:40] LABS: CREATININE 1.13 MG/DL (0.60-1.10); PHOSPHORUS 2.7 MG/DL (2.3-4.5); TOTAL CARBON DIOXIDE 23.2 MMOL/L (24-32); eCRCL 79 ML/MIN; eGFR 67 ML/MIN
[2025-03-28 03:05] LABS: BANDS% (MANUAL) 5.0 % (0-10); EOSINOPHILS % (MANUAL) 2.0 % (0-6); LYMPHOCYTES % (MANUAL) 9.0 % (21-51); MONOCYTES % (MANUAL) 5.0 % (2-12); NEUTROPHILS % (MANUAL) 79.0 % (42-75); PLATELET ESTIMATE NORMAL
[2025-03-28 03:06] LABS: LARGE PLATELETS FEW
[2025-03-28] MEDS: potassium Cl 20mEq/100mL bag 100 ML IV SCH ×2 (03:39→04:32)
[2025-03-28] MEDS: ringers solution, lacted 1,000 ML IV ONE ×2 (10:39→11:51)
--- NOTE | 2025-03-28 11:28 | RADIOLOGY REPORT ---
DI CHEST,SINGLE VIEW, HISTORY: sob COMPARISON: DI CHEST,SINGLE VIEW on DOS: 03/27/25, DI CHEST,SINGLE VIEW on DOS: 03/26/25, DI CHEST,SING LE VIEW on DOS: 03/25/25 DI CHEST,SINGLE VIEW on DOS: 03/27/25, DI CHEST,SINGLE VIEW on DOS: 03/26/25, DI CHEST,SINGLE VIEW on D OS: 03/25/25 TECHNICAL DATA: 1 view of the chest was obtained. FINDINGS: Lines and tubes: NG in the stomach. Cardiomediastinal silhouette: normal Pulmonary vasculature: normal Lung expansion: normal Lung airspace: Mild left basilar atelectasis. Lung interstitium: normal Pleura: normal Pneumothorax: no Bones: Unremarkable Other: no IMPRESSION: Mild left basilar atelectasis. NG in the stomach.
[2025-03-28] MEDS: NORepinephrine 8mg/ 250ml NS 250 ML IV SCH (11:45)
--- NOTE | 2025-03-28 15:32 | RADIOLOGY REPORT ---
CHEST RADIOGRAPH Indication: CENTRAL LINE PLACEMENT CONFIRMATION Technique: Single frontal view of the chest was obtained COMPARISON: DI CHEST,SINGLE VIEW on DOS: 03/28/25, DI CHEST,SINGLE VIEW on DOS: 03/27/25, DI CHEST,SING LE VIEW on DOS: 03/26/25, DI CHEST,SINGLE VIEW on DOS: 03/25/25, DI CHEST,SINGLE VIEW on DOS: 03/24/25 FINDINGS: Lines and Tubes: Right-sided central line is in superior vena cava. NG tube courses into the stomach but not seen distally. Lungs: Minimal left basilar atelectasis Pleura: No effusion. No pneumothorax. Cardiomediastinal contours: Mild indentation of the right-side of the trachea. Thyroid abnormality ca n not be excluded. Bones: Unremarkable IMPRESSION: 1. Tubes and lines well positioned. Minimal left basilar atelectasis Very mild indentation of the right side of the trachea.
--- NOTE | 2025-03-28 15:44 | PROGRESS NOTE ---
Subjective Subjective Patient is examined at bedside. Extubated on 03/27/2025 and doing well on room air. Exhibiting some episodes of anxiety manifesting with tachypnea and restlessness. Otherwise no distress. Reason for visit: Pulmonary critical care follow-up Reviewed: Care Plan, H&P, Labs, Radiology Review of Systems Changes from previous H/P or p: No Changes Daily Progress Note Exam Vitals Vital Signs Date Time Temp Pulse Resp B/P (MAP) Pulse Ox O2 Delivery O2 Flow Rate FiO2 03/28/25 09:03 99 03/28/25 05:39 11 03/28/25 05:00 100.8 119/86 (97) 96 Room Air 03/27/25 17:00 2.0 03/27/25 09:55 35 Result Diagram: 03/28/2519903/28/25199 Exam General: Intubated and sedated HEENT: PERRLA, no icterus, pallor, lymphadenopathy, carotid bruit Respiratory system: Bilateral vesicular breath sounds heard, bilateral crackles heard in all lung regions (improving) CVS: S1-S2 heard, no murmurs/rubs/gallop GI: Soft, nontender, no organomegaly, no guarding/rigidity, bowel sounds present Neuro: Could not be examined as the patient is sedated and intubated Extremities: No edema cyanosis clubbing/deformities Skin: Warm and dry Results Coagulation Studies Laboratory Tests Test 03/15/25 14:59 Prothrombin Time 9.8 SECONDS (9.0-12.0) INR International Normalized Ratio 1.0 INR Activated Partial Thromboplast Time 21 SECONDS (22-32) L Coagulation Comments VTE VTE Risk Score VTE Risk Score Reference Ranges: Score 0-1 = Low Risk (Aggressive mobilization; early ambulation; no VTE prophylaxis required) Score 2: Moderate Risk (Intermittent/Pneumatic Compression Device OR Lovenox/Heparin/Coumadin) Score 3-4: High Risk (Intermittent/Pneumatic Compression Device AND Lovenox/Heparin/Coumadin) Score > or = 5: Highest Risk (Intermittent/Pneumatic Compression Device AND Lovenox/Heparin/Coumadin) Assessment/Plan Assessment A 54-year-old male with multiple medical comorbidities was brought in by the in view of confusion and eventual and consciousness. Patient is admitted for the evaluation management of altered mental status. MRI head ruled out stroke. Patient is spiking fevers for which antibiotics have been started. Patient developed ARDS and pneumomediastinum and therefore had to be reintubated on 03/21/2025. Patient has developed ileus. 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 b.i.d. Wean as tolerated Respiratory: Acute hypoxemic respiratory failure 2/2 ARDS, pneumomediastinum Extubated and doing well on room air. Chest x-ray: Shows improved findings Off norepinephrine drip Renal: Prerenal STEVEN probably secondary to renal tubular stasis CKD, early evidence Hypernatremia Endocrine: Diabetes mellitus type 2 complicated by gastroparesis and hypoglycemia: Adjust insulin to keep a serum glucose level of around 140-180 mg/dL. Diabetic gastroparesis Hyperglycemia Continue IV fluid resuscitation Was requiring insulin drip initially, discontinued now and below has been started Increased to Lantus 60 units b.i.d., high sliding scale insulin q.4 HR ID: FUO Temperature is 38.4 C with a white count of 19.5. Concerned about the possibility of sepsis. Follow up procalcitonin and lactic acid levels. Vascular ultrasound ruled out DVT Chest x-ray and UA negative for any infection Continue empiric antibiotics as above CVS: Losartan discontinued today due to hypotension. 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 Disposition: Continue care in CICU until completion of sepsis workup. Expected Outcome/Goals Expected Outcomes/Goals: Wt maintenance, tolerance to TF, bowel regularity, skin integrity, BG 140-180 mg/dL AVEL JOVEL MD Mar 28, 2025 15:44
[2025-03-28 15:57] LABS: LEUKOCYTE ESTERASE ,URINE NEGATIVE (Neg); NITRITES, URINE NEGATIVE (Neg); OCCULT BLOOD,URINE MODERATE (Neg)
[2025-03-28 16:11] LABS: UA COLLECTION TYPE CLN CATCH MIDSTREAM
[2025-03-28 16:13] LABS: CELLULAR CAST 0-4 /LPF (NEGATIVE); COARSE GRANULAR CAST 0-3 /LPF (NEGATIVE)
[2025-03-28 16:14] LABS: FINE GRANULAR CAST 0-3 /LPF (NEGATIVE); MUCUS STRANDS NONE SEEN /LPF (Neg); SQUAMOUS EPITHELIAL CELL,UR FEW /LPF (FEW)
[2025-03-28] MEDS ORDERED: HYDROmorphone inj. 0.5 MG/0.5 ML DISP.SYRIN IV PRN (17:00)
[2025-03-28] MEDS ORDERED: cefepime 2g/NS 100ml ADVANTAGE 100 ML IV SCH (17:08)
--- NOTE | 2025-03-28 17:15 | PROGRESS NOTE- Residence ---
Progress Note - Resident Providers to CC Resident Creating Document: JENNIFER VELASCO RES CC: TERRANCE PIERSON MD ~ Antibiotic Timeout Antibiotic Ordered?: Yes Subjective Patient was seen and examined at bedside. Patient was extubated yesterday, and is currently on room air. No other acute overnight symptoms noted. Objective Vital Signs Date Time Temp Pulse Resp B/P (MAP) Pulse Ox O2 Delivery O2 Flow Rate FiO2 03/28/25 16:55 20 03/28/25 09:03 99 03/28/25 05:00 100.8 119/86 (97) 96 Room Air 03/27/25 17:00 2.0 03/27/25 09:55 35 General: Patient is alert and oriented, he was extubated yesterday HEENT: PERRLA, no icterus, pallor, lymphadenopathy, carotid bruit, right IJV in place Respiratory system: Bilateral vesicular breath sounds heard, bilateral crackles heard in all lung region(decreasing) CVS: S1-S2 heard, no murmurs/rubs/gallop GI: Soft, nontender, no organomegaly, no guarding/rigidity, bowel sounds present Neuro: Could not perform Extremities: No edema cyanosis clubbing/deformities Skin: Warm and dry Result Diagram: 03/28/25 0200 03/28/25 0200 Coagulation Studies Laboratory Tests Test 03/15/25 14:59 Prothrombin Time 9.8 SECONDS (9.0-12.0) INR International Normalized Ratio 1.0 INR Activated Partial Thromboplast Time 21 SECONDS (22-32) L Coagulation Comments Advance Care Planning Advanced Care plannin - 30 Minutes Assessment Assessment A 54-year-old male with multiple medical comorbidities was brought in by the in view of confusion and eventual and consciousness. Patient is admitted for the evaluation management of altered mental status. MRI head ruled out stroke. Patient is spiking fevers for which antibiotics have been started. Patient developed ARDS and pneumomediastinum and therefore had to be reintubated on 03/21/2025. Patient has developed ileus. Patient has been extubated on 03/27/2025 Plan Plan Acute kidney injury, prerenal Hypernatremia Elevated creatinine on admission,fluctuating levels of creatinine since admission, baseline renal function was normal earlier this year. 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 Hypertension Hyperlipidemia -managed as per ICU team Code status: Full code Diet: NPO DVT prophylaxis: SCD Disposition: Patient's creatinine continues to be stable at 1.13. We will continue to monitor the patient's abnormal electrolytes. Jennifer Velasco Nephrology Resident Nephrology attending: Na is 154 again. will give a dose of DDAVP 4 mcg sq x once. patient seen and care plan reviewed with resident. Terrance Pierson MD Date of Service: Mar 28, 2025 Billing Provider: TERRANCE PIERSON MD, JAHNAVI, RES Mar 28, 2025 17:15 TERRANCE PIERSON MD Mar 28, 2025 18:40
[2025-03-28] MEDS: CEFEPIME 2gm in D5W 50mL 50 ML IV SCH (17:49)
[2025-03-28] MEDS: linezolid 600mg/300ml PREMIX 300 ML IV SCH (17:49)
[2025-03-28 17:52] LABS: PHOSPHORUS 4.7 MG/DL (2.3-4.5)
--- NOTE | 2025-03-28 19:45 | PROGRESS NOTE ---
Daily Progress Note Providers to CC ~ Antibiotic Timeout Antibiotic Ordered?: Yes Subjective The patient continues to have fever in his white count is up trending- the patient is on IV cefepime and IV linezolid and pancultures were ordered today Objective Vital Signs Date Time Temp Pulse Resp B/P (MAP) Pulse Ox O2 Delivery O2 Flow Rate FiO2 03/28/25 18:00 96 29 90/63 (72) 94 Room Air 03/28/25 17:00 100.6 03/27/25 17:00 2.0 03/27/25 09:55 35 Result Diagram: 03/28/25 0200 03/28/25 1726 Gen. Confused nonverbal Lungs clear to ascultation bilaterally, no wheezes rales or rhonchi appreciated Heart normal sinus rhythm no murmurs rubs or clicks noted Abdomen soft nontender bowel sounds are normoactive Lower extremities no clubbing cyanosis, nor edema appreciated bilaterally Coagulation Studies Laboratory Tests Test 03/15/25 14:59 Prothrombin Time 9.8 SECONDS (9.0-12.0) INR International Normalized Ratio 1.0 INR Activated Partial Thromboplast Time 21 SECONDS (22-32) L Coagulation Comments Problem\Assessment\Plan Assessment/plan 54 years old male brought in with altered mental status and seizure-like activity. Is sedated and respiratory failure on a ventilator ARDS, on ventilator sedated 1. Probable seizure: EEG and MRI nondiagnostic 2. Hyperlipidemia: Continue atorvastatin 3. Hypertension: Continue valsartan 4. BPH: Continue terazosin 5. Restless legs syndrome: Continue ropinirole 6. STEVEN: Likely vasomotor neuropathy, ? cardiorenal syndrome. Cr. is trending down. 8. Acute respiratory failure: Extubated on 03/18/2025 Reintubated on 03/21/202503/22 on 50% oxygen followed by special inspector 03/28 extubated on currently on room air 9. Acute systolic CHF : Echo showed EF of 30 %.. Continue lasix 10. NSTEMI/ Demand ischemia : Cardiology consultation deferred to the special inspector . 11. Type 2 diabetes mellitus uncontrolled 03/18 Lantus was increased to 20 units b.i.d. and on high dose sliding scale insulin 03/19 increase Lantus to 30 units b.i.d. 03/21 blood glucose control is improved 12. Sepsis on IV vancomycin and IV cefepime- blood cultures are negative x3 days. 03/28 patient white blood cell count is up trending and remains febrile is on cefepime and IV linezolid repeat blood culture, urine culture and sputum cultures are ordered . Hypernatremia- Academic Affairs Assistant Dr. Pierson recommends free water- continue to monitor 03/20 Dr. Pierson calculated that the patient has a 6 L water deficit managed by special inspector 03/21 NG tube placed and free water via NG tube is started the patient's serum sodium went up to 160 today- started on a D5W drip 03/22 improving 157 today 03/23 sodium is up trending 154 today The patient remains critically ill in his followed by the special inspector service Date of Service: Mar 28, 2025 Billing Provider: MELLY BILLS DO Common Visit Codes: [id number] INP/OBS CARE(HIGH) MELLY BILLS DO Mar 28, 2025 19:44
[2025-03-29] VITALS (18 sets, daily range): BP systolic 85–157; BP diastolic 32–86; PULSE 85–108; RESP 14–31; O2SAT 95–100
[2025-03-29 03:00] LABS: CREATININE 1.31 MG/DL (0.60-1.10); PHOSPHORUS 4.4 MG/DL (2.3-4.5); TOTAL CARBON DIOXIDE 19.0 MMOL/L (24-32); eCRCL 68 ML/MIN; eGFR 57 ML/MIN
[2025-03-29] MEDS: potassium Cl 20mEq/100mL bag 100 ML IV SCH (03:24)
[2025-03-29 03:57] LABS: MEAN PLATELET VOLUME 11.9 FL (7.4-10.4); RED CELL DISTRIBUTION WIDTH 13.8 % (11.5-14.5)
[2025-03-29] MEDS: insulin glargine (Lantus) pen - multi-dose SQ ONE (10:32)
--- NOTE | 2025-03-29 11:55 | PROGRESS NOTE ---
Daily Progress Note Providers to CC ~ Antibiotic Timeout Antibiotic Ordered?: Yes Subjective Patient examined in ICU. Vss, labs notable for downtrending white count and serum Na. Desmopressin given. Objective Vital Signs Date Time Temp Pulse Resp B/P (MAP) Pulse Ox O2 Delivery O2 Flow Rate FiO2 03/29/25 11:00 100.2 108 31 104/32 (56) 95 Room Air 03/29/25 02:00 2.0 03/27/25 09:55 35 Result Diagram: 03/29/25 0330 03/29/25 0200 Physical Exam General: Generalized weakness, A&Ox 3, NAD HEENT: Normocephalic, PERRLA Neck: Supple, trachea midline, no JVD Chest: Clear to auscultation bilaterally Cardiovascular: RRR, S1&S2 GI: Soft and nontender Extremities: No cyanosis/clubbing/or edema SEAFOOD CLERK: CN II-XII intact, no focal deficits Musculoskeletal: No paraspinal muscle tenderness, no muscle spasm Skin: Warm and intact Coagulation Studies Laboratory Tests Test 03/15/25 14:59 Prothrombin Time 9.8 SECONDS (9.0-12.0) INR International Normalized Ratio 1.0 INR Activated Partial Thromboplast Time 21 SECONDS (22-32) L Coagulation Comments Problem\Assessment\Plan 54 years old male brought in with altered mental status and seizure-like activity and respiratory failure. Assessment & Plan ARDS, on ventilator sedated Acute hypoxic respiratory failure- extubated now Probable seizure: EEG and MRI nondiagnostic Hyperlipidemia: Continue atorvastatin Hypertension: Continue valsartan BPH: Continue terazosin Restless legs syndrome: Continue ropinirole STEVEN: Likely vasomotor neuropathy, ? cardiorenal syndrome. Cr. is trending down. Acute decompensated systolic HF- continued on Lasix NSTEMI likely Type II demand ischemia : Cardiology consultation deferred to the director of financial reporting . IDDM 03/18 Lantus was increased to 20 units b.i.d. and on high dose sliding scale insulin 03/19 increase Lantus to 30 units b.i.d. 03/21 blood glucose control is improved Sepsis on IV linezolid and IV cefepime- blood cultures are negative x3 days. 03/28 patient white blood cell count is up trending and remains febrile is on cefepime and IV linezolid repeat blood culture, urine culture and sputum cultures are ordered Hypernatremia Revenue Field Auditor Dr. Pierson recommends free water- continue to monitor 03/20 Dr. Pierson calculated that the patient has a 6 L water deficit managed by director of financial reporting 03/21 NG tube placed and free water via NG tube is started the patient's serum sodium went up to 160 today- started on a D5W drip 03/22 improving 157 today 03/23 sodium is up trending 154 today The patient remains critically ill in his followed by the director of financial reporting service Date of Service: Mar 29, 2025 Billing Provider: ERNIE KHAN Common Visit Codes: [id number] INP/OBS CARE(HIGH) ERNIE KHAN Mar 29, 2025 11:55
--- NOTE | 2025-03-29 12:10 | DISCHARGE SUMMARY-Residence ---
Discharge Summary Providers to CC Resident Creating Document: ABHI BUI, RES CC: AVEL DOWLING MD ~ Discharge Summary Assessment A 54-year-old male with multiple medical comorbidities was brought in by the in view of confusion and eventual and consciousness. Patient is admitted for the evaluation management of altered mental status. MRI head ruled out stroke. Patient is spiking fevers for which antibiotics have been started. Patient developed ARDS and pneumomediastinum and therefore had to be reintubated on 03/21/2025. Patient has developed ileus that resolved on 03/25/2025. Admission Diagnosis: Resp Failure Hospital Course DATE OF ADMISSION: 03/15/25 DATE OF TRANSFER: 03/29/25 Discharge Diagnosis\Comment: AMS 2/2 marijuana induced encephalopathy History of pseudoseizures Acute hypoxemic respiratory failure 2/2 ARDS, pneumomediastinum Prerenal STEVEN probably secondary to renal tubular stasis, diabetic gastroparesis, hyperglycemia Leukocytosis with bandemia PUO HTN HLD Ileus, resolved Operations\Procedures: Intubation Central line placement Consultants: Dr. Dowling (athletic coach) Dr. Castrejon (intensive) Dr. Cline (nephrology) Complications: None Condition on DC: Stable for transfer Discharge Summary: A 54-year-old male with multiple medical comorbidities was brought in by the in view of altered mental status and loss of consciousness. The claims that the patient has been seizing at home prior to the day of admission. Patient was initially evaluated for stroke and seizures which were ruled out to be negative. MRI did not show any significant findings, EEG was nondiagnostic of seizures. Patient is known to have pseudoseizures. Alternatively patient's U tox was positive for marijuana indicating toxic marijuana induced encephalopathy. Patient was intubated at the time of admission until the 18 of March later being transitioned to CPAP and high-flow. At the time of admission, patient also had elevated blood sugars with inconclusive anion gap requiring treatment for DKA and gradually adjusting his subcutaneous insulin per requirements. Patient stayed on the insulin drip for a long time in view of uncontrolled blood sugars. Simultaneously, nephrology was consulted for elevated creatinine and hypernatremia. We will continuously monitoring of sodium levels, patient was treated with free water flushes and D5 to compensate for the free water deficit of about 6 L. patient's sodium was very rigid to correction requiring desmopressin subcu and IV. After being extubated on the 18 of March, patient developed pneumomediastinum and ARDS requiring re- intubation on the 21 of March, gradually being extubated on the 27 of March. Patient initially required fentanyl propofol and Precedex drips initially that were gradually tapered. All through the hospital course, patient was spiking fevers requiring to start antibiotics. Initially DVT was ruled out chest x-ray in urine analysis were negative for any infection but empiric antibiotics were continued. Patient received IV cefepime for about 10 days, complete a three day course of vancomycin. Patient is gradually transitioned to cefepime and linezolid. Patient had developed ileus requiring azithromycin to improve gastric motility which resolved on the 25 of March. Patient's other medical conditions were managed per home meds. Patient received tube feeding during the hospital course. Per Nephrology, patient requires outpatient follow up to monitor for development of CKD Physical examination at the time of discharge: General: Moderately build middle-aged men, AAO x3, following commands HEENT: PERRLA, no icterus, pallor, lymphadenopathy, carotid bruit Respiratory system: Bilateral vesicular breath sounds heard, bilateral crackles heard in all lung regions (improved) CVS: S1-S2 heard, no murmurs/rubs/gallop GI: Soft, nontender, no organomegaly, no guarding/rigidity, bowel sounds present Neuro: No focal neurological deficits present Extremities: No edema cyanosis clubbing/deformities Skin: Warm and dry Labs at the time of discharge: WBC: 11.8, H/H: 14/42.2, platelet count: 228 Sodium: 150, potassium: 3.2, BUN: 62, creatinine: 1.31 Imaging: Echo: Overall systolic function is severely decreased. LVEF is approximately 30%. Head MRI: No evidence of acute infarction, intracranial hemorrhage, mass effect or hydrocephalus. Mild paranasal sinus disease. Renal ultrasound: No evidence of obstructive uropathy, Incidental note made of a small cyst in the right kidney Vascular ultrasound: No evidence of deep vein thrombosis. Chest CT: Severe multifocal airspace disease most prominent in the left lower lobe. Moderate pneumomediastinum and subcutaneous emphysema in the lower neck and thorax. Patient is being transferred to LTAC for further care and management. *Problems/Diagnosis: (1) Hypernatremia (2) Acute kidney injury Status: Resolved Total Time Spent on D/C: > 30 Minutes Date of Service: Mar 29, 2025 Billing Provider: AVEL DOWLING MD, SIVA, RES Mar 29, 2025 12:10
[2025-03-29] MEDS ORDERED: potassium Cl 40MEQ/270ML bag 270 ML IV PRN (12:40)
[2025-03-29] MEDS: albumin (human) 25% 100 ML IV solution IV ONE (13:09)
[2025-03-29] MEDS: albumin (Human) 5% 250ml 250 ML IV SCH (13:10)
[2025-03-29 14:20] LABS: CREATININE,URINE RANDOM 271.0 MG/DL; UA UREA RANDOM 578.0 MG/DL
[2025-03-29 15:05] LABS: OSMOLALITY UA 562 MOSM/K (50-1400)
--- NOTE | 2025-03-29 17:29 | PROGRESS NOTE- Residence ---
Progress Note - Resident Providers to CC Resident Creating Document: BINDU RUIZ RES ~ Antibiotic Timeout Antibiotic Ordered?: Yes Subjective Patient received desmopressin 4 mcg subQ yesterday. His sodium slightly down 150 today. Fractional excretion of urea is 4.9%, urine sodium less than 15. We will give him another 4 mcg dose once today. He is being transferred to [facility] today. Objective Vital Signs Date Time Temp Pulse Resp B/P (MAP) Pulse Ox O2 Delivery O2 Flow Rate FiO2 03/29/25 14:00 99.9 91 27 107/65 (79) 100 Room Air 03/29/25 02:00 2.0 03/27/25 09:55 35 General: Patient is alert and oriented, he was extubated yesterday HEENT: PERRLA, no icterus, pallor, lymphadenopathy, carotid bruit, right IJV in place Respiratory system: Bilateral vesicular breath sounds heard, bilateral crackles heard in all lung region(decreasing) CVS: S1-S2 heard, no murmurs/rubs/gallop GI: Soft, nontender, no organomegaly, no guarding/rigidity, bowel sounds present Neuro: Could not perform Extremities: No edema cyanosis clubbing/deformities Skin: Warm and dry Result Diagram: 03/29/25 0330 03/29/25 1305 Coagulation Studies Laboratory Tests Test 03/15/25 14:59 Prothrombin Time 9.8 SECONDS (9.0-12.0) INR International Normalized Ratio 1.0 INR Activated Partial Thromboplast Time 21 SECONDS (22-32) L Coagulation Comments Advance Care Planning Advanced Care plannin - 30 Minutes Assessment Assessment A 54-year-old male with multiple medical comorbidities was brought in by the in view of confusion and eventual and consciousness. Patient is admitted for the evaluation management of altered mental status. MRI head ruled out stroke. Patient is spiking fevers for which antibiotics have been started. Patient developed ARDS and pneumomediastinum and therefore had to be reintubated on 03/21/2025. Patient has developed ileus. Patient has been extubated on 03/27/2025 Plan Plan Acute kidney injury, prerenal Hypernatremia, 150 today Elevated creatinine on admission,fluctuating levels of creatinine since admission, baseline renal function was normal earlier this year. History of prior STEVEN episodes-likely multifactorial etiology, including volume depletion, possible prerenal azotemia in the context of poor oral intake as well as hypoperfusion from CHF -patient continues to have hypernatremia -patient's creatinine continues to be stable 1.31 today Plan - Received a single dose of DDAVP 4mcg yesterday, Will give him another same dose today. - Continue strict input and output monitoring - Continue free water flushes via NG tube - Continue to monitor CMP daily Altered mental status, resolved 2/2 marijuana induced encephalopathy History of pseudo seizures EEG and MRI head: Non confirmatory for seizures U tox positive for marijuana -manage as per ICU team Acute hypoxemic respiratory failure, resolved 2/2 ARDS, pneumomediastinum -managed as per ICU team Diabetes mellitus type 2 Diabetic gastroparesis -manage as per ICU team Leukocytosis with bandemia Downtrending leukocyte count -manage as per ICU team Pyrexia of unknown origin Vascular ultrasound ruled out DVT Chest x-ray and UA negative for any infection Continue empiric antibiotics. Hypertension Hyperlipidemia -managed as per ICU team Code status: Full code Diet: NPO DVT prophylaxis: VINCE Ruiz Internal Medicine Resident Nephrology attending: Patient seen and examined. care plan reviewed with resident. will give another dose of desmopressin 4 mcg SQ. Na is 150, getting better. He is extubated. He may be going to LTAC today hopefully. CKD 3 with serum creatinine stable at 1.3 Terrance Good MD Date of Service: Mar 29, 2025 Billing Provider: TERRANCE GOOD MD, SHAMS, RES Mar 29, 2025 17:29 TERRANCE GOOD MD Mar 29, 2025 19:04
[2025-03-29] MEDS ORDERED: insulin glargine (Lantus) pen - multi-dose SQ SCH (20:00)
== END 2025-03-29 18:33 | DRG 812 ==
LOC: ER 13:10 → ED HOLD 14:52 → CICU 2S 16:41
PROVIDERS: ADMIT Internal Medicine Critical Care Medicine; ATTEND Internal Medicine Critical Care Medicine
PROC: 0BH17EZ Insertion of Endotracheal Airway into Trachea, Via Natural or Artificial Opening (ICD-10-PCS; principal; 2025-03-15)
PROC: 5A1945Z Respiratory Ventilation, 24-96 Consecutive Hours (ICD-10-PCS; 2025-03-15)
PROC: 4A10X4Z Monitoring of Central Nervous Electrical Activity, External Approach (ICD-10-PCS; 2025-03-16)
PROC: 5A0935A Assistance with Respiratory Ventilation, Less than 24 Consecutive Hours, High Flow/Velocity Cannula (ICD-10-PCS; 2025-03-18)
PROC: 5A0935A Assistance with Respiratory Ventilation, Less than 24 Consecutive Hours, High Flow/Velocity Cannula (ICD-10-PCS; 2025-03-19)
PROC: 5A09357 Assistance with Respiratory Ventilation, Less than 24 Consecutive Hours, Continuous Positive Airway Pressure (ICD-10-PCS; 2025-03-19)
PROC: 5A0935A Assistance with Respiratory Ventilation, Less than 24 Consecutive Hours, High Flow/Velocity Cannula (ICD-10-PCS; 2025-03-20)
PROC: 5A09357 Assistance with Respiratory Ventilation, Less than 24 Consecutive Hours, Continuous Positive Airway Pressure (ICD-10-PCS; 2025-03-20)
PROC: 5A1955Z Respiratory Ventilation, Greater than 96 Consecutive Hours (ICD-10-PCS; 2025-03-21)
PROC: 0BH17EZ Insertion of Endotracheal Airway into Trachea, Via Natural or Artificial Opening (ICD-10-PCS; 2025-03-21)
PROC: 03HY32Z Insertion of Monitoring Device into Upper Artery, Percutaneous Approach (ICD-10-PCS; 2025-03-21)
PROC: 06HY33Z Insertion of Infusion Device into Lower Vein, Percutaneous Approach (ICD-10-PCS; 2025-03-21)
PROC: 05HC33Z Insertion of Infusion Device into Left Basilic Vein, Percutaneous Approach (ICD-10-PCS; 2025-03-21)
PROC: B54NZZA Ultrasonography of Left Upper Extremity Veins, Guidance (ICD-10-PCS; 2025-03-21)
PROC: 5A09357 Assistance with Respiratory Ventilation, Less than 24 Consecutive Hours, Continuous Positive Airway Pressure (ICD-10-PCS; 2025-03-21)
DX: T40.711A Poisoning by cannabis, accidental (unintentional), initial encounter (principal); J80 Acute respiratory distress syndrome; I50.23 Acute on chronic systolic (congestive) heart failure; A41.9 Sepsis, unspecified organism; J15.9 Unspecified bacterial pneumonia; E11.10 Type 2 diabetes mellitus with ketoacidosis without coma; I21.A1 Myocardial infarction type 2; G93.41 Metabolic encephalopathy; I13.0 Hypertensive heart and chronic kidney disease with heart failure and stage 1 through stage 4 chronic kidney disease, or unspecified chronic kidney disease; J98.2 Interstitial emphysema; E87.0 Hyperosmolality and hypernatremia; K56.7 Ileus, unspecified; I42.0 Dilated cardiomyopathy; K31.84 Gastroparesis; E11.43 Type 2 diabetes mellitus with diabetic autonomic (poly)neuropathy; G20.A1 Parkinson's disease without dyskinesia, without mention of fluctuations; F12.10 Cannabis abuse, uncomplicated; F02.83 Dementia in other diseases classified elsewhere, unspecified severity, with mood disturbance; F02.84 Dementia in other diseases classified elsewhere, unspecified severity, with anxiety; F32.A Depression, unspecified; N40.0 Benign prostatic hyperplasia without lower urinary tract symptoms; G25.81 Restless legs syndrome; E87.6 Hypokalemia; E11.22 Type 2 diabetes mellitus with diabetic chronic kidney disease; E78.00 Pure hypercholesterolemia, unspecified; F17.210 Nicotine dependence, cigarettes, uncomplicated; N18.9 Chronic kidney disease, unspecified; Z79.4 Long term (current) use of insulin; Z82.0 Family history of epilepsy and other diseases of the nervous system; Z82.1 Family history of blindness and visual loss; Z82.49 Family history of ischemic heart disease and other diseases of the circulatory system; Z83.3 Family history of diabetes mellitus; Z84.1 Family history of disorders of kidney and ureter; Z88.0 Allergy status to penicillin; Y92.89 Other specified places as the place of occurrence of the external cause
CPT/HCPCS: 31500; 36410; 36415; 36556; 36600; 36620; 70450; 70551; 71045; 71250; 74018; 76770; 76937; 80048; 80053; 80202; 80305; 80320; 81001; 81003; 82550; 82553; 82570; 82803; 82948; 83036; 83605; 83690; 83735; 83880; 83930; 83935; 84100; 84132; 84133; 84134; 84145; 84156; 84300; 84439; 84443; 84478; 84484; 84540; 85007; 85018; 85025; 85610; 85730; 86885; 86900; 86901; 87040; 87070; 87081; 93005; 93306; 93970; 94002; 94003; 94660; 94664; 94760; 94799; 95816; 96365; 96375; 97110; 97161; 97530; 99285; A4615; A4628; A5200; A6212; A6213; A6258; A6449; A9900; C1751; C1758; G0378; J0131; J0360; J0692; J1171; J1650; J1815; J1938; J2020; J2250; J2260; J2270; J2405; J2470; J2597; J2704; J2919; J2997; J3010; J3373; J3374; J3375; J3480; J3490; J7030; J7040; J7050; J7070; J7120; P9045; P9047

== ENCOUNTER 2025-04-26 23:11 | Emergency (ER) | payer MEDICAID ==
[~2025-04-26] VITALS: Ht 170.2 cm; Wt 88.6 kg
[~2025-04-26 23:11] MED LIST changes: -BISA-77 PO; +BISA-95 PO; +DOCU-391 PO; -DOCU100C38 PO; -HYDR-3964 PO; +HYDR-3972 PO; -HYDR28CR14 TOP; +INSU100I29 SQ; -INSU200I8 SQ; +LUBI8CAP PO; -LUBI8CAP5 PO; -METO5TAB85 PO; +NORT25CA PO; -NORT25CA5 PO; +ONDA-243 PO; -ONDA-245 PO; -PREG50CA PO; +PREG50CA65 PO; -ROPI0.5T37 PO; +ROPI1TAB47 PO; -TERB125S TP; -rocuronium 10mg/ml inj IV ONE
--- NOTE | 2025-04-26 23:44 | Physician Documentation ---
History of Present Illness ~ General Chief Complaint: Multiple Medical Complaints Stated Complaint: MULTIPLE COMPLAINTS Time Seen by MD: 23:31 Primary Medical Doctor: Sandra History of Present Illness Initial Comments Patient presents to the emergency room for evaluation of back pain swelling that has a right upper extremity and pain to his face. He was admitted here recently for altered mental status and intubated. Patient has history of pseudoseizures. Ever since discharge he has been having this pain in his lower back which that has states that has getting worse along with some swelling in his right upper extremity which she attributes to PICC line placement. Also having some pain in his face for which he attributes this secondary to NG-tube and intubation. Patient in his at bedside have concerned that patient may have an infection Medication Reconciliation Allergies: Coded Allergies: Penicillins (Verified Allergy, Unknown, 04/26/25) last reaction >5 years, hives, received treatment famotidine (Verified Allergy, Unknown, 04/26/25) haloperidol (Verified Adverse Reaction, Severe, SEIZURE, 04/26/25) Scheduled Atorvastatin Calcium (Atorvastatin Calcium), 1 TAB PO DAILY, (Reported) Hydroxyzine Hcl* (Atarax*), 1 TAB PO TID, (Reported) Insulin Degludec (Tresiba Flextouch U-100), 48 UNITS SQ DAILY, (Reported) Insulin Lispro (Admelog Solostar), 1 UNIT SQ SLIDING SCALE, (Reported) Lubiprostone (Amitiza), 1 CAP PO HS, (Reported) Nortriptyline HCl (Nortriptyline HCl), 1 CAP PO HS, (Reported) Pantoprazole Sodium (Pantoprazole Sodium), 1 TAB PO BID, (Reported) Pregabalin (Pregabalin), 1 CAP PO BID, (Reported) Ropinirole Hcl (Ropinirole Hcl), 1 TAB PO QPM, (Reported) Terazosin HCl (Terazosin HCl), 1 CAP PO HS, (Reported) Valsartan (Valsartan), 1 TAB PO DAILY, (Reported) Scheduled PRN Bisacodyl (Laxative), 1 TAB PO DAILY PRN for constipation, (Reported) Docusate Sodium (Docusate Sodium), 1 CAP PO BID PRN for constipation, (Reported) Hydrocodone Bit/Acetaminophen (Hydrocodon-Acetaminophn 10-325 tablet), 1 TAB PO Q8H PRN for severe pain, (Reported) ONDANSETRON ODT 4mg tablet (Ondansetron Odt), 1 TAB PO BID PRN for nausea/vomiting, (Reported) Polyethylene Glycol 3350 ([id number]), 17 GM PO DAILY PRN for constipation, (Reported) Past Medical History Past Medical History: High Cholesterol, Hypertension, *GI/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*, Pancreatitis, Hernia, Diabetes Past Surgical History: noncontributory Patient History: Anemia FATHER, FH: Parkinson's disease FH: blindness FAMILY/OTHER, Age: 38 FH: dementia FATHER, FH: diabetes mellitus FATHER, , Onset:40's - 50 FAMILY/OTHER, Age: 38 FH: heart failure MOTHER, , Age: 71 FH: kidney disease FATHER, FH: uterine cancer MOTHER, , Age: 71 Hemorrhoids sister Alcohol Use: Other Drug Use: marijuana Lives with: Spouse Lives In: Home Review of Systems ROS All review of systems negative except as per HPI Physical Exam Physical Exam Vital Signs: Temperature: 98.5, Source: Oral, Heart Rate: 83, Respiratory Rate: 14, BP: 141/81, Pulse Oximetry: 99, Weight: 88.640 Oxygen Flow Rate: 0 Physical Exam General: Patient is awake, alert, oriented x4 in no acute distress Head: Normocephalic and atraumatic. Eyes: Conjunctival normal. EOMI. PERRL. ENT: Mucous membranes moist. Neck: Supple, trachea is midline. Chest: Clear to auscultation bilaterally without rales, rhonchi, or wheezes. There is no accessory muscle use or retractions. Cardiac: RRR without murmurs, gallops, or rubs. Abd: Soft, nondistended, nontender, with normoactive bowel sounds. No guarding, rebound, or rigidity. Extremities: Mild diffuse swelling to right upper extremity with no erythema Progress Results/Orders Results/Orders Completed Orders - JOSE E FLORIAN MD Cbc/Diff (04/26/25 23:48) Procalcitonin (04/26/25 23:48) BMP (04/26/25 23:48) Ondansetron Inj. (Zofran 4mg/2ml Vial) (04/26/25 23:50) Acetaminophen 1,000mg/100ml Iv (Ofirmev (04/26/25 23:50) Fentanyl/Pf (Fentanyl 0.05 Mg/Ml Syringe (04/26/25 23:50) Ketorolac Trometh 15mg/Ml Vial (Toradol (04/27/25 00:25) Ua W/Microscopic, Cult If Ind (04/27/25 00:13) Medications Received in ER Medications (Trade) Dose Ordered Sig/Bandar Route PRN Reason Start Time Stop Time Status Last Admin Dose Admin (Zofran 4mg/2ml vial) 4 mg ONCE ONCE IV 04/26/25 23:50 04/26/25 23:51 DC 04/27/25 00:42 4 MG Acetaminophen 100 ml @ 400 mls/hr ONCE ONCE IV 04/26/25 23:50 04/27/25 00:04 DC 04/27/25 00:49 400 MLS/HR (fentaNYL 0.05 MG/ML syringe) 50 mcg ONCE ONCE IV 04/26/25 23:50 04/26/25 23:51 DC 04/27/25 00:43 50 MCG (Toradol injection) 15 mg ONCE ONCE IV 04/27/25 00:25 04/27/25 00:27 DC 04/27/25 00:54 15 MG Vital Signs 04/26/25 04/27/25 04/27/25 23:12 00:19 00:43 Temp 98.5 Pulse 83 Resp 14 16 16 B/P (MAP) 141/81 Pulse Ox 99 O2 Flow Rate 0 Laboratory Tests Test 04/26/25 23:57 04/27/25 00:13 White Blood Count 10.4 Red Blood Count 3.49 L Hemoglobin 11.6 L Hematocrit 33.8 L Mean Corpuscular Volume 96.6 Mean Corpuscular Hemoglobin 33.3 H Mean Corpuscular Hemoglobin Concent 34.4 Red Cell Distribution Width 15.1 H Platelet Count 362 Mean Platelet Volume 7.5 Neutrophils (%) (Auto) 63.5 Lymphocytes (%) (Auto) 27.6 Monocytes (%) (Auto) 7.3 Eosinophils (%) (Auto) 0.5 Basophils (%) (Auto) 1.1 H Neutrophils # (Auto) 6.6 Lymphocytes # (Auto) 2.9 Monocytes # (Auto) 0.8 Eosinophils # (Auto) 0.1 Basophils # (Auto) 0.1 CBC Comment Sodium Level 146 H Potassium Level 4.2 Chloride Level 111 H Carbon Dioxide Level 27.1 Anion Gap 8 Blood Urea Nitrogen 28 H Creatinine 1.25 H Estimated GFR/1.73 m2 60 BUN/Creatinine Ratio 22.4 H Glucose Level 325 H Calcium Level 8.6 Albumin 3.0 L Procalcitonin 0.06 Chemistry Comments Urine Specimen Description Urinal Urine Color Straw Urine Clarity Clear Urine pH 6.0 Urine Specific [place] <=1.005 Urine Protein Negative Urine Glucose (UA) >=1000 H Urine Ketones Negative Urine Occult Blood Negative Urine Nitrite Negative Urine Bilirubin Negative Urine Urobilinogen 0.2 Urine Leukocyte Esterase Negative Urine RBC 0-2 Urine WBC 0-4 Urine Squamous Epithelial Cells Few Urine Bacteria None seen Urine Culture Indicated Not ind Volume Urine Centrifuged 10 ml Urine Comment Medical Decision Making Findings Patient presents to the emergency room with multiple medical complaints. Differentials include but are not limited to infection, dehydration, acute kidney injury, decubitus ulcer. Physical exam is reassuring and patient is nontoxic appearing and Back exam is reassuring. Labs reassuring. No evidence of infection. He had not feel advanced imaging is necessary at this juncture Departure Disposition: 01 HOME / SELF CARE / HOMELESS Impression: Primary Impression: Adult general medical exam Condition: Stable Discharge Instructions: General Discharge Instructions Referrals: NO PRIMARY CARE PROVIDER (PCP) Signature Scribe Signature: No scribe Attestation: The note accurately reflects work and decisions made by me.Jose E Florian MD 04/27/25 01:04 JOSE E FLORIAN MD Apr 26, 2025 23:44
[2025-04-27 00:04] LABS: MEAN PLATELET VOLUME 7.5 FL (7.4-10.4); RED CELL DISTRIBUTION WIDTH 15.1 % (11.5-14.5)
[2025-04-27 00:24] LABS: CREATININE 1.25 MG/DL (0.60-1.10); TOTAL CARBON DIOXIDE 27.1 MMOL/L (24-32); eCRCL 62 ML/MIN; eGFR 60 ML/MIN
[2025-04-27] MEDS: ondansetron/PF 4mg/2ml inj IV ONE (00:42)
[2025-04-27 00:43] LABS: LEUKOCYTE ESTERASE ,URINE NEGATIVE (Neg); NITRITES, URINE NEGATIVE (Neg); OCCULT BLOOD,URINE NEGATIVE (Neg)
[2025-04-27] MEDS: fentaNYL/PF 50MCG/1 ML 2ML syringe IV ONE (00:43)
[2025-04-27 00:45] LABS: UA COLLECTION TYPE URINAL
[2025-04-27 00:47] LABS: SQUAMOUS EPITHELIAL CELL,UR FEW /LPF (FEW)
[2025-04-27] MEDS: acetaminophen 1,000mg/100ml IV 100 ML IV ONE (00:49)
[2025-04-27] MEDS: ketorolac trometh 15mg/ml vial 15 MG/ML ML IV ONE (00:54)
[2025-04-27] MEDS: morphine 4 MG/ML inj SYRINge IV ONE (01:32)
[2025-04-27 02:10] VITALS: BP 145/82; PULSE 79; RESP 18; TEMP 98.5; O2SAT 96
== END 2025-04-27 02:18 | disposition home or self-care (01) ==
LOC: ER 23:12
DX: Z00.00 Encounter for general adult medical examination without abnormal findings (principal); I10 Essential (primary) hypertension; F12.90 Cannabis use, unspecified, uncomplicated; E11.9 Type 2 diabetes mellitus without complications; Z87.19 Personal history of other diseases of the digestive system; E78.00 Pure hypercholesterolemia, unspecified; D64.9 Anemia, unspecified; Z88.0 Allergy status to penicillin; Z88.8 Allergy status to other drugs, medicaments and biological substances; Z79.899 Other long term (current) drug therapy
CPT/HCPCS: 36415; 80048; 81001; 84145; 85025; 96374; 96375; 99284; J0131; J1885; J2270; J2405; J3010; A6258

== ENCOUNTER 2025-07-25 22:29 | Emergency (ER) | payer MEDICAID ==
[~2025-07-25] VITALS: Ht 170.2 cm; Wt 88.0 kg
--- NOTE | 2025-07-25 23:59 | Physician Documentation ---
History of Present Illness ~ Chief Complaint: Hand pain Stated Complaint: SWOLLEN HANDS Time Seen by MD: 00:46 Primary Medical Doctor: Sandra BARAJAS 54-year-old male known diabetic brought to the emergency department for evaluation of bilateral upper extremity swelling since being discharged in the hospital in March 2025. Admitted at that time for respiratory failure secondary to seizure. Positive polydipsia without polyphagia or polyuria. No lower dependent swelling. No recent upper extremity infections. History as above. He is also concern about some skin irritation between digits four five and three. He is placed on an antibiotic for this without improvement. Tetanus within 5 years: No Medication Reconciliation Allergies: Coded Allergies: Penicillins (Verified Allergy, Unknown, 04/26/25) last reaction >5 years, hives, received treatment famotidine (Verified Allergy, Unknown, 04/26/25) haloperidol (Verified Adverse Reaction, Severe, SEIZURE, 04/26/25) Scheduled Atorvastatin Calcium (Atorvastatin Calcium), 1 TAB PO DAILY, (Reported) Hydroxyzine Hcl* (Atarax*), 1 TAB PO TID, (Reported) Insulin Degludec (Tresiba Flextouch U-100), 48 UNITS SQ DAILY, (Reported) Insulin Lispro (Admelog Solostar), 1 UNIT SQ SLIDING SCALE, (Reported) Lubiprostone (Amitiza), 1 CAP PO HS, (Reported) Nortriptyline HCl (Nortriptyline HCl), 1 CAP PO HS, (Reported) Pantoprazole Sodium (Pantoprazole Sodium), 1 TAB PO BID, (Reported) Pregabalin (Pregabalin), 1 CAP PO BID, (Reported) Ropinirole Hcl (Ropinirole Hcl), 1 TAB PO QPM, (Reported) Terazosin HCl (Terazosin HCl), 1 CAP PO HS, (Reported) Tolnaftate (Tinactin), 1 APPLIC TOP Q12H Valsartan (Valsartan), 1 TAB PO DAILY, (Reported) Scheduled PRN Bisacodyl (Laxative), 1 TAB PO DAILY PRN for constipation, (Reported) Docusate Sodium (Docusate Sodium), 1 CAP PO BID PRN for constipation, (Reported) Hydrocodone Bit/Acetaminophen (Hydrocodon-Acetaminophn 10-325 tablet), 1 TAB PO Q8H PRN for severe pain, (Reported) ONDANSETRON ODT 4mg tablet (Ondansetron Odt), 1 TAB PO BID PRN for nausea/vomiting, (Reported) Polyethylene Glycol 3350 ([id number]), 17 GM PO DAILY PRN for constipation, (Reported) Past Medical History Past Medical History: High Cholesterol, Hypertension, *GI/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*, Pierce creatitis, Hernia, Diabetes Past Surgical History: noncontributory Patient History: Anemia FATHER, FH: Parkinson's disease FH: blindness FAMILY/OTHER, Age: 38 FH: dementia FATHER, FH: diabetes mellitus FATHER, , Onset:40's - 50 FAMILY/OTHER, Age: 38 FH: heart failure MOTHER, , Age: 71 FH: kidney disease FATHER, FH: uterine cancer MOTHER, , Age: 71 Hemorrhoids sister Alcohol Use: Other Drug Use: marijuana Lives with: Spouse Lives In: Home Review of Systems ROS All review of systems negative except as per HPI Physical Exam Vital Signs: Temperature: 98.3, Source: Oral, Heart Rate: 75, Respiratory Rate: 16, BP: 135/98, Pulse Oximetry: 98, Weight: 88.000 Oxygen Flow Rate: 0 Physical Exam General: Patient is awake, alert, oriented x4 in no acute distress and well appearing.~ Head: Normocephalic and atraumatic. Eyes: Conjunctival normal. EOMI. PERRL. ENT: Mucous membranes moist. Neck: Supple, trachea is midline. Chest: Clear to auscultation bilaterally without rales, rhonchi, or wheezes. There is no accessory muscle use or retractions. Cardiac: RRR without murmurs, gallops, or rubs. Extremities: Some erythema noted between digits four five and three. Mild bilateral upper extremity swelling. Progress Results/Orders Results/Orders Vital Signs 07/25/25 22:40 Temp 98.3 Pulse 75 Resp 16 B/P (MAP) 135/98 Pulse Ox 98 O2 Flow Rate 0 Laboratory Tests Test 07/26/25 00:27 White Blood Count 9.9 Red Blood Count 4.75 Hemoglobin 15.0 Hematocrit 43.7 Mean Corpuscular Volume 92.0 Mean Corpuscular Hemoglobin 31.6 H Mean Corpuscular Hemoglobin Concent 34.3 Red Cell Distribution Width 13.5 Platelet Count 231 Mean Platelet Volume 8.5 Neutrophils (%) (Auto) 51.3 Lymphocytes (%) (Auto) 38.8 Monocytes (%) (Auto) 7.1 Eosinophils (%) (Auto) 2.5 Basophils (%) (Auto) 0.3 Neutrophils # (Auto) 5.1 Lymphocytes # (Auto) 3.9 Monocytes # (Auto) 0.7 Eosinophils # (Auto) 0.2 Basophils # (Auto) 0.0 CBC Comment Sodium Level 142 Potassium Level 5.2 H Chloride Level 107 Carbon Dioxide Level 27.4 Anion Gap 8 Blood Urea Nitrogen 23 H Creatinine 1.46 H Estimated GFR/1.73 m2 50 BUN/Creatinine Ratio 15.8 Glucose Level 262 H Calcium Level 9.0 Total Bilirubin 0.3 Aspartate Amino Transf (AST/SGOT) 10 Alanine Aminotransferase (ALT/SGPT) 26 Alkaline Phosphatase 106 Pro-B-Type Natriuretic Peptide 46 Total Protein 7.3 Albumin 3.8 Globulin 3.5 Albumin/Globulin Ratio 1.1 Chemistry Comments Medical Decision Making Additional information obtaine: family Findings 54-year-old male with increase in the upper extremity swelling over several months without lower extremity swelling, chest pain or palpitations or dyspnea on exertion. Medical screening examination completed. Labs pending an x-ray of the chest pending. Differentials include electrolyte derangement, CHF can not exclude superior vena cava syndrome. Assume care of patient. Patient did receive a PICC line on his right upper extremity during his admission and I believe this is contributing to his upper extremity edema right greater than left. No evidence of fluid overload. He does have a fungal infection between his digits and we will treat him for this. Given history and time of his edema and he had not feel that has suffering from acute DVT/arterial pathology General Diff Dx:Considerations: Include: Abrasion, Contusion, Fracture, Hematoma, Laceration, Malunion, Neurovascular injury, Open fracture, Sprain, Ulcer, Other Shoulder Diff Dx:Consideration: Include: AC separation, Adhesive capsulitis, Arthritis, Bicipital tendonitis, Calcific tendonitis, Cervical disc disease, Contusion, Dislocation, Fracture-humerus, Fracture-scapula, Fracture-clavicle, GB disease, Hematoma, Impingement syndrome, Myocardial infarction, Neurovascular injury, Open fracture-humerus, Open fracture-scapula, Open fracture-clavicle, Rotator cuff injury, SC dislocatoin, Sprain, Subacromial bursitis, Other Elbow Diff Dx:Considerations: Include: Abrasion, Arthritis, Contustion, DJD, Fracture-humerus, Fracture-radial head, Fracture-radius, Fracture-ulna, Gout, Hematoma, Laceration, Neurovascular injury, Olecranon bursitis, Open fracture, Osteomyelitis, Radial head subluxation, Rheumatoid arthritis, Septic, Sprain, Ulcer, Other Wrist Diff Dx:Considerations: Include: Abrasion, Arthritis, DJD, Gout, Rheumatoid, Septic, Carpal tunnel snydrome, Contusion, Dislocation, Fracture- carpal, Fracture-radius, Fracture-ulna, Ganglion, Laceration, Neurovascular injury, Open fracture, Strain, Other Hand Diff Dx:Considerations: Include: Abrasion, Arthritis, Contusion, DJD, Felon, Fracture-carpal, Fracture-metacarpal, Fracture-phalynx, Fracture-radius, Fracture-ulna, Gout, Hematoma, Herpetic enrike, Laceration, Neurovascular injury, Open fracture, Paronychia, Rheumatoid arthritis, Septic, Sprain, Subungual hematoma, Tenosynovitis, Volar plate injury, Cellulitis, Malunion, Other Finger Diff Dx:Considerations: Include: Abrasion, Cellulitis, Contusion, Dislocation, Fracture, Hematoma, Laceration, Neurovascular injury, Open fracture, Subungual hematoma, Other Departure Disposition: 01 HOME / SELF CARE / HOMELESS Impression: Primary Impression: Edema Additional Impression: Fungal skin infection Condition: Stable Discharge Instructions: Peripheral Edema Referrals: NO PRIMARY CARE PROVIDER (PCP) Prescriptions Tolnaftate (Tinactin) 1 % Cream..g. 1 APPLIC TOP Q12H for 14 Days, #30 GM 0 Refills Prov: JOSE E FLORIAN MD 07/26/25 Signature Scribe Signature: No scribe Attestation: The note accurately reflects work and decisions made by me.Jose E Florian MD 07/26/25 00:58 ARIES ZELAYA Jul 25, 2025 23:59 JOSE E FLORIAN MD Jul 26, 2025 00:58
--- NOTE | 2025-07-26 00:36 | RADIOLOGY REPORT ---
CHEST RADIOGRAPH INDICATION: Upper ext swelling TECHNIQUE: Single frontal view of the chest was obtained COMPARISON: DI CHEST,SINGLE VIEW on DOS: 03/28/25, DI CHEST,SINGLE VIEW on DOS: 03/28/25, DI CHEST,SINGLE VIEW on DOS: 03/27/25, DI CHEST,SINGLE VIEW on DOS: 03/26/25, DI CHEST,SINGLE VIEW on DOS: 03/25/25 FINDINGS: Lines and Tubes: None Lungs: Clear Pleura: No effusion. No pneumothorax. Cardiomediastinal contours: Unremarkable Bones: Unremarkable IMPRESSION: 1. No acute disease.
[2025-07-26 00:56] LABS: MEAN PLATELET VOLUME 8.5 FL (7.4-10.4); RED CELL DISTRIBUTION WIDTH 13.5 % (11.5-14.5)
[2025-07-26] MEDS ORDERED: TOLN30CR6 TOP (00:57)
[2025-07-26 01:02] LABS: CREATININE 1.46 MG/DL (0.60-1.10); PRO BRAIN NATRIURETIC PEPTIDE 46 PG/ML (0-125); TOTAL CARBON DIOXIDE 27.4 MMOL/L (24-32); eCRCL 53 ML/MIN; eGFR 50 ML/MIN
[2025-07-26 02:08] VITALS: BP 140/90; PULSE 74; RESP 18; TEMP 98.6; O2SAT 99
== END 2025-07-26 02:10 | disposition home or self-care (01) ==
LOC: ER 22:29
DX: B36.9 Superficial mycosis, unspecified (principal); R60.9 Edema, unspecified; E78.00 Pure hypercholesterolemia, unspecified; F12.90 Cannabis use, unspecified, uncomplicated; D64.9 Anemia, unspecified; E11.9 Type 2 diabetes mellitus without complications; I10 Essential (primary) hypertension; Z88.0 Allergy status to penicillin; Z88.8 Allergy status to other drugs, medicaments and biological substances; Z87.19 Personal history of other diseases of the digestive system; Z79.899 Other long term (current) drug therapy; Z79.4 Long term (current) use of insulin
CPT/HCPCS: 36415; 71045; 80053; 83880; 85025; 99284

== ENCOUNTER 2025-08-02 15:35 | Emergency (ER) | payer MEDICAID ==
[~2025-08-02] VITALS: Ht 170.2 cm; Wt 96.8 kg
[~2025-08-02 15:35] MED LIST changes: +TOLN30CR6 TOP
[2025-08-02 16:25] LABS: MEAN PLATELET VOLUME 8.4 FL (7.4-10.4)
[2025-08-02 16:27] LABS: RED CELL DISTRIBUTION WIDTH 14.0 % (11.5-14.5)
[2025-08-02] MEDS ORDERED: haloperidol lactate 5mg/ml inj IM ONE (16:45)
--- NOTE | 2025-08-02 16:45 | Physician Documentation ---
History of Present Illness Chief Complaint: Multiple Medical Complaints Stated Complaint: SZ Time Seen by MD: 16:37 Primary Medical Doctor: Sandra BARAJAS 54-year-old male presents to the ED with a complaint one day of nausea and vomiting and left-sided abdominal pain. Patient reports being has been showing use of marijuana. States the only alleviating factors he has a hot shower. Reports vomiting regularly throughout the day.. 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 Day of Onset: Aug 02, 2025 Medication Reconciliation Allergies: Coded Allergies: Penicillins (Verified Allergy, Unknown, 08/02/25) last reaction >5 years, hives, received treatment famotidine (Verified Allergy, Unknown, 08/02/25) haloperidol (Verified Adverse Reaction, Severe, SEIZURE, 08/02/25) Scheduled Atorvastatin Calcium (Atorvastatin Calcium), 1 TAB PO DAILY, (Reported) Hydroxyzine Hcl* (Atarax*), 1 TAB PO TID, (Reported) Insulin Degludec (Tresiba Flextouch U-100), 48 UNITS SQ DAILY, (Reported) Insulin Lispro (Admelog Solostar), 1 UNIT SQ SLIDING SCALE, (Reported) Lubiprostone (Amitiza), 1 CAP PO HS, (Reported) Nortriptyline HCl (Nortriptyline HCl), 1 CAP PO HS, (Reported) Pantoprazole Sodium (Pantoprazole Sodium), 1 TAB PO BID, (Reported) Pregabalin (Pregabalin), 1 CAP PO BID, (Reported) Ropinirole Hcl (Ropinirole Hcl), 1 TAB PO QPM, (Reported) Terazosin HCl (Terazosin HCl), 1 CAP PO HS, (Reported) Tolnaftate (Tinactin), 1 APPLIC TOP Q12H Valsartan (Valsartan), 1 TAB PO DAILY, (Reported) Scheduled PRN Bisacodyl (Laxative), 1 TAB PO DAILY PRN for constipation, (Reported) Docusate Sodium (Docusate Sodium), 1 CAP PO BID PRN for constipation, (Reported) Hydrocodone Bit/Acetaminophen (Hydrocodon-Acetaminophn 10-325 tablet), 1 TAB PO Q8H PRN for severe pain, (Reported) ONDANSETRON ODT 4mg tablet (Ondansetron Odt), 1 TAB PO BID PRN for nausea/vomiting, (Reported) Polyethylene Glycol 3350 ([id number]), 17 GM PO DAILY PRN for constipation, (Reported) Past Medical History Past Medical History: High Cholesterol, Hypertension, *GI/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*, Pancreatitis, Hernia, Diabetes Past Surgical History: noncontributory Patient History: Anemia FATHER, FH: Parkinson's disease FH: blindness FAMILY/OTHER, Age: 38 FH: dementia FATHER, FH: diabetes mellitus FATHER, , Onset:40's - 50 FAMILY/OTHER, Age: 38 FH: heart failure MOTHER, , Age: 71 FH: kidney disease FATHER, FH: uterine cancer MOTHER, , Age: 71 Hemorrhoids sister Alcohol Use: Other Drug Use: marijuana Lives with: Spouse Lives In: Home Review of Systems All Other Systems at this time: Reviewed and Negative ROS As stated above in the HPI, otherwise all systems are reviewed and negative. Physical Exam Vital Signs: Temperature: 97.5, Source: Temporal, Heart Rate: 90, Respiratory Rate: 18, BP: 146/89, Pulse Oximetry: 99, Weight: 96.800 Oxygen Flow Rate: 0 Physical Exam General: Alert, no apparent distress. Respiratory: Lungs clear, no respiratory distress. Chest: No accessory muscle use. Cardiovascular: Regular rate and rhythm, no murmurs. Gastrointestinal: Soft, nontender obese abdomen Extremities: Normal range of motion, no deformity. Neurologic: Oriented x4. Psychiatric: Normal mood and affect. Skin: Normal color, warm and dry. No edema, no ecchymosis. Progress Results/Orders Results/Orders Orders - KULWANT MARCH NP Haloperidol Lact. (Haldol) (08/02/25 16:45) Metoclopramide Inj (Reglan Inj) (08/02/25 16:45) Diphenhydramine Inj (Benadryl Inj.) (08/02/25 16:45) Diazepam Inj (Valium Inj) (08/02/25 16:45) Vital Signs 08/02/25 08/02/25 15:48 16:29 Temp 97.5 Pulse 90 Resp 20 18 B/P (MAP) 146/89 Pulse Ox 99 O2 Flow Rate 0 Laboratory Tests Test 08/02/25 16:19 CBC Comment Chemistry Comments Medical Decision Making Additional information obtaine: old records Findings The patient presents with a all the clinical indications for cannabinoid hyperemesis syndrome which he has previously been diagnosed four. Continues to use marijuana. The medications given to him in the ago helped reduce his symptoms to a tolerable level. He has been extensively evaluated in the outpatient setting via endoscopy colonoscopy. Does have outpatient therapy at [facility]. I explained to the family and the patient that he has chronic issues and he had to be investigated an outpatient setting as he does not present with an emergent issue or Evidence there of. Differential Dx:Considerations: Gastroenteritis Departure Disposition: HOME / SELF CARE / HOMELESS Impression: Primary Impression: Left upper quadrant abdominal pain Additional Impressions: Cannabis abuse Cannabinoid hyperemesis syndrome Condition: Improved Discharge Instructions: Cannabinoid Hyperemesis Syndrome Referrals: NO PRIMARY CARE PROVIDER (PCP) Signature Scribe Signature: y Attestation: Scribed for Kulwant March Woodworker by Kulwant Pack NP . 08/02/25 18:23 KULWANT MARCH NP Aug 02, 2025 16:45
[2025-08-02 16:55] LABS: CREATININE 1.64 MG/DL (0.60-1.10); TOTAL CARBON DIOXIDE 25.7 MMOL/L (24-32); eCRCL 48 ML/MIN; eGFR 44 ML/MIN
[2025-08-02 17:12] VITALS: TEMP 97.5
[2025-08-02] MEDS: diazepam inj 5 MG/ML inj. IV ONE (17:45)
[2025-08-02] MEDS: metoclopramide 5 mg/ml inj IV ONE (17:46)
[2025-08-02] MEDS: normal saline 1000ML IV soln IVB ONE (17:47)
[2025-08-02] MEDS: OLANZapine **IM** 10 mg inj. IM ONE (17:47)
[2025-08-02 17:57] LABS: LEUKOCYTE ESTERASE ,URINE NEGATIVE (Neg); NITRITES, URINE NEGATIVE (Neg); OCCULT BLOOD,URINE SMALL (Neg)
[2025-08-02 18:15] LABS: UA COLLECTION TYPE CLN CATCH MIDSTREAM
[2025-08-02 18:16] LABS: SQUAMOUS EPITHELIAL CELL,UR FEW /LPF (FEW)
[2025-08-02 19:09] VITALS: BP 140/93; PULSE 86; RESP 18; O2SAT 96
== END 2025-08-02 19:11 | disposition home or self-care (01) ==
LOC: ER 15:35
DX: R10.12 Left upper quadrant pain (principal); F12.10 Cannabis abuse, uncomplicated; R11.16 Cannabis hyperemesis syndrome; E78.00 Pure hypercholesterolemia, unspecified; E11.9 Type 2 diabetes mellitus without complications; D64.9 Anemia, unspecified; I10 Essential (primary) hypertension; Z87.19 Personal history of other diseases of the digestive system; Z88.0 Allergy status to penicillin; Z88.8 Allergy status to other drugs, medicaments and biological substances; Z79.899 Other long term (current) drug therapy
CPT/HCPCS: 80053; 81001; 83690; 85025; 96361; 96372; 96374; 96375; 99284; J1200; J2765; J3360; J3490; J7030

== ENCOUNTER 2025-08-10 03:34 | Emergency (ER) | payer MEDICAID ==
[~2025-08-10] VITALS: Ht 170.2 cm; Wt 96.0 kg
[2025-08-10 03:39] VITALS: TEMP 97.6
--- NOTE | 2025-08-10 04:30 | Physician Documentation ---
History of Present Illness ~ Chief Complaint: Abdominal Pain Stated Complaint: ABD PAIN Time Seen by MD: 04:17 Primary Medical Doctor: Sandra BARAJAS Patient presents to the emergency room with vomiting. History of hyperemesis last seen one-week ago. Symptoms picked up last night about 10:00 p.m.. He continues to use marijuana that has despite being diagnosed with cannabis hy peremesis syndrome. Medication Reconciliation Allergies: Coded Allergies: Penicillins (Verified Allergy, Unknown, 08/02/25) last reaction >5 years, hives, received treatment famotidine (Verified Allergy, Unknown, 08/02/25) haloperidol (Verified Adverse Reaction, Severe, SEIZURE, 08/02/25) Scheduled Atorvastatin Calcium (Atorvastatin Calcium), 1 TAB PO DAILY, (Reported) Hydroxyzine Hcl* (Atarax*), 1 TAB PO TID, (Reported) Insulin Degludec (Tresiba Flextouch U-100), 48 UNITS SQ DAILY, (Reported) Insulin Lispro (Admelog Solostar), 1 UNIT SQ SLIDING SCALE, (Reported) Lubiprostone (Amitiza), 1 CAP PO HS, (Reported) Nortriptyline HCl (Nortriptyline HCl), 1 CAP PO HS, (Reported) Pantoprazole Sodium (Pantoprazole Sodium), 1 TAB PO BID, (Reported) Pregabalin (Pregabalin), 1 CAP PO BID, (Reported) Ropinirole Hcl (Ropinirole Hcl), 1 TAB PO QPM, (Reported) Terazosin HCl (Terazosin HCl), 1 CAP PO HS, (Reported) Tolnaftate (Tinactin), 1 APPLIC TOP Q12H Valsartan (Valsartan), 1 TAB PO DAILY, (Reported) Scheduled PRN Bisacodyl (Laxative), 1 TAB PO DAILY PRN for constipation, (Reported) Docusate Sodium (Docusate Sodium), 1 CAP PO BID PRN for constipation, (Reported) Hydrocodone Bit/Acetaminophen (Hydrocodon-Acetaminophn 10-325 tablet), 1 TAB PO Q8H PRN for severe pain, (Reported) ONDANSETRON ODT 4mg tablet (Ondansetron Odt), 1 TAB PO BID PRN for nausea/vomiting, (Reported) Polyethylene Glycol 3350 (Huo4501), 17 GM PO DAILY PRN for constipation, (Reported) Past Medical History Past Medical History: High Cholesterol, Hypertension, *GI/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*, Pancreatitis, Hernia, Diabetes Past Surgical History: noncontributory Patient History: Anemia FATHER, FH: Parkinson's disease FH: blindness FAMILY/OTHER, Age: 38 FH: dementia FATHER, FH: diabetes mellitus FATHER, , Onset:40's - 50 FAMILY/OTHER, Age: 38 FH: heart failure MOTHER, , Age: 71 FH: kidney disease FATHER, FH: uterine cancer MOTHER, , Age: 71 Hemorrhoids sister Alcohol Use: Other Drug Use: marijuana Lives with: Spouse Lives In: Home Review of Systems ROS All review of systems negative except as per HPI Physical Exam Vital Signs: Temperature: 97.6, Heart Rate: 85, Respiratory Rate: 16, BP: 143/92, Pulse Oximetry: 98, Weight: 96.000 Oxygen Flow Rate: 0 Physical Exam General: Patient is awake, alert, oriented x4 in mild distress. Head: Normocephalic and atraumatic. Eyes: Conjunctival normal. EOMI. PERRL. ENT: Mucous membranes moist. Neck: Supple, trachea is midline. Chest: Clear to auscultation bilaterally without rales, rhonchi, or wheezes. There is no accessory muscle use or retractions. Cardiac: RRR without murmurs, gallops, or rubs. Abd: Soft, nondistended, diffuse abdominal tenderness without peritonitis Progress Results/Orders Results/Orders Orders - JOSE E FLORIAN MD Urinalysis, Cult If Indicated (08/10/25 03:47) Completed Orders - JOSE E FLORIAN MD Cbc/Diff (08/10/25 03:47) BMP (08/10/25 03:47) Lipase (08/10/25 03:47) CMP (08/10/25 03:47) Olanzapine Im (Zyprexa I.M. Im On (08/10/25 04:25) Diazepam Inj (Valium Inj) (08/10/25 04:25) Metoclopramide Inj (Reglan Inj) (08/10/25 04:25) Diphenhydramine Inj (Benadryl Inj.) (08/10/25 04:25) Normal Saline 1000ml (0.9% Sodium Chlori (08/10/25 04:25) Hs Troponin I W Calculations (08/10/25 04:25) Acetaminophen 1,000mg/100ml Iv (Ofirmev (08/10/25 04:30) Insulin Regular, Human (Humulin R 10 Uni (08/10/25 05:35) Medications Received in ER Medications (Trade) Dose Ordered Sig/Bandar Route PRN Reason Start Time Stop Time Status Last Admin Dose Admin (ZyPREXA I.M. IM ONLY) 5 mg ONCE ONCE IM 08/10/25 04:25 08/10/25 04:30 DC 08/10/25 05:29 5 MG (Valium inj) 5 mg ONCE ONCE IV 08/10/25 04:25 08/10/25 04:26 DC 08/10/25 05:17 5 MG (Reglan inj) 5 mg ONCE ONCE IV 08/10/25 04:25 08/10/25 04:30 DC 08/10/25 05:08 5 MG (Benadryl inj.) 25 mg ONCE ONCE IV 08/10/25 04:25 08/10/25 04:26 DC 08/10/25 05:11 25 MG Sodium Chloride 1,000 ml @ 1,000 mls/hr ONCE ONCE IV 08/10/25 04:25 08/10/25 05:24 DC 08/10/25 05:17 1,000 MLS/HR Acetaminophen 100 ml @ 400 mls/hr ONCE ONCE IV 08/10/25 04:30 08/10/25 04:44 DC 08/10/25 05:17 400 MLS/HR Vital Signs 08/10/25 08/10/25 03:39 05:17 Temp 97.6 Pulse 85 Resp 16 19 B/P (MAP) 143/92 Pulse Ox 98 O2 Flow Rate 0 Laboratory Tests Test 08/10/25 05:03 White Blood Count 11.0 Red Blood Count 4.53 L Hemoglobin 14.2 Hematocrit 41.9 L Mean Corpuscular Volume 92.6 Mean Corpuscular Hemoglobin 31.5 H Mean Corpuscular Hemoglobin Concent 34.0 Red Cell Distribution Width 13.7 Platelet Count 322 Mean Platelet Volume 8.1 Neutrophils (%) (Auto) 76.5 H Lymphocytes (%) (Auto) 17.4 L Monocytes (%) (Auto) 4.4 Eosinophils (%) (Auto) 0.6 Basophils (%) (Auto) 1.1 H Neutrophils # (Auto) 8.4 H Lymphocytes # (Auto) 1.9 Monocytes # (Auto) 0.5 Eosinophils # (Auto) 0.1 Basophils # (Auto) 0.1 CBC Comment Sodium Level 143 Potassium Level 4.6 Chloride Level 105 Carbon Dioxide Level 29.4 Anion Gap 9 Blood Urea Nitrogen 33 H Creatinine 1.34 H Estimated GFR/1.73 m2 55 BUN/Creatinine Ratio 24.6 H Glucose Level 384 H Calcium Level 9.3 Total Bilirubin 0.3 Aspartate Amino Transf (AST/SGOT) 12 Alanine Aminotransferase (ALT/SGPT) 27 Alkaline Phosphatase 91 Troponin I High Sensitivity 5 Total Protein 7.3 Albumin 3.5 Globulin 3.8 Albumin/Globulin Ratio 0.9 L Lipase 25 Chemistry Comments Medical Decision Making Additional information obtaine: old records Findings Patient presents to the emergency room with nausea and vomiting that has per HPI. Differentials include but are not limited to dehydration electrolyte disturbances, hyperemesis secondary to cannabis use. Small-bowel obstruction therefore emergent labs ordered which were reassuring. Mild dehydration. Patient is responding treatment and feels better after IV fluids. Patient reports he has Zofran at home. He has been advised to abstain Diff Dx GI Bleed:Consideration: Include: AE fistula, Angiodysplasia, Bleeding diathesis, Blood loss anemia, Carcinoma, Diverticulosis, Diverticulitis, Esophageal varicies, Esophagitis, Gastritis, Gastroenteritis, Inflammatory BD, Cheryle-Ferreira syndrome, Meckel's diverticulum, PUD, Other Diff Dx Pain:Considerations: Include: AAA, Angina/[place], Aortic dissection, Appendicitis, Bowel obstruction, Cholangitis, Cholecystitis, Cholelithasis, Constipation, Diverticular disease, Esophageal rupture, Esophagitis, Gastritis, Gastroenteritis, GI hemorrhage, Hepatitis, Hernia, Inflammatory BD, Ischemic bowel, Mass, Pancreatitis, Porphyria, PUD, Testicular torsion, Trauma, intraabdominal, Urinary obstruction, Urinary tract infection, Urolithiasis, Other Diff Dx N/V/D:Considerations: Include: Appendicitis, Bowel obstruction, Dehydration, DKA, Diarrhea - bacterial, Diarrhea - parasitic, Diarrhea - viral, Diverticulitis, Diverticulosis, Drug toxicity, Electrolyte imbalance, Food poisoning, Gastroenteritis, GE reflux, GI bleed, Hepatitis, Hernia, Hypovolemia, Hypotension, Inflammatory BD, Impaction, Malnutrition, Pancreatitis, PUD, Renal failure, Urinary obstruction, UTI, Urolithiasis, Other Diff Dx Rectal:Considerations: Include: Fissure, Fistula, Foreign body, Impaction, Perirectal abscess, Prostatitis, Rectal prolapse, Subcutaneous abscess, Thrombosed hemorrhoid, Ulcer, UTI, Other Departure Disposition: 01 HOME / SELF CARE / HOMELESS Impression: Primary Impression: Cannabis hyperemesis syndrome Condition: Improved Discharge Instructions: Cannabis Use Disorder Additional Instructions: Abstain from cannabis Referrals: NO PRIMARY CARE PROVIDER (PCP) Signature Scribe Signature: No scribe Attestation: The note accurately reflects work and decisions made by me.Jose E Florian MD 08/10/25 05:51 JOSE E FLORIAN MD Aug 10, 2025 04:30
[2025-08-10] MEDS: metoclopramide 5 mg/ml inj IV ONE (05:08)
[2025-08-10] MEDS: diazepam inj 5 MG/ML inj. IV ONE (05:17)
[2025-08-10] MEDS: normal saline 1000ml 1,000 ML IV ONE (05:17)
[2025-08-10] MEDS: acetaminophen 1,000mg/100ml IV 100 ML IV ONE (05:17)
[2025-08-10 05:19] LABS: MEAN PLATELET VOLUME 8.1 FL (7.4-10.4); RED CELL DISTRIBUTION WIDTH 13.7 % (11.5-14.5)
[2025-08-10] MEDS: OLANZapine **IM** 10 mg inj. IM ONE (05:29)
[2025-08-10 05:31] LABS: CREATININE 1.34 MG/DL (0.60-1.10); TOTAL CARBON DIOXIDE 29.4 MMOL/L (24-32); eCRCL 58 ML/MIN; eGFR 55 ML/MIN
[2025-08-10] MEDS: insulin regular, human 10 units/0.1 ml syringe IV ONE (05:57)
[2025-08-10] MEDS ORDERED: CAPS60CR6 TOP (05:58)
[2025-08-10 06:45] VITALS: BP 137/71; PULSE 73; RESP 12; O2SAT 98
== END 2025-08-10 06:48 | disposition home or self-care (01) ==
LOC: ER 03:35
DX: R11.16 Cannabis hyperemesis syndrome (principal); I10 Essential (primary) hypertension; F12.90 Cannabis use, unspecified, uncomplicated; E78.00 Pure hypercholesterolemia, unspecified; E11.9 Type 2 diabetes mellitus without complications; D64.9 Anemia, unspecified; Z88.0 Allergy status to penicillin; Z87.19 Personal history of other diseases of the digestive system; Z88.8 Allergy status to other drugs, medicaments and biological substances; Z79.899 Other long term (current) drug therapy
CPT/HCPCS: 36415; 80053; 82948; 83690; 84484; 85025; 96361; 96372; 96374; 96375; 99284; J0131; J1200; J1815; J2765; J3360; J3490; J7030